=== PATIENT | male | born 1930 | race Caucasian/White ===

== ENCOUNTER 2016-09-19 11:09 | Emergency (ER) | payer OTHER ==
[~2016-09-19] VITALS: Ht 167.6 cm; Wt 99.8 kg
[~2016-09-19 11:09] MED LIST: ABSORBASE TOP; ADVAIR 250-501 EACH INH; ADVAIR DISKUS 21 DSK INH; ALBUTEROL1.25 MG/3 INH; ALLOPURINOL100 M1 PO; ALLOPURINOL100 MG PO; ANTIVERT 12.512.5 MG PO; APAP325 MG PO; ASPIR-TRIN325 MG PO; ASPIRIN325 M2 PO; ATORVASTATIN CA80 M1 PO; ATORVASTATIN CA80 MG PO; AXIRON30 MG/1.5; Apresoline PO; BLEPH-105 ML OPH; BREO ELLIPTA 11 EACH INH; COLACE100 MG PO; COREG 25 MG TAB25 MG PO; CRESTOR20 MG PO; CRESTOR40 MG PO; CYCLOBENZAPRINE5 M2 PO; DOCUSATE SODIU100 M3 PO; FLOMAX0.4 M1 PO; FLUTICASON0.05 MG/Ac NASB; FML LIQUIFILM OPH; FUROSEMIDE20 MG PO; GEMFIBROZIL600 MG PO; HUMALOG 100U100 U/ML; HUMALOG 100U100 U/ML SC; HUMALOG100 U/ML SC; HYDRALAZINE HCL25 MG PO; HYDRALAZINE HCL50 MG PO; LACTULOSE10 GM/15 M PO; LANTUS SOL100 UNIT/1 SC; LANTUS SOLOS100 U/ML SC; LANTUS100 U/ML SC; LEVEMIR100 UNIT/1 SC; LEVOCETIRIZINE D5 MG PO; LEXAPRO 20MG M20 MG PO; LISINOPRIL10 M1 PO; LISINOPRIL10 MG PO; LISINOPRIL20 MG PO; MECLIZINE HCL12.5 M1 PO; MIRALAX119 GM PO; MYRBETRIQ50 M1 PO; NASONEX17 GM NASB; NORCO 325 MG-51 TAB PO; NORVASC 5MG TAB5 MG PO; NOVOLOG100 UNIT/2 SC; OMEPRAZOLE20 M3 PO; OXYBUTYNIN CHLOR5 M2 PO; PATANASE0.6% NASB; PLAVIX 75MG TAB75 MG PO; RAPAFLO4 M1 PO; RAPAFLO8 MG PO; SENNA PLUS TAB1 EACH PO; SENOKOT S 50 MG1 TAB PO; SENOKOT-S TABL1 EACH PO; SINGULAIR10 MG PO; ULTRAM50 M1 PO; VITAMIN D250000 UNIT PO; VOLTAREN100 GM TOP; ZOFRAN ODT4 M1 SL
--- NOTE | 2016-09-19 11:16 | ED GENERAL ADULT ---
History of Present Illness General Chief Complaint: General Adult Stated Complaint: BIBA WEAKNESS,VOMITING Source: patient, EMS Exam Limitations: clinical condition, confusion Vital Signs & Intake/Output Vital Signs & Intake/Output Vital Signs Date Time Temp Pulse Resp B/P Pulse O2 O2 Flow FiO2 Ox Delivery Rate 09/19 1511 96.8 73 18 162/75 98 Room Air 09/19 1119 96.5 61 18 135/66 97 Room Air Allergies Coded Allergies: NO KNOWN ALLERGIES (05/15/16) Reconcile Medications Albuterol Sulfate (Albuterol Sulfate Nebulizer Soln) 1.25 MG/3 ML VIAL.NEB 1 PUFF INH TID PRN ASTHMA (Reported) Allopurinol 100 MG TABLET 1 TAB PO 0900 GOUT (Reported) Amlodipine Besylate 5 MG TABLET 1 TAB PO DAILY HEART (Reported) Aspirin (Aspirin*) 325 MG TABLET 1 TAB PO 1700 HEART/BLOOD (Reported) Atorvastatin Calcium 80 MG TABLET 1 TAB PO 1700 CHOLESTEROL (Reported) Azelastine/Fluticasone (Dymista Nasal Garrett) 137 MCG-50 MCG/SPRAY SPRAY.PUMP 1 SPRAY NASB BID PRN ALLERGIES (Reported) Bisacodyl (Dulcolax) 10 MG SUPP.RECT 1 SUP RC DAILY GI (Reported) Carvedilol (Coreg) 25 MG TABLET 1 TAB PO BID BLOOD PRESSURE (Reported) Cholecalciferol (Vitamin D3) (Vitamin D) 1,000 UNIT TABLET 1 TAB PO DAILY SUPPLEMENT (Reported) Clopidogrel Bisulfate (Plavix) 75 MG TABLET 75 MG PO DAILY STROKE Clotrimazole 1 % CREAM..G. 1 NAOMI TOP BID SKIN (Reported) apply to affected area(s) Cyclobenzaprine HCl 5 MG TABLET 1 TAB PO TIDPRN MUSCLE RELAXER (Reported) Ergocalciferol (Vitamin D2) (Vitamin D2) 50,000 UNIT CAPSULE 1 CAP PO QMON SUPPLEMENT (Reported) Escitalopram Oxalate (Lexapro 20MG) 20 MG TABLET 1 TAB PO DAILY DEPRESSION ( Reported) Fluticasone/Vilanterol (Breo Ellipta 100-25 Mcg INH) 100 MCG-25 MCG/DOSE BLST.W.DEV 1 PUFF INH BID COPD (Reported) Gemfibrozil 600 MG TABLET 1 TAB PO BID CHOLESTEROL/TRIGLYCERIDE (Reported) Insulin Detemir (Levemir) 100 UNIT/ML VIAL 8 UNITS SC BID dm Insulin Lispro (Humalog) (Unknown Strength) VIAL (Unknown Dose) SEE SLIDING SCALE DIABETES (Reported) Lisinopril 10 MG TABLET 2 TAB PO QAM BP (Reported) Mirabegron (Myrbetriq) 50 MG TAB.ER.24H 1 TAB PO DAILY BLADDER (Reported) Montelukast Sodium (Singulair) 10 MG TAB 1 TAB PO DAILY ALLERGIES (Reported) Omeprazole 20 MG TABLET.DR 1 TAB PO DAILY GI (Reported) Oxybutynin Chloride 5 MG TABLET 1 TAB PO 0900 BLADDER (Reported) Ranitidine HCl (Zantac) 150 MG TABLET 1 TAB PO BID GI (Reported) Tamsulosin HCl (Flomax) 0.4 MG CAP.ER.24H 1 CAP PO 1700 PROSTATE (Reported) Tramadol HCl (Ultram) 50 MG TABLET 1 TAB PO Q8H PRN PAIN (Reported) Trazodone HCl 50 MG TABLET 0.5 TAB PO DAILY PRN UNKNOWN (Reported) Triage Nurses Notes Reviewed? yes Onset: Abrupt Duration: hour(s): (1) Timing: single episode today Injury Environment: home Severity: moderate No Modifying Factors: none Associated Symptoms: weakness HPI: This is an 86-year-old male who presents by EMS from home for chief complaint of weakness and fall while attempting to go to the bathroom to have a bowel movement. Patient states that he was just not feeling good. Denies any chest pain or shortness breath. Denies any head trauma or loss of consciousness. Denies any headache or blurred vision. He appears to be somewhat weak. He states he ate breakfast this morning and then vomited twice after eating breakfast. No family members currently at bedside. He states he activated his only fine. Patient presented awake and alert but slightly confused. He was covered in stool which was brown and formed. Past History Travel History Traveled to [place] past 21 day No Medical History Any Pertinent Medical History? see below for history Neurological: CVA (CVA 2009, seen on MRI, see EMR), syncope thought d/t orthostasis 2009 (see EMR) EENT: cataracts, glaucoma, low vision Cardiovascular: aortic stenosis, CAD, hypertension, hyperlipidemia, carotid atherosclerosis, followed by Dr Cassidy since 2009 adm Respiratory: COPD, obstructive sleep apnea, pneumonia, USES CPAP Gastrointestinal: GERD Hepatic: NONE Renal: chronic kidney disease Musculoskeletal: degen joint disease, arthritis Psychiatric: depression Endocrine: diabetes, hypoglycemia Blood Disorders: anemia Cancer(s): prostate cancer BANK APPRAISER/Reproductive: NONE History of MRSA: No History of VRE: No History of CDIFF: No Tetanus Vaccine: 05/10/16 Surgical History Surgical History: BILAT KNEE REPLACEMENT CARDIAC STENT CAROTID ANGIOPLASTY carotid endarterectomy carotid endarterectomy on the right right carotid endarterectomy Psychosocial History Who do you live with Family Services at Home Home Health Aide, Nursing What is your primary language Japanese Family History Family History, If Any: MOTHER (diabetes and NE at age 65). FATHER (heart attack in 70's). SISTER, Age 60+. FH: dementia FH: Parkinson's disease FATHER Relation not specified for: FH: hypertension Hx Contributory? No Review of Systems Review of Systems Constitutional: Reports: malaise, weakness. Denies: chills, fever. EENTM: Reports: no symptoms. Respiratory: Denies: cough, short of breath. Cardiovascular: Denies: chest pain. GI: Reports: nausea, vomiting. Denies: abdominal pain. Genitourinary: Denies: discharge, dysuria. Musculoskeletal: Reports: no symptoms. Skin: Reports: no symptoms. Neurological/Psychological: Reports: no symptoms. Hematologic/Endocrine: Denies: bruising, bleeding, polyuria, polydipsia. Immunologic/Allergic: Denies: splenectomy. All Other Systems: Reviewed and Negative Physical Exam Physical Exam General Appearance: well developed/nourished, alert, awake, mild distress, obese Head: atraumatic, normal appearance Eyes: Bilateral: normal appearance, PERRL, EOMI. Ears, Nose, Throat: normal pharynx, normal ENT inspection Neck: normal inspection, supple, full range of motion Respiratory: normal breath sounds, chest non-tender, no respiratory distress Cardiovascular: regular rate/rhythm Peripheral Pulses: 2+ radial (R), 2+ radial (L) Gastrointestinal: soft, non-tender, OBESE Extremities: normal inspection, normal range of motion Neurologic/Psych: no motor/sensory deficits, awake, alert, oriented x 3 Skin: intact, normal color, pallor Core Measures ACS in differential dx? No CVA/TIA Diagnosis: No Severe Sepsis Present: No Septic Shock Present: No Progress Differential Diagnoses I considered the following diagnoses in my evaluation of the patient: [CVA, TIA, SEPSIS, PNEUMONIA, UTI, SBO, ISCHEMIC BOWEL, AMI] Plan of Care: Orders Procedure Date/time Status Consistent Carbohydrate 1 09/19 D Active LACTIC ACID 09/19 1436 Active BLOOD CULTURE 09/19 1143 Active URINALYSIS 09/19 1136 Complete TROPONIN LEVEL 09/19 1136 Complete LACTIC ACID 09/19 1136 Complete COMPREHENSIVE METABOLIC PANEL 09/19 1136 Complete CBC WITHOUT DIFFERENTIAL 09/19 1136 Complete EKG 09/19 1136 Active Laboratory Tests 09/19/16 1516: Urinalysis LIGHT H, Urine Color YEL, Urine Clarity CLEAR, Urine pH 6.0, Ur Specific [place] 1.025, Urine Protein >=300 H, Urine Ketones NEG, Urine Nitrite NEG, Urine Bilirubin NEG, Urine Urobilinogen 0.2, Ur Leukocyte Esterase NEG, Ur Microscopic SEDIMENT EXAMINED, Urine RBC 1-3, Urine WBC 5-10 H, Ur Epithelial Cells RARE, Hyaline Casts 3-5 H, Granular Casts 1-3 H, Urine Mucus FEW, Urine Hemoglobin TRACE-LYSED H, Urine Glucose NEG 09/19/16 1200: Anion Gap 12, Estimated GFR 25 L, BUN/Creatinine Ratio 18.4, Glucose 86, Lactic Acid 1.0, Calcium 8.0 L, Total Bilirubin 0.6, AST 14 L, ALT 25, Alkaline Phosphatase 151 H, Troponin I 0.01, Total Protein 6.3, Albumin 3.3 L, Globulin 3.0, Albumin/Globulin Ratio 1.1, CBC w Diff NO MAN DIFF REQ, RBC 3.62 L, MCV 84.1, MCH 29.3, RDW 14.8 H, MPV 6.5 L, Gran % 75.4 H, Lymphocytes % 11.9 L, Monocytes % 8.5, Eosinophils % 4.0, Basophils % 0.2, Absolute Granulocytes 3.7, Absolute Lymphocytes 0.6 L, Absolute Monocytes 0.4, Absolute Eosinophils 0.2, Absolute Basophils 0, PUBS MCHC 34.8 Microbiology 09/19 1200 BLOOD: Blood Culture - RECD 09/19 1200 BLOOD: Blood Culture - RECD Patient feeling much bettera after fluids andwas able to eat lunch. Back to baseline per patient and his son. He will follow up with his PCP outpatient. (GATO CERRATO,GUSTAVO) Diagnostic Imaging: Viewed by Me: Radiology Read. Discussed w/RAD: Radiology Read. CXR Impression: PATIENT: KEVIN PATEL PRESENT AGE: 86 PATIENT ACCOUNT NO: [id number] : 32 LOCATION: [facility] ORDERING PHYSICIAN: GUSTAVO HOSKINS MD SERVICE DATE: 09/19/16 EXAM TYPE: RAD - XRY -PORTABLE CHEST XRAY EXAMINATION: XR PORTABLE CHEST CLINICAL INFORMATION: Weakness and fall. Evaluate for pneumonia. COMPARISON: CXR from 09/09/2015 TECHNIQUE: Portable view of the chest was obtained. FINDINGS: The patient's known right lower lobe pulmonary nodule is not visualized on this study. The right diaphragm is chronically, mildly elevated. The cardiomediastinal silhouette has stable size and contour. There is stable prominence of the right paracardiac fat pad. The aorta has atherosclerotic calcification. There is no acute pulmonary consolidation, edema or pleural effusion. Surgical clips are present in the right lower neck. The visualized bones are unremarkable. IMPRESSION: No acute cardiopulmonary findings compared to the chest radiograph of 09/09/2015. DICTATED BY: DARYL GONSALES MD DATE/TIME DICTATED:09/19/161318 SIDE STAPLER:ROC DATE/TIME TRANSCRIBED:09/19/161318 CONFIDENTIAL, DO NOT COPY WITHOUT APPROPRIATE AUTHORIZATION. <Electronically signed in Other Vendor System> SIGNED BY: DARYL GONSALES MD 09/19/16 1327 Initial ED EKG: NSR Departure Departure Time of Disposition: 155 Disposition: HOME OR SELF CARE Condition: Stable Clinical Impression Primary Impression: Weakness Referrals: ISAAC MAYERS MD (PCP/Family) Additional Instructions: Follow up with your primary care doctor in the office. REturn as needed. Departure Forms: Customer Survey General Discharge Information Critical Care Note Critical Care Note Critical Care Time: 30-74 min
[2016-09-19 12:12] LABS: ABSOLUTE BASOPHIL COUNT 0 /CUMM (0.0-0.2); ABSOLUTE EOSINOPHIL COUNT 0.2 /CUMM (0.0-0.7); ABSOLUTE GRANULOCYTE CT 3.7 /CUMM (1.4-6.5); ABSOLUTE LYMPH COUNT 0.6 /CUMM (1.2-3.4); ABSOLUTE MONOCYTE COUNT 0.4 /CUMM (0.10-0.60); BASOPHIL % 0.2 % (0.0-2.0); GRANULOCYTE % 75.4 % (42.2-75.2); HEMATOCRIT 30.4 % (42-52); MEAN CORPUSCULAR HGB 29.3 PG (27.0-31.0); MEAN CORPUSCULAR HGB CONC 34.8 G/DL (33.0-37.0); MEAN CORPUSCULAR VOLUME 84.1 FL (80.0-94.0); MEAN PLATELET VOLUME 6.5 FL (7.4-10.4); PLATELET COUNT 212 /CUMM (130-400); RBC DISTRIBUTION WIDTH 14.8 % (11.5-14.5); RED BLOOD CELL CT 3.62 /CUMM (4.70-6.10); WHITE BLOOD CELL COUNT 4.9 /CUMM (4.8-10.8)
[2016-09-19] MEDS ORDERED: AMLODIPINE BESYL5 M1 PO (12:36)
[2016-09-19] MEDS ORDERED: DULCOLAX10 M1 RC (12:38)
[2016-09-19] MEDS ORDERED: CLOTRIMAZOLE15 GM TOP (12:38)
[2016-09-19] MEDS ORDERED: DYMISTA NASAL S23 GM NASB (12:39)
[2016-09-19] MEDS ORDERED: MYRBETRIQ50 M1 PO (12:40)
[2016-09-19] MEDS ORDERED: HUMALOG100 UNIT/2 (12:40)
[2016-09-19] MEDS ORDERED: TRAZODONE HCL50 M1 PO (12:41)
[2016-09-19] MEDS ORDERED: ZANTAC150 M1 PO (12:42)
[2016-09-19] MEDS ORDERED: VITAMIN D1000 UNIT PO (12:42)
--- NOTE | 2016-09-19 13:27 | RADIOLOGY REPORT ---
EXAMINATION: XR PORTABLE CHEST CLINICAL INFORMATION: Weakness and fall. Evaluate for pneumonia. COMPARISON: CXR from 09/09/2015 TECHNIQUE: Portable view of the chest was obtained. FINDINGS: The patient's known right lower lobe pulmonary nodule is not visualized on this study. The right diaphragm is chronically, mildly elevated. The cardiomediastinal silhouette has stable size and contour. There is stable prominence of the right paracardiac fat pad. The aorta has atherosclerotic calcification. There is no acute pulmonary consolidation, edema or pleural effusion. Surgical clips are present in the right lower neck. The visualized bones are unremarkable. IMPRESSION: No acute cardiopulmonary findings compared to the chest radiograph of 09/09/2015.
[2016-09-19 15:11] VITALS: BP 162/75
== END 2016-09-19 16:13 ==
LOC: ERH 11:09
PROVIDERS: Emergency Medicine
DX: R53.1 Weakness (principal)
CPT/HCPCS: 81001; 87040; 93005; 93010; 96360; 96361

== ENCOUNTER 2016-10-18 11:05 | Inpatient (IN) | payer OTHER ==
[~2016-10-18] VITALS: Ht 165.1 cm; Wt 100.7 kg
[~2016-10-18 11:05] MED LIST changes: +AMLODIPINE BESYL5 M1 PO; +CLOTRIMAZOLE15 GM TOP; +DULCOLAX10 M1 RC; +DYMISTA NASAL S23 GM NASB; +HUMALOG100 UNIT/2; +TRAZODONE HCL50 M1 PO; +VITAMIN D1000 UNIT PO; +ZANTAC150 M1 PO
--- NOTE | 2016-10-18 11:10 | ED DYSPNEA/ASTHMA COMPLAINT ---
History of Present Illness General Chief Complaint: Dyspnea (COPD, CHF, Other) Stated Complaint: SOB Source: patient, old records, EMS Exam Limitations: no limitations Vital Signs & Intake/Output Vital Signs & Intake/Output Vital Signs Date Time Temp Pulse Resp B/P Pulse O2 O2 Flow FiO2 Ox Delivery Rate 10/18 1744 98 Nasal 2.0L Cannula 10/18 1744 87 20 167/88 97 Nasal 2.0L Cannula 10/18 1626 94 Room Air 10/18 1626 82 24 167/72 94 Room Air 10/18 1329 97.5 73 18 156/79 97 Nasal 2.0L Cannula 10/18 1200 96 Nasal 2.0L Cannula 10/18 1117 97.2 88 24 147/67 95 Room Air Allergies Coded Allergies: NO KNOWN ALLERGIES (05/15/16) Triage Nurses Notes Reviewed? 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 There's been no fever chills nausea vomiting or diarrhea. Episodes since the patient is been poor and lethargic than normal since the cough began. No sick contacts no modifying factors. He denies worsening of his symptoms with ambulation. He denies leg swelling. There are no other associated symptoms or modifying factors otherwise. He does not smoke he is not currently on home O2 (BACILIO MARKS) Reconcile Medications Albuterol Sulfate 1.25 MG/3 ML VIAL.NEB 1 Vial INH/CHARISSA Q4-6 PRN SOB (Reported ) Allopurinol 100 MG TABLET 1 TAB PO 0900 GOUT (Reported) Amlodipine Besylate 5 MG TABLET 1 TAB PO DAILY HEART (Reported) Aspirin (Aspirin*) 325 MG TABLET 1 TAB PO 1700 HEART/BLOOD (Reported) Atorvastatin Calcium 80 MG TABLET 1 TAB PO 1700 CHOLESTEROL (Reported) Carvedilol 25 MG TABLET 1 TAB PO BID HTN (Reported) Clopidogrel Bisulfate (Plavix) 75 MG TABLET 75 MG PO DAILY STROKE Diclofenac Sodium (Voltaren) 1 % GEL..GRAM. 1 GM TOP 4 TIMES/DAY PAIN ( Reported) apply to affected area(s) Ergocalciferol (Vitamin D2) (Vitamin D2) 50,000 UNIT CAPSULE 50,000 UNITS PO WEEKLY MONDAY VITAMIN (Reported) Escitalopram Oxalate (Lexapro) 20 MG TABLET 1 TAB PO DAILY ANXIETY (Reported) Fluticasone/Vilanterol (Breo Ellipta 100-25 Mcg INH) 100 MCG-25 MCG/DOSE BLST.W.DEV 1 PUFF INH BID COPD (Reported) Gemfibrozil 600 MG TABLET 1 TAB PO BID CHOL (Reported) Insulin Detemir (Levemir) 100 UNIT/ML VIAL 8 UNITS SC BID dm Lisinopril 10 MG TABLET 2 TAB PO QAM BP (Reported) Montelukast Sodium (Singulair) 10 MG TAB 1 TAB PO DAILY ALLERGIES (Reported) Polyethylene Glycol 3350 (Miralax) 17 GRAM POWD.PACK 1 PAC PO DAILY CONSTIPATION (Reported) dissolve in water Tamsulosin HCl (Flomax) 0.4 MG CAP.ER.24H 1 CAP PO 1700 PROSTATE (Reported) (FOREIGN ROYAL DO) Past History Travel History Traveled to [place] past 21 day No Medical History Any Pertinent Medical History? see below for history Neurological: CVA (CVA 2009, seen on MRI, see EMR), syncope thought d/t orthostasis 2009 (see EMR) EENT: cataracts, glaucoma, low vision Cardiovascular: aortic stenosis, CAD, hypertension, hyperlipidemia, carotid atherosclerosis, followed by Dr Cassidy since 2009 adm Respiratory: COPD, obstructive sleep apnea, pneumonia, USES CPAP Gastrointestinal: GERD Hepatic: NONE Renal: chronic kidney disease Musculoskeletal: degen joint disease, arthritis Psychiatric: depression Endocrine: diabetes, hypoglycemia Blood Disorders: anemia Cancer(s): prostate cancer MANUSCRIPTS CURATOR/Reproductive: NONE History of MRSA: No History of VRE: No History of CDIFF: No Tetanus Vaccine: 05/10/16 Surgical History Surgical History: BILAT KNEE REPLACEMENT CARDIAC STENT CAROTID ANGIOPLASTY carotid endarterectomy carotid endarterectomy on the right right carotid endarterectomy Psychosocial History Who do you live with Family Services at Home Home Health Aide, Nursing What is your primary language Faroese Tobacco Use: Never used Family History Family History, If Any: MOTHER (diabetes and PA at age 65). FATHER (heart attack in 70's). SISTER, Age 60+. FH: dementia FH: Parkinson's disease FATHER Relation not specified for: FH: hypertension Hx Contributory? No (BACILIO MARKS) Review of Systems Review of Systems Constitutional: Reports: see HPI. All Other Systems: Reviewed and Negative Comments Review of systems: See HPI, All other systems negative. Constitutional, no chills no fever, no malaise no weight loss HEENT: No visual changes no sore throat no congestion, no ear pain Cardiovascular: chest pain , no palpitation , no orthopnea no ankle swelling Skin, no rashes, no change in skin Respiratory: No dyspnea cough no sputum no hemoptysis GI: No nausea no vomiting, no diarrhea, : No dysuria No hematuria, no frequency Muscle skeletal: No joint pain, no joint swelling, no back pain, no neck pain, Neurologic: no headache Psych: No stress Heme/endocrine: No bruising no bleeding Immunology: No lymphadenopathy, (BACILIO MARKS) Physical Exam Physical Exam General Appearance: well developed/nourished, alert, awake Respiratory: chest non-tender, no respiratory distress Comments: Well-developed well-nourished person in no acute distress HEENT: Normal EENT exam; PERRL, EOMI, HEAD is atraumatic. moist mucous membranes. Neck: Supple, normal range of motion Back: Nontender, no CVA tenderness. Full range of motion Cardiovascular: Regular rate and rhythms no murmurs rubs or gallops, normal JVP Respiratory: Chest nontender.There were no bony deformities, no asymmetry. No respiratory distress. Patient speaking in full complete sentences. Breath sounds clear to auscultation bilaterally: NO W/R/R Abdomen: Soft, nontender nondistended, no appreciable organomegaly. Normal bowel sounds. No rebound/guarding, No appreciable enlargement of the abdominal aorta, No ascites. Extremity: No edema, full range of motion of extremities, Neuro: Alert oriented x3, motor sensory normal,There were no obvious focal neurologic abnormalities. Skin: No appreciable rash on exposed skin, skin is warm and dry. Psych: Mood and affect is normal, memory and judgment is normal. Core Measures ACS in differential dx? Yes Severe Sepsis Present: No Septic Shock Present: No (BACILIO MARKS) Progress Differential Diagnosis: asthma, AMI, bronchitis, costochondritis, CHF, COPD, musculoskeletal pain, pericarditis, pulmonary embolism, pneumonia, unstable angina Plan of Care: Orders Procedure Date/time Status CBC WITHOUT DIFFERENTIAL 10/19 0600 Active BASIC ELECTROLYTES PLUS BUN&CR 10/19 0600 Active Consistent Carbohydrate 2 10/18 D Active TROPONIN LEVEL 10/18 1900 Active Vital Signs 10/18 1743 Active Teach/Educate 10/18 1743 Active Nutritional Intake, Monitor 10/18 1743 Active Isolation 10/18 1743 Active Intake & Output 10/18 1743 Active Patient Care Conference 10/18 1743 Active Activity/Ambulation 10/18 1743 Active Pathway - chart 10/18 1715 Active STREP PNEUMO URINARY ANTIGEN 10/18 1706 Active LEGIONELLA URINARY ANTIGEN 10/18 1706 Active LOWER RESPIRATORY CULTURE 10/18 1706 Active URINALYSIS 10/18 1706 Active TRC EVALUATION (GEN) 10/18 1507 Active Pathway - chart 10/18 1504 Active House Staff 10/18 1504 Active Admit to inpatient 10/18 1437 Active Vital Signs 10/18 1437 Active Code Status 10/18 1437 Complete Code Status 10/18 1437 Active Patient Data 10/18 1354 Active BLOOD CULTURE 10/18 1212 Active Telemetry/Ironworker Machine Operator 10/18 1121 Complete BLOOD CULTURE 10/18 1121 Active TROPONIN LEVEL 10/18 1119 Complete PROTHROMBIN TIME 10/18 1119 Complete COMPREHENSIVE METABOLIC PANEL 10/18 1119 Complete CBC WITHOUT DIFFERENTIAL 10/18 1119 Complete B-TYPE NATRIURETIC PEP (BNP) 10/18 1119 Complete EKG 10/18 1119 Active CONTIN. POSITIVE AIRWAY PRESS 10/18 UNK Active ARTERIAL BLOOD GAS (GEN) 10/18 UNK Active VTE Mechanical Prophylaxis 10/18 UNK Active Intake & Output 10/18 UNK Active FingerStick- Glucose 10/18 UNK Active PHYSICIAN CONSULT 10/18 UNK Active Current Medications Sig/Reyna Start time Last Medication Dose Stop Time Status Admin Ergocalciferol 50,000 IU Mo 10/24 1000 AC (Drisdol) Atorvastatin Calcium 80 MG 1700 10/19 1700 AC (Lipitor) Tamsulosin HCl 0.4 MG 1700 10/19 1700 AC (Flomax) Amlodipine Besylate 5 MG DAILY 10/19 1000 AC (Norvasc) Azithromycin 500 MG DAILY 10/19 1000 AC (Zithromax) Dextrose/Water 250 ML (D5W) Ceftriaxone Sodium 1,000 MG DAILY 10/19 1000 AC (Rocephin) Escitalopram Oxalate 20 MG DAILY 10/19 1000 AC (Lexapro) Lisinopril 20 MG QAM 10/19 1000 AC (Prinivil) Allopurinol 100 MG 0900 10/19 0900 AC (Zyloprim) Insulin Aspart 0 TIDAC 10/19 0800 AC (NovoLOG) Methylprednisolone 40 MG Q8 10/19 0600 AC (Solumedrol) Budesonide/ 2 PUF BID 10/18 2200 AC Formoterol Fumarate (SYMBICORT) Carvedilol 25 MG BID 10/18 2200 AC (Coreg) Gemfibrozil 600 MG BID 10/18 2200 AC (Lopid 600 MG Tab) Insulin Detemir 8 UNITS BID 10/18 2200 AC (Levemir) Diclofenac Sodium 1 NAOMI 4 TIMES/DAY 10/18 1800 AC (Voltaren 1% Gel) Heparin Sodium 5,000 UNIT Q8 10/18 1743 AC (Porcine) Acetaminophen 650 MG Q6P PRN 10/18 1715 AC (Tylenol) Morphine Sulfate 2 MG Q4P PRN 10/18 1715 AC (Morphine) Oxycodone/ 1 TAB Q6 PRN 10/18 1715 AC Acetaminophen (Percocet) Polyethylene Glycol 17 GM DAILY PRN 10/18 1715 AC (Miralax) Aspirin 325 MG 1700 10/18 1700 AC (Aspirin) Albuterol Sulfate 3 ML Q4P PRN 10/18 1645 AC (Proventil) Laboratory Tests 10/18/16 1235: Anion Gap 11, Estimated GFR 26 L, BUN/Creatinine Ratio 17.5, Glucose 200 H, Calcium 7.6 L, Total Bilirubin 0.5, AST 15 L, ALT 28, Alkaline Phosphatase 185 H, Troponin I 0.06, Buw-S-Vsiicotpqkh Pept 1310 H, Total Protein 5.8 L, Albumin 2.9 L, Globulin 2.9, Albumin/Globulin Ratio 1.0 L, PT 12.7 H, INR 1.21 H, CBC w Diff NO MAN DIFF REQ, RBC 3.54 L, MCV 84.3, MCH 28.5, RDW 15.9 H, MPV 6.6 L, Gran % 76.1 H, Lymphocytes % 10.7 L, Monocytes % 10.9 H, Eosinophils % 2.1, Basophils % 0.2, Absolute Granulocytes 4.8, Absolute Lymphocytes 0.7 L, Absolute Monocytes 0.7 H, Absolute Eosinophils 0.1, Absolute Basophils 0, PUBS MCHC 33.8 Microbiology 10/18 1705 URINE ROUT: Legionella Antigen - COLB 10/18 1705 URINE ROUT: Streptococcus pneumoniae Antigen (M - COLB 10/18 1705 LOWER RESP: Respiratory Culture - COLB 10/18 170 LOWER RESP: Gram Stain - COLB 10/18 1250 BLOOD: Blood Culture - RECD 10/18 1235 BLOOD: Blood Culture - RECD Labs ordered old records reviewed DuoNeb ordered On repeat evaluation patient reports improvement in his symptoms with breathing treatment discussed with him and his son his x-ray findings and need for admission which they're in agreement with. The case was discussed with Patient's creatinine is at his baseline. (BERE APPLE,BACILIO) Diagnostic Imaging: Viewed by Me: Radiology Read. Discussed w/RAD: Radiology Read. Radiology Impression: PATIENT: KEVIN PATEL PRESENT AGE: 86 PATIENT ACCOUNT NO: [id number] : 32 LOCATION: [facility] ORDERING PHYSICIAN: BACILIO APPLE SERVICE DATE: 10/18/16 EXAM TYPE: RAD - XRY-CHEST XRAY, PA AND LATERAL EXAMINATION: XR CHEST CLINICAL INFORMATION: Short of breath, evaluate for CHF or pneumonia. COMPARISON: 05/10/2016. TECHNIQUE: 2 views of the chest were obtained. FINDINGS: Heart size is upper limits normal. There is moderate atherosclerotic aortic calcification. There is new right lower lobe consolidative opacity involving the posterior and medial segments of the right lower lobe concerning for pneumonia. There may be a small amount of infiltrate in the right middle lobe as well. Follow-up to clearing is recommended. There is no evidence of pneumothorax or pulmonary edema. Included osseous structures appear largely unremarkable. IMPRESSION: Right lower lobe infiltrate suggesting pneumonia,, question right middle lobe involvement as well. Follow-up to clearing is recommended. DICTATED BY: MIKE ROUSE MD DATE/TIME DICTATED:10/18/161200 ADJUNCT PHILOSOPHY FACULTY:ROC DATE/TIME TRANSCRIBED:02/14/17 / 1201 CONFIDENTIAL, DO NOT COPY WITHOUT APPROPRIATE AUTHORIZATION. <Electronically signed in Other Vendor System> SIGNED BY: MIKE ROUSE MD 10/18/16 1207 Initial ED EKG: NORMAL SINUS AT 70, NO ACUTE st SEGMENT CHANGES NORMAL AXIS Prior EKG: unchanged (09/2016) (BACILIO MARKS) Departure Departure Time of Disposition: 1354 Disposition: STILL A PATIENT Condition: Stable Clinical Impression Primary Impression: PNA (pneumonia) Referrals: ISAAC MAYERS MD (PCP/Family) Departure Forms: Customer Survey General Discharge Information Admission Note Spoke With: MARIA G ESTES MD Documentation of Exam: Documentation of any treatments & extenuating circumstances including Concerns Regarding Discharge (functional status, medication knowledge or non-compliance, living conditions, etc.) that warrant an admission rather than observation: [ Patient will require IV antibiotics IV steroids trend labs pulmonology consult cardiology consult trend labs and troponin premature discharge would BE medically harmful (BACILIO MARKS) PA/SCHOOL BUSINESS ADMINISTRATOR Co-Sign Statement Statement: ED Attending supervision documentation- [X] I saw and evaluated the patient. I have also reviewed all the pertinent lab results and diagnostic results. I agree with the findings and the plan of care as documented in the PA's/SCHOOL BUSINESS ADMINISTRATOR's documentation. [] I have reviewed the ED Record and agree with the PA's/SCHOOL BUSINESS ADMINISTRATOR's documentation. [] Additions or exceptions (if any) to the PAs/SCHOOL BUSINESS ADMINISTRATOR's note and plan are summarized below: [] (FOREIGN ROYAL DO) Critical Care Note Critical Care Note Critical Care Time: non-applicable (BACILIO MARKS)
--- NOTE | 2016-10-18 11:16 | NUR ---
INCREASED SOB OVER LAST 2 DAYS, ALSO COUGH NONPRODUCTIVE X 2 DAYS. NO ACUTE DISTRESS.
--- NOTE | 2016-10-18 12:07 | RADIOLOGY REPORT ---
EXAMINATION: XR CHEST CLINICAL INFORMATION: Short of breath, evaluate for CHF or pneumonia. COMPARISON: 05/10/2016. TECHNIQUE: 2 views of the chest were obtained. FINDINGS: Heart size is upper limits normal. There is moderate atherosclerotic aortic calcification. There is new right lower lobe consolidative opacity involving the posterior and medial segments of the right lower lobe concerning for pneumonia. There may be a small amount of infiltrate in the right middle lobe as well. Follow-up to clearing is recommended. There is no evidence of pneumothorax or pulmonary edema. Included osseous structures appear largely unremarkable. IMPRESSION: Right lower lobe infiltrate suggesting pneumonia,, question right middle lobe involvement as well. Follow-up to clearing is recommended.
--- NOTE | 2016-10-18 12:43 | NUR ---
PT BLOOD SENT TO THE LAB S[facility],ALLEN,BLUE
[2016-10-18 12:51] LABS: ABSOLUTE BASOPHIL COUNT 0 /CUMM (0.0-0.2); ABSOLUTE EOSINOPHIL COUNT 0.1 /CUMM (0.0-0.7); ABSOLUTE GRANULOCYTE CT 4.8 /CUMM (1.4-6.5); ABSOLUTE LYMPH COUNT 0.7 /CUMM (1.2-3.4); ABSOLUTE MONOCYTE COUNT 0.7 /CUMM (0.10-0.60); BASOPHIL % 0.2 % (0.0-2.0); EOSINOPHIL % 2.1 % (0-5); GRANULOCYTE % 76.1 % (42.2-75.2); MEAN CORPUSCULAR HGB 28.5 PG (27.0-31.0); MEAN CORPUSCULAR HGB CONC 33.8 G/DL (33.0-37.0); MEAN PLATELET VOLUME 6.6 FL (7.4-10.4); PLATELET COUNT 185 /CUMM (130-400); RBC DISTRIBUTION WIDTH 15.9 % (11.5-14.5); RED BLOOD CELL CT 3.54 /CUMM (4.70-6.10); WHITE BLOOD CELL COUNT 6.3 /CUMM (4.8-10.8)
[2016-10-18 12:53] LABS: HEMATOCRIT 29.8 % (42-52); MEAN CORPUSCULAR VOLUME 84.3 FL (80.0-94.0)
[2016-10-18 12:58] LABS: PT 12.7 SEC (9.4-12.5)
--- NOTE | 2016-10-18 13:16 | NUR ---
LOOSE NON PRODUCTIVE COUGH. PT ALERT MENTATING WELL. ANTIBIOTICS HUNG..
[2016-10-18] MEDS ORDERED: CARVEDILOL25 M1 PO (13:23)
[2016-10-18] MEDS ORDERED: ALBUTEROL1.25 MG/1 INH/SOL (13:23)
[2016-10-18] MEDS ORDERED: VOLTAREN100 GM TOP (13:24)
[2016-10-18] MEDS ORDERED: VITAMIN D250000 UNIT PO (13:24)
[2016-10-18] MEDS ORDERED: LEXAPRO20 M1 PO (13:25)
[2016-10-18] MEDS ORDERED: GEMFIBROZIL600 M1 PO (13:25)
[2016-10-18] MEDS ORDERED: MIRALAX17 G1 PO (13:25)
--- NOTE | 2016-10-18 13:32 | NUR ---
TO BE ADMITTED. PT WITHOUT CP REMAINS SOB AT REST. ALTHOUGH NOT LABORED.
--- NOTE | 2016-10-18 13:44 | NUR ---
FOOD TRAY ORDERED
--- NOTE | 2016-10-18 14:56 | NUR ---
ATE DINNER AWAITS BED.
--- NOTE | 2016-10-18 14:59 | History & Physical ---
SLADE KING 10/18/16 1459: General Information and HPI MD Statement: I have seen and personally examined KEVIN PATEL and documented this H&P. The patient is a 86 year old M who presented with a patient stated chief complaint of shortness of breath. Source of Information: patient, old records Exam Limitations: no limitations History of Present Illness: Mr Patel is an 86-year-old man who was known to be in his usual state of health until 2 days ago. 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 for evaluation of CVA in 2015. He was brought to [facility] with a chief concern of shortness of breath, cough 2 days. As per the patient, he had shortness of breath 2 days, progress from shortness of breath while doing daily chores to shortness of breath at rest. Has not been mobile in the last 24 hours. Also was concerned about cough, nonproductive which worsened in the last 1 day. Reports chest discomfort, tightness in the center of the chest, mostly associated with cough, no radiation. No chest discomfort at the time of interview. Reports one episode of vomiting, on the day of admission to the hospital. No abdominal pain, change in bladder or bowel function. No loss of consciousness, lightheadedness or seizures noted. No pedal edema, palpitations, orthopnea/PND noted. Uses a walker for mobility, lives with family. Not a current smoker. Reports residual right-sided weakness. Patient sees Dr. Canada (vessel scrapper helper), Dr. Cassidy (vascular surgeon), Dr. Booth (two needle machine operator). Allergies/Medications Allergies: Coded Allergies: NO KNOWN ALLERGIES (05/15/16) Home Med list Albuterol Sulfate 1.25 MG/3 ML VIAL.NEB 1 Vial INH/CHARISSA Q4-6 PRN SOB (Reported ) Allopurinol 100 MG TABLET 1 TAB PO 0900 GOUT (Reported) Amlodipine Besylate 5 MG TABLET 1 TAB PO DAILY HEART (Reported) Aspirin (Aspirin*) 325 MG TABLET 1 TAB PO 1700 HEART/BLOOD (Reported) Atorvastatin Calcium 80 MG TABLET 1 TAB PO 1700 CHOLESTEROL (Reported) Carvedilol 25 MG TABLET 1 TAB PO BID HTN (Reported) Clopidogrel Bisulfate (Plavix) 75 MG TABLET 75 MG PO DAILY STROKE Diclofenac Sodium (Voltaren) 1 % GEL..GRAM. 1 GM TOP 4 TIMES/DAY PAIN ( Reported) apply to affected area(s) Ergocalciferol (Vitamin D2) (Vitamin D2) 50,000 UNIT CAPSULE 50,000 UNITS PO WEEKLY MONDAY VITAMIN (Reported) Escitalopram Oxalate (Lexapro) 20 MG TABLET 1 TAB PO DAILY ANXIETY (Reported) Fluticasone/Vilanterol (Breo Ellipta 100-25 Mcg INH) 100 MCG-25 MCG/DOSE BLST.W.DEV 1 PUFF INH BID COPD (Reported) Gemfibrozil 600 MG TABLET 1 TAB PO BID CHOL (Reported) Insulin Detemir (Levemir) 100 UNIT/ML VIAL 8 UNITS SC BID dm Lisinopril 10 MG TABLET 2 TAB PO QAM BP (Reported) Montelukast Sodium (Singulair) 10 MG TAB 1 TAB PO DAILY ALLERGIES (Reported) Polyethylene Glycol 3350 (Miralax) 17 GRAM POWD.PACK 1 PAC PO DAILY CONSTIPATION (Reported) dissolve in water Tamsulosin HCl (Flomax) 0.4 MG CAP.ER.24H 1 CAP PO 1700 PROSTATE (Reported) Compliance With Home Meds: GOOD Past History Travel History Traveled to [place] past 21 day No Medical History Neurological: CVA (CVA 2009, seen on MRI, see EMR), syncope thought d/t orthostasis 2009 (see EMR) EENT: cataracts, glaucoma, low vision Cardiovascular: aortic stenosis, CAD, hypertension, hyperlipidemia, carotid atherosclerosis, followed by Dr Cassidy since 2009 adm Respiratory: COPD, obstructive sleep apnea, pneumonia, USES CPAP Gastrointestinal: GERD Hepatic: NONE Renal: chronic kidney disease Musculoskeletal: degen joint disease, arthritis Psychiatric: depression Endocrine: diabetes, hypoglycemia Blood Disorders: anemia Cancer(s): prostate cancer FEED MILL LAB TECHNICIAN/Reproductive: NONE History of MRSA: No History of VRE: No History of CDIFF: No Tetanus Vaccine: 05/10/16 Surgical History Surgical History: BILAT KNEE REPLACEMENT CARDIAC STENT CAROTID ANGIOPLASTY carotid endarterectomy carotid endarterectomy on the right right carotid endarterectomy Past Family/Social History Family History Relations & Conditions if any MOTHER (diabetes and MT at age 65). FATHER (heart attack in 70's). SISTER, Age 60+. FH: dementia FH: Parkinson's disease FATHER Relation not specified for: FH: hypertension Psychosocial History Who Do You Live With? child Services at Home: Home Health Aide, Nursing Primary Language: [place] Functional Ability ADLs Needs Assist: bathing. Ambulation: cane, walker IADLs Needs Assist: shopping, housework, food prep, transportation. Review of Systems Review of Systems Constitutional: Reports: weakness. Denies: chills, fever. EENTM: Denies: visual changes. Cardiovascular: Denies: chest pain, palpitations, peripheral edema. Respiratory: Reports: cough, short of breath, wheezing. Denies: orthopnea, sputum production. GI: Denies: diarrhea, melena, bloody stool. Genitourinary: Denies: dysuria. Musculoskeletal: Reports: back pain. Skin: Denies: change in hair/nails, erythema. Neurological/Psychological: Denies: numbness, paresthesia, tingling, tremors. Hematologic/Endocrine: Denies: bruising, bleeding. Exam & Diagnostic Data Last 24 Hrs of Vital Signs/I&O Vital Signs Date Time Temp Pulse Resp B/P Pulse O2 O2 Flow FiO2 Ox Delivery Rate 10/18 2050 99.8 10/18 2006 87 167/88 10/18 1800 98.3 10/18 1800 97 Nasal 2.5L Cannula 10/18 1744 98 Nasal 2.0L Cannula 10/18 1744 87 20 167/88 97 Nasal 2.0L Cannula 10/18 1626 94 Room Air 10/18 1626 82 24 167/72 94 Room Air 10/18 1329 97.5 73 18 156/79 97 Nasal 2.0L Cannula 10/18 1200 96 Nasal 2.0L Cannula 10/18 1117 97.2 88 24 147/67 95 Room Air Intake & Output 10/18 1600 10/18 0800 10/18 0000 Intake Total 300 Output Total Balance 300 Intake, IV 300 Patient 220 lb Weight Physical Exam General Appearance Alert, Oriented X3, Cooperative Skin No Rashes, No Breakdown HEENT Atraumatic, PERRLA, EOMI, Mucous Membr. moist/pink Neck Supple, No JVD, No thryomegaly, +2 Carotid Pulse wo Bruit, No LAD Lymphatic Cervical nl Cardiovascular Regular Rate, Normal S1, Normal S2, grade 2/6 systolic murmur Lungs low entry bilaterally, bilateral rhonchi, rales Abdomen Normal Bowel Sounds, Soft, No Tenderness, No Hepatospenomegaly Neurological Normal Speech, Normal Tone, Sensation Intact, Cranial Nerves 3-12 NL, Reflexes 2+, strength 4/5 right upper and lower extremity Strength 5/5 left upper and lower extremity Extremities No Clubbing, No Cyanosis, No Edema, Normal Pulses Vascular Normal Pulses, Pulses Symmetrical Assessment/Plan Assessment: He is an older man with a past history of CVA, coronary artery disease, type 2 diabetes, stage IV CKD, is being evaluated for acute onset of shortness of breath, cough 2 days. At the time of admission, vitals-temperature 97.2, pulse rate 88, respiratory 24 , blood pressure 147/67, pulse ox 95% on room air. 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 ProBNP 1310 (slight elevation) Radiological findings indicated-chest x-ray right lobe infiltrate suggestive of pneumonia, extension into right middle lobe noted. CAT scan chest without contrast revealed consolidation or atelectasis of right lung base. Interstitial spread of right lower lobe was noted. Also was noted lymphadenopathy. Last echocardiogram-showed ejection fraction of about 60% with impaired ventricular relaxation. EKG revealed normal sinus rhythm heart rate 70, MI interval 201, QTc 453, no ST- T wave changes were found. Cardiac enzymes-troponin less than 0.01 Differential diagnosis: #1 pneumonia(obstructive) #2 community acquired pneumonia #3 aspiration pneumonia #4 COPD exacerbation Below is the problem list and plan: #1 shortness of breath, cough- radiological findings indicated consolidation around the mass that was noted previously. These findings are highly suggestive of a possible obstructive pneumonia. Examination findings were suggestive of COPD exacerbation. The patient has been started on empiric antibiotics- ceftriaxone and azithromycin. Lower restrictory cultures, urinary strep pneumo and legionella have been sent. Blood cultures. [facility] nebs. Pulmonary consult in a.m. Evaluation of malignancy as per pulmonology. Biopsy versus bronchoscopy to be established. Continue [id number]. Change to 40 mg every 8 in a.m. #2 anemia-check iron studies. Appears to be anemia of chronic disease. Guaiac stools. Assess the need for iron supplementation. #3 elevation in alkaline phosphatase-likely because of cholelithiasis. Patient does not have any symptoms at this time. Continue to monitor closely, and no workup is required at this time, unless clinically indicated. Suspicion for metastasis of prostate cancer to bone, was raised; however history of prostate cancer is not established. Review of records carefully in the a.m. #4 history of CVA, coronary artery disease, carotid stenosis-continue antihypertensives-lisinopril, amlodipine, carvedilol. Also continue high intensity statin. #5 chronic kidney disease stage IV-likely because of diabetes patient. Continue to monitor serum creatinine. Avoid nephrotoxic medications at this time. #6 type 2 [id number], Levemir 8 units twice a day. NovoLog sliding scale. Patient to be on prednisone, and might change NovoLog sliding scale to medium. #7 DVT prophylaxis-heparin. As Ranked By This Provider Problem List: 1. PNA (pneumonia) 2. Right shoulder pain 3. Vomiting Core Measures/Miscellaneous Acute Coronary Syndrome ACS Diagnosis: No Cerebrovascular Accident CVA/TIA Diagnosis: No Congestive Heart Failure CHF Diagnosis: No Venous Thromboembolism VTE Risk Factors: Acute medical illness, Age > 40 VTE Prophylaxis Ordered Inpt: Pharm- Heparin No Mech VTE prophylaxis d/t: No contraindications No VTE Pharm Prophylaxis d/t: No contraindications VTE Diagnosis: No VTE Type: NONE VTE Confirmed by (Test): NONE Severe Sepsis Severe Sepsis Present: No Septic Shock Septic Shock Present: No Miscellaneous Documentation Attending Case Discussed With: MARIA G ESTES MD Primary Care Physician: ISAAC MAYERS MD Patient sees these Specialists Dr. Canada Level of Patient Care: General Medicine SOY MILTON MD 10/18/16 9291: Resident Review Statement Resident Statement: examined this patient, discussed with bakery pastry internship, agreed with bakery pastry internship, discussed with family, reviewed EMR data (avail), discussed with nursing , discussed with case mgmt, reviewed images, amended to note Other Findings: 86 yo male with pmh of CVA (most recently : Lt. parietal) with residual Rt. sided weakness, HTN, CAD s/p stent, DM2, COPD not on home oxygen, known Rt. LL mass, PRIYANKA not compliant to CPAP, Carotid artery stenosis s/p CEA, GERD, prostate ca, CKD stage 4 came from home due to dyspnea on exertion associated with dry cough and chest pressure for 2 days. He c/o chest tightness/burning sensation on central chest without radiation, 3/10 pain. He denies fever/chills. He had 1 episode of vomiting. He was seen by Dr. Booth in for RLL 2.5 cm spiculated mass with probable underlying lymphadenopathy highly suggestive of malignancy. He did get PETCT in shwoing right lower lobe pulmonary nodule most consistent with a primary pulmonary malignancy, and mediastinal and right lower cervical lymphadenopathy strongly suspicious for metastatic disease. In ED , he was placed on 2L oxygen, lung sounds wheezing bilaterally with decreased breathing sound, CXR Right lower lobe infiltrate suggesting pneumonia,, question right middle lobe involvement as well. 1. Acute on chronic resp.failure likely secondary to pneumonia with underlying RLL mass and COPD exacerbation: Chest CT showing RLL lung mass is obscured by consolidation, continue IV solumedrol, IV cef/azithromycin, f/u blood/sputum cultures, legionella/strep pneumonia Ag, pulmonary consult: Dr. Booth, Less likely to be PE, CTA was not available due to CKD stage 4 (cr 2.4), bilateral LE dopper was negative for DVT. 2. HTN/CAD: c/w aspirin/clopidogrel, lisinopril, carvedilol, amlodipine. 3. Hx of CVA: continue aspirin/clopidogrel 4. DM: Levemir 8 units BID, Accuchecks, novolog s/s, diabetic diet 5. PRIYANKA: c/w CPAP at night DVT ppx: SC heparin, full code. MARIA G ESTES MD 10/19/16 1149: Attending MD Review Statement Attending Statement Attending MD Statement: examined this patient, discuss w/resident/PA/DECISION SUPPORT ANALYST, agreed w/resident/PA/DECISION SUPPORT ANALYST, reviewed EMR data (avail) Attending Assessment/Plan: 86M admitted wth COPD and pneumonia. History of RLLl lung mass now concerning for post-obstructive pneumonia. Will start Solumedrol for COPD, Ceftriaxone and Azithromycin, cultures, CT chest, pulmonary consult, continue home medications, DVT PPx
--- NOTE | 2016-10-18 15:40 | NUR ---
PT HAS BED ASSIGNMENT 209-2
--- NOTE | 2016-10-18 16:25 | NUR ---
REPORT GIVEN TO CARLIE BAKER
--- NOTE | 2016-10-18 16:48 | NUR ---
ULTRASOUND AT BEDSIDE FOR TRANSPORT. WILL GO FROM ULTRASOUND TO CT, THEN TRANSPORT WILL BRING PT TO
[2016-10-18 17:44] VITALS: BP 167/88
--- NOTE | 2016-10-18 17:49 | ULTRASOUND REPORT ---
EXAMINATION: US TRIPLEX LOWER EXTREMITY, BILATERAL CLINICAL INFORMATION: Shortness of breath. COMPARISON: None TECHNIQUE: Color-flow triplex imaging with spectral analysis and compression Doppler were performed on the bilateral lower extremities. FINDINGS: Respiratory variation, normal compression and augmented flow are noted throughout the bilateral lower extremities. The visualized common femoral vein, superficial femoral vein, profunda femoral vein, popliteal vein and midcalf peroneal and posterior tibial venous segments show no evidence of deep venous thrombosis. There is no Valdivia's cyst. IMPRESSION: Normal triplex scan without evidence of deep venous thrombosis involving the bilateral lower extremities.
--- NOTE | 2016-10-18 18:00 | NUR ---
ADMISSION NOTE: PT SRRIVED TO FLOOR VIA STRETCHER WITH DISTRIBUTION A/OX3, 2L NC SATTING 98, BP 162/98, PULSE 87, RESP 20, TEMP 98.3. RHONCHEROUS LUNG SOUNDS, PT ATE DINNR AND VOMMITED SHORTLY AFTER, HE REPORT S THAT THIS HAPPENS FROM TIME TO TIME. EMESIS AMOUNT 50MLS. PT REPORTED 4/10 CHEST PAIN. MD PLUNKETT INFORMED. TROPONIN LAB ORDERED. IV INTACT, ORIENTED TO ROOM, WILL CONTINUE TO MONITOR.
--- NOTE | 2016-10-18 18:25 | CT SCAN REPORT ---
EXAMINATION: CT CHEST WITHOUT CONTRAST CLINICAL INFORMATION: Right lower lobe mass. COMPARISON: CT chest 06/25/2016. PET/CT 08/09/2016. TECHNIQUE: Multidetector volumetric CT imaging of the chest was done. Axial MIP volume rendering provided. Sagittal and coronal reformatted images were obtained. DLP: 763.2 mGy-cm. FINDINGS: LUNGS: On CAT scan of 06/25/2016 and the PET/CT scan of 08/09/2016, an enlarging nodule was demonstrated at the posterior left lower lobe. This was FDG avid. On the current CAT scan, the right lung base is opacified with atelectasis and patchy airspace disease as well as a moderate to large volume right pleural effusion. Can therefore not specifically identify the right lower lobe lung mass. There is a rounded area which could be the nodule measuring 3.3 x 1.8 cm on sagittal image 114, 3.3 cm transverse on axial image 288 (4). Not entirely certain whether this represents the previously seen mass. There is also atelectasis consolidation at the right middle lobe. There is interstitial changes in the right middle lobe and right lower lobe. There is fullness in the right hilum but difficult to distinguish adenopathy or mass from the consolidation and the pulmonary vessels, no IV contrast was given. The trachea and the right and left bronchi and bronchi to the lung segments are thin and gracile. The trachea at the yaneth measures transverse 2.1 cm x 0.3 cm, tracheomalacia. MEDIASTINUM: There is mediastinal adenopathy. Enlarged lymph node in the subcarinal measures 2.7 cm AP. This previously measured 1 cm on the CAT scan of 06/25/2016. There is an enlarged lymph node in the pretracheal retrovascular space at the level of the yaneth measuring 1 cm. There is an adjacent 1 cm lymph node just cephalad. There are additional lymph nodes at the AP window. Largest measuring 1.3 cm. There is a small pericardial effusion measuring 0.9 cm at the dependent pericardium axial image 310 (4). There is vascular wall calcifications of the aorta and the coronary arteries. PLEURA: Moderate volume right pleural effusion and trace dependent left pleural effusion. AXILLA: No lymphadenopathy. UPPER ABDOMEN: Multiple small calcified gallstones layering dependently in the gallbladder. OSSEOUS STRUCTURES: Soft tissue density in the right shoulder with anterior subluxation of the glenohumeral joint. This is new since PET/CT of 08/09/2016. There is an 8 mm calcification in the soft tissue density at the posterior right shoulder, image 34 (4). IMPRESSION: 1. The previously noted FDG positive lung mass in the right lower lobe is obscured by consolidation atelectasis now at the right lung base. There is interstitial changes which could be due to the atelectasis versus interstitial spread of disease in both the right lower lobe and right middle lobe. There is associated mediastinal adenopathy and suspected right hilar adenopathy but no IV contrast given. 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 2. Small pericardial effusion. 3. Soft tissue density around the right shoulder with anterior subluxation of the right glenohumeral joint. Further imaging with ultrasound and/or MRI can be considered. 4. Cholelithiasis.
[2016-10-19 00:13] VITALS: BP 150/64
[2016-10-19 07:55] LABS: ABSOLUTE BASOPHIL COUNT 0 /CUMM (0.0-0.2); ABSOLUTE EOSINOPHIL COUNT 0 /CUMM (0.0-0.7); ABSOLUTE GRANULOCYTE CT 5.1 /CUMM (1.4-6.5); ABSOLUTE LYMPH COUNT 0.5 /CUMM (1.2-3.4); ABSOLUTE MONOCYTE COUNT 0.5 /CUMM (0.10-0.60); BASOPHIL % 0.2 % (0.0-2.0); EOSINOPHIL % 0 % (0-5); GRANULOCYTE % 83.5 % (42.2-75.2); HEMATOCRIT 28.2 % (42-52); MEAN CORPUSCULAR HGB CONC 34.7 G/DL (33.0-37.0); MEAN CORPUSCULAR VOLUME 83.7 FL (80.0-94.0); MEAN PLATELET VOLUME 6.9 FL (7.4-10.4); PLATELET COUNT 201 /CUMM (130-400); RBC DISTRIBUTION WIDTH 15.3 % (11.5-14.5); RED BLOOD CELL CT 3.37 /CUMM (4.70-6.10); WHITE BLOOD CELL COUNT 6.1 /CUMM (4.8-10.8)
--- NOTE | 2016-10-19 08:01 | PN- Housestaff ---
SLADE KING 10/19/16 0800: Subjective Follow-up For: Community-acquired pneumonia COPD exacerbation Subjective: He was more alert this morning compared to yesterday. He was comfortable. Vitals remain stable. Oxygen saturations above 92%. No chest pain, shortness of breath. No abdominal pain. Review of Systems Constitutional: Reports: see HPI. Objective Last 24 Hrs of Vital Signs/I&O Vital Signs Date Time Temp Pulse Resp B/P Pulse O2 O2 Flow FiO2 Ox Delivery Rate 10/19 0138 82 97 10/19 0013 98.1 84 19 150/64 91 Room Air 10/19 0000 95 Nasal 2.0L Cannula 10/18 2128 Nasal 3.0L Cannula 10/18 2050 99.8 10/18 2006 87 167/88 10/18 1800 98.3 10/18 1800 97 Nasal 2.5L Cannula 10/18 1744 98 Nasal 2.0L Cannula 10/18 1744 87 20 167/88 97 Nasal 2.0L Cannula 10/18 1626 94 Room Air 10/18 1626 82 24 167/72 94 Room Air 10/18 1329 97.5 73 18 156/79 97 Nasal 2.0L Cannula 10/18 1200 96 Nasal 2.0L Cannula 10/18 1117 97.2 88 24 147/67 95 Room Air Intake & Output 10/19 1600 10/19 0800 10/19 0000 Intake Total 600 700 Output Total 500 800 Balance 100 -100 Intake, Oral 600 700 Output, Urine 500 800 Patient 222 lb Weight Physical Exam General Appearance: No Acute Distress Other Physical Findings: General Exam: AAOx3, No acute distress, Skin: No rashes, no breakdown HEENT: PERRLA, EOMI Neck: Supple, No JVD No cervical lymphadenopathy CVS: Reg Rate, Normal S1,S2, No MGR Resp: Decreased air entry bilaterally, rhonchi and wheezes heard bilaterally. Abdomen: Soft, No tenderness, Normal Bowel Sounds Neuro: Normal Speech, Strength 5/5 b/l x 4 extremities, Sensation intact, CN III -XII NL, Reflexes 2+ Extremities: No cyanosis, pedal edema 1+ Current Medications: Current Medications Sig/Reyna Start time Last Medication Dose Route Stop Time Status Admin Acetaminophen 650 MG Q6P PRN 10/18 1715 AC PO Albuterol Sulfate 3 ML TID 02/14 2200 AC INH Albuterol Sulfate 3 ML Q4P PRN 10/18 1645 AC INH Albuterol Sulfate 3 ML ONCE ONE 10/18 1130 DC 10/18 INH 10/18 1131 1147 Allopurinol 100 MG 0900 10/19 0900 AC PO Amlodipine Besylate 5 MG DAILY 10/19 1000 AC PO Aspirin 325 MG 1700 10/18 1700 AC 10/18 PO 2006 Atorvastatin Calcium 80 MG 1700 10/19 1700 AC PO Azithromycin 500 MG 1300 10/19 1300 AC Dextrose/Water 250 ML IV Azithromycin 500 MG DAILY 10/19 1000 DC Dextrose/Water 250 ML IV Azithromycin 500 MG ONCE ONE 10/18 1230 DC 10/18 Dextrose/Water 250 ML IV 10/18 1329 1316 Budesonide/ 2 PUF BID 10/18 2200 AC 10/18 Formoterol Fumarate INH 2007 Carvedilol 25 MG BID 10/18 2200 AC 10/18 PO 2006 Ceftriaxone Sodium 1,000 MG 1300 10/19 1300 AC IV Ceftriaxone Sodium 1,000 MG DAILY 10/19 1000 DC IV Ceftriaxone Sodium 0 .STK-MED ONE 10/18 1300 DC .ROUTE Ceftriaxone Sodium 1,000 MG ONCE ONE 10/18 1230 DC 10/18 IV 10/18 1231 1316 Clopidogrel Bisulfate 75 MG DAILY 10/19 1000 AC PO Diclofenac Sodium 1 NAOMI 4 TIMES/DAY 10/18 1800 AC 10/18 TOP 2213 Ergocalciferol 50,000 IU Mo 10/24 1000 AC PO Escitalopram Oxalate 20 MG DAILY 10/19 1000 AC PO Gemfibrozil 600 MG BID 10/18 2200 AC 10/18 PO 2005 Heparin Sodium 5,000 UNIT Q8 10/18 1743 AC 10/19 (Porcine) SC 0613 Influenza Virus 0.5 ML ONCE ONE 10/18 1900 DC Vaccine IM 10/18 1901 Insulin Aspart 0 TIDAC 10/19 0800 AC SC Insulin Detemir 8 UNITS BID 10/18 2200 AC 10/18 SC 2209 Ipratropium [place] 2.5 ML ONCE ONE 10/18 1130 DC 10/18 INH 10/18 1131 1147 Lisinopril 20 MG QAM 10/19 1000 AC PO Methylprednisolone 40 MG Q8 10/19 0600 AC 10/19 IV 0613 Methylprednisolone 0 .STK-MED ONE 10/18 1259 DC .ROUTE Methylprednisolone 125 MG ONCE ONE 10/18 1230 DC 10/18 IV 10/18 1231 1316 Morphine Sulfate 2 MG Q4P PRN 10/18 171 AC IV Oseltamivir Phosphate 30 MG AT BEDTIME 10/18 2331 AC 10/19 PO 10/22 2201 0041 Oxycodone/ 1 TAB Q6 PRN 10/18 171 AC Acetaminophen PO Polyethylene Glycol 17 GM DAILY PRN 10/18 171 AC PO Tamsulosin HCl 0.4 MG 1700 10/19 170 AC PO Last 24 Hrs of Lab/Stephen Results Last 24 Hrs of Labs/Mics: Laboratory Tests 10/19/16 0630: Sodium Pending, Potassium Pending, Chloride Pending, Carbon Dioxide Pending, Anion Gap Pending, BUN Pending, Creatinine Pending, BUN/Creatinine Ratio Pending , CBC w Diff NO MAN DIFF REQ, RBC 3.37 L, MCV 83.7, MCH 29.0, RDW 15.3 H, MPV 6.9 L, Gran % 83.5 H, Lymphocytes % 8.6 L, Monocytes % 7.7, Eosinophils % 0, Basophils % 0.2, Absolute Granulocytes 5.1, Absolute Lymphocytes 0.5 L, Absolute Monocytes 0.5, Absolute Eosinophils 0, Absolute Basophils 0, PUBS MCHC 34.7 10/19/16 0245: Urinalysis LIGHT H, Urine Color YEL, Urine Clarity HAZY H, Urine pH 6.0, Ur Specific [place] 1.020, Urine Protein 100 H, Urine Ketones NEG, Urine Nitrite NEG, Urine Bilirubin NEG, Urine Urobilinogen 0.2, Ur Leukocyte Esterase NEG, Ur Microscopic SEDIMENT EXAMINED, Urine RBC 3-5, Urine WBC 1-3 H, Ur Epithelial Cells FEW, Granular Casts 1-3 H, Urine Mucus FEW, Urine Hemoglobin SMALL H, Urine Glucose 500 H 10/18/162037: Virus Culture Pending 10/18/162034: Troponin I 0.06 10/18/16 1235: Anion Gap 11, Estimated GFR 26 L, BUN/Creatinine Ratio 17.5, Glucose 200 H, Calcium 7.6 L, Total Bilirubin 0.5, AST 15 L, ALT 28, Alkaline Phosphatase 185 H, Troponin I 0.06, Akk-C-Dphkgomkefx Pept 1310 H, Total Protein 5.8 L, Albumin 2.9 L, Globulin 2.9, Albumin/Globulin Ratio 1.0 L, PT 12.7 H, INR 1.21 H, CBC w Diff NO MAN DIFF REQ, RBC 3.54 L, MCV 84.3, MCH 28.5, RDW 15.9 H, MPV 6.6 L, Gran % 76.1 H, Lymphocytes % 10.7 L, Monocytes % 10.9 H, Eosinophils % 2.1, Basophils % 0.2, Absolute Granulocytes 4.8, Absolute Lymphocytes 0.7 L, Absolute Monocytes 0.7 H, Absolute Eosinophils 0.1, Absolute Basophils 0, PUBS MCHC 33.8 Microbiology 10/19 244 URINE ROUT: Legionella Antigen - COMP 10/19 024 URINE ROUT: Streptococcus pneumoniae Antigen (M - COMP 10/18 1706 LOWER RESP: Respiratory Culture - COLB 10/18 1706 LOWER RESP: Gram Stain - COLB 10/18 1250 BLOOD: Blood Culture - RECD 10/18 1235 BLOOD: Blood Culture - RECD Assessment/Plan Assessment: He is an older man with a past history of CVA, coronary artery disease, type 2 diabetes, stage IV CKD, is being evaluated for acute onset of shortness of breath, cough 2 days. At the time of admission, vitals-temperature 97.2, pulse rate 88, respiratory 24 , blood pressure 147/67, pulse ox 95% on room air. 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 ProBNP 1310 (slight elevation) Radiological findings indicated-chest x-ray right lobe infiltrate suggestive of pneumonia, extension into right middle lobe noted. CAT scan chest without contrast revealed consolidation or atelectasis of right lung base. Interstitial spread of right lower lobe was noted. Also was noted lymphadenopathy. Last echocardiogram-showed ejection fraction of about 60% with impaired ventricular relaxation. EKG revealed normal sinus rhythm heart rate 70, WI interval 201, QTc 453, no ST- T wave changes were found. Cardiac enzymes-troponin less than 0.01 Differential diagnosis: #1 pneumonia(obstructive) #2 community acquired pneumonia #3 aspiration pneumonia #4 COPD exacerbation Below is the problem list and plan: #1 shortness of breath, cough- radiological findings indicated consolidation around the mass that was noted previously. These findings are highly suggestive of a possible obstructive pneumonia. Examination findings were suggestive of COPD exacerbation. The patient has been started on empiric antibiotics- ceftriaxone and azithromycin. Lower restrictory cultures-pending, urinary strep pneumo and legionella negative so far. Blood cultures-pending. TRC nebs. Continue odmvyiwjwli-Scfc-Tdqwpo. Change to 40 mg every 12. May change to by mouth in the a.m. #2 anemia-check iron studies. Appears to be anemia of chronic disease. #3 elevation in alkaline phosphatase-likely because of cholelithiasis. Patient does not have any symptoms at this time. Continue to monitor closely, and no workup is required at this time, unless clinically indicated. Suspicion for metastasis of prostate cancer to bone, was raised; however history of prostate cancer is not established. Reviewed records. #4 history of CVA, coronary artery disease, carotid stenosis-continue antihypertensives-lisinopril, amlodipine, carvedilol. Also continue high intensity statin. #5 chronic kidney disease stage IV-likely because of diabetes patient. Continue to monitor serum creatinine. Avoid nephrotoxic medications at this time. #6 type 2 yowayhyu-Xppu-Byghi, Levemir 8 units twice a day. NovoLog sliding scale. Blood sugars 254, 315. #7 DVT prophylaxis-heparin. Problem List: 1. PNA (pneumonia) Pain Ratin Pain Location: None Pain Goal: Pain 4 or less Pain Plan: Tylenol when necessary Tomorrow's Labs & Rationales: No labs necessary. Patient currently stable. ZAKIA CERRATO,FARSHAD 10/19/16 1220: Attending MD Review Statement Attending Statement Attending MD Statement: examined this patient, discuss w/resident/PA/REGISTRATION REP, agreed w/resident/PA/REGISTRATION REP, discussed with family, reviewed EMR data (avail), discussed with nursing, discussed with case mgmt, reviewed images, amended to note Attending Assessment/Plan: Patient seen and examined, hard of hearing but does complain of cough and some shortness of breath. Patient's son is sitting at the bedside. Vital Signs Date Time Temp Pulse Resp B/P Pulse O2 O2 Flow FiO2 Ox Delivery Rate 10/19 0948 95 Nasal 2.0L Cannula 10/19 0855 97.5 79 18 158/90 95 Room Air 10/19 0838 158/90 10/19 0838 158/90 10/19 0838 158/90 10/19 0800 94 Nasal 2.0L Cannula 10/19 0138 82 97 10/19 0013 98.1 84 19 150/64 91 Room Air 10/19 0000 95 Nasal 2.0L Cannula 10/18 2128 Nasal 3.0L Cannula 10/18 2050 99.8 10/18 2006 87 167/88 10/18 1800 98.3 10/18 1800 97 Nasal 2.5L Cannula 10/18 1744 98 Nasal 2.0L Cannula 10/18 1744 87 20 167/88 97 Nasal 2.0L Cannula 10/18 1626 94 Room Air 10/18 1626 82 24 167/72 94 Room Air 10/18 1329 97.5 73 18 156/79 97 Nasal 2.0L Cannula on exam; aox3, nad. cv; s1,s2, rrr resp; mild scattered wheeze. abd; soft, nt, bs+ ext; no edema. Laboratory Tests 10/19 10/19 0630 0245 Chemistry Sodium (137 - 145 mmol/L) 137 Potassium (3.5 - 5.1 mmol/L) 4.6 Chloride (98 - 107 mmol/L) 103 Carbon Dioxide (22 - 30 mmol/L) 22 Anion Gap (5 - 16) 12 BUN (9 - 20 mg/dL) 48 H Creatinine (0.7 - 1.2 mg/dL) 2.5 H Estimated GFR (>60 ml/min) 25 L BUN/Creatinine Ratio (7 - 25 %) 19.2 Hematology CBC w Diff NO MAN DIFF REQ WBC (4.8 - 10.8 /CUMM) 6.1 RBC (4.70 - 6.10 /CUMM) 3.37 L Hgb (14.0 - 18.0 G/DL) 9.8 L Hct (42 - 52 %) 28.2 L MCV (80.0 - 94.0 FL) 83.7 MCH (27.0 - 31.0 PG) 29.0 RDW (11.5 - 14.5 %) 15.3 H Plt Count (130 - 400 /CUMM) 201 MPV (7.4 - 10.4 FL) 6.9 L Gran % (42.2 - 75.2 %) 83.5 H Lymphocytes % (20.5 - 51.1 %) 8.6 L Monocytes % (1.7 - 9.3 %) 7.7 Eosinophils % (0 - 5 %) 0 Basophils % (0.0 - 2.0 %) 0.2 Absolute Granulocytes (1.4 - 6.5 /CUMM) 5.1 Absolute Lymphocytes (1.2 - 3.4 /CUMM) 0.5 L Absolute Monocytes (0.10 - 0.60 /CUMM) 0.5 Absolute Eosinophils (0.0 - 0.7 /CUMM) 0 Absolute Basophils (0.0 - 0.2 /CUMM) 0 PUBS MCHC (33.0 - 37.0 G/DL) 34.7 Urines Urinalysis LIGHT H Urine Color (YEL,AMB,STR) YEL Urine Clarity (CLEAR) HAZY H Urine pH (5.0 - 8.0) 6.0 Ur Specific [place] (1.001 - 1.035) 1.020 Urine Protein (NEG,<30 MG/DL) 100 H Urine Ketones (NEG) NEG Urine Nitrite (NEG) NEG Urine Bilirubin (NEG) NEG Urine Urobilinogen (0.1 - 1.0 EU/dl) 0.2 Ur Leukocyte Esterase (NEG) NEG Ur Microscopic SEDIMENT EXAMINED Urine RBC (0 - 5 /HPF) 3-5 Urine WBC (0 - 2 /HPF) 1-3 H Ur Epithelial Cells (NONE,FEW) FEW Granular Casts (NONE /LPF) 1-3 H Urine Mucus (FEW,NONE) FEW Urine Hemoglobin (NEG) SMALL H Urine Glucose (N MG/DL) 500 H 10/185 1235 Chemistry Sodium (137 - 145 mmol/L) 142 Potassium (3.5 - 5.1 mmol/L) 4.2 Chloride (98 - 107 mmol/L) 107 Carbon Dioxide (22 - 30 mmol/L) 24 Anion Gap (5 - 16) 11 BUN (9 - 20 mg/dL) 42 H Creatinine (0.7 - 1.2 mg/dL) 2.4 H Estimated GFR (>60 ml/min) 26 L BUN/Creatinine Ratio (7 - 25 %) 17.5 Glucose (65 - 99 mg/dL) 200 H Calcium (8.4 - 10.2 mg/dL) 7.6 L Total Bilirubin (0.2 - 1.3 mg/dL) 0.5 AST (17 - 59 U/L) 15 L ALT (21 - 72 U/L) 28 Alkaline Phosphatase (< 127 U/L) 185 H Troponin I (<0.11 ng/ml) 0.06 0.06 Jbw-R-Ieuiuwfhyhb Pept (<125 pg/mL) 1310 H Total Protein (6.3 - 8.2 g/dL) 5.8 L Albumin (3.5 - 5.0 g/dL) 2.9 L Globulin (1.9 - 4.2 gm/dL) 2.9 Albumin/Globulin Ratio (1.1 - 2.2 %) 1.0 L Coagulation PT (9.4 - 12.5 SEC) 12.7 H INR (0.90 - 1.17) 1.21 H Hematology CBC w Diff NO MAN DIFF REQ WBC (4.8 - 10.8 /CUMM) 6.3 RBC (4.70 - 6.10 /CUMM) 3.54 L Hgb (14.0 - 18.0 G/DL) 10.1 L Hct (42 - 52 %) 29.8 L MCV (80.0 - 94.0 FL) 84.3 MCH (27.0 - 31.0 PG) 28.5 RDW (11.5 - 14.5 %) 15.9 H Plt Count (130 - 400 /CUMM) 185 MPV (7.4 - 10.4 FL) 6.6 L Gran % (42.2 - 75.2 %) 76.1 H Lymphocytes % (20.5 - 51.1 %) 10.7 L Monocytes % (1.7 - 9.3 %) 10.9 H Eosinophils % (0 - 5 %) 2.1 Basophils % (0.0 - 2.0 %) 0.2 Absolute Granulocytes (1.4 - 6.5 /CUMM) 4.8 Absolute Lymphocytes (1.2 - 3.4 /CUMM) 0.7 L Absolute Monocytes (0.10 - 0.60 /CUMM) 0.7 H Absolute Eosinophils (0.0 - 0.7 /CUMM) 0.1 Absolute Basophils (0.0 - 0.2 /CUMM) 0 PUBS MCHC (33.0 - 37.0 G/DL) 33.8 Serology Virus Culture Pending A/P; 86 y/o M [facility] pmh sig for CVA ( dx'ed 2009) with residual right-sided weakness, CAD s/p drug-coated Taxus stent placement (dx'ed 2007), hypertension, right carotid endarterectom, type 2 diabetes, COPD, h/o lung mass, obstructive sleep apnea, admitted with acute CBD exacerbation, pneumonia which is committed required as well as influenza positive. Lung imaging and is consistent with a mass concern for malignancy. Explained to the patient and the son about patient's malignancy as well as consequences that could happened secondary to malignancy. Patient likely has obstructive pneumonia secondary to malignancy. I was told the patient's son that he has discussed with blindstitch hemmer Dr. Booth and there is no plan to any intervention about this. At this point we'll continue antibiotics, follow-up on cultures, continue IV steroids but will start the taper today. We'll continue Tamiflu and complete a 5 day course of Tamiflu. Patient's chronic anemia and chronic kidney disease is stable. Continue other current medications. Please encourage ambulation with assistance. Please order PT evaluation indicated. DVT px: Heparin subcutaneous
[2016-10-19 08:55] VITALS: BP 158/90
--- NOTE | 2016-10-19 13:56 | PN- Student ---
Subjective Subjective: [CC]: Shortness of breath and chest discomfort/tightness. [HPI]: Pt started to experience SOB on exertion 2 days prior to the date of admission which has progressed to SOB at rest. He also has notable nonproductive cough and is unable to expel mucous. Pt experiences chest discomfort and tightness since 2 days prior to admission that he states does not radiate, feels constant and dull aching pain which does not get better or worse with position. He also noted that he had an episode of vomiting 2 days ago. Pt has a history of COPD, but on RA at home. He also has PRIYANKA but has not been compliant w/ his CPAP usage. The pt was currently sating at 95 O2 on 3L NC. Pt was cooperative and not complaining of any other issues. He seemed unaware of a diagnosis of prostate cancer and lung mass when questioned. 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 - HTN - T2DM - COPD - h/o lung mass - prostate cancer - CKD (stage 4) - PRIYANKA (historicly pt is non compliant w/ CPAP) [PSHx]: - (R) carotid endartrectomy - bilateral knee replacements - Cardiac drug eluting stent (2007) [SHx]: Tobacco: Started smoking during his teenage years but stopped 60 years ago. EtOH: Beer occasionally Illicit Drugs: Denies use Activities of Daily Living: Uses a walker, decreased activity level in the past week. [FHx]: Mother - diabetes & CT (65 y/o) Father - HTN, heart attack (~70 y/o) Sister - age 60+; dementia; parkinsons REVIEW OF SYSTEMS: [General]: Sweating (); Fever or chills (X); Fatigue (X); Weight Loss (X) (20 lb loss in the past 3 months) [Eyes]: Visual Changes (X) (pt does not have his glasses); Pain (); Redness () [ENT]: Headaches (); hoarseness (); sore throat (); epistaxis (); sinus symptoms (); hearing loss (X); tinnitus () [CVS]: Chest Pain (X); Edema (); PND (); Orthopnea (); Palpitations (); Claudication () [Respiratory]: Cough (X); SOB (X); Wheezing (X); Hypersomnolence (X) [GI]: Abdominal Pain (); Stool changes (); Nausea/Vomiting (X); Diarrhea (); Heartburn (); Blood in Stool () []: Dysuria (); Frequency (); Hematuria (); Discharge (); [MSK]: Arthralgias (X); Arthritis (); Joint Swelling (); Myalgias (); Back Pain (X) - lower lumbar region [Heme/Lymph]: Bleeding (); Bruising (); Clotting (); Transfusions (); Lymph Node Swelling (); [Endo]: Polyuria (); Polydipsia (); Polyphagia (); Heat/Cold Intolerance (); [Derm]: Rash (); Pruritus () [Neuro]: Weakness (X); Seizures (); Paresthesias (); Tremor (); Syncope (X) ( recent fall was was 1 month ago in the doctors office as stated by the pt; also had about 3 prior syncopal episodes in the past); [Psych]: Anxiety (); Depression (); Hallucinations (); Claustrophobia () [All/Imm]: NKDA MEDICATIONS: Current Medications Sig/Reyna Start time Last Medication Dose Route Stop Time Status Admin Acetaminophen 650 MG Q6P PRN 10/18 1715 AC PO Albuterol Sulfate 3 ML TID 10/18 2200 AC 10/19 INH 0943 Albuterol Sulfate 3 ML Q4P PRN 10/18 1645 AC INH Allopurinol 100 MG 10/19 0900 AC 10/19 PO 0837 Amlodipine Besylate 5 MG DAILY 10/19 1000 AC 10/19 PO 0838 Aspirin 325 MG 17010/18 1700 AC 10/18 PO 2006 Atorvastatin Calcium 80 MG 17010/19 1700 AC PO Azithromycin 500 MG 1300 10/19 1300 AC Dextrose/Water 250 ML IV Azithromycin 500 MG DAILY 10/19 1000 DC Dextrose/Water 250 ML IV Budesonide/ 2 PUF BID 10/18 2200 AC 10/19 Formoterol Fumarate INH 0839 Carvedilol 25 MG BID 10/18 2200 AC 10/19 PO 0838 Ceftriaxone Sodium 1,000 MG 1300 10/19 1300 AC 10/19 IV 1300 Ceftriaxone Sodium 1,000 MG DAILY 10/19 1000 DC IV Clopidogrel Bisulfate 75 MG DAILY 10/19 1000 AC 10/19 PO 0838 Diclofenac Sodium 1 NAOMI 4 TIMES/DAY 10/18 1800 AC 10/19 TOP 1309 Ergocalciferol 50,000 IU Mo 10/24 1000 AC PO Escitalopram Oxalate 20 MG DAILY 10/19 1000 AC 10/19 PO 0838 Gemfibrozil 600 MG BID 10/18 2200 AC 10/19 PO 0838 Heparin Sodium 5,000 UNIT Q8 10/18 1743 AC 10/19 (Porcine) SC 1300 Influenza Virus 0.5 ML ONCE ONE 10/18 1900 DC 10/19 Vaccine IM 10/18 1901 0843 Insulin Aspart 0 TIDAC 10/19 1200 AC 10/19 SC 1300 Insulin Aspart 0 TIDAC 10/19 0800 DC 10/19 SC 0818 Insulin Detemir 8 UNITS BID 10/18 2200 AC 10/19 SC 0818 Lisinopril 20 MG QAM 10/19 1000 AC 10/19 PO 0838 Methylprednisolone 40 MG BID 10/19 2200 AC IV Methylprednisolone 40 MG Q8 10/19 0600 DC 10/19 IV 0613 Morphine Sulfate 2 MG Q4P PRN 10/18 1715 DC IV Oseltamivir Phosphate 30 MG AT BEDTIME 10/18 2331 AC 10/19 PO 10/22 2201 0041 Oxycodone/ 1 TAB Q6 PRN 10/18 1715 AC Acetaminophen PO Polyethylene Glycol 17 GM DAILY PRN 10/18 1715 AC 10/19 PO 0839 Tamsulosin HCl 0.4 MG 1700 10/19 1700 AC PO Objective Objective: VITALS: Vital Signs Date Time Temp Pulse Resp B/P Pulse O2 O2 Flow FiO2 Ox Delivery Rate 10/19 0948 95 Nasal 2.0L Cannula 10/19 0855 97.5 79 18 158/90 95 Room Air 10/19 0838 158/90 10/19 0838 158/90 10/19 0838 158/90 10/19 0800 94 Nasal 2.0L Cannula 10/19 0138 82 97 10/19 0013 98.1 84 19 150/64 91 Room Air 10/19 0000 95 Nasal 2.0L Cannula 10/18 2128 Nasal 3.0L Cannula 10/180 99.8 10/18 2006 87 167/88 10/18 1800 98.3 10/18 1800 97 Nasal 2.5L Cannula 10/18 1744 98 Nasal 2.0L Cannula 10/18 1744 87 20 167/88 97 Nasal 2.0L Cannula 10/18 1626 94 Room Air 10/18 1626 82 24 167/72 94 Room Air Intake & Output 10/19 1600 10/19 0800 10/19 0000 Intake Total 600 700 Output Total 500 800 Balance 100 -100 Intake, Oral 600 700 Output, Urine 500 800 Patient 222 lb Weight PHYSICAL EXAM: [General Appearance]: Dress: (X) nl hygiene Affect: (X) nl affect, not flat, blunted, or expansive MSE: Oriented in Time, Person, Place (X) Abnormals: Pt is lethargic. [Eyes] General: (X) nl conjunctiva & lids Pupils: (X) equal, round, and reactive Fundus: () nl discs & vessels (not performed) Vision: () acuity & gross wolf intact Abnormals: Decreased vision due to lack of pts corrective lenses. [ENT]: External: (X) no scars, lesions, masses. Otoscopic: (X) nl canals, tympanic membranes Hearing: (X) nl to finger rub Oropharynx: (X) nl teeth, tongue, palate, pharynx. Abnormals: [Neck]: External: (X) no tracheal deviation Palpation: (X) no masses or crepitus Thyroid: (X) no 'megaly or tenderness. Abnormals: [GI]: Palpation: (X) no masses or tenderness (X) no hep/splenomegaly Auscultation: (X) nl bowel sounds Percussion: () no shifting dullness (not performed) Anus/rectum : () no abnormalities or masses (not performed) () heme negative stool (not performed) Abnormals: [Respiratory]: Effort: () nl without retractions Percussion: () no dullness or hyperresonance (not performed) Palpation: () no fremitus Auscultation: () CTAP w/o W, R, or R Abnormals: Decreased RLL breath sounds. Wheezes and crackles heard on auscultation. Mildly labored breathing. [CVS]: Palpation: (X) PMI nondisplaced Auscultation: (X) no murmur, gallop, or rub JVD: () no jugular distension (not performed) Pulses: (X) 2+/= femoral & pedal pulses Edema: () no pedal edema Abnormals: +1 Pedal Edema [Neuro]: Orientation: (X) A&O to person, place, time CN: (X) CN II-XII intact. Sensory: (X) nl sensation throughout Reflexes: (X) 2++ and symmetrical throughout. Abnormals: [Skin]: (X) no rashes, lesions, ulcers (X) nl turgor Abnormals: [Chest/Breast]: (X) nl inspection & palpation [Lymph Nodes]: (X) no axillary, inguinal, cervical, or submandibular LAD. []: (not performed) () nl external genitalia [if applicable] () nl vaginal tone, mucosa [if applicable] () no cervical motion tenderness [if applicable] () nl penis & scrotal contents [if applicable] () nl prostate size & texture [if applicable] Abnormals: [Psych]: (X) nl cognition (X) nl mood and affect Abnormals: [MSK]: Inspection ROM Strength Tone (X if normal) Abnormals Upper Extremity X X +1 (R) +2(L) X Lower Extremity X X +1 (R) +2(L) X [Gait]: () nl gait and station (unable to assess) Results Results: Laboratory Tests 10/19/16 0630: Anion Gap 12, Estimated GFR 25 L, BUN/Creatinine Ratio 19.2, CBC w Diff NO MAN DIFF REQ, RBC 3.37 L, MCV 83.7, MCH 29.0, RDW 15.3 H, MPV 6.9 L, Gran % 83.5 H, Lymphocytes % 8.6 L, Monocytes % 7.7, Eosinophils % 0, Basophils % 0.2, Absolute Granulocytes 5.1, Absolute Lymphocytes 0.5 L, Absolute Monocytes 0.5, Absolute Eosinophils 0, Absolute Basophils 0, PUBS MCHC 34.7 10/19/16 0245: Urinalysis LIGHT H, Urine Color YEL, Urine Clarity HAZY H, Urine pH 6.0, Ur Specific [place] 1.020, Urine Protein 100 H, Urine Ketones NEG, Urine Nitrite NEG, Urine Bilirubin NEG, Urine Urobilinogen 0.2, Ur Leukocyte Esterase NEG, Ur Microscopic SEDIMENT EXAMINED, Urine RBC 3-5, Urine WBC 1-3 H, Ur Epithelial Cells FEW, Granular Casts 1-3 H, Urine Mucus FEW, Urine Hemoglobin SMALL H, Urine Glucose 500 H 10/18/162037: Virus Culture Pending 10/18/162034: Troponin I 0.06 10/18/16 1235: Anion Gap 11, Estimated GFR 26 L, BUN/Creatinine Ratio 17.5, Glucose 200 H, Calcium 7.6 L, Total Bilirubin 0.5, AST 15 L, ALT 28, Alkaline Phosphatase 185 H, Troponin I 0.06, [id number]-Olmjhpaxyfq Pept 1310 H, Total Protein 5.8 L, Albumin 2.9 L, Globulin 2.9, Albumin/Globulin Ratio 1.0 L, PT 12.7 H, INR 1.21 H, CBC w Diff NO MAN DIFF REQ, RBC 3.54 L, MCV 84.3, MCH 28.5, RDW 15.9 H, MPV 6.6 L, Gran % 76.1 H, Lymphocytes % 10.7 L, Monocytes % 10.9 H, Eosinophils % 2.1, Basophils % 0.2, Absolute Granulocytes 4.8, Absolute Lymphocytes 0.7 L, Absolute Monocytes 0.7 H, Absolute Eosinophils 0.1, Absolute Basophils 0, PUBS MCHC 33.8 Microbiology 10/19 024 URINE ROUT: Legionella Antigen - COMP 10/19 024 URINE ROUT: Streptococcus pneumoniae Antigen (M - COMP 10/18 1706 LOWER RESP: Respiratory Culture - COLB 10/18 1706 LOWER RESP: Gram Stain - COLB 10/18 1250 BLOOD: Blood Culture - RES 10/18 123 BLOOD: Blood Culture - RES Assessment/Plan Assessment: Mr. Bearden is an 86 y/o male w/ history of COPD and was admitted to [facility] from the ED on 10/18/16 for increasing SOB + chest tightness and discomfort. He had one episode of vomiting the day prior to admission as well. He is currently on 3L NC when he was previously not on home oxygen. Pt has multiple medical conditions (CAD, History of CVA, Carotid Stenosis, CKD, Prostate Ca, Lung Ca?, etc). Mr. Bearden likely has acute on chronic respiratory failure due to COPD exacerbation due to pnumonia associated atelectasis or malignancy associated atelectasis vs. acute coronary syndrome (r/o EKG revealed no acute findings & no elevation in serial troponin levels). Plan: Problem #1: Shortness of breath - Likely COPD exacerbation due to PNA and/or malignancy associated atelectasis. - Followup CXR after acute sx have resolved (initial CXR indicated R. LL infiltrates suggesting pneumonia w/ questionable RML involvement). - Chest CT (noted positive lung mass on RLL w/ consolidation atelectasis at RL- base; notable interstitial changes in both RLL and RML; associated mediastinal adenopathy and suspected right hilar adenopathy; tracheomalacia; ) - Venous Doppler Study (negative - 10/18/16) - Continue home meds for tx of COPD in patient. - To tx PNA - Ceftriaxone & Azythromycin - Pt was also tested positive for Influenza (10/19/16) - Start Tamiflu 30mg Problem #2: Chest pain/CVA/CAD/Carotid Stenosis - Likely related to COPD findings (acute change in disease). - Not likely ACS due to negative EKG/Troponin. - No change in level of pain due to position. - Monitor - Small pericardial effusion was evident on Chest CT (10/18/16); if pain gets worse, consider redoing chest CT to evaluate for changes in pericardial effusion. - Continue antihypertensive home meds: lisinopril, amlodipine, carvedilol. - Continue statin home med: atorvastatin. Problem #3: Moderatly elevated Alk Phosphatase - Likely due to Cholelithiasis (see Chest CT); lung mass; prostate ca. - Monitor pts Alk Phosphatase Problem #4: Anemia - Monitor iron studies - Consider iron supplementation - Guiac stools to verify no occult bleeding. Problem #5: T2DM - Insulin Dependent - Moniter glucose and continue home meds inpatient. 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 - Consult Pulmonary Problem #7: Prostate cancer - Sx relief measures are in place. - Continue Flomax .4mg
[2016-10-19 16:00] VITALS: BP 162/82
--- NOTE | 2016-10-19 18:53 | Cons- Pulmonary ---
General Information and HPI Consulting Request Date of Consult: 10/19/16 Requested By: med team History of Present Illness: Mr Bearden is an 86-year-old man who was known to be in his usual state of health until 2 days ago. He has a past medical history of CVA ( dx'ed 2009) with residual right-sided weakness, CAD s/p drug-coated Taxus stent placement (dx'ed 2007), hypertension, right carotid endarterectom, type 2 diabetes, COPD, h/o lung mass, obstructive sleep apnea, recent admission to [facility] for evaluation of CVA in 2016. He was brought to [facility] with a chief concern of shortness of breath, cough 2 days. As per the patient, he had shortness of breath 2 days, progress from shortness of breath while doing daily chores to shortness of breath at rest. Has not been mobile in the last 24 hours. Also was concerned about cough, nonproductive which worsened in the last 1 day. Reports chest discomfort, tightness in the center of the chest, mostly associated with cough, no radiation. No chest discomfort at the time of interview. Reports one episode of vomiting, on the day of admission to the hospital. No abdominal pain, change in bladder or bowel function. No loss of consciousness, lightheadedness or seizures noted. No pedal edema, palpitations, orthopnea/PND noted. Uses a walker for mobility, lives with family. Not a current smoker. Reports residual right-sided weakness. Review of Systems Constitutional: Reports: weakness. Denies: chills, fever. EENTM: Denies: visual changes. Cardiovascular: Denies: chest pain, palpitations, peripheral edema. Respiratory: Reports: cough, short of breath, wheezing. Denies: orthopnea, sputum production. GI: Denies: diarrhea, melena, bloody stool. Genitourinary: Denies: dysuria. Musculoskeletal: Reports: back pain. Skin: Denies: change in hair/nails, erythema. Neurological/Psychological: Denies: numbness, paresthesia, tingling, tremors. Hematologic/Endocrine: Denies: bruising, bleeding. Allergies/Medications Allergies: Coded Allergies: NO KNOWN ALLERGIES (05/15/16) Home Med List: Albuterol Sulfate 1.25 MG/3 ML VIAL.NEB 1 Vial INH/CHARISSA Q4-6 PRN SOB (Reported ) Allopurinol 100 MG TABLET 1 TAB PO 0900 GOUT (Reported) Amlodipine Besylate 5 MG TABLET 1 TAB PO DAILY HEART (Reported) Aspirin (Aspirin*) 325 MG TABLET 1 TAB PO 1700 HEART/BLOOD (Reported) Atorvastatin Calcium 80 MG TABLET 1 TAB PO 1700 CHOLESTEROL (Reported) Carvedilol 25 MG TABLET 1 TAB PO BID HTN (Reported) Clopidogrel Bisulfate (Plavix) 75 MG TABLET 75 MG PO DAILY STROKE Diclofenac Sodium (Voltaren) 1 % GEL..GRAM. 1 GM TOP 4 TIMES/DAY PAIN ( Reported) apply to affected area(s) Ergocalciferol (Vitamin D2) (Vitamin D2) 50,000 UNIT CAPSULE 50,000 UNITS PO WEEKLY MONDAY VITAMIN (Reported) Escitalopram Oxalate (Lexapro) 20 MG TABLET 1 TAB PO DAILY ANXIETY (Reported) Fluticasone/Vilanterol (Breo Ellipta 100-25 Mcg INH) 100 MCG-25 MCG/DOSE BLST.W.DEV 1 PUFF INH BID COPD (Reported) Gemfibrozil 600 MG TABLET 1 TAB PO BID CHOL (Reported) Insulin Detemir (Levemir) 100 UNIT/ML VIAL 8 UNITS SC BID dm Lisinopril 10 MG TABLET 2 TAB PO QAM BP (Reported) Montelukast Sodium (Singulair) 10 MG TAB 1 TAB PO DAILY ALLERGIES (Reported) Polyethylene Glycol 3350 (Miralax) 17 GRAM POWD.PACK 1 PAC PO DAILY CONSTIPATION (Reported) dissolve in water Tamsulosin HCl (Flomax) 0.4 MG CAP.ER.24H 1 CAP PO 1700 PROSTATE (Reported) Past History Travel History Traveled to [place] past 21 day No Medical History Blood Transfusion Hx: Yes Neurological: CVA (CVA 2009, seen on MRI, see EMR), syncope thought d/t orthostasis 2009 (see EMR) EENT: cataracts, glaucoma, low vision Cardiovascular: aortic stenosis, CAD, hypertension, hyperlipidemia, carotid atherosclerosis, followed by Dr Cassidy since 2009 adm Respiratory: COPD, obstructive sleep apnea, pneumonia, USES CPAP Gastrointestinal: GERD Hepatic: NONE Renal: chronic kidney disease Musculoskeletal: degen joint disease, arthritis Psychiatric: depression Endocrine: diabetes, hypoglycemia Blood Disorders: anemia Cancer(s): prostate cancer 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 FATHER (heart attack in 70's). SISTER, Age 60+. FH: dementia FH: Parkinson's disease FATHER Relation not specified for: FH: hypertension Psychosocial History Who Do You Live With? child Services at Home: Home Health Aide, Nursing Primary Language: Uzbek Smoking Status: Former Smoker Functional Ability ADLs Needs Assist: bathing. Ambulation: cane, walker IADLs Needs Assist: shopping, housework, food prep, transportation. Exam & Diagnostic Data Last 24 Hrs of Vital Signs/I&O Vital Signs Date Time Temp Pulse Resp B/P Pulse O2 O2 Flow FiO2 Ox Delivery Rate 10/19 1629 72 140/80 10/19 1600 97 Nasal 2.0L Cannula 10/19 1600 98.1 70 20 162/82 97 Nasal 2.0L Cannula 10/19 0948 95 Nasal 2.0L Cannula 10/19 0855 97.5 79 18 158/90 95 Room Air 10/19 0838 158/90 10/19 0838 158/90 10/19 0838 158/90 10/19 0800 94 Nasal 2.0L Cannula 10/19 0138 82 97 10/19 0013 98.1 84 19 150/64 91 Room Air 10/19 0000 95 Nasal 2.0L Cannula 10/18 2128 Nasal 3.0L Cannula 10/180 99.8 10/18 2006 87 167/88 Intake & Output 10/19 1600 10/19 0800 10/19 0000 Intake Total 1050 600 700 Output Total 650 500 800 Balance 400 100 -100 Intake, IV 250 Intake, Oral 800 600 700 Number 1 Bowel Movements Output, Urine 650 500 800 Patient 222 lb Weight Last 48 Hrs of Labs/Stephen: Laboratory Tests 10/19/16 0630: Anion Gap 12, Estimated GFR 25 L, BUN/Creatinine Ratio 19.2, CBC w Diff NO MAN DIFF REQ, RBC 3.37 L, MCV 83.7, MCH 29.0, RDW 15.3 H, MPV 6.9 L, Gran % 83.5 H, Lymphocytes % 8.6 L, Monocytes % 7.7, Eosinophils % 0, Basophils % 0.2, Absolute Granulocytes 5.1, Absolute Lymphocytes 0.5 L, Absolute Monocytes 0.5, Absolute Eosinophils 0, Absolute Basophils 0, PUBS MCHC 34.7 10/19/16244: Urinalysis LIGHT H, Urine Color YEL, Urine Clarity HAZY H, Urine pH 6.0, Ur Specific [place] 1.020, Urine Protein 100 H, Urine Ketones NEG, Urine Nitrite NEG, Urine Bilirubin NEG, Urine Urobilinogen 0.2, Ur Leukocyte Esterase NEG, Ur Microscopic SEDIMENT EXAMINED, Urine RBC 3-5, Urine WBC 1-3 H, Ur Epithelial Cells FEW, Granular Casts 1-3 H, Urine Mucus FEW, Urine Hemoglobin SMALL H, Urine Glucose 500 H 10/18/162037: Virus Culture Pending 10/18/162034: Troponin I 0.06 10/18/16 1235: Anion Gap 11, Estimated GFR 26 L, BUN/Creatinine Ratio 17.5, Glucose 200 H, Calcium 7.6 L, Total Bilirubin 0.5, AST 15 L, ALT 28, Alkaline Phosphatase 185 H, Troponin I 0.06, [id number]-Lbipnxeexae Pept 1310 H, Total Protein 5.8 L, Albumin 2.9 L, Globulin 2.9, Albumin/Globulin Ratio 1.0 L, PT 12.7 H, INR 1.21 H, CBC w Diff NO MAN DIFF REQ, RBC 3.54 L, MCV 84.3, MCH 28.5, RDW 15.9 H, MPV 6.6 L, Gran % 76.1 H, Lymphocytes % 10.7 L, Monocytes % 10.9 H, Eosinophils % 2.1, Basophils % 0.2, Absolute Granulocytes 4.8, Absolute Lymphocytes 0.7 L, Absolute Monocytes 0.7 H, Absolute Eosinophils 0.1, Absolute Basophils 0, PUBS MCHC 33.8 Microbiology 10/19 244 URINE ROUT: Legionella Antigen - COMP 10/19 244 URINE ROUT: Streptococcus pneumoniae Antigen (M - COMP Assessment/Plan Impression/Plan: Physical Exam General Appearance Alert, Oriented X3, Cooperative Skin No Rashes, No Breakdown HEENT Atraumatic, PERRLA, EOMI, Mucous Membr. moist/pink Neck Supple, No JVD, No thryomegaly, +2 Carotid Pulse wo Bruit, No LAD Lymphatic Cervical nl Cardiovascular Regular Rate, Normal S1, Normal S2, grade 2/6 systolic murmur Lungs low entry bilaterally, bilateral rhonchi, rales Abdomen Normal Bowel Sounds, Soft, No Tenderness, No Hepatospenomegaly Neurological Normal Speech, Normal Tone, Sensation Intact, Cranial Nerves 3-12 NL, Reflexes 2+, strength 4/5 right upper and lower extremity Strength 5/5 left upper and lower extremity Extremities No Clubbing, No Cyanosis, No Edema, Normal Pulses Vascular Normal Pulses, Pulses Symmetrical IMPRESSION This is an elderly gentleman with history 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, mild dementia, worsening performance status in the recent past, recently diagnosed lung mass which was positive with PET scan - patient and family had declined any further therapy or intervention for this, carotid stenosis, diabetes, moderate COPD, morbid obesity with obesity hypoventilation syndrome, autonomic dysfunction related diabetes, significant urinary retention and constipation history, ischemic heart disease with previous drug-eluting stent, now comes in with * Influenza with cough wheezing and shortness of breath * Increasing lung mass now moderate pleural effusion with mediastinal and hilar lymphadenopathy with clinical evidence suggestive of lymphangitic spread in the right side with a small pericardial effusion. This is highly suggestive and consistent with advancing lung cancer. Patient had actively declined any intervention and patient's son who is his power of baker biscuit wants him to only have symptomatic therapy if he has lung cancer. Unfortunately patient doesn't seem to be a great candidate for invasive workup and therapy aswell * Dementia with previous stroke * Tracheomalacia * Ischemic heart disease with previous stent, hypertension, diabetes * Chronic obesity hypoventilation syndrome with obstructive and central sleep apnea. Patient is not compliant with CPAP at bedtime. 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 I did discuss with the son over the phone and he wishes symptomatic therapy only and does not wish to have any intervention or active treatment for malignancy * Keep the head of bed elevated * Have advised the family to come for a meeting tomorrow we'll discuss it again but overall patient's malignancy seems to be advancing and he had absolutely wishes no intervention when he was lucid and these are the wishes of the son as well Consult Acknowledgment - Thank you for your consult request.
--- NOTE | 2016-10-19 23:02 | NUR ---
PATIENT A AND O X 3. FORGETFUL AT TIMES. VITAL SIGNS STABLE. 2L VIA NC. CPAP WORN AT NIGHT. ASSIST OF 1 W/ RW. STEADY GAIT. + PULSES. DENIES CHEST PAIN. NO DISCOMFORT NOTED. PATIENT RESTING AT THIS TIME. WILL CONTINUE TO MONITOR
[2016-10-19 23:50] VITALS: BP 129/88
--- NOTE | 2016-10-20 05:52 | PN- Housestaff ---
SLADE KING 10/20/16 0552: Subjective Follow-up For: - COPD exacerbation - Pneumonia Subjective: Feels improved. Shortness of breath is improved. Vitals remain stable overnight. Currently on 2 L oxygen-oxygen saturation in the range of 93-95%. As per the discussion between Dr. Booth and the patient's family, it was ascertained that the patient's Code status be changed to DNR/DNI at this time. Review of Systems Constitutional: Reports: see HPI. Objective Last 24 Hrs of Vital Signs/I&O Vital Signs Date Time Temp Pulse Resp B/P Pulse O2 O2 Flow FiO2 Ox Delivery Rate 10/20 0127 83 96 10/20 0000 Nasal 2.0L Cannula 10/19 2350 98.2 69 18 129/88 93 Room Air 10/19 2231 78 97 10/19 2127 72 158/78 10/19 1855 96 Nasal 2.0L Cannula 10/19 1629 72 140/80 10/19 1600 97 Nasal 2.0L Cannula 10/19 1600 98.1 70 20 162/82 97 Nasal 2.0L Cannula 10/19 0948 95 Nasal 2.0L Cannula 10/19 0855 97.5 79 18 158/90 95 Room Air 10/19 0838 158/90 10/19 0838 158/90 10/19 0838 158/90 10/19 0800 94 Nasal 2.0L Cannula Intake & Output 10/20 0800 10/20 0000 10/19 1600 Intake Total 100 1050 Output Total 550 650 Balance -450 400 Intake, IV 250 Intake, Oral 100 800 Number 1 1 Bowel Movements Output, Urine 550 650 Physical Exam General Appearance: No Acute Distress Other Physical Findings: General Exam: AAOx3, No acute distress, Skin: No rashes, no breakdown HEENT: PERRLA, EOMI Neck: Supple, No JVD No cervical lymphadenopathy CVS: Reg Rate, Normal S1,S2, No MGR Resp: Decreased air entry, rhonchi/rales bilaterally. Improved compared to yesterday. Abdomen: Soft, No tenderness, Normal Bowel Sounds Neuro: Normal Speech, Strength 5/5 b/l x 4 extremities, Sensation intact, CN III -XII NL, Reflexes 2+ Extremities: No cyanosis, pedal edema Current Medications: Current Medications Sig/Reyna Start time Last Medication Dose Route Stop Time Status Admin Acetaminophen 650 MG Q6P PRN 10/18 1715 AC PO Albuterol Sulfate 3 ML TID 10/18 2200 AC 10/19 INH 1855 Albuterol Sulfate 3 ML Q4P PRN 10/18 1645 AC INH Allopurinol 100 MG 0900 10/19 0900 AC 10/19 PO 0837 Amlodipine Besylate 5 MG DAILY 10/19 1000 AC 10/19 PO 0838 Aspirin 325 MG 1700 10/18 1700 AC 10/19 PO 1628 Atorvastatin Calcium 80 MG 1700 10/19 1700 AC 10/19 PO 1628 Azithromycin 500 MG 1300 10/19 1300 DC 10/19 Dextrose/Water 250 ML IV 1400 Azithromycin 500 MG DAILY 10/19 1000 DC Dextrose/Water 250 ML IV Budesonide/ 2 PUF BID 10/18 2200 AC 10/19 Formoterol Fumarate INH 2127 Carvedilol 25 MG BID 10/18 2200 AC 10/19 PO 2127 Ceftriaxone Sodium 1,000 MG 1300 10/19 1300 DC 10/19 IV 1300 Ceftriaxone Sodium 1,000 MG DAILY 10/19 1000 DC IV Clopidogrel Bisulfate 75 MG DAILY 10/19 1000 AC 10/19 PO 0838 Diclofenac Sodium 1 NAOMI 4 TIMES/DAY 10/18 1800 AC 10/19 TOP 2127 Ergocalciferol 50,000 IU Mo 10/24 1000 AC PO Escitalopram Oxalate 20 MG DAILY 10/19 1000 AC 10/19 PO 0838 Gemfibrozil 600 MG BID 10/18 2200 AC 10/19 PO 2127 Heparin Sodium 5,000 UNIT Q8 10/18 1743 AC 10/19 (Porcine) SC 2128 Insulin Aspart 0 TIDAC 10/19 1200 AC 10/19 SC 1722 Insulin Aspart 0 TIDAC 10/19 0800 DC 10/19 SC 0818 Insulin Detemir 8 UNITS BID 10/18 2200 AC 10/19 SC 2127 Lisinopril 20 MG QAM 10/19 1000 AC 10/19 PO 0838 Methylprednisolone 40 MG BID 10/19 2200 CAN IV Methylprednisolone 40 MG Q8 10/19 0600 DC 10/19 IV 0613 Morphine Sulfate 2 MG Q4P PRN 10/18 1715 DC IV Oseltamivir Phosphate 30 MG AT BEDTIME 10/18 2331 AC 10/19 PO 10/22 2201 2127 Oxycodone/ 1 TAB Q6 PRN 10/18 1715 AC Acetaminophen PO Patient Medication 1 ED .STK-MED ONE 10/19 1403 PR Teaching ED 10/19 1404 Polyethylene Glycol 17 GM DAILY PRN 10/18 1715 AC 10/19 PO 0839 Prednisone 5 MG ONCE ONE 10/22 1000 AC PO 10/22 1001 Prednisone 10 MG ONCE ONE 10/21 1000 AC PO 10/21 1001 Prednisone 20 MG ONCE ONE 10/20 1000 AC PO 10/20 1001 Tamsulosin HCl 0.4 MG 1700 10/19 1700 AC 10/19 PO 1629 Last 24 Hrs of Lab/Stephen Results Last 24 Hrs of Labs/Mics: Laboratory Tests 10/19/16 0630: Anion Gap 12, Estimated GFR 25 L, BUN/Creatinine Ratio 19.2, CBC w Diff NO MAN DIFF REQ, RBC 3.37 L, MCV 83.7, MCH 29.0, RDW 15.3 H, MPV 6.9 L, Gran % 83.5 H, Lymphocytes % 8.6 L, Monocytes % 7.7, Eosinophils % 0, Basophils % 0.2, Absolute Granulocytes 5.1, Absolute Lymphocytes 0.5 L, Absolute Monocytes 0.5, Absolute Eosinophils 0, Absolute Basophils 0, PUBS MCHC 34.7 Assessment/Plan Assessment: He is an older man with a past history of CVA, coronary artery disease, type 2 diabetes, stage IV CKD, is being evaluated for acute onset of shortness of breath, cough 2 days. Differential diagnosis: #1 pneumonia(obstructive) #2 community acquired pneumonia #3 aspiration pneumonia #4 COPD exacerbation Below is the problem list and plan: #1 shortness of breath, cough- radiological findings indicated consolidation around the mass that was noted previously. As per the mechanical project engineer, it appeared more like worsening malignancy as opposed to pneumonia. Continue to treat the patient for COPD exacerbation. Antibiotics have been discontinued as per the mechanical project engineer's recommendation. Blood cultures and lower respiratory cultures have been negative so far. Solu-Medrol IV has been changed to by mouth prednisone. #2 anemia-Appears to be anemia of chronic disease. #3 elevation in alkaline phosphatase-likely because of cholelithiasis. Patient does not have any symptoms at this time. Continue to monitor closely, and no workup is required at this time, unless clinically indicated. #4 history of CVA, coronary artery disease, carotid stenosis-continue antihypertensives-lisinopril, amlodipine, carvedilol. Also continue high intensity statin. #5 chronic kidney disease stage IV-likely because of diabetes patient. Continue to monitor serum creatinine. Avoid nephrotoxic medications at this time. #6 type 2 mkgywatc-Plkc-Gmjdl, Levemir 8 units twice a day. NovoLog sliding scale. Blood sugars 195, 261. #7 DVT prophylaxis-heparin. Problem List: 1. Lung malignancy Pain Ratin Pain Location: None Pain Goal: Pain 4 or less Pain Plan: Tylenol when necessary Tomorrow's Labs & Rationales: CBC-low H&H. Basic electrolyte panel-has not been checked in the last 24 hours. Patient has chronic kidney disease. ZAKIA CERRATO,FARSHAD 10/20/16 1155: Attending MD Review Statement Attending Statement Attending MD Statement: examined this patient, discuss w/resident/PA/TRACK MAN, agreed w/resident/PA/TRACK MAN, discussed with family, reviewed EMR data (avail), discussed with nursing, discussed with case mgmt, reviewed images, amended to note Attending Assessment/Plan: Patient seen and examined, more awake today. Denies any shortness of breath or coughing this morning. Overall feeling better. Vlad Booth MD is recommending to stop the antibiotics as likely her symptoms are secondary to the worsening of the lung mass and not pneumonia. Son is sitting at bedside. Vital Signs Date Time Temp Pulse Resp B/P Pulse O2 O2 Flow FiO2 Ox Delivery Rate 10/20 0859 62 118/62 10/20 0858 62 118/62 10/20 0857 62 118/62 10/20 0835 97.9 62 18 118/62 91 Nasal 1.5L Cannula 10/20 0814 95 Nasal 2.0L Cannula 10/20 0800 94 Nasal 2.0L Cannula 10/20 0127 83 96 10/20 0000 Nasal 2.0L Cannula 10/19 2350 98.2 69 18 129/88 93 Room Air 10/19 2231 78 97 10/19 2127 72 158/78 10/19 1855 96 Nasal 2.0L Cannula 10/19 1629 72 140/80 10/19 1600 97 Nasal 2.0L Cannula 10/19 1600 98.1 70 20 162/82 97 Nasal 2.0L Cannula on exam; awake, hard of hearing, NAD cv; s1,s2, rrr. resp; clear abd; soft, nt, bs+ ext: no edema Laboratory Tests 10/20 0625 Hematology CBC w Diff NO MAN DIFF REQ WBC (4.8 - 10.8 /CUMM) 5.7 RBC (4.70 - 6.10 /CUMM) 3.23 L Hgb (14.0 - 18.0 G/DL) 9.2 L Hct (42 - 52 %) 27.3 L MCV (80.0 - 94.0 FL) 84.7 MCH (27.0 - 31.0 PG) 28.5 RDW (11.5 - 14.5 %) 15.1 H Plt Count (130 - 400 /CUMM) 179 MPV (7.4 - 10.4 FL) 7.0 L Gran % (42.2 - 75.2 %) 73.9 Lymphocytes % (20.5 - 51.1 %) 15.8 L Monocytes % (1.7 - 9.3 %) 9.8 H Eosinophils % (0 - 5 %) 0.3 Basophils % (0.0 - 2.0 %) 0.2 Absolute Granulocytes (1.4 - 6.5 /CUMM) 4.2 Absolute Lymphocytes (1.2 - 3.4 /CUMM) 0.9 L Absolute Monocytes (0.10 - 0.60 /CUMM) 0.6 Absolute Eosinophils (0.0 - 0.7 /CUMM) 0 Absolute Basophils (0.0 - 0.2 /CUMM) 0 PUBS MCHC (33.0 - 37.0 G/DL) 33.7 A/P; 86 y/o M [facility] sig for CVA ( dx'ed 2009) with residual right-sided weakness, CAD s/p drug-coated Taxus stent placement (dx'ed 2007), hypertension, right carotid endarterectom, type 2 diabetes, COPD, h/o lung mass, obstructive sleep apnea, admitted with acute COPD exacerbation, as well as influenza positive. Lung imaging and is consistent with a mass concern for malignancy. As per Dr. Booth, antibiotics have been discontinued. Patient has been kept on steroids. Vlad Booth MD to discuss with patient and his son about the goals of care for this worsening lung mass. Continue Tamiflu to complete a total of 5 day course. Continue TRC nebs, inhalers as well as other medications. DVT prophylaxis: Heparin subcutaneous. PT recommends that he had but patient's son does not want him to go to rehabilitation and he wants to go home with home services and physical therapy. Possible discharge tomorrow.
[2016-10-20 08:18] LABS: ABSOLUTE BASOPHIL COUNT 0 /CUMM (0.0-0.2); ABSOLUTE EOSINOPHIL COUNT 0 /CUMM (0.0-0.7); ABSOLUTE GRANULOCYTE CT 4.2 /CUMM (1.4-6.5); ABSOLUTE LYMPH COUNT 0.9 /CUMM (1.2-3.4); ABSOLUTE MONOCYTE COUNT 0.6 /CUMM (0.10-0.60); BASOPHIL % 0.2 % (0.0-2.0); EOSINOPHIL % 0.3 % (0-5); GRANULOCYTE % 73.9 % (42.2-75.2); HEMATOCRIT 27.3 % (42-52); MEAN CORPUSCULAR HGB 28.5 PG (27.0-31.0); MEAN CORPUSCULAR HGB CONC 33.7 G/DL (33.0-37.0); MEAN CORPUSCULAR VOLUME 84.7 FL (80.0-94.0); PLATELET COUNT 179 /CUMM (130-400); RBC DISTRIBUTION WIDTH 15.1 % (11.5-14.5); RED BLOOD CELL CT 3.23 /CUMM (4.70-6.10); WHITE BLOOD CELL COUNT 5.7 /CUMM (4.8-10.8)
--- NOTE | 2016-10-20 08:29 | Patient Discharge Instructions ---
Discharge Instructions General Discharge Information You were seen/treated for: - Special Instructions: 1 please follow up with her primary care provider within 1-2 weeks of discharge. #2 please follow-up with your gta within 1-2 weeks of discharge. Acute Coronary Syndrome Inclusion Criteria At DC or during hospital stay patient has or had the following: ACS DIAGNOSIS No Discharge Core Measures Meds if any: Prescribed or Continued at Discharge Meds if any: NOT Prescribed or Continued at Discharge Congestive Heart Failure Inclusion Criteria At DC or during hospital stay patient has or had the following: CHF DIAGNOSIS No Discharge Core Measures Meds if any: Prescribed or Continued at Discharge Meds if any: NOT Prescribed or Continued at Discharge Cerebrovascular accident Inclusion Criteria At DC or during hospital stay patient has or had the following: CVA/TIA Diagnosis No Discharge Core Measures Meds if any: Prescribed or Continued at Discharge Meds if any: NOT Prescribed or Continued at Discharge Venous thromboembolism Inclusion Criteria VTE Diagnosis No VTE Type NONE VTE Confirmed by (Test) NONE Discharge Core Measures - Per Current guidelines, there needs to be overlap - treatment for the first 5 days of Warfarin therapy. - If discharged on Warfarin prior to 5 days of - overlap therapy, the patient will need to be - assessed for post discharge needs including - *Post discharge parental anticoagulation - *Warfarin and/or parental anticoagulation education - *Follow up date to check INR post discharge At least 5 days overlap therapy as Inpatient No Meds if any: Prescribed or Continued at Discharge Note: Overlap Therapy is Warfarin and Anticoagulant Meds if any: NOT Prescribed or Continued at Discharge
[2016-10-20 08:35] VITALS: BP 118/62
--- NOTE | 2016-10-20 13:18 | PN- Pulmonary ---
Subjective HPI/Critical Care Issues: Seen and examined today Patient is relatively stable Afebrile Mild shortness of breath persist Discussed with son extensively See noted below Objective Current Medications: Current Medications Sig/Reyna Start time Last Medication Dose Route Stop Time Status Admin Acetaminophen 650 MG Q6P PRN 10/18 1715 AC PO Albuterol Sulfate 3 ML TID 10/18 2200 AC 10/20 INH 0811 Albuterol Sulfate 3 ML Q4P PRN 10/18 1645 AC INH Allopurinol 100 MG 0900 10/19 0900 AC 10/20 PO 0857 Amlodipine Besylate 5 MG DAILY 10/19 1000 AC 10/20 PO 0857 Aspirin 325 MG 1700 10/18 1700 AC 10/19 PO 1628 Atorvastatin Calcium 80 MG 1700 10/19 1700 AC 10/19 PO 1628 Azithromycin 500 MG 1300 10/19 1300 DC 10/19 Dextrose/Water 250 ML IV 1400 Budesonide/ 2 PUF BID 10/18 2200 AC 10/20 Formoterol Fumarate INH 0900 Carvedilol 25 MG BID 10/18 2200 AC 10/20 PO 0859 Ceftriaxone Sodium 1,000 MG 1300 10/19 1300 DC 10/19 IV 1300 Clopidogrel Bisulfate 75 MG DAILY 10/19 1000 AC 10/20 PO 0857 Diclofenac Sodium 1 NAOMI 4 TIMES/DAY 10/18 1800 AC 10/20 TOP 1304 Ergocalciferol 50,000 IU Mo 10/24 1000 AC PO Escitalopram Oxalate 20 MG DAILY 10/19 1000 AC 10/20 PO 0858 Gemfibrozil 600 MG BID 10/18 2200 AC 10/20 PO 0857 Heparin Sodium 5,000 UNIT Q8 10/18 1743 AC 10/20 (Porcine) SC 1305 Insulin Aspart 0 TIDAC 10/19 1200 AC 10/20 SC 1305 Insulin Detemir 8 UNITS BID 10/18 2200 AC 10/20 SC 0859 Lisinopril 20 MG QAM 10/19 1000 AC 10/20 PO 0858 Methylprednisolone 40 MG BID 10/19 2200 CAN IV Oseltamivir Phosphate 30 MG AT BEDTIME 10/18 2331 AC 10/19 PO 10/22 2201 2127 Oxycodone/ 1 TAB Q6 PRN 10/18 1715 AC Acetaminophen PO Patient Medication 1 ED .STK-MED ONE 10/19 1403 DC Teaching ED 10/19 1404 Polyethylene Glycol 17 GM DAILY PRN 10/18 1715 AC 10/19 PO 0839 Prednisone 5 MG ONCE ONE 10/22 1000 AC PO 10/22 1001 Prednisone 10 MG ONCE ONE 10/21 1000 AC PO 10/21 1001 Prednisone 20 MG ONCE ONE 10/20 1000 DC 10/20 PO 10/20 1001 0900 Tamsulosin HCl 0.4 MG 1700 10/19 1700 AC 10/19 PO 1629 Vital Signs & I&O Last 24 Hrs of Vitals and I&O: Vital Signs Date Time Temp Pulse Resp B/P Pulse O2 O2 Flow FiO2 Ox Delivery Rate 10/20 0859 62 118/62 10/20 0858 62 118/62 10/20 0857 62 118/62 10/20 0835 97.9 62 18 118/62 91 Nasal 1.5L Cannula 10/20 0814 95 Nasal 2.0L Cannula 10/20 0800 94 Nasal 2.0L Cannula 10/20 0127 83 96 10/20 0000 Nasal 2.0L Cannula 10/19 2350 98.2 69 18 129/88 93 Room Air 10/19 2231 78 97 10/19 2127 72 158/78 10/19 1855 96 Nasal 2.0L Cannula 10/19 1629 72 140/80 10/19 1600 97 Nasal 2.0L Cannula 10/19 1600 98.1 70 20 162/82 97 Nasal 2.0L Cannula Intake & Output 10/20 1600 10/20 0800 10/20 0000 Intake Total 120 100 Output Total 100 600 550 Balance -100 -480 -450 Intake, Oral 120 100 Number 1 Bowel Movements Output, Urine 100 600 550 Impression/Plan Impression/Plan Impression/Plan: Physical Exam General Appearance Alert, Oriented X3, Cooperative Skin No Rashes, No Breakdown HEENT Atraumatic, PERRLA, EOMI, Mucous Membr. moist/pink Neck Supple, No JVD, No thryomegaly, +2 Carotid Pulse wo Bruit, No LAD Lymphatic Cervical nl Cardiovascular Regular Rate, Normal S1, Normal S2, grade 2/6 systolic murmur Lungs low entry bilaterally, bilateral rhonchi, rales Abdomen Normal Bowel Sounds, Soft, No Tenderness, No Hepatospenomegaly Neurological Normal Speech, Normal Tone, Sensation Intact, Cranial Nerves 3-12 NL, Reflexes 2+, strength 4/5 right upper and lower extremity Strength 5/5 left upper and lower extremity Extremities No Clubbing, No Cyanosis, No Edema, Normal Pulses Vascular Normal Pulses, Pulses Symmetrical IMPRESSION This is an elderly gentleman with history 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, mild dementia, worsening performance status in the recent past, recently diagnosed lung mass which was positive with PET scan - patient and family had declined any further therapy or intervention for this, carotid stenosis, diabetes, moderate COPD, morbid obesity with obesity hypoventilation syndrome, autonomic dysfunction related diabetes, significant urinary retention and constipation history, ischemic heart disease with previous drug-eluting stent, now comes in with * Influenza with cough wheezing and shortness of breath * Increasing lung mass now moderate pleural effusion with mediastinal and hilar lymphadenopathy with clinical evidence suggestive of lymphangitic spread in the right side with a small pericardial effusion. This is highly suggestive and consistent with advancing lung cancer. Patient had actively declined any intervention and patient's son who is his power of criminal defense attorney wants him to only have symptomatic therapy if he has lung cancer. Unfortunately patient doesn't seem to be a great candidate for invasive workup and therapy aswell * Dementia with previous stroke * Tracheomalacia * Ischemic heart disease with previous stent, hypertension, diabetes * Chronic obesity hypoventilation syndrome with obstructive and central sleep apnea. Patient is not compliant with CPAP at bedtime. 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 As per my previous discussions in my office, patient's previous discussions were to continue conservative therapy only. When I did discuss with the patient in my office he was quite lucid and was aware of all the implications of his diagnosis. Any remission no invasive workup or any ongoing chemoradiation therapy and he wanted to be treated with symptomatic therapy only and he wanted to be made DNR/DNI. This morning's discussion with the son yielded similar decision the son per previous wishes of the father wishes him to be made comfort if he gets worse in the future. Once she is better he can be discharged home and he will follow-up with me and then we will institute home hospice. I did encouraged the son to discuss with his other siblings as well. Per his son other siblings are in agreement * Keep the head of bed elevated * Patient is DNR/DNI when stable can be discharged home. In the future, if he gets worse the son will bring him to my office and then we will institute home hospice therapy.
--- NOTE | 2016-10-20 15:16 | PN- Student ---
Subjective Subjective: Followup Note (10/21/2016 - 08:00) Mr. Bearden is an 86 y/o male who arrived to the ED 2 days ago for SOB due to COPD exacerbation likely due to worsening malignancy & flu positive. This is my 3rd encounter w/ the patient and I followed up with him this morning at 08:00. Subjectvely, the patient stated that he was breathing the same as the previous day. He stated he had a BM last night as of 08:00. Overall he has limited resposes, limiting his answers primarily to one - three word sentences (this is not a new finding). His son has reported dementia. The patient's cough has substantially improved in contrast to the previous day. He was alert to person and place. Post pulmonary consult, the patient was made DNR/DNI due to age and diagnosis of lung mass/cancer, worsening clinical symptoms and signs. Objective Objective: Vital Signs Date Time Temp Pulse Resp B/P Pulse O2 O2 Flow FiO2 Ox Delivery Rate 10/20 0859 62 118/62 10/20 0858 62 118/62 10/20 0857 62 118/62 10/20 0835 97.9 62 18 118/62 91 Nasal 1.5L Cannula 10/20 0814 95 Nasal 2.0L Cannula 10/20 0800 94 Nasal 2.0L Cannula 10/20 0127 83 96 10/20 0000 Nasal 2.0L Cannula 10/19 2350 98.2 69 18 129/88 93 Room Air 10/19 2231 78 97 10/19 2127 72 158/78 10/19 1855 96 Nasal 2.0L Cannula 10/19 1629 72 140/80 10/19 1600 97 Nasal 2.0L Cannula 10/19 1600 98.1 70 20 162/82 97 Nasal 2.0L Cannula Intake & Output 10/20 1600 10/20 0800 10/20 0000 Intake Total 800 120 100 Output Total 700 600 550 Balance 100 -480 -450 Intake, Oral 800 120 100 Number 1 Bowel Movements Output, Urine 700 600 550 Physical Exam: General: Patient was resting in bed (supine) watching TV prior to exam. He was in mild distress (unchanged from previous day- however, patient was not complaining). CV: Normal S1/S2, no gallops, murmurs or rubs. +1 mild pedal edema. Moderate interference from breath sounds (wheezes/crackles) during auscultation. Lungs: Right Lower Lung Base is more audible on auscultation in contrast to the previous day's exam. Diffuse wheezing and crackles are heard bilaterally. GI: Normal bowel sounds, not hyperactive or decreased. Current Medications Sig/Reyna Start time Last Medication Dose Route Stop Time Status Admin Acetaminophen 650 MG Q6P PRN 10/18 1715 AC PO Albuterol Sulfate 3 ML TID 10/18 2200 AC 10/20 INH 1315 Albuterol Sulfate 3 ML Q4P PRN 10/18 1645 AC INH Allopurinol 100 MG 0900 10/19 0900 AC 10/20 PO 0857 Amlodipine Besylate 5 MG DAILY 10/19 1000 AC 10/20 PO 0857 Aspirin 325 MG 17010/18 1700 AC 10/19 PO 1628 Atorvastatin Calcium 80 MG 1700 10/19 1700 AC 10/19 PO 1628 Azithromycin 500 MG 1300 10/19 1300 DC 10/19 Dextrose/Water 250 ML IV 1400 Budesonide/ 2 PUF BID 10/18 2200 AC 10/20 Formoterol Fumarate INH 0900 Carvedilol 25 MG BID 10/18 2200 AC 10/20 PO 0859 Ceftriaxone Sodium 1,000 MG 1300 10/19 1300 DC 10/19 IV 1300 Clopidogrel Bisulfate 75 MG DAILY 10/19 1000 AC 10/20 PO 0857 Diclofenac Sodium 1 NAOMI 4 TIMES/DAY 10/18 1800 AC 10/20 TOP 1304 Ergocalciferol 50,000 IU Mo 10/24 1000 AC PO Escitalopram Oxalate 20 MG DAILY 10/19 1000 AC 10/20 PO 0858 Gemfibrozil 600 MG BID 10/18 2200 AC 10/20 PO 0857 Heparin Sodium 5,000 UNIT Q8 10/18 1743 AC 10/20 (Porcine) SC 1305 Insulin Aspart 0 TIDAC 10/19 1200 AC 10/20 SC 1305 Insulin Detemir 8 UNITS BID 10/18 2200 AC 10/20 SC 0859 Lisinopril 20 MG QAM 10/19 1000 AC 10/20 PO 0858 Methylprednisolone 40 MG BID 10/19 2200 CAN IV Oseltamivir Phosphate 30 MG AT BEDTIME 10/18 2331 AC 10/19 PO 10/22 2201 2127 Oxycodone/ 1 TAB Q6 PRN 10/18 1715 AC Acetaminophen PO Polyethylene Glycol 17 GM DAILY PRN 10/18 1715 AC 10/19 PO 0839 Prednisone 5 MG ONCE ONE 10/22 1000 AC PO 10/22 1001 Prednisone 10 MG ONCE ONE 10/21 1000 AC PO 10/21 1001 Prednisone 20 MG ONCE ONE 10/20 1000 DC 10/20 PO 10/20 1001 0900 Tamsulosin HCl 0.4 MG 1700 10/19 1700 AC 10/19 PO 1629 Results Results: Laboratory Tests 10/20/16 0625: CBC w Diff NO MAN DIFF REQ, RBC 3.23 L, MCV 84.7, MCH 28.5, RDW 15.1 H, MPV 7.0 L, Gran % 73.9, Lymphocytes % 15.8 L, Monocytes % 9.8 H, Eosinophils % 0.3, Basophils % 0.2, Absolute Granulocytes 4.2, Absolute Lymphocytes 0.9 L, Absolute Monocytes 0.6, Absolute Eosinophils 0, Absolute Basophils 0, PUBS MCHC 33.7 10/19/16 0630: Anion Gap 12, Estimated GFR 25 L, BUN/Creatinine Ratio 19.2, CBC w Diff NO MAN DIFF REQ, RBC 3.37 L, MCV 83.7, MCH 29.0, RDW 15.3 H, MPV 6.9 L, Gran % 83.5 H, Lymphocytes % 8.6 L, Monocytes % 7.7, Eosinophils % 0, Basophils % 0.2, Absolute Granulocytes 5.1, Absolute Lymphocytes 0.5 L, Absolute Monocytes 0.5, Absolute Eosinophils 0, Absolute Basophils 0, PUBS MCHC 34.7 10/19/16 0245: Urinalysis LIGHT H, Urine Color YEL, Urine Clarity HAZY H, Urine pH 6.0, Ur Specific Seco 1.020, Urine Protein 100 H, Urine Ketones NEG, Urine Nitrite NEG, Urine Bilirubin NEG, Urine Urobilinogen 0.2, Ur Leukocyte Esterase NEG, Ur Microscopic SEDIMENT EXAMINED, Urine RBC 3-5, Urine WBC 1-3 H, Ur Epithelial Cells FEW, Granular Casts 1-3 H, Urine Mucus FEW, Urine Hemoglobin SMALL H, Urine Glucose 500 H 10/18/162037: Virus Culture Pending 10/18/162034: Troponin I 0.06 10/18/16 1235: Anion Gap 11, Estimated GFR 26 L, BUN/Creatinine Ratio 17.5, Glucose 200 H, Calcium 7.6 L, Total Bilirubin 0.5, AST 15 L, ALT 28, Alkaline Phosphatase 185 H, Troponin I 0.06, Vqb-H-Eaeyflpvzct Pept 1310 H, Total Protein 5.8 L, Albumin 2.9 L, Globulin 2.9, Albumin/Globulin Ratio 1.0 L, PT 12.7 H, INR 1.21 H, CBC w Diff NO MAN DIFF REQ, RBC 3.54 L, MCV 84.3, MCH 28.5, RDW 15.9 H, MPV 6.6 L, Gran % 76.1 H, Lymphocytes % 10.7 L, Monocytes % 10.9 H, Eosinophils % 2.1, Basophils % 0.2, Absolute Granulocytes 4.8, Absolute Lymphocytes 0.7 L, Absolute Monocytes 0.7 H, Absolute Eosinophils 0.1, Absolute Basophils 0, PUBS MCHC 33.8 Microbiology 10/19 024 URINE ROUT: Legionella Antigen - COMP 10/19 024 URINE ROUT: Streptococcus pneumoniae Antigen (M - COMP 10/18 1706 LOWER RESP: Respiratory Culture - CAN Cancelled: SPECIMEN NOT RECEIVED IN LABORATORY 10/18 1706 LOWER RESP: Gram Stain - CAN Cancelled: SPECIMEN NOT RECEIVED IN LABORATORY 10/18 1250 BLOOD: Blood Culture - RES 10/18 1235 BLOOD: Blood Culture - RES Assessment/Plan Assessment: Mr. Bearden is an 86 y/o male w/ history of COPD and was admitted to [facility] from the ED on 10/18/16 for increasing SOB + chest tightness and discomfort. He had one episode of vomiting the day prior to admission as well. He is currently on 1.5L NC (sating at 91%). Pt has multiple medical conditions (CAD, History of CVA , Carotid Stenosis, CKD, Prostate Ca, Lung Ca). Mr. Bearden likely has acute on chronic respiratory failure due to COPD exacerbation due to malignancy associated atelectasis but currently w/ improving respiratry function. Plan: Problem #1: Shortness of breath - Likely COPD exacerbation due to malignancy associated atelectasis. - Followup CXR after acute sx have resolved (initial CXR indicated R. LL infiltrates suggesting pneumonia w/ questionable RML involvement). - Chest CT (noted positive lung mass on RLL w/ consolidation atelectasis at RL- base; notable interstitial changes in both RLL and RML; associated mediastinal adenopathy and suspected right hilar adenopathy; tracheomalacia; ) - Venous Doppler Study (negative - 10/18/16) - Continue home meds for tx of COPD in patient. - D/C: Ceftriaxone & Azythromycin and Observe Patient. - Prednisone taper from 20mg -> 10mg -> 5mg. - Pt was also tested positive for Influenza (10/19/16) - Continue Tamiflu 30mg - Psych Sales Specialist patient on importance of CPAP compliance. - Improving breath sounds on ausculation. - When stable, D/C patient. Problem #2: Chest pain/CVA/CAD/Carotid Stenosis - Likely related to COPD findings (acute change in disease). - Not likely ACS due to negative EKG/Troponin. - No change in level of pain due to position. - Monitor - Small pericardial effusion was evident on Chest CT (10/18/16); if pain gets worse, consider redoing chest CT to evaluate for changes in pericardial effusion. - Continue antihypertensive home meds: lisinopril, amlodipine, carvedilol. - Continue statin home med: atorvastatin. Problem #3: Moderatly elevated Alk Phosphatase - Likely due to Cholelithiasis (see Chest CT); lung mass; prostate ca. - Monitor pts Alk Phosphatase Problem #4: Anemia - Monitor iron studies - Consider iron supplementation - Guiac stools to verify no occult bleeding. Problem #5: T2DM - Insulin Dependent - Moniter glucose and continue home meds inpatient. Problem #6: Lung malignancy - Pt's son stated that they will not pursue treatment considering age. - Consult Pulmonary (followed - 10/20/16). - Pt is made DNR/DNI. - Psych Sales Specialist patient and son on complications associated w/ diagnosis. Problem #7: Prostate cancer - Sx relief measures are in place. - Continue Flomax .4mg
[2016-10-20 15:49] VITALS: BP 134/62
--- NOTE | 2016-10-20 18:55 | Discharge Summary ---
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 At the time of admission, vitals-temperature 97.2, pulse rate 88, respiratory 24 , blood pressure 147/67, pulse ox 95% on room air. 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 ProBNP 1310 (slight elevation) Radiological findings indicated-chest x-ray right lobe infiltrate suggestive of pneumonia, extension into right middle lobe noted. CAT scan chest without contrast revealed consolidation or atelectasis of right lung base. Interstitial spread of right lower lobe was noted. Also was noted lymphadenopathy. Last echocardiogram-showed ejection fraction of about 60% with impaired ventricular relaxation. EKG revealed normal sinus rhythm heart rate 70, KY interval 201, QTc 453, no ST- T wave changes were found. Cardiac enzymes-troponin less than 0.01 Differential diagnosis: #1 pneumonia(obstructive) #2 Worsening lung mass Below is the problem list and plan: #1 shortness of breath, cough- radiological findings indicated consolidation around the mass that was noted previously, likely from pneumonia-but the pt did not have any fever or leucocytosis. Other consideration was COPD exacerbation secondary to flu like illness. He was treated w/ iv antiobiotics, and a short course of steroids. Respiratory function improved slightly during the stay in the hospital. As per the oncersation w/ the pts son with Dr. Booth, there was no plan to pursue the treatment of the worsening lung mass. Pt was lucid and was clear about the diagnosis, and made a choice. #2 anemia-check iron studies. Appears to be anemia of chronic disease. No further work up was done. #3 elevation in alkaline phosphatase-likely because of cholelithiasis. Patient did not have any symptoms at this time. No workup was required at this time, unless clinically indicated. #4 history of CVA, coronary artery disease, carotid stenosis-continued on antihypertensives-lisinopril, amlodipine, carvedilol. Also continued on high intensity statin. #5 chronic kidney disease stage IV, and Diabetes-likely because of diabetes. #6 Goals of care- As per Dr Camara discussion w/ the family, no invasive work up was to be pursued and no chemoradiation. Pt was discharged home w/ a recommendation to see Dr. Booth, and would initiate if home hospice was needed in the future. #7 DVT prophylaxis-heparin. Allergies: Coded Allergies: NO KNOWN ALLERGIES (05/15/16) Pertinent Lab Results: CAT - CT CHEST WO IV CONTRAST 10/18/16 1. The previously noted FDG positive lung mass in the right lower lobe is obscured by consolidation atelectasis now at the right lung base. There is interstitial changes which could be due to the atelectasis versus interstitial spread of disease in both the right lower lobe and right middle lobe. There is associated mediastinal adenopathy and suspected right hilar adenopathy but no IV contrast given. 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 2. Small pericardial effusion. 3. Soft tissue density around the right shoulder with anterior subluxation of the right glenohumeral joint. Further imaging with ultrasound and/or MRI can be considered. 4. Cholelithiasis. US - US-EXT BILAT VENOUS DOPPLER Normal triplex scan without evidence of deep venous thrombosis involving the bilateral lower extremities. -- RAD - XRY-CHEST XRAY, PA AND LATERAL Right lower lobe infiltrate suggesting pneumonia,, question right middle lobe involvement as well. Follow-up to clearing is recommended. Disposition Summary Disposition Principal Diagnosis: LUng mass Additional Diagnosis: AECOPD Discharge Disposition: home or self care Discharge Instructions General Discharge Information Code Status: Do Not Resucitate/Intubat Patient's Diet: regular diet Patient's Activity: as tolerated. Follow-Up Instructions/Appts: 1 please follow up with her primary care provider within 1-2 weeks of discharge. #2 please follow-up with your hollow tile partition erector within 1-2 weeks of discharge. Medications at Discharge Discharge Medications: Continue taking these medications: Lisinopril (Lisinopril) 10 MG TABLET 2 Tablet ORAL Every Morning Days = 30 Comments: Last Taken: 10/21/16 Time: 9:00 AM Atorvastatin Calcium (Atorvastatin Calcium) 80 MG TABLET 1 Tablet ORAL 5 PM Comments: Last Taken: 10/20/16 Time: 5:00 PM Fluticasone/Vilanterol (Breo Ellipta 100-25 Mcg INH) 100 MCG-25 MCG/DOSE BLST.W.DEV 1 PUFF Inhale through mouth TWICE DAILY Comments: NOT GIVEN IN HOSPITAL Tamsulosin HCl (Flomax) 0.4 MG CAP.ER.24H 1 Capsule ORAL 5 PM Comments: Last Taken: 10/20/16 Time: 5:00 PM Allopurinol (Allopurinol) 100 MG TABLET 1 Tablet ORAL 0900 Comments: Last Taken: 10/21/16 Time: 9:00 AM Aspirin (Aspirin*) 325 MG TABLET 1 Tablet ORAL 5 PM Comments: Last Taken: 10/20/16 Time: 5:00 PM Insulin Detemir (Levemir) 100 UNIT/ML VIAL 8 Units Inject into fatty tissue TWICE DAILY Qty = 30 Comments: Last Taken: 10/21/16 Time: 9:00 AM Amlodipine Besylate (Amlodipine Besylate) 5 MG TABLET 1 Tablet ORAL DAILY Qty = 90 Comments: Last Taken: 10/21/16 Time: 9:00 AM Albuterol Sulfate (Albuterol Sulfate) 1.25 MG/3 ML VIAL.NEB 1 Vial Inhale Solution EVERY 4-6 HOURS as needed for SOB Comments: Last Taken: 10/21/16 Time: 8:00 AM Carvedilol (Carvedilol) 25 MG TABLET 1 Tablet ORAL TWICE DAILY Comments: Last Taken: 10/21/16 Time: 9:00 AM Diclofenac Sodium (Voltaren) 1 % GEL..GRAM. 1 Gram On the skin 4 TIMES A DAY Instructions: apply to affected area(s) Comments: Last Taken: 10/21/16 Time: 9:00 AM Ergocalciferol (Vitamin D2) (Vitamin D2) 50,000 UNIT CAPSULE 50,000 Units ORAL WEEKLY MONDAY Comments: NOT GIVEN IN HOSPITAL Escitalopram Oxalate (Lexapro) 20 MG TABLET 1 Tablet ORAL DAILY Comments: Last Taken: 10/21/16 Time: 9:00 AM Gemfibrozil (Gemfibrozil) 600 MG TABLET 1 Tablet ORAL TWICE DAILY Comments: Last Taken: 10/21/16 Time: 9:00 AM Polyethylene Glycol 3350 (Miralax) 17 GRAM POWD.PACK 1 Packet ORAL DAILY Instructions: dissolve in water Comments: Last Taken: 10/19/16 Time: 9:00 AM Clopidogrel Bisulfate (Clopidogrel) 75 MG TABLET 1 Tablet ORAL DAILY Days = 30 Comments: Last Taken: 10/21/16 Time: 9:00 AM Montelukast Sodium (Singulair) 10 MG TABLET 1 Tablet ORAL DAILY Days = 30 Comments: NOT GIVEN IN HOSPITAL Copies To: ISAAC MAYERS MD Attending MD Review Statement Documenting Attending: FARSHAD KOEHLER MD
[2016-10-20 23:56] VITALS: BP 168/70
[2016-10-21 01:10] VITALS: BP 158/68
--- NOTE | 2016-10-21 07:20 | PN- Housestaff ---
Subjective Follow-up For: - Lung mass Subjective: He was comfortable this am. Vitals were stable this a.m. No complaints. Discussed the plans with the family. Review of Systems Constitutional: Reports: see HPI. Objective Last 24 Hrs of Vital Signs/I&O Vital Signs Date Time Temp Pulse Resp B/P Pulse O2 O2 Flow FiO2 Ox Delivery Rate 10/21 0111 68 91 10/21 0110 158/68 10/21 0000 Room Air 10/20 2356 98.1 70 20 168/70 94 Nasal 2.0L Cannula 10/20 2243 76 95 10/20 2046 168/60 10/20 1840 94 Room Air 10/20 1701 138/60 10/20 1600 93 Room Air 10/20 1549 97.5 72 21 134/62 95 Nasal 2.0L Cannula 10/20 0859 62 118/62 10/20 0858 62 118/62 10/20 0857 62 118/62 10/20 0835 97.9 62 18 118/62 91 Nasal 1.5L Cannula 10/20 0814 95 Nasal 2.0L Cannula 10/20 0800 94 Nasal 2.0L Cannula Intake & Output 10/21 0800 10/21 0000 10/20 1600 Intake Total 300 650 800 Output Total 600 730 700 Balance -300 -80 100 Intake, Oral 300 650 800 Number 1 Bowel Movements Output, Urine 600 730 700 Physical Exam General Appearance: No Acute Distress Skin: No Breakdown HEENT: PERRLA, EOMI Neck: Supple, No JVD, No thryomegaly Lymphatic: Cervical nl Cardiovascular: Regular Rate, Normal S1, Normal S2 Lungs: Normal Air Movement Abdomen: Soft, No Tenderness, No Hepatospenomegaly Neurological: Normal Speech, Strength at 5/5 X4 Ext, Normal Tone, Sensation Intact, Cranial Nerves 3-12 NL Extremities: No Clubbing, No Cyanosis, No Edema, Normal Pulses Vascular: Pulses Symmetrical Current Medications: Current Medications Sig/Reyna Start time Last Medication Dose Route Stop Time Status Admin Acetaminophen 650 MG Q6P PRN 10/18 1715 AC PO Albuterol Sulfate 3 ML TID 10/18 2200 AC 10/20 INH 1840 Albuterol Sulfate 3 ML Q4P PRN 10/18 1645 AC INH Allopurinol 100 MG 0900 10/19 0900 AC 10/20 PO 0857 Amlodipine Besylate 5 MG DAILY 10/19 1000 AC 10/20 PO 0857 Aspirin 325 MG 1700 10/18 1700 AC 10/20 PO 1700 Atorvastatin Calcium 80 MG 1700 10/19 1700 AC 10/20 PO 1701 Budesonide/ 2 PUF BID 10/18 2200 AC 10/20 Formoterol Fumarate INH 2047 Carvedilol 25 MG BID 10/18 2200 AC 10/20 PO 2046 Clopidogrel Bisulfate 75 MG DAILY 10/19 1000 AC 10/20 PO 0857 Diclofenac Sodium 1 NAOMI 4 TIMES/DAY 10/18 1800 AC 10/20 TOP 1304 Ergocalciferol 50,000 IU Mo 10/24 1000 AC PO Escitalopram Oxalate 20 MG DAILY 10/19 1000 AC 10/20 PO 0858 Gemfibrozil 600 MG BID 10/18 2200 AC 10/20 PO 2047 Heparin Sodium 5,000 UNIT Q8 10/18 1743 AC 10/21 (Porcine) SC 0549 Insulin Aspart 0 TIDAC 10/19 1200 AC 10/20 SC 1700 Insulin Detemir 8 UNITS BID 10/18 2200 AC 10/20 SC 2047 Lisinopril 20 MG QAM 10/19 1000 AC 10/20 PO 0858 Oseltamivir Phosphate 30 MG AT BEDTIME 10/18 2331 AC 10/20 PO 10/22 2201 2048 Oxycodone/ 1 TAB Q6 PRN 10/18 1715 AC Acetaminophen PO Polyethylene Glycol 17 GM DAILY PRN 10/18 1715 AC 10/19 PO 0839 Prednisone 5 MG ONCE ONE 10/22 1000 AC PO 10/22 1001 Prednisone 10 MG ONCE ONE 10/21 1000 AC PO 10/21 1001 Prednisone 20 MG ONCE ONE 10/20 1000 DC 10/20 PO 10/20 1001 0900 Tamsulosin HCl 0.4 MG 1700 10/19 1700 AC 10/20 PO 1701 Last 24 Hrs of Lab/Stephen Results Last 24 Hrs of Labs/Mics: Laboratory Tests 10/21/16 0610: Sodium Pending, Potassium Pending, Chloride Pending, Carbon Dioxide Pending, Anion Gap Pending, BUN Pending, Creatinine Pending, BUN/Creatinine Ratio Pending , CBC w Diff Pending, WBC Pending, RBC Pending, Hgb Pending, Hct Pending, MCV Pending, MCH Pending, RDW Pending, Plt Count Pending, MPV Pending, PUBS MCHC Pending Assessment/Plan Assessment: He is an older man with a past history of CVA, coronary artery disease, type 2 diabetes, stage IV CKD, is being evaluated for acute onset of shortness of breath, cough 2 days. Differential diagnosis: #1 pneumonia(obstructive) #2 community acquired pneumonia #3 aspiration pneumonia #4 COPD exacerbation Below is the problem list and plan: #1 shortness of breath, cough- radiological findings indicated consolidation around the mass that was noted previously. As per the middleware architect, it appeared more like worsening malignancy as opposed to pneumonia. Continue to treat the patient for COPD exacerbation. Antibiotics have been discontinued as per the middleware architect's recommendation. Blood cultures and lower respiratory cultures have been negative so far. Solu-Medrol IV has been changed to by mouth prednisone. Flu positive. On Tamiflu. #2 anemia-Appears to be anemia of chronic disease. #3 elevation in alkaline phosphatase-likely because of cholelithiasis. Patient does not have any symptoms at this time. Continue to monitor closely, and no workup is required at this time, unless clinically indicated. #4 history of CVA, coronary artery disease, carotid stenosis-continue antihypertensives-lisinopril, amlodipine, carvedilol. Also continue high intensity statin. #5 chronic kidney disease stage IV-likely because of diabetes patient. Continue to monitor serum creatinine. Avoid nephrotoxic medications at this time. #6 type 2 pvbgaqii-Miah-Gdfml, Levemir 8 units twice a day. NovoLog sliding scale. Blood sugars adequately controlled. #7 DVT prophylaxis-heparin. Problem List: 1. Lung malignancy 2. PNA (pneumonia) Pain Ratin Pain Location: none Pain Goal: Pain 4 or less Pain Plan: tylenol prn Tomorrow's Labs & Rationales: no labs necessary, pt to be discharged.
[2016-10-21 07:48] LABS: ABSOLUTE BASOPHIL COUNT 0 /CUMM (0.0-0.2); ABSOLUTE EOSINOPHIL COUNT 0 /CUMM (0.0-0.7); ABSOLUTE GRANULOCYTE CT 4.7 /CUMM (1.4-6.5); ABSOLUTE LYMPH COUNT 0.9 /CUMM (1.2-3.4); ABSOLUTE MONOCYTE COUNT 0.6 /CUMM (0.10-0.60); BASOPHIL % 0.2 % (0.0-2.0); EOSINOPHIL % 0.4 % (0-5); GRANULOCYTE % 75.4 % (42.2-75.2); HEMATOCRIT 29.1 % (42-52); MEAN CORPUSCULAR HGB CONC 33.9 G/DL (33.0-37.0); MEAN CORPUSCULAR VOLUME 85.4 FL (80.0-94.0); MEAN PLATELET VOLUME 6.9 FL (7.4-10.4); PLATELET COUNT 192 /CUMM (130-400); RBC DISTRIBUTION WIDTH 15.1 % (11.5-14.5); RED BLOOD CELL CT 3.41 /CUMM (4.70-6.10); WHITE BLOOD CELL COUNT 6.2 /CUMM (4.8-10.8)
--- NOTE | 2016-10-21 08:00 | NUR ---
NURSING NOTE: PT AMBULATED TO BR ON RA. O2 SAT REMAINED AT 92%
[2016-10-21 08:34] VITALS: BP 148/64
[2016-10-21] MEDS ORDERED: PREDNISONE5 M1 PO ×2 (08:41→10:33)
[2016-10-21] MEDS ORDERED: TAMIFLU30 M1 PO ×2 (08:46→10:33)
[2016-10-21 08:47] VITALS: BP 148/64
--- NOTE | 2016-10-21 09:54 | PN- Pulmonary ---
Subjective HPI/Critical Care Issues: Relatively stable No sig issues afebrile Objective Current Medications: Current Medications Sig/Reyna Start time Last Medication Dose Route Stop Time Status Admin Acetaminophen 650 MG Q6P PRN 10/18 1715 AC PO Albuterol Sulfate 3 ML TID 10/18 2200 AC 10/21 INH 0749 Albuterol Sulfate 3 ML Q4P PRN 10/18 1645 AC INH Allopurinol 100 MG 0900 10/19 0900 AC 10/21 PO 0846 Amlodipine Besylate 5 MG DAILY 10/19 1000 AC 10/21 PO 0846 Aspirin 325 MG 1700 10/18 1700 AC 10/20 PO 1700 Atorvastatin Calcium 80 MG 1700 10/19 1700 AC 10/20 PO 1701 Budesonide/ 2 PUF BID 10/18 2200 AC 10/21 Formoterol Fumarate INH 0845 Carvedilol 25 MG BID 10/18 2200 AC 10/21 PO 0846 Clopidogrel Bisulfate 75 MG DAILY 10/19 1000 AC 10/21 PO 0846 Diclofenac Sodium 1 NAOMI 4 TIMES/DAY 10/18 1800 AC 10/21 TOP 0848 Ergocalciferol 50,000 IU Mo 10/24 1000 AC PO Escitalopram Oxalate 20 MG DAILY 10/19 1000 AC 10/21 PO 0846 Gemfibrozil 600 MG BID 10/18 2200 AC 10/21 PO 0846 Heparin Sodium 5,000 UNIT Q8 10/18 1743 AC 10/21 (Porcine) SC 0549 Insulin Aspart 0 TIDAC 10/19 1200 AC 10/20 SC 1700 Insulin Detemir 8 UNITS BID 10/18 2200 AC 10/21 SC 0846 Lisinopril 20 MG QAM 10/19 1000 AC 10/21 PO 0847 Oseltamivir Phosphate 30 MG AT BEDTIME 10/18 2331 AC 10/20 PO 10/22 2201 2048 Oxycodone/ 1 TAB Q6 PRN 10/18 1715 AC Acetaminophen PO Polyethylene Glycol 17 GM DAILY PRN 10/18 1715 AC 10/19 PO 0839 Prednisone 5 MG ONCE ONE 10/22 1000 AC PO 10/22 1001 Prednisone 10 MG ONCE ONE 10/21 1000 AC 10/21 PO 10/21 1001 0847 Prednisone 20 MG ONCE ONE 10/20 1000 DC 10/20 PO 10/20 1001 0900 Tamsulosin HCl 0.4 MG 1700 10/19 1700 AC 10/20 PO 1701 Vital Signs & I&O Last 24 Hrs of Vitals and I&O: Vital Signs Date Time Temp Pulse Resp B/P Pulse O2 O2 Flow FiO2 Ox Delivery Rate 10/21 0847 68 148/64 10/21 0846 68 148/64 10/21 0846 68 148/64 10/21 0834 97.7 68 20 148/64 91 Room Air 10/21 0800 95 Room Air Room Air 10/21 0752 92 Room Air Room Air 10/21 0111 68 91 10/21 0110 158/68 10/21 0000 Room Air 10/20 2356 98.1 70 20 168/70 94 Nasal 2.0L Cannula 10/20 2243 76 95 10/20 2046 168/60 10/20 1840 94 Room Air 10/20 1701 138/60 10/20 1600 93 Room Air 10/20 1549 97.5 72 21 134/62 95 Nasal 2.0L Cannula Intake & Output 10/21 1600 10/21 0800 10/21 0000 Intake Total 300 650 Output Total 600 730 Balance -300 -80 Intake, Oral 300 650 Number 1 Bowel Movements Output, Urine 600 730 Impression/Plan Impression/Plan Impression/Plan: Physical Exam General Appearance Alert, Oriented X3, Cooperative Skin No Rashes, No Breakdown HEENT Atraumatic, PERRLA, EOMI, Mucous Membr. moist/pink Neck Supple, No JVD, No thryomegaly, +2 Carotid Pulse wo Bruit, No LAD Lymphatic Cervical nl Cardiovascular Regular Rate, Normal S1, Normal S2, grade 2/6 systolic murmur Lungs low entry bilaterally, bilateral rhonchi, rales Abdomen Normal Bowel Sounds, Soft, No Tenderness, No Hepatospenomegaly Neurological Normal Speech, Normal Tone, Sensation Intact, Cranial Nerves 3-12 NL, Reflexes 2+, strength 4/5 right upper and lower extremity Strength 5/5 left upper and lower extremity Extremities No Clubbing, No Cyanosis, No Edema, Normal Pulses Vascular Normal Pulses, Pulses Symmetrical IMPRESSION This is an elderly gentleman with history 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, mild dementia, worsening performance status in the recent past, recently diagnosed lung mass which was positive with PET scan - patient and family had declined any further therapy or intervention for this, carotid stenosis, diabetes, moderate COPD, morbid obesity with obesity hypoventilation syndrome, autonomic dysfunction related diabetes, significant urinary retention and constipation history, ischemic heart disease with previous drug-eluting stent, now comes in with * Influenza with cough wheezing and shortness of breath improved * Increasing lung mass now moderate pleural effusion with mediastinal and hilar lymphadenopathy with clinical evidence suggestive of lymphangitic spread in the right side with a small pericardial effusion. This is highly suggestive and consistent with advancing lung cancer. Patient had actively declined any intervention and patient's son who is his power of trial attorney wants him to only have symptomatic therapy if he has lung cancer. Unfortunately patient doesn't seem to be a great candidate for invasive workup and therapy aswell * Dementia with previous stroke * Tracheomalacia * Ischemic heart disease with previous stent, hypertension, diabetes * Chronic obesity hypoventilation syndrome with obstructive and central sleep apnea. Patient is not compliant with CPAP at bedtime. * Autonomic dysfunction from diabetes * History of Constipation and previous urinary retention RECOMMENDATION * Continue current therapy * Prednisone taper * Discussed with his son yesterday who lives with the patient extensively. As per my previous discussions in my office, patient's and familys wishes were to continue conservative therapy only. When I did discuss with the patient in my office he was quite lucid and was aware of all the implications of his diagnosis. Pt and family wished no invasive workup or any ongoing chemoradiation therapy and he wanted to be treated with symptomatic therapy only and he wanted to be made DNR/DNI. Discussion with the son yielded similar decision the son per previous wishes of the father wishes him to be made comfort if he gets worse in the future. Once she is better he can be discharged home and he will follow-up with me and then we will institute home hospice. I did encouraged the son to discuss with his other siblings as well. Per his son other siblings are in agreement * Can be dcd will follow as out pt and make an appt at our office if needed
[2016-10-21] MEDS ORDERED: CLOPIDOGREL75 M1 PO (10:29)
[2016-10-21] MEDS ORDERED: SINGULAIR10 M1 PO (10:31)
--- NOTE | 2016-10-21 14:21 | PN- Att Addend ---
Attending Addendum Attending Brief Note Patient seen and examined, feels okay. Still has a cough. Denies any shortness of breath. Patient has this lung mass which has increased in size. Her shortness of breath was likely secondary to the increase in the size of the lung mass. As noted in Dr. Booth's note, he had discussed with patient and family and they have decided not to pursue this further. His antibiotics were discontinued and he has been watched off of antibiotics. He remained afebrile with white count normal. Patient is on prednisone taper. He is otherwise doing much better and medically stable for discharge home today. He will be discharged home with home services.
== END 2016-10-21 14:05 | disposition home health service (06) | DRG 180 ==
LOC: ENRESERVTM → ENRESERVDT → ERH 11:05 → ENPENDDIS 14:37 → ERHI 14:37 → 2NB 14:37
PROVIDERS: Internal Medicine; Internal Medicine Endocrinology, Diabetes & Metabolism; Physician Assistant Medical; ADMIT Internal Medicine
PROC: 5A09357 Assistance with Respiratory Ventilation, Less than 24 Consecutive Hours, Continuous Positive Airway Pressure (ICD-10-PCS; principal; 2016-10-18)
DX: C34.31 Malignant neoplasm of lower lobe, right bronchus or lung (principal); J96.20 Acute and chronic respiratory failure, unspecified whether with hypoxia or hypercapnia; F03.90 Unspecified dementia, unspecified severity, without behavioral disturbance, psychotic disturbance, mood disturbance, and anxiety; N18.4 Chronic kidney disease, stage 4 (severe); I69.351 Hemiplegia and hemiparesis following cerebral infarction affecting right dominant side; J44.1 Chronic obstructive pulmonary disease with (acute) exacerbation; E66.2 Morbid (severe) obesity with alveolar hypoventilation; E11.22 Type 2 diabetes mellitus with diabetic chronic kidney disease; Z68.36 Body mass index [BMI] 36.0-36.9, adult; I25.10 Atherosclerotic heart disease of native coronary artery without angina pectoris; E78.5 Hyperlipidemia, unspecified; K21.9 Gastro-esophageal reflux disease without esophagitis; I12.9 Hypertensive chronic kidney disease with stage 1 through stage 4 chronic kidney disease, or unspecified chronic kidney disease; R59.1 Generalized enlarged lymph nodes
CPT/HCPCS: 2NBP; 2NBSP; 36415; 81001; 82436; 87040; 87070; 87449; 87450; 87804; 87804-59; 90662; 93005; 93010; 93970; 96374; 96375; 97110-GO; 97116-GO; 97161-GP; 97530-GO; J0456; J0696; J1644; J2920; J2930; J3490; J7060; J7512

== ENCOUNTER 2016-10-25 11:57 | Inpatient (IN) | payer OTHER ==
[~2016-10-25] VITALS: Ht 170.2 cm; Wt 99.8 kg
[~2016-10-25 11:57] MED LIST changes: +ALBUTEROL1.25 MG/1 INH/SOL; +CARVEDILOL25 M1 PO; +CLOPIDOGREL75 M1 PO; +GEMFIBROZIL600 M1 PO; +LEXAPRO20 M1 PO; +MIRALAX17 G1 PO; +PREDNISONE5 M1 PO; +SINGULAIR10 M1 PO; +TAMIFLU30 M1 PO
--- NOTE | 2016-10-25 12:07 | NUR ---
86 YO MALE BIBA FROM HOME. PER EMS PT FELL AROUND 5AM. NOTD WITH BRUISE TO R LOWER SIDE OF ABD AND R EYE, PT DENIES PAIN, PT STATES HE DOES NOT REMMBER FALLING OR WHY HE IS HERE. PT ALERT. ORIENTED X3. PT CURRENTLY TAKING PLAVIX. PT HX OF DIABTES, PER EMS FAMILY STATES PTS SUGAR WAS LOW THIS AM BUT THEY "FIXED IT" PRIOR TO EMS ARRIAL. BS 134 FOR EMS. BS 154 AT THIS TIME. EKG IN PROGRESS.
--- NOTE | 2016-10-25 12:30 | NUR ---
PER TAL CERRATO TO ORDER BLOOD WORK
[2016-10-25 12:33] LABS: ABSOLUTE BASOPHIL COUNT 0 /CUMM (0.0-0.2); ABSOLUTE EOSINOPHIL COUNT 0.1 /CUMM (0.0-0.7); ABSOLUTE GRANULOCYTE CT 5.5 /CUMM (1.4-6.5); ABSOLUTE LYMPH COUNT 0.7 /CUMM (1.2-3.4); ABSOLUTE MONOCYTE COUNT 0.6 /CUMM (0.10-0.60); BASOPHIL % 0.5 % (0.0-2.0); EOSINOPHIL % 1.9 % (0-5); GRANULOCYTE % 78.6 % (42.2-75.2); HEMATOCRIT 28.6 % (42-52); MEAN CORPUSCULAR HGB 28.6 PG (27.0-31.0); MEAN CORPUSCULAR HGB CONC 33.8 G/DL (33.0-37.0); MEAN CORPUSCULAR VOLUME 84.7 FL (80.0-94.0); MEAN PLATELET VOLUME 7.1 FL (7.4-10.4); PLATELET COUNT 163 /CUMM (130-400); RBC DISTRIBUTION WIDTH 15.5 % (11.5-14.5); RED BLOOD CELL CT 3.38 /CUMM (4.70-6.10)
[2016-10-25] MEDS ORDERED: MYRBETRIQ50 M1 PO (12:35)
[2016-10-25] MEDS ORDERED: OXYBUTYNIN CHLOR5 M2 PO (12:35)
[2016-10-25] MEDS ORDERED: FML5 ML OPH (12:36)
[2016-10-25] MEDS ORDERED: PROAIR HFA8.5 GM INH (12:37)
[2016-10-25] MEDS ORDERED: NIZORAL120 ML TOP (12:37)
--- NOTE | 2016-10-25 13:27 | ED MVC/FALL/TRAUMA COMPLAINT ---
History of Present Illness General Chief Complaint: Fall Stated Complaint: FALL LAST PM, WEAKNES Source: patient, family, old records Exam Limitations: confusion Vital Signs & Intake/Output Vital Signs & Intake/Output Vital Signs Date Time Temp Pulse Resp B/P Pulse O2 O2 Flow FiO2 Ox Delivery Rate 10/26 0919 95 Nasal 1.0L Cannula 10/26 0813 97.7 63 18 122/62 95 Nasal 2.0L Cannula 10/26 0033 97.9 68 18 132/60 96 Nasal Cannula 10/26 0000 Nasal 1.0L Cannula 10/25 2200 77 158/62 10/25 2122 Nasal 1.0L Cannula 10/25 2121 96 Nasal 0.5L Cannula 10/25 1726 96.7 66 17 134/55 94 Nasal 1.0L Cannula 10/25 1719 94 Nasal 1.0L Cannula 10/25 1625 98.6 76 18 126/84 98 Room Air 10/25 1624 96 Room Air 10/25 1417 97.2 62 22 119/59 93 Room Air 10/25 1236 98.0 65 20 126/61 100 Room Air 10/25 1207 96 Room Air 10/25 1204 97.4 61 18 122/72 95 Room Air ED Intake and Output 10/26 0000 10/25 1200 Intake Total 590 Output Total 50 Balance 540 Intake, IV 110 Intake, Oral 480 Output, Urine 50 Patient 220 lb Weight Allergies Coded Allergies: NO KNOWN ALLERGIES (05/15/16) Reconcile Medications Albuterol Sulfate 1.25 MG/3 ML VIAL.NEB 1 Vial INH/CHARISSA Q4-6 PRN SOB (Reported ) Albuterol Sulfate (Proair Hfa) 90 MCG HFA.AER.AD 2 PUF INH Q4-6 PRN PRN RESPIRATORY (Reported) Allopurinol 100 MG TABLET 1 TAB PO 0900 GOUT (Reported) Amlodipine Besylate 5 MG TABLET 1 TAB PO DAILY HEART (Reported) Aspirin (Aspirin*) 325 MG TABLET 1 TAB PO 1700 HEART/BLOOD (Reported) Atorvastatin Calcium 80 MG TABLET 1 TAB PO 1700 CHOLESTEROL (Reported) Carvedilol 25 MG TABLET 1 TAB PO BID HTN (Reported) Clopidogrel Bisulfate (Clopidogrel) 75 MG TABLET 1 TAB PO DAILY stroke ( Reported) Diclofenac Sodium (Voltaren) 1 % GEL..GRAM. 1 GM TOP 4 TIMES/DAY PAIN ( Reported) apply to affected area(s) Ergocalciferol (Vitamin D2) (Vitamin D2) 50,000 UNIT CAPSULE 50,000 UNITS PO WEEKLY MONDAY VITAMIN (Reported) Escitalopram Oxalate (Lexapro) 20 MG TABLET 1 TAB PO DAILY ANXIETY (Reported) Fluorometholone (FML) 0.1 % DROPS.SUSP 1 GTT OPH TID BOTH EYES (Reported) Fluticasone/Vilanterol (Breo Ellipta 100-25 Mcg INH) 100 MCG-25 MCG/DOSE BLST.W.DEV 1 PUFF INH BID COPD (Reported) Gemfibrozil 600 MG TABLET 1 TAB PO BID CHOL (Reported) Insulin Detemir (Levemir) 100 UNIT/ML VIAL 8 UNITS SC BID dm Ketoconazole (Nizoral) 2 % SHAMPOO 1 NAOMI TOP DAILY SCALP (Reported) Lisinopril 10 MG TABLET 2 TAB PO QAM BP (Reported) Mirabegron (Myrbetriq) 50 MG TAB.ER.24H 1 TAB PO DAILY (Reported) Montelukast Sodium (Singulair) 10 MG TABLET 1 TAB PO DAILY allergies ( Reported) Oxybutynin Chloride 5 MG TABLET 1 TAB PO DAILY (Reported) Polyethylene Glycol 3350 (Miralax) 17 GRAM POWD.PACK 1 PAC PO DAILY CONSTIPATION (Reported) dissolve in water Tamsulosin HCl (Flomax) 0.4 MG CAP.ER.24H 1 CAP PO 1700 PROSTATE (Reported) Triage Note: 86 YO MALE BIBA FROM HOME. PER EMS PT FELL AROUND 5AM. NOTD WITH BRUISE TO R LOWER SIDE OF ABD AND R EYE, PT DENIES PAIN, PT STATES HE DOES NOT REMMBER FALLING OR WHY HE IS HERE. PT ALERT. ORIENTED X3. PT CURRENTLY TAKING PLAVIX. PT HX OF DIABTES, PER EMS FAMILY STATES PTS SUGAR WAS LOW THIS AM BUT THEY "FIXED IT" PRIOR TO EMS ARRIAL. BS 134 FOR EMS. BS 154 AT THIS TIME. EKG IN PROGRESS. Triage Nurses Notes Reviewed? yes HPI: 86-year-old male here with his son after fall at around 2 AM this morning. Son heard the fall and patient yelling, was able to lift them back into his bed, noted this morning that he had a bruise over his right eye. The patient was recently admitted here one week ago for pneumonia, he is on antibiotics, was discharged a few days ago, they have visiting nurse coming to the house 3 times per week. He has been having continued coughing and decreased activity level since he has returned home. He has mild continued confusion. , He has a history of CVA, COPD, pneumonia, lung mass. He has no fever or flulike illness, no chest pain. Patient was trying to get to the bathroom when he fell. He denies any headaches or worsening confusion at this time. No neck pain. (MAXIMO WITT) Past History Travel History Traveled to [place] past 21 day No Medical History Any Pertinent Medical History? see below for history Neurological: CVA (CVA 2009, seen on MRI, see EMR), syncope thought d/t orthostasis 2009 (see EMR) EENT: cataracts, glaucoma, low vision Cardiovascular: aortic stenosis, CAD, hypertension, hyperlipidemia, carotid atherosclerosis, followed by Dr Cassidy since 2009 adm Respiratory: COPD, obstructive sleep apnea, pneumonia, USES CPAP Gastrointestinal: GERD Hepatic: NONE Renal: chronic kidney disease Musculoskeletal: degen joint disease, arthritis Psychiatric: depression Endocrine: diabetes, hypoglycemia Blood Disorders: anemia Cancer(s): prostate cancer BRIDGE CLUB MANAGER/Reproductive: NONE History of MRSA: No History of VRE: No History of CDIFF: No Tetanus Vaccine: 05/10/16 Surgical History Surgical History: BILAT KNEE REPLACEMENT CARDIAC STENT CAROTID ANGIOPLASTY carotid endarterectomy carotid endarterectomy on the right right carotid endarterectomy Psychosocial History Who do you live with Family Services at Home Home Health Aide, Nursing What is your primary language Danish Tobacco Use: Quit >30 days ago Family History Family History, If Any: MOTHER (diabetes and OH at age 65). FATHER (heart attack in 70's). SISTER, Age 60+. FH: dementia FH: Parkinson's disease FATHER Relation not specified for: FH: hypertension Hx Contributory? No (MAXIMO WITT) Review of Systems Review of Systems Constitutional: Reports: malaise. Eyes: Denies: no symptoms. Ears, Nose, Throat, Mouth: Denies: no symptoms. Respiratory: Reports: cough. Cardiovascular: Reports: no symptoms. Gastrointestinal/Abdominal: Reports: no symptoms. Genitourinary: Reports: no symptoms. Musculoskeletal: Reports: no symptoms. Skin: Reports: no symptoms. Neurological/Psychological: Reports: see HPI. (MAXIMO WITT) Physical Exam Physical Exam General Appearance: well developed/nourished Comments: Well-developed well-nourished person in no acute distress, elderly male, looks stated age HEENT: Ecchymosis noted to the right superior lateral orbital region, minimal tenderness. No crepitus. Cranial nerves II through XII grossly intact, extraocular motion intact, no nystagmus. Pupils equally round and reactive to light. Nose is atraumatic. Pharynx normal. No swelling or edema. Neck: Supple, no lymphadenopathy, normal range of motion without pain or tenderness Back: Nontender, no CVA tenderness. Full range of motion Cardiovascular: Regular rate and rhythms no murmurs, normal JVP Respiratory: Chest nontender. No respiratory distress. Breath sounds clear to auscultation bilaterally Abdomen: Small areas of ecchymosis noted in the periumbilical region secondary to injection sites. SOft, nontender nondistended, no appreciable organomegaly. Normal bowel sounds. No ascites Extremity: No edema, no calf tenderness to palpation, normal and equal pulses. Right shoulder range of motion is severely limited due to chronic injury Neuro: Alert oriented x3, motor sensory normal, cranial nerves II through XII grossly intact. Skin: No appreciable rash on exposed skin, skin is warm and dry. Psych: Mood and affect is normal, memory and judgment is normal. Tam Coma Score [place] Coma Score Response Value Best Eye Response (Tam): open spontaneously 4 Best Verbal Response: oriented 5 Best Motor Response: obeys commands 6 Total 15 Core Measures ACS in differential dx? Yes CVA/TIA Diagnosis: Yes NIH Stroke Scale: Total 0 Dt/Tm Last Known Well: Yes (10PM) Date Last Known Well: 10/24/16 Time Last Known Well: 2200 Neurological S/S of CVA: Doesn't Walk Reason tPA not ordered Medical Contraindication Comment: Unknown onset of symptoms, last seen well last evening, fell out of bed around 2 AM, out of tPA window, discussed with Dr. DELUNA, not a candidate for TPA Severe Sepsis Present: No Septic Shock Present: No (ENRIQUE APPLE,MAXIMO) Progress Differential Diagnosis: aoritic dissection, abd injury, C/T/L spine injury, ext injury, ICH, pelvis injury, pnemothorax, spinal cord injury Plan of Care: Orders Procedure Date/time Status Consistent Carbohydrate 3 10/26 B Active SWALLOW EVALUATION 10/26 0800 Active Occupational Tx Eval & Treat 10/26 0800 Active GLUCOSE 10/26 0610 Complete CBC WITHOUT DIFFERENTIAL 10/26 0600 Complete BASIC ELECTROLYTES PLUS BUN&CR 10/26 0600 Complete Lab Add-on Test 10/26 UNK Active ECHOCARDIOGRAM 10/26 UNK Active Pathway - chart 10/25 2119 Active RT: Evaluation 10/25 2117 Active Pathway - chart 10/25 1804 Active FingerStick- Glucose 10/25 1740 Active Vital Signs 10/25 1656 Active Teach/Educate 10/25 1656 Active Nutritional Intake, Monitor 10/25 1656 Active Isolation 10/25 1656 Active Intake & Output 10/25 1656 Active Patient Care Conference 10/25 1656 Active Activity/Ambulation 10/25 1656 Active Patient Data 10/25 1540 Active BLOOD CULTURE 10/25 1520 Active Intake & Output 10/25 1516 Active OXYGEN SETUP (GEN) 10/25 1448 Active Saline Lock 10/25 1448 Active Admit to inpatient 10/25 1448 Active Vital Signs 10/25 1448 Active Activity/Ambulation 10/25 1448 Active Code Status 10/25 1448 Active NIH Stroke Scale 10/25 1230 Active COMPREHENSIVE METABOLIC PANEL 10/25 1224 Complete CBC WITHOUT DIFFERENTIAL 10/25 1224 Complete EKG 10/25 1203 Active TRC EVALUATION (GEN) 10/25 UNK Complete THERAPIST ORDERS 10/25 UNK Complete PT Evaluate & Treat 10/25 UNK Active House Staff 10/25 UNK Active VTE Mechanical Prophylaxis 10/25 UNK Active PHYSICIAN CONSULT 10/25 UNK Active Current Medications Sig/Reyna Start time Last Medication Dose Stop Time Status Admin Montelukast Sodium 10 MG AT BEDTIME 10/26 2200 AC (Singulair) Aspirin 325 MG 0 10/26 1700 AC (Aspirin) Atorvastatin Calcium 80 MG 1700 10/26 1700 AC (Lipitor) Tamsulosin HCl 0.4 MG 1700 10/26 1700 AC (Flomax) Amlodipine Besylate 5 MG DAILY 10/26 1000 AC (Norvasc) Clopidogrel Bisulfate 75 MG DAILY 10/26 1000 AC (Plavix) Escitalopram Oxalate 20 MG DAILY 10/26 1000 AC (Lexapro) Insulin Detemir 8 UNITS BID 10/26 1000 AC (Levemir) Lisinopril 20 MG QAM 10/26 1000 AC (Prinivil) Oxybutynin Chloride 5 MG DAILY 10/26 1000 AC (Ditropan) Polyethylene Glycol 17 GM DAILY 10/26 1000 AC (Miralax) Allopurinol 100 MG 0900 10/26 0900 AC (Zyloprim) Insulin Aspart 0 TIDAC/HS 10/26 0800 AC (NovoLOG) Prednisolone 1 GTT TID 10/25 2199 CAN (Pred Forte) Acetaminophen 650 MG Q6P PRN 10/25 2129 AC (Tylenol) Acetaminophen 1,000 MG Q6P PRN 10/25 2129 AC (Ofirmev) Morphine Sulfate 2 MG Q6-PRN PRN 10/25 2129 AC (Morphine) Albuterol Sulfate 3 ML Q4 PRN 10/25 2114 AC (Proventil) Ipratropium [place] 2.5 ML Q4 PRN 10/25 2114 AC (Atrovent) Albuterol Sulfate 2 PUF Q4-6 PRN PRN 10/25 1814 AC (Ventolin) Albuterol Sulfate 3 ML Q4H PRN 10/25 1814 AC (Proventil) Non-Formulary 0 SEE ADMIN CRITERIA 10/25 1814 CAN Medication (NON FORMULARY) Non-Formulary 0 SEE ADMIN CRITERIA 10/25 1814 CAN Medication (NON FORMULARY) Laboratory Tests 10/26/16 0610: Anion Gap 11, Estimated GFR 24 L, BUN/Creatinine Ratio 19.2, Glucose 33 *L, CBC w Diff NO MAN DIFF REQ, RBC 3.43 L, MCV 84.5, MCH 28.9, RDW 15.9 H, MPV 7.2 L , Gran % 81.9 H, Lymphocytes % 9.0 L, Monocytes % 8.1, Eosinophils % 0.8, Basophils % 0.2, Absolute Granulocytes 7.3 H, Absolute Lymphocytes 0.8 L, Absolute Monocytes 0.7 H, Absolute Eosinophils 0.1, Absolute Basophils 0, PUBS MCHC 34.2 10/25/16 1820: Lactic Acid Cancelled 10/25/16 1520: Lactic Acid Cancelled 10/25/16 1226: Anion Gap 12, Estimated GFR 24 L, BUN/Creatinine Ratio 19.2, Glucose 111 H, Calcium 6.8 L, Total Bilirubin 0.6, AST 20, ALT 26, Alkaline Phosphatase 158 H , Total Protein 5.4 L, Albumin 2.7 L, Globulin 2.7, Albumin/Globulin Ratio 1.0 L, CBC w Diff NO MAN DIFF REQ, RBC 3.38 L, MCV 84.7, MCH 28.6, RDW 15.5 H, MPV 7.1 L, Gran % 78.6 H, Lymphocytes % 10.2 L, Monocytes % 8.8, Eosinophils % 1.9, Basophils % 0.5, Absolute Granulocytes 5.5, Absolute Lymphocytes 0.7 L, Absolute Monocytes 0.6, Absolute Eosinophils 0.1, Absolute Basophils 0, PUBS MCHC 33.8 Microbiology 10/25 1535 BLOOD: Blood Culture - RECD 10/25 1530 BLOOD: Blood Culture - RECD Diagnostic Imaging: Viewed by Me: Radiology Read, CT Scan. Discussed w/RAD: Radiology Read, CT Scan. Radiology Impression: PATIENT: KEVIN PATEL PRESENT AGE: 86 PATIENT ACCOUNT NO: [id number] : 32 LOCATION: [facility] ORDERING PHYSICIAN: MAXIMO APPLE SERVICE DATE: 10/25/16 EXAM TYPE : CAT - CT HEAD WO IV CONTRAST EXAMINATION: CT HEAD WITHOUT CONTRAST CLINICAL INFORMATION: History of fall. On Plavix. COMPARISON: CT head 07/02/2016. TECHNIQUE: Contiguous axial imaging was performed from the skull base to vertex without intravenous administration of contrast. DLP: 600 mGy-cm FINDINGS: There is new hypodense area in the left parietal cortex with loss of cortical sulci consistent with acute infarct. There is no corresponding bleed. There is no extra-axial or intra-axial bleed. No new areas of infarct. There is extensive T2 -weighted hypodensity in periventricular white matter of both cerebral hemispheres suggestive of chronic small vessel ischemic changes without mass effect. The lateral ventricles are enlarged and so are the cortical sulci suggestive of age-related cerebral atrophy. Bone windows reveal no calvarial abnormality. Bilateral paranasal sinuses and mastoid air cells are well aerated. The scalp soft tissue appears unremarkable. There is a large midline extra occipital horn visualized. It is stable to several previous CT exams. IMPRESSION : New acute infarct left parietal lobe without underlying bleed. Chronic small vessel ischemic changes in both cerebral hemispheres with mild cerebral atrophy. Results were called to Dr. Maximo Scott at 2:05 PM. DICTATED BY: CATY CERRATO, PEDRITO DATE/TIME DICTATED:02/21/17 / 1401 TRANSCRIPTIO CXR Impression: PATIENT: KEVIN PATEL PRESENT AGE: 86 PATIENT ACCOUNT NO: [id number] : 32 LOCATION: [facility] ORDERING PHYSICIAN: MAXIMO APPLE SERVICE DATE: 10/25/16 EXAM TYPE: RAD - XRY-CHEST XRAY, PA AND LATERAL EXAMINATION: XR CHEST CLINICAL INFORMATION: Evaluate for pneumonia. Cough. COMPARISON: CT chest 10/18/2016, chest radiograph 10/18/2016 TECHNIQUE: 2 views of the chest were obtained. FINDINGS: Stable mild cardiomegaly. Atherosclerotic aortic arch. There is central pulmonary vessel prominence without overt edema. Interval increase in right lower lobe airspace disease. There is a small right pleural effusion. The left lung is grossly clear. No pneumothorax. Osseous structures appear intact. IMPRESSION: Interval increase in right lower lobe airspace disease suspicious for pneumonia. Follow- up is recommended to document resolution. Small right pleural effusion. DICTATED BY: ANN MARIE ANGELA DO DATE/TIME DICTATED:10/25/161409 DEBRIDGING MACHINE OPERATOR: ROC DATE/TIME TRANSCRIBED: Initial ED EKG: NSR, rate (65), no ST T wave changes Prior EKG: unchanged Rhythm Strip: normal sinus rhythm Comments: Discussed results of x-ray and CT with patient and son, he was reevaluated, no focal neurologic deficits. We'll treat him with antibiotics for pneumonia, discussed with Dr. Deluna from neurology, he does not feel as though patient requires any further treatment for his CVA as he is on dual platelet therapy already. We will admit to the hospitalist staff, discussed with Dr. Sorto who discussed with Dr. ESTES Bedside swallow eval performed by myself, patient passed with sips and then a half a cup of water pass without difficulty. (ENRIQUE APPLE,MAXIMO) Departure Departure Disposition: STILL A PATIENT Condition: Stable Clinical Impression Primary Impression: CVA (cerebral vascular accident) Qualifiers: CVA mechanism: unspecified Qualified Code: I63.9 - Cerebral infarction, unspecified Secondary Impressions: Contusion of face Qualifiers: Encounter type: initial encounter Qualified Code: S00.83XA - Contusion of other part of head, initial encounter PNA (pneumonia) Qualifiers: Pneumonia type: due to unspecified organism Laterality: right Lung location: lower lobe of lung Qualified Code: J18.1 - Lobar pneumonia, unspecified organism Referrals: ISAAC MAYERS MD (PCP/Family) Departure Forms: Customer Survey General Discharge Information Admission Note Spoke With: MARIA G ESTES MD Documentation of Exam: Documentation of any treatments & extenuating circumstances including Concerns Regarding Discharge (functional status, medication knowledge or non-compliance, living conditions, etc.) that warrant an admission rather than observation: Acute CVA with worsening pneumonia with failed outpatient treatment for pneumonia. Requires admission IV antibiotics and eval by neurology, possible MRI of the brain. He had a fall and is a poor candidate for discharge home (ENRIQUE APPLE,MAXIMO) PA/AGILE DEVELOPER Co-Sign Statement Statement: ED Attending supervision documentation- x I saw and evaluated the patient. I have also reviewed all the pertinent lab results and diagnostic results. I agree with the findings and the plan of care as documented in the PA's/AGILE DEVELOPER's documentation. [] I have reviewed the ED Record and agree with the PA's/AGILE DEVELOPER's documentation. [] Additions or exceptions (if any) to the PAs/AGILE DEVELOPER's note and plan are summarized below: [] (NESTOR SORTO MD)
--- NOTE | 2016-10-25 13:32 | NUR ---
PT TO RADIOLOGY VIA STRETCHER.
--- NOTE | 2016-10-25 13:56 | NUR ---
PA AT BEDSIDE.
--- NOTE | 2016-10-25 14:16 | CT SCAN REPORT ---
EXAMINATION: CT HEAD WITHOUT CONTRAST CLINICAL INFORMATION: History of fall. On Plavix. COMPARISON: CT head 07/02/2016. TECHNIQUE: Contiguous axial imaging was performed from the skull base to vertex without intravenous administration of contrast. DLP: 600 mGy-cm FINDINGS: There is new hypodense area in the left parietal cortex with loss of cortical sulci consistent with acute infarct. There is no corresponding bleed. There is no extra-axial or intra-axial bleed. No new areas of infarct. There is extensive T2-weighted hypodensity in periventricular white matter of both cerebral hemispheres suggestive of chronic small vessel ischemic changes without mass effect. The lateral ventricles are enlarged and so are the cortical sulci suggestive of age-related cerebral atrophy. Bone windows reveal no calvarial abnormality. Bilateral paranasal sinuses and mastoid air cells are well aerated. The scalp soft tissue appears unremarkable. There is a large midline extra occipital horn visualized. It is stable to several previous CT exams. IMPRESSION: New acute infarct left parietal lobe without underlying bleed. Chronic small vessel ischemic changes in both cerebral hemispheres with mild cerebral atrophy. Results were called to Dr. Maximo Scott at 2:05 PM.
--- NOTE | 2016-10-25 14:19 | RADIOLOGY REPORT ---
EXAMINATION: XR CHEST CLINICAL INFORMATION: Evaluate for pneumonia. Cough. COMPARISON: CT chest 10/18/2016, chest radiograph 10/18/2016 TECHNIQUE: 2 views of the chest were obtained. FINDINGS: Stable mild cardiomegaly. Atherosclerotic aortic arch. There is central pulmonary vessel prominence without overt edema. Interval increase in right lower lobe airspace disease. There is a small right pleural effusion. The left lung is grossly clear. No pneumothorax. Osseous structures appear intact. IMPRESSION: Interval increase in right lower lobe airspace disease suspicious for pneumonia. Follow-up is recommended to document resolution. Small right pleural effusion.
--- NOTE | 2016-10-25 15:00 | NUR ---
PT PASSED SWALLOW EVAL PER ZECHARIAH MCMAHON
--- NOTE | 2016-10-25 15:04 | NUR ---
HEART HEALTHY TRAY ORDERED.
--- NOTE | 2016-10-25 15:16 | NUR ---
PT AWOKEN AT THIS TIME. PT DENIES PAIN. REMAINS ALERT AND ORIETED X3. PT ASKING FOR FOOD, AWARE FOOD WAS ORDERED FOR PT.
--- NOTE | 2016-10-25 15:23 | History & Physical ---
BRIE CAAL MD 10/25/16 1523: General Information and HPI MD Statement: I have seen and personally examined KEVIN BEARDEN and documented this H&P. The patient is a 86 year old M who presented with a patient stated chief complaint of [fall and weakness]. Source of Information: patient, family, old records Exam Limitations: poor historian History of Present Illness: Mr. Bearden is an 86 year old gentleman with PMH significant for CVA x 2, CAD s/p stenting, aortic stenosis, HTN, CKD stage 4, T2DM, COPD, PRIYANKA on CPAP, GERD, prostate cancer, right carotid stenosis s/p carotid endarterectomy, cataracts, anemia and lung cancer who presented to the [place] ED on 10/25/16 after experiencing a fall at home early this morning. Most of the history is obtained from patient's son who was present at time of fall. Around 2 AM, patient was walking to the bathroom when he "fell"; this was unwitnessed but resulted in a head strike to the right eye and a strike to the right side of the abdomen. Patient denies any preceding dizziness, but is unable to provide details of events leading up to and after fall. The son was able to help his father up from the floor at which time he was brought to the bathroom to change his underwear secondary to urinary incontinence. He was then brought to bed and had no further overnight events. This morning, the son was going to take his father to his primary care physician, but due to severe impairment in his gait, the son brought him to the ED. Review of systems as time of presentation was positive for chronic cough with mild production of yellow sputum, questionable recent weight loss of a few pounds and difficulty ambulating. Patient denied fever, chills, chest pain, palpitations, wheezing, abdominal pain, nausea, weakness. Social history is negative for current tobacco or alcohol use. Patient sees Dr. Booth as his geriatrician, Dr. Canada as his yarn sizer and Dr. Cassidy for his vascular issues. Patient does not perform all of his ADLs but is able to occasionally dress and clean himself. He has a visiting nurse 3 times a week ( Monday, Monday, Monday). Allergies/Medications Allergies: Coded Allergies: NO KNOWN ALLERGIES (05/15/16) Home Med list Albuterol Sulfate 1.25 MG/3 ML VIAL.NEB 1 Vial INH/CHARISSA Q4-6 PRN SOB (Reported ) Albuterol Sulfate (Proair Hfa) 90 MCG HFA.AER.AD 2 PUF INH Q4-6 PRN PRN RESPIRATORY (Reported) Allopurinol 100 MG TABLET 1 TAB PO 0900 GOUT (Reported) Amlodipine Besylate 5 MG TABLET 1 TAB PO DAILY HEART (Reported) Aspirin (Aspirin*) 325 MG TABLET 1 TAB PO 1700 HEART/BLOOD (Reported) Atorvastatin Calcium 80 MG TABLET 1 TAB PO 1700 CHOLESTEROL (Reported) Carvedilol 25 MG TABLET 1 TAB PO BID HTN (Reported) Clopidogrel Bisulfate (Clopidogrel) 75 MG TABLET 1 TAB PO DAILY stroke ( Reported) Diclofenac Sodium (Voltaren) 1 % GEL..GRAM. 1 GM TOP 4 TIMES/DAY PAIN ( Reported) apply to affected area(s) Ergocalciferol (Vitamin D2) (Vitamin D2) 50,000 UNIT CAPSULE 50,000 UNITS PO WEEKLY MONDAY VITAMIN (Reported) Escitalopram Oxalate (Lexapro) 20 MG TABLET 1 TAB PO DAILY ANXIETY (Reported) Fluorometholone (FML) 0.1 % DROPS.SUSP 1 GTT OPH TID BOTH EYES (Reported) Fluticasone/Vilanterol (Breo Ellipta 100-25 Mcg INH) 100 MCG-25 MCG/DOSE BLST.W.DEV 1 PUFF INH BID COPD (Reported) Gemfibrozil 600 MG TABLET 1 TAB PO BID CHOL (Reported) Insulin Detemir (Levemir) 100 UNIT/ML VIAL 8 UNITS SC BID dm Ketoconazole (Nizoral) 2 % SHAMPOO 1 NAOMI TOP DAILY SCALP (Reported) Lisinopril 10 MG TABLET 2 TAB PO QAM BP (Reported) Mirabegron (Myrbetriq) 50 MG TAB.ER.24H 1 TAB PO DAILY (Reported) Montelukast Sodium (Singulair) 10 MG TABLET 1 TAB PO DAILY allergies ( Reported) Oxybutynin Chloride 5 MG TABLET 1 TAB PO DAILY (Reported) Polyethylene Glycol 3350 (Miralax) 17 GRAM POWD.PACK 1 PAC PO DAILY CONSTIPATION (Reported) dissolve in water Tamsulosin HCl (Flomax) 0.4 MG CAP.ER.24H 1 CAP PO 1700 PROSTATE (Reported) Past History Travel History Traveled to [place] past 21 day No Medical History Neurological: CVA (CVA 2009, seen on MRI, see EMR), syncope thought d/t orthostasis 2009 (see EMR) EENT: cataracts, glaucoma, low vision Cardiovascular: aortic stenosis, CAD, hypertension, hyperlipidemia, carotid atherosclerosis, followed by Dr Cassidy since 2009 adm Respiratory: COPD, obstructive sleep apnea, pneumonia, USES CPAP Gastrointestinal: GERD Hepatic: NONE Renal: chronic kidney disease Musculoskeletal: degen joint disease, arthritis Psychiatric: depression Endocrine: diabetes, hypoglycemia Blood Disorders: anemia Cancer(s): prostate cancer PRACTICE COORDINATOR/Reproductive: NONE History of MRSA: No History of VRE: No History of CDIFF: No Tetanus Vaccine: 05/10/16 Surgical History Surgical History: BILAT KNEE REPLACEMENT CARDIAC STENT CAROTID ANGIOPLASTY carotid endarterectomy carotid endarterectomy on the right right carotid endarterectomy Past Family/Social History Family History Relations & Conditions if any MOTHER (diabetes and NV at age 65). FATHER (heart attack in 70's). SISTER, Age 60+. FH: dementia FH: Parkinson's disease FATHER Relation not specified for: FH: hypertension Psychosocial History Where do you live? Home Who Do You Live With? child Services at Home: Home Health Aide, Nursing Primary Language: Trinidadian ETOH Use: denies use Illicit Drug Use: denies illicit drug use Functional Ability ADLs Needs Assist: bathing. Ambulation: cane, walker IADLs Needs Assist: shopping, housework, food prep, transportation. Sexual History Sexually Active No Employment History Employment Retired Review of Systems Review of Systems Constitutional: Reports: weakness. Denies: chills, fever. EENTM: Reports: blurred vision (At baseline, no change). Denies: visual changes, hearing changes, nasal congestion, throat pain. Cardiovascular: Reports: syncope. Denies: chest pain, edema, orthopena, palpitations, peripheral edema. Respiratory: Reports: cough, short of breath, sputum production. GI: Reports: vomiting (Patient denies, son reports x1). Denies: abdominal pain, bloating, constipation, diarrhea, nausea. Genitourinary: Denies: dysuria. Musculoskeletal: Denies: back pain, neck pain. Skin: Reports: lesions (Right eye ecchymosis). Neurological/Psychological: Denies: anxiety, confusion, headache, tingling. Hematologic/Endocrine: Reports: bruising. Denies: polyuria, polydipsia. Immunologic/Allergic: Denies: splenectomy. Exam & Diagnostic Data Last 24 Hrs of Vital Signs/I&O Vital Signs Date Time Temp Pulse Resp B/P Pulse O2 O2 Flow FiO2 Ox Delivery Rate 10/25 1417 97.2 62 22 119/59 93 Room Air 10/25 1236 98.0 65 20 126/61 100 Room Air 10/25 1207 96 Room Air 10/25 1204 97.4 61 18 122/72 95 Room Air Intake & Output 10/25 1600 10/25 0800 10/25 0000 Intake Total Output Total Balance Patient 220 lb Weight Physical Exam General Appearance Alert, Oriented X3, Cooperative, No Acute Distress Skin Right periorbital ecchymosis without active bleeding. HEENT PERRLA, EOMI, Dry mucous membranes Neck Supple, No JVD, No thryomegaly Lymphatic Cervical nl Cardiovascular Regular Rate, Normal S1, Normal S2, Grade 2/6 systoluc murmur Lungs Decreased air entry bilaterally, left>right basal rhonchi Abdomen Normal Bowel Sounds, Soft Neurological Normal Speech, Normal Tone, Cranial Nerves 3-12 NL, 4/5 strength RLE, all others 5/5 Extremities No Clubbing, No Cyanosis, No Tenderness/Swelling Vascular Pulses Symmetrical Last 24 Hrs of Labs/Stephen: Laboratory Tests 10/25/16 1520: Lactic Acid Cancelled 10/25/16 1226: Anion Gap 12, Estimated GFR 24 L, BUN/Creatinine Ratio 19.2, Glucose 111 H, Calcium 6.8 L, Total Bilirubin 0.6, AST 20, ALT 26, Alkaline Phosphatase 158 H , Total Protein 5.4 L, Albumin 2.7 L, Globulin 2.7, Albumin/Globulin Ratio 1.0 L, CBC w Diff NO MAN DIFF REQ, RBC 3.38 L, MCV 84.7, MCH 28.6, RDW 15.5 H, MPV 7.1 L, Gran % 78.6 H, Lymphocytes % 10.2 L, Monocytes % 8.8, Eosinophils % 1.9, Basophils % 0.5, Absolute Granulocytes 5.5, Absolute Lymphocytes 0.7 L, Absolute Monocytes 0.6, Absolute Eosinophils 0.1, Absolute Basophils 0, PUBS MCHC 33.8 Microbiology 10/25 1535 BLOOD: Blood Culture - RECD 10/25 1530 BLOOD: Blood Culture - RECD Diagnostic Data EKG Results NSR HR 63 bpm, QTC 459, IL 188, no cahnge from previous. CXR Results EXAMINATION: XR CHEST CLINICAL INFORMATION: Evaluate for pneumonia. Cough. COMPARISON: CT chest 10/18/2016, chest radiograph 10/18/2016 TECHNIQUE: 2 views of the chest were obtained. FINDINGS: Stable mild cardiomegaly. Atherosclerotic aortic arch. There is central pulmonary vessel prominence without overt edema. Interval increase in right lower lobe airspace disease. There is a small right pleural effusion. The left lung is grossly clear. No pneumothorax. Osseous structures appear intact. IMPRESSION: Interval increase in right lower lobe airspace disease suspicious for pneumonia. Follow-up is recommended to document resolution. Small right pleural effusion. Other Results EXAMINATION: CT HEAD WITHOUT CONTRAST CLINICAL INFORMATION: History of fall. On Plavix. COMPARISON: CT head 07/02/2016. TECHNIQUE: Contiguous axial imaging was performed from the skull base to vertex without intravenous administration of contrast. DLP: 600 mGy-cm FINDINGS: There is new hypodense area in the left parietal cortex with loss of cortical sulci consistent with acute infarct. There is no corresponding bleed. There is no extra-axial or intra-axial bleed. No new areas of infarct. There is extensive T2-weighted hypodensity in periventricular white matter of both cerebral hemispheres suggestive of chronic small vessel ischemic changes without mass effect. The lateral ventricles are enlarged and so are the cortical sulci suggestive of age-related cerebral atrophy. Bone windows reveal no calvarial abnormality. Bilateral paranasal sinuses and mastoid air cells are well aerated. The scalp soft tissue appears unremarkable. There is a large midline extra occipital horn visualized. It is stable to several previous CT exams. IMPRESSION: New acute infarct left parietal lobe without underlying bleed. Chronic small vessel ischemic changes in both cerebral hemispheres with mild cerebral atrophy. Results were called to Dr. Maximo Scott at 2:05 PM. Assessment/Plan Assessment: Mr. Bearden is an 86 year old gentleman with PMH significant for CVA x 2, CAD s/p stenting, aortic stenosis, HTN, CKD stage 4, T2DM, COPD, PRIYANKA on CPAP, GERD, prostate cancer, right carotid stenosis s/p carotid endarterectomy, cataract, normocytic anemia and lung cancer who presented s/p fall this morning at 2 AM. This was an unwitnessed fall resulting in head and right abdomen strike. Patient denied any preceding pre-syncopal type symptoms, though he is unsure of the events that led up to the fall. In the ED: Vital signs showed T 97.4, HR 61, RR 18, BP 122/72 and O2 saturation of 95% on RA. Labs showed normal WBC to 7, normocytic anemia to 9.7/28.6, plt 163, and normal BEP except for BUN/cre 50/2.6 (baseline). Corrected Ca was 8.6 with low albumin to 2.7. Alk phos 158. CXR was done and showed increase in right lower lobe airpsace disease suspicious for pneumonia. Small right pleural effusion. Head CT was done adn showed new, acute infarct in left parietal lobe without underlying bleed. It also showed chronic small vessel ischemic changes in both cerebral hemispheres with mild cerebral atrophy. Last echocardiogram done was in May of 2016 and showed EF 60% with impaired LV relaxation. EEG in 2016 showed abnormal generalized slowing of background rhythm. Patient is admitted to the telemetry floor and the following is the currentl management: 1. Acute CVA, left parietal lobe * Admit to the telemetry floor for continuous telemetry monitoring * Patient well out of TPA window * Mild weakness of RLE, no other focal deficits * Neurochecks Q 4 hours * Neuro consult to be placed for the AM, follow up recommendations * Optimize BP and DM control with home antihypertensive and antidiabetic regimen * Echo ordered, f/u results * Patient recently had carotid doppler, no need for repeat doppler at this time * Continue ASA 325 mg PO daily, plavix 65 mg PO daily, statin 80 mg PO daily 2. 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 Booth to be consulted in the AM, f/u rec's 3. CKD stage 4 * Monitor BEP daily * No acute on chronic CKD noted at this time 4. Normocytic anemia * No active bleeding at this time, noted to be chronic for patient * Monitor with CBC for now 5. HTN, HLD * Continue coreg 25 mg PO BID * Gemfibrozil 600 mg PO BID * Norvasc 5 mg PO daily * Lisinopril 20 mg PO QAM 6. Prostate cancer * Flomax and ditropan to continue daily 7. Type 2 DM * NSS * Accuchecks TIDAC/HS FULL CODE DVTP: Heparin SC Consistent Carb 3 Mild pain pathway As Ranked By This Provider Problem List: 1. CVA (cerebral vascular accident) Qualifiers CVA mechanism: unspecified Qualified Code: I63.9 - Cerebral infarction, unspecified 2. Lung malignancy 3. PNA (pneumonia) Qualifiers Pneumonia type: due to unspecified organism Laterality: right Lung location: lower lobe of lung Qualified Code: J18.1 - Lobar pneumonia, unspecified organism 4. Fall 5. HTN (hypertension) 6. HLD (hyperlipidemia) 7. Weakness 8. DVT prophylaxis 9. Full code status 10. Carotid endarterectomy 11. Benign hypertension Core Measures/Miscellaneous Acute Coronary Syndrome ACS Diagnosis: No Cerebrovascular Accident CVA/TIA Diagnosis: Yes Congestive Heart Failure CHF Diagnosis: No Venous Thromboembolism VTE Risk Factors: Acute medical illness, Age > 40, Cancer/chemo/oth therapy, Obesity VTE Prophylaxis Ordered Inpt: Mech & Pharm No Mech VTE prophylaxis d/t: No contraindications No VTE Pharm Prophylaxis d/t: No contraindications VTE Diagnosis: No VTE Type: NONE VTE Confirmed by (Test): NONE Severe Sepsis Severe Sepsis Present: No Septic Shock Septic Shock Present: No Miscellaneous Documentation Attending Case Discussed With: Dr. Michael Primary Care Physician: RIANA CERRATO,ISAAC Patient sees these Specialists Cardiology- Dr. Canada, Dr. Booth- pulmonology Level of Patient Care: Telemetry BACILIO MANN 10/25/16 2105: Resident Review Statement Resident Statement: examined this patient, agreed with international bank manager, discussed with family, reviewed EMR data (avail), reviewed images Other Findings: This is an 86 years old gentleman with extensive PMH as outlined above by Dr. Caal who presented to us after an unwitnessed fall at home around 2AM. Patient fell from a recliner and hit his head on the chair sustaining a cut wound on the upper part of the right eye orbit. There is no history of jerking movement observed, no aura prior to the fall and denies any dizzines or light headedness. Patient was wet post fall. The son madyson him in because he could not walk and was wobbly. On presentation the patient had stable vitals Physical examination: Oriented to place and person but not time. HEENT: Has a supra orbital contusion from hitting his head Neck: Supple no JVD Neuro: Cranial 2-12 intact, 4/5 weakness on Rt LL no lateralizing signs Abdomen: Obese, soft, non tender no palpable mass Extremities: No edema Labs: Anemia H&H 9.7/28.6, bun 50/Creatinine 2.6 GFR 24 (SIMILAR to baseline) CT Head: New acute infarct left pariental lobe CXR: RLL air space disease Asssessment and plan 86 years old extensive cardiac hx s/p drug eluting stent 2007 on aspril and plavix presenting with a fall and CT suggestive of CVA. He has a lung mass which has not been biopsed and imaging evidence of pneumonia without consitutional symtoms or WBC increase. Problem list CVA Lung consolidation CKD stage 4 Lung mass Admit the patient to telemetry, vitals every shift, neuro checks Q4, Passed bedside swallow, start oral feeds and formal swallow evaluation AM. Patient had carotid doppler 07/01/2016 we will not repeat, check echocardiogram, continue asprin, plavix and atovastatin Continue home BP meds Amlodipine and carvedilol Diabetic diet, low dose sliding scale and accu checks TRC Eevaluation and nebulization Patient is currently Full code/ code review AM after family discussion. Pain pathway JAC CERRATO,DAVIEFracisco 10/25/16 2218: Attending MD Review Statement Attending Statement Attending MD Statement: examined this patient, discuss w/resident/PA/LOGISTICS ANALYTICS MANAGER, agreed w/resident/PA/LOGISTICS ANALYTICS MANAGER, discussed with family, reviewed EMR data (avail), discussed with nursing, amended to note Attending Assessment/Plan: 86-year-old male with history of coronary artery disease, stroke was recently diagnosed with a lung mass that is most likely malignant. Family has opted for conservative management. He was brought in for evaluation today due to inability to ambulate. Earlier on he has sustained an unwitnessed fall. Imaging in the emergency room reveals continue left-sided infarct. On examination patient alert and oriented 3, he does not have a facial droop, speech is slightly slurred and he has right lower extremity weakness. Family reports that baseline deficit from his previous stroke was mildly slurred speech. Family reports that since his discharge patient has had a productive cough. He denies any fever or chills. In the emergency room he is afebrile and hemodynamically stable. He has no leukocytosis on his labs. Chest x-ray suggestive a right-sided consolidation and he was started empirically on antibiotics in the ER. However chest x-ray findings are likely secondary to his known mass. Shows no clinical evidence of infection at present. Recommendations: -Admit to the inpatient medical service. -Maintain fall precautions. Physical therapy evaluation. -Continue dual antibiotic therapy with aspirin and Plavix. Continue statin therapy. -His respiratory symptoms are likely secondary to his underlying mass. Symptoms are only likely to worsen particularly without any intervention for malignancy. I did have a goals of care discussed with patient's son. He will discuss further with her sister regarding changing patient's CODE STATUS to DO NOT RESUSCITATE/DO NOT INTUBATE. Recommend palliative care consultation in the morning.
--- NOTE | 2016-10-25 15:50 | NUR ---
PT SITTING UP EATING HEART HEALTHY TRAY AT THIS TIME. PTS SON AT BEDSIDE.
--- NOTE | 2016-10-25 16:00 | NUR ---
HOUSE STAFF AT BEDSIDE FOR EVAL
--- NOTE | 2016-10-25 16:03 | NUR ---
PT GOING TO ROOM 189-1.
--- NOTE | 2016-10-25 16:21 | NUR ---
PT STOOD ON SIDE OF BED WITH ASSISTANCE X2 TO URINATE IN URINAL. OUTPUT 300CC CLEAR URINE. PT BACK IN BED. REMAINS NSR ON MONITOR. OFFERS NO COMPLAINTS AT THIST SUSU.
--- NOTE | 2016-10-25 16:31 | NUR ---
REPORT GIVEN TO FLOOR. DISTRIBUTION CALLED FOR TRANPORT.
--- NOTE | 2016-10-25 16:43 | NUR ---
DR NATHAN AT BEDSIDE FOR EVAL
[2016-10-25 17:26] VITALS: BP 134/55
[2016-10-26 00:33] VITALS: BP 132/60
--- NOTE | 2016-10-26 06:43 | NUR ---
UPON ASSESSMENT THIS AM PT PRESENTED MORE DROWSY BUT AROUSABLE. HAND GRASPS EQUAL, NO DRIFT IN BLE, RIGHT ARM UNABLE TO RESIST GRAVITY AND SPEECH SLIGHTLY GRABLED. PT IS ANSWERING QUESTIONS APPROPRIATELY AND ORIENTED x2, UNAWARE OF TIME. LAXMI CONCEPCION MD AWARE. WILL CONTINUE TO MONITOR PT
--- NOTE | 2016-10-26 07:03 | PN- Housestaff ---
Subjective Follow-up For: Left parietal CVA Tele-Events Since Last Visit: HR 50s-70s, NSR but episodes of possible Mobitz 2. PACs and PVCs noted. Subjective: Patient seen and examined at bedside this AM. He reports he feels slow and lethargic, not at baseline. He has already worked with occupational therapy, physical therapy and speech therapy at time of interview this AM. PT suggested STR. Review of Systems Constitutional: Reports: malaise, weakness. Denies: chills, fever. EENTM: Reports: blurred vision (Baseline). Denies: visual changes, hearing changes, nasal congestion. Cardiovascular: Denies: chest pain, palpitations. Respiratory: Reports: cough, short of breath, sputum production. Gastrointestinal: Denies: abdominal pain, nausea, vomiting. Genitourinary: Denies: dysuria. Musculoskeletal: Denies: neck pain. Skin: Reports: lesions (Right eye ecchymosis). Neurological/Psychological: Reports: confusion, headache. Denies: tingling, tremors. Hematologic/Endocrine: Reports: bruising. Denies: bleeding. Objective Last 24 Hrs of Vital Signs/I&O Vital Signs Date Time Temp Pulse Resp B/P Pulse O2 O2 Flow FiO2 Ox Delivery Rate 10/26 0919 95 Nasal 1.0L Cannula 10/26 0813 97.7 63 18 122/62 95 Nasal 2.0L Cannula 10/26 0033 97.9 68 18 132/60 96 Nasal Cannula 10/26 0000 Nasal 1.0L Cannula 10/25 2200 77 158/62 10/25 2122 Nasal 1.0L Cannula 10/25 2121 96 Nasal 0.5L Cannula 10/25 1726 96.7 66 17 134/55 94 Nasal 1.0L Cannula 10/25 1719 94 Nasal 1.0L Cannula 10/25 1625 98.6 76 18 126/84 98 Room Air 10/25 1624 96 Room Air 10/25 1417 97.2 62 22 119/59 93 Room Air 10/25 1236 98.0 65 20 126/61 100 Room Air 10/25 1207 96 Room Air 10/25 1204 97.4 61 18 122/72 95 Room Air Intake & Output 10/26 1600 10/26 0800 10/26 0000 Intake Total 60 590 Output Total 50 Balance 60 540 Intake, IV 110 Intake, Oral 60 480 Output, Urine 50 Patient 220 lb Weight Physical Exam General Appearance: Alert, Oriented X3, Cooperative, No Acute Distress Other Physical Findings: Skin Right periorbital ecchymosis without active bleeding. HEENT PERRLA, EOMI, Dry mucous membranes Neck Supple, No JVD, No thryomegaly Lymphatic Cervical nl Cardiovascular Regular Rate, Normal S1, Normal S2, Grade 2/6 systolic murmur Lungs Decreased air entry bilaterally, left>right basal rhonchi Abdomen Normal Bowel Sounds, Soft Neurological Normal Speech, Normal Tone, Cranial Nerves 3-12 NL, 4/5 strength RLE, RUE traffic attendant strength normal but testing limited 2/2 rotator cuff pathology Extremities No Clubbing, No Cyanosis, No Tenderness/Swelling Vascular Pulses Symmetrical Current Medications: Current Medications Sig/Reyna Start time Last Medication Dose Route Stop Time Status Admin Acetaminophen 650 MG Q6P PRN 10/25 2129 AC PO Acetaminophen 1,000 MG Q6P PRN 10/25 213 AC IV Albuterol Sulfate 3 ML Q4 10/250 AC 10/26 INH 0836 Albuterol Sulfate 3 ML Q4 PRN 10/25 211 AC INH Albuterol Sulfate 2 PUF Q4-6 PRN PRN 10/25 1815 AC INH Albuterol Sulfate 3 ML Q4H PRN 10/25 181 AC INH Allopurinol 100 MG 0900 10/26 0900 AC PO Amlodipine Besylate 5 MG DAILY 10/26 1000 AC PO Aspirin 325 MG 1700 10/26 1700 AC PO Atorvastatin Calcium 80 MG 1700 10/26 1700 AC PO Azithromycin 500 MG ONCE ONE 10/25 1530 [place] 10/25 Dextrose/Water 250 ML IV 10/25 1629 1603 Budesonide/ 2 PUF BID 10/25 2200 AC 10/25 Formoterol Fumarate INH 2202 Carvedilol 25 MG BID 10/25 2200 AC 10/25 PO 2200 Ceftriaxone Sodium 0 .STK-MED ONE 10/25 1539 DC .ROUTE Ceftriaxone Sodium 1,000 MG ONCE ONE 10/25 1530 DC 10/25 IV 10/25 1531 1549 Clopidogrel Bisulfate 75 MG DAILY 10/26 1000 AC PO Escitalopram Oxalate 20 MG DAILY 10/26 1000 AC PO Fluorometholone 1 GTT TID 10/25 2199 AC 10/25 OPH 2200 Gemfibrozil 600 MG BID 10/25 2199 AC 10/25 PO 2201 Heparin Sodium 5,000 UNIT Q8 10/25 2200 AC 10/26 (Porcine) SC 0615 Insulin Aspart 0 TIDAC/HS 10/26 0800 AC SC Insulin Detemir 8 UNITS BID 10/26 1000 AC SC Ipratropium [place] 2.5 ML Q4 10/25 220 AC 10/26 INH 0837 Ipratropium [place] 2.5 ML Q4 PRN 10/25 2114 AC INH Lisinopril 20 MG QAM 10/26 1000 AC PO Montelukast Sodium 10 MG AT BEDTIME 10/26 2199 AC PO Morphine Sulfate 2 MG Q6-PRN PRN 10/25 2129 AC IV Non-Formulary 0 SEE ADMIN CRITERIA 10/25 1814 CAN Medication ANY Non-Formulary 0 SEE ADMIN CRITERIA 10/25 1814 CAN Medication ANY Oxybutynin Chloride 5 MG DAILY 10/26 1000 AC PO Polyethylene Glycol 17 GM DAILY 10/26 1000 AC PO Prednisolone 1 GTT TID 10/25 2199 CAN OPH Tamsulosin HCl 0.4 MG 1700 10/26 1700 AC PO Last 24 Hrs of Lab/Stephen Results Last 24 Hrs of Labs/Mics: Laboratory Tests 10/26/16 0610: Anion Gap 11, Estimated GFR 24 L, BUN/Creatinine Ratio 19.2, Glucose 33 *L, CBC w Diff NO MAN DIFF REQ, RBC 3.43 L, MCV 84.5, MCH 28.9, RDW 15.9 H, MPV 7.2 L , Gran % 81.9 H, Lymphocytes % 9.0 L, Monocytes % 8.1, Eosinophils % 0.8, Basophils % 0.2, Absolute Granulocytes 7.3 H, Absolute Lymphocytes 0.8 L, Absolute Monocytes 0.7 H, Absolute Eosinophils 0.1, Absolute Basophils 0, PUBS MCHC 34.2 10/25/16 1820: Lactic Acid Cancelled 10/25/16 1520: Lactic Acid Cancelled 10/25/16 1226: Anion Gap 12, Estimated GFR 24 L, BUN/Creatinine Ratio 19.2, Glucose 111 H, Calcium 6.8 L, Total Bilirubin 0.6, AST 20, ALT 26, Alkaline Phosphatase 158 H , Total Protein 5.4 L, Albumin 2.7 L, Globulin 2.7, Albumin/Globulin Ratio 1.0 L, CBC w Diff NO MAN DIFF REQ, RBC 3.38 L, MCV 84.7, MCH 28.6, RDW 15.5 H, MPV 7.1 L, Gran % 78.6 H, Lymphocytes % 10.2 L, Monocytes % 8.8, Eosinophils % 1.9, Basophils % 0.5, Absolute Granulocytes 5.5, Absolute Lymphocytes 0.7 L, Absolute Monocytes 0.6, Absolute Eosinophils 0.1, Absolute Basophils 0, PUBS MCHC 33.8 Microbiology 10/25 1535 BLOOD: Blood Culture - RECD 10/25 1530 BLOOD: Blood Culture - RECD Orders Radiology Findings: CXR: IMPRESSION: Interval increase in right lower lobe airspace disease suspicious for pneumonia. Follow-up is recommended to document resolution. Small right pleural effusion. Miscellaneous Findings: Head CT: IMPRESSION: New acute infarct left parietal lobe without underlying bleed. Chronic small vessel ischemic changes in both cerebral hemispheres with mild cerebral atrophy. Results were called to Dr. Maximo Scott at 2:05 PM. Assessment/Plan Assessment: Mr. Bearden is an 86 year old gentleman with PMH significant for CVA x 2, CAD s/p stenting, aortic stenosis, HTN, CKD stage 4, T2DM, COPD, PRIYANKA on CPAP, GERD, prostate cancer, right carotid stenosis s/p carotid endarterectomy, cataract, normocytic anemia and lung mass/cancer who presented s/p fall this morning at 2 AM. This was an unwitnessed fall resulting in head and right abdomen strike. Patient denied any preceding pre-syncopal type symptoms, though he is unsure of the events that led up to the fall. In the ED: Vital signs showed T 97.4, HR 61, RR 18, BP 122/72 and O2 saturation of 95% on RA. Labs showed normal WBC to 7, normocytic anemia to 9.7/28.6, plt 163, and normal BEP except for BUN/cre 50/2.6 (baseline). Corrected Ca was 8.6 with low albumin to 2.7. Alk phos 158. CXR was done and showed increase in right lower lobe airpsace disease suspicious for pneumonia. Small right pleural effusion. Head CT was done adn showed new, acute infarct in left parietal lobe without underlying bleed. It also showed chronic small vessel ischemic changes in both cerebral hemispheres with mild cerebral atrophy. Last echocardiogram done was in May of 2016 and showed EF 60% with impaired LV relaxation. EEG in 2016 showed abnormal generalized slowing of background rhythm. Patient is admitted to the telemetry floor and the following is the currentl management: 1. Acute CVA, left parietal lobe * Admit to the telemetry floor for continuous telemetry monitoring * Patient was well out of TPA window * Mild weakness of RLE, no other focal deficits (RUE difficult to assess 2/2 rotator cuff injury) * Neurochecks Q 2 hours * Neuro consult pending for this AM, follow up recommendations * Optimize BP and DM control with home antihypertensive and antidiabetic regimen * Echo ordered, f/u results * Patient recently had carotid doppler, no need for repeat doppler at this time * Continue ASA 325 mg PO daily, plavix 65 mg PO daily, statin 80 mg PO daily * PT, OT and speech therapy consulted and will continue to work with patient to improve functionality * Patient will likely require STR as recommended by PT, will discuss with case management 2. 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 Booth (patient's lead military analyst) made aware of admission * Consideration for palliative care 3. CKD stage 4 * Monitor BEP daily * No acute on chronic CKD noted at this time 4. Normocytic anemia * No active bleeding at this time, noted to be chronic for patient * Monitor with CBC for now 5. HTN, HLD * Continue coreg 25 mg PO BID * Gemfibrozil 600 mg PO BID * Norvasc 5 mg PO daily * Lisinopril 20 mg PO QAM 6. Prostate cancer * Flomax and ditropan to continue daily 7. Type 2 DM * Patient had an episode of hypoglycemia this AM to 33, no insulin given last night or this morning that would promt hypoglycemia * Consideration for retention of insulin in setting of slowly declining CKD stage 4 along with poor PO intake recently (as reported by son) * NSS (low dose) to continue * Accuchecks TIDAC/HS and will recheck glucose level on AM labs in the AM * Will hold 8 U SC levemir this AM but continue it tonight FULL CODE DVTP: Heparin SC Consistent Carb 3 Mild pain pathway Problem List: 1. Contusion of face 2. CVA (cerebral vascular accident) 3. Lung malignancy 4. Right shoulder pain 5. BPH (benign prostatic hyperplasia) 6. Gout 7. HLD (hyperlipidemia) 8. HTN (hypertension) 9. Full code status 10. DVT prophylaxis 11. Dyslipidemia 12. GERD 13. Diabetes mellitus 14. Carcinoma of prostate Pain Ratin Pain Location: n/a Pain Goal: Remain pain free Pain Plan: Mild to severe pain pathway. Tomorrow's Labs & Rationales: BEP with AM glucose to monitor renal function in setting of poor PO intake and hypoglycemia.
[2016-10-26 08:13] VITALS: BP 122/62
[2016-10-26 08:16] LABS: ABSOLUTE BASOPHIL COUNT 0 /CUMM (0.0-0.2); ABSOLUTE EOSINOPHIL COUNT 0.1 /CUMM (0.0-0.7); ABSOLUTE GRANULOCYTE CT 7.3 /CUMM (1.4-6.5); ABSOLUTE LYMPH COUNT 0.8 /CUMM (1.2-3.4); ABSOLUTE MONOCYTE COUNT 0.7 /CUMM (0.10-0.60); BASOPHIL % 0.2 % (0.0-2.0); EOSINOPHIL % 0.8 % (0-5); GRANULOCYTE % 81.9 % (42.2-75.2); MEAN CORPUSCULAR HGB 28.9 PG (27.0-31.0); MEAN CORPUSCULAR HGB CONC 34.2 G/DL (33.0-37.0); MEAN CORPUSCULAR VOLUME 84.5 FL (80.0-94.0); MEAN PLATELET VOLUME 7.2 FL (7.4-10.4); PLATELET COUNT 191 /CUMM (130-400); RBC DISTRIBUTION WIDTH 15.9 % (11.5-14.5); RED BLOOD CELL CT 3.43 /CUMM (4.70-6.10); WHITE BLOOD CELL COUNT 8.9 /CUMM (4.8-10.8)
--- NOTE | 2016-10-26 10:00 | NUR ---
0830: Patient drowsy but arousable. Oriented to place and person. Reoriented to time. Blood glucose fingerstick = 56. Breakfast assisted by MST. Patient tolerated all of breakfast. Notified technical support intern Dr Caal #[id number]. Nib Assembler to add blood glucosed to morning lab work. 0930: Repeat blood glucose fingerstick = 115. 1000: Notified by lab of blood glucose from this morning lab work = 33. Notified technical support intern Dr Caal. Per technical support intern hold this am Waldo and technical support intern will adjust Novolog sliding scale TIDACHS.
--- NOTE | 2016-10-26 11:45 | NUR ---
Patient reporting chest pain 5/10, feeling someone beating his chest. Notified diversity intern Dr. Caal #[id number]. Per diversity intern ordered Troponin and EKG. Tylenol 650 mg PO given. Vitals: BP 110/50, P 72, Pulse ox on 1L NC = 95%. Patient sitting in recliner, chair pad alarm on. Call doty in reach. Will continue to monitor.
--- NOTE | 2016-10-26 13:50 | Cons- Neurology ---
General Information and HPI Consulting Request Date of Consult: 10/26/16 Requested By: MARIA G ESTES MD History of Present Illness: 86-year-old male with multiple medical problems including hypertension, diabetes , chronic kidney disease, coronary artery disease and "prior CVAs",however, per the patient, these CVAs have not left him with any residual or lateralizing deficits. He was admitted following a fall associated with closed head trauma. He was subsequent found to have right-sided weakness after which he was admitted for further evaluation and treatment. CAT scan of the brain on admission revealed the presence of an acute left parietal, ischemic infarct. Allergies/Medications Allergies: Coded Allergies: NO KNOWN ALLERGIES (05/15/16) Home Med List: Albuterol Sulfate 1.25 MG/3 ML VIAL.NEB 1 Vial INH/CHARISSA Q4-6 PRN SOB (Reported ) Albuterol Sulfate (Proair Hfa) 90 MCG HFA.AER.AD 2 PUF INH Q4-6 PRN PRN RESPIRATORY (Reported) Allopurinol 100 MG TABLET 1 TAB PO 0900 GOUT (Reported) Amlodipine Besylate 5 MG TABLET 1 TAB PO DAILY HEART (Reported) Aspirin (Aspirin*) 325 MG TABLET 1 TAB PO 1700 HEART/BLOOD (Reported) Atorvastatin Calcium 80 MG TABLET 1 TAB PO 1700 CHOLESTEROL (Reported) Carvedilol 25 MG TABLET 1 TAB PO BID HTN (Reported) Clopidogrel Bisulfate (Clopidogrel) 75 MG TABLET 1 TAB PO DAILY stroke ( Reported) Diclofenac Sodium (Voltaren) 1 % GEL..GRAM. 1 GM TOP 4 TIMES/DAY PAIN ( Reported) apply to affected area(s) Ergocalciferol (Vitamin D2) (Vitamin D2) 50,000 UNIT CAPSULE 50,000 UNITS PO WEEKLY MONDAY VITAMIN (Reported) Escitalopram Oxalate (Lexapro) 20 MG TABLET 1 TAB PO DAILY ANXIETY (Reported) Fluorometholone (FML) 0.1 % DROPS.SUSP 1 GTT OPH TID BOTH EYES (Reported) Fluticasone/Vilanterol (Breo Ellipta 100-25 Mcg INH) 100 MCG-25 MCG/DOSE BLST.W.DEV 1 PUFF INH BID COPD (Reported) Gemfibrozil 600 MG TABLET 1 TAB PO BID CHOL (Reported) Insulin Detemir (Levemir) 100 UNIT/ML VIAL 8 UNITS SC BID dm Ketoconazole (Nizoral) 2 % SHAMPOO 1 NAOMI TOP DAILY SCALP (Reported) Lisinopril 10 MG TABLET 2 TAB PO QAM BP (Reported) Mirabegron (Myrbetriq) 50 MG TAB.ER.24H 1 TAB PO DAILY (Reported) Montelukast Sodium (Singulair) 10 MG TABLET 1 TAB PO DAILY allergies ( Reported) Oxybutynin Chloride 5 MG TABLET 1 TAB PO DAILY (Reported) Polyethylene Glycol 3350 (Miralax) 17 GRAM POWD.PACK 1 PAC PO DAILY CONSTIPATION (Reported) dissolve in water Tamsulosin HCl (Flomax) 0.4 MG CAP.ER.24H 1 CAP PO 1700 PROSTATE (Reported) Review of Systems Review of Systems: Notable for dyspnea upon exertion obesity, imbalance and a recent fall. There is been no fever, chills, weight loss, hemoptysis, vomiting, vertigo, acute joint inflammation or bleeding disturbance Past History Travel History Traveled to [place] past 21 day No Medical History Blood Transfusion Hx: No Neurological: CVA (CVA 2009, seen on MRI, see EMR), syncope thought d/t orthostasis 2009 (see EMR) EENT: cataracts, glaucoma, low vision Cardiovascular: aortic stenosis, CAD, hypertension, hyperlipidemia, carotid atherosclerosis, followed by Dr Cassidy since 2009 adm Respiratory: COPD, obstructive sleep apnea, pneumonia, USES CPAP Gastrointestinal: GERD Hepatic: NONE Renal: chronic kidney disease Musculoskeletal: degen joint disease, arthritis Psychiatric: depression Endocrine: diabetes, hypoglycemia Blood Disorders: anemia Cancer(s): prostate cancer PARTS CHASER/Reproductive: NONE Surgical History Surgical History: BILAT KNEE REPLACEMENT CARDIAC STENT CAROTID ANGIOPLASTY carotid endarterectomy carotid endarterectomy on the right right carotid endarterectomy Family History Relations & Conditions If Any: MOTHER (diabetes and ID at age 65). FATHER (heart attack in 70's). SISTER, Age 60+. FH: dementia FH: Parkinson's disease FATHER Relation not specified for: FH: hypertension Psychosocial History Where Do You Live? Home Who Do You Live With? child Services at Home: Home Health Aide, Nursing Primary Language: Macedonian Smoking Status: Former Smoker ETOH Use: denies use Illicit Drug Use: denies illicit drug use Functional Ability ADLs Needs Assist: bathing. Ambulation: cane, walker IADLs Needs Assist: shopping, housework, food prep, transportation. Employment History Employment: Retired Exam & Diagnostic Data Vital Signs and I&O Vital Signs Date Time Temp Pulse Resp B/P Pulse O2 O2 Flow FiO2 Ox Delivery Rate 10/26 1115 70 110/50 10/26 1115 70 110/50 10/26 0919 95 Nasal 1.0L Cannula 10/26 0813 97.7 63 18 122/62 95 Nasal 2.0L Cannula 10/26 0800 Nasal 1.0L Cannula 10/26 0033 97.9 68 18 132/60 96 Nasal Cannula 10/26 0000 Nasal 1.0L Cannula 10/25 2200 77 158/62 10/25 2122 Nasal 1.0L Cannula 10/25 2121 96 Nasal 0.5L Cannula 10/25 1726 96.7 66 17 134/55 94 Nasal 1.0L Cannula 10/25 1719 94 Nasal 1.0L Cannula 10/25 1625 98.6 76 18 126/84 98 Room Air 10/25 1624 96 Room Air 10/25 1417 97.2 62 22 119/59 93 Room Air Intake & Output 10/26 1600 10/26 0800 10/26 0000 Intake Total 60 590 Output Total 50 Balance 60 540 Intake, IV 110 Intake, Oral 60 480 Output, Urine 50 Patient 220 lb Weight Elderly, obese white male who was awake, alert and cooperative. Speech was fluent. The head was normocephalic. There was a right periorbital ecchymosis. Rubin's sign was absent. Pupils were equal and reactive. Extraocular movements were full. There was no gross field cut. Face was symmetric. Tongue was midline. Motor examination revealed a drift of the right upper extremity. Lower extremity weakness. Deep tendon reflexes were diffusely hypoactive. Plantar responses were flexor. Fine finger movements and rapid alternating movements were minimally impaired in the right hand. Sensory examination was normal to light touch with double simultaneous stimulation. Gait was untested. Assessment/Plan Assessment: #1 acute left hemispheric, ischemic infarct resulting in a mild right hemiparesis #2 closed head trauma Recommendations: As the patient had been maintained on Plavix, we had suggested that he also be given aspirin. The dual antiplatelet therapy should be continued for 1 month after which we would reassess in the outpatient setting. The patient will need physical therapy, occupational therapy and brief speech assessment. DVT precautions should be in place. A carotid ultrasound should be arranged if not done in the recent past. He may need short-term rehabilitation Please feel free to call with any questions. Consult Acknowledgment - Thank you for your consult request.
--- NOTE | 2016-10-26 13:52 | Event Note ---
Event Note Event Note: On examination this morning, patient denied chest pain on questioning. However, later in the AM patient endorsed chest pain to both physical therapy and the nurse. Troponins/EKG done at that time and returned + to 0.71. Patient currently hemodynamically stable and we will continue to trend EKG/troponing. Cardiology consult will be placed and we will follow up cardiac recommendations at that time.
--- NOTE | 2016-10-26 15:12 | NUR ---
Patient coughing, then began vomitting. Patient reports no nausea. Vomitted moderate amount onto bed. HOB up. Collected in emesis basis with assistance watery undigested food 600 ml. Assisted with clean up and new hospital gown. Notified internal combustion engine inspector Dr Caal #[id number]. Call doty in reach. Bed alarm on. Will continue to monitor.
--- NOTE | 2016-10-26 15:22 | Admission Core Measures ---
Acute Coronary Syndrome Inclusion Criteria ACS Diagnosis No Inpatient Core Measures LDL Reminder: If No, please order W/I first 24hr of stay Congestive Heart Failure Inclusion Criteria CHF Diagnosis No Cerebrovascular accident Inclusion Criteria CVA/TIA Diagnosis Yes Inpatient Core Measures NIH Stroke Scale NIH Stroke Scale Response Value Level of Consciousness alert 0 LOC Questions answers both correctly 0 LOC Commands obeys both correctly 0 Best Gaze normal 0 Visual Drake no visual loss 0 Facial Paresis normal 0 Motor Arm - Left no drift 0 Motor Arm - Right no drift 0 Motor Leg - Left no drift 0 Motor Leg - Right no drift 0 Limb Ataxia no ataxia 0 Sensory normal 0 Best Language no aphasia 0 Dysarthria mild/mod slurring words 1 Extinction and Inattention no neglect 0 Total 1 Date Last Known Well 10/24/16 Time Last Known Well 2199 Neurological S/S of CVA Doesn't Walk Symptom start date 10/25/16 Symptom start time 0200 Reason tPA not ordered: Medical Contraindication Bedside Swallow Eval Done Yes Result of evaluation Pass Bedside Swallow Eval Reminder: If BSE failed, place ST order Antithrombotic Reminder: Order Antithrombotic Medication by end of day 2 Days in Hospital KEVIN PATEL has been admitted for 1 days. Antithrombotic: No Antithrombotic Reminder: Document Reason Antithrombotic Not ordered by end of day 2 No Antithrombotic d/t Medical Contraindication (Out of TPA window) AFIB No Aflutter No AFIB/Flutter Reminder: If Present, add to problem list AFIB/Flutter Reminder: Order Anticoag Medication for pts with AFIB/Flutter Atherosclerosis Reminder: If Present, add to problem list LDL done W/I 24 hrs of admit Yes LDL Reminder: If No, please order W/I first 24hr of stay Currently on Statin: Yes Rehab Needs Assessed: Medical Eval for Rehab PT Consult Ordered: Yes PT Order Reminder: If No, please order Venous thromboembolism Inpatient Core Measures VTE Risk Factors: Acute medical illness, Age > 40, Cancer/chemo/oth therapy, Obesity VTE Prophylaxis Ordered Inpt Mech & Pharm No Mech VTE prophylaxis d/t No contraindications No VTE Pharm Prophylaxis d/t No contraindications Inclusion Criteria - Per Current guidelines, there needs to be overlap - treatment for the first 5 days of Warfarin therapy. - Parenteral Anticoagulation (IV or SC) needs to be - given along with Warfarin therapy. VTE Diagnosis No VTE Type NONE VTE Confirmed by (Test) NONE Problem List As ranked by this Provider includes Assessment & Plan 1. CVA (cerebral vascular accident) HOME MEDS Home Med List Albuterol Sulfate 1.25 MG/3 ML VIAL.NEB 1 Vial INH/CHARISSA Q4-6 PRN SOB (Reported ) Albuterol Sulfate (Proair Hfa) 90 MCG HFA.AER.AD 2 PUF INH Q4-6 PRN PRN RESPIRATORY (Reported) Allopurinol 100 MG TABLET 1 TAB PO 0900 GOUT (Reported) Amlodipine Besylate 5 MG TABLET 1 TAB PO DAILY HEART (Reported) Aspirin (Aspirin*) 325 MG TABLET 1 TAB PO 1700 HEART/BLOOD (Reported) Atorvastatin Calcium 80 MG TABLET 1 TAB PO 1700 CHOLESTEROL (Reported) Carvedilol 25 MG TABLET 1 TAB PO BID HTN (Reported) Clopidogrel Bisulfate (Clopidogrel) 75 MG TABLET 1 TAB PO DAILY stroke ( Reported) Diclofenac Sodium (Voltaren) 1 % GEL..GRAM. 1 GM TOP 4 TIMES/DAY PAIN ( Reported) Ergocalciferol (Vitamin D2) (Vitamin D2) 50,000 UNIT CAPSULE 50,000 UNITS PO WEEKLY MONDAY VITAMIN (Reported) Escitalopram Oxalate (Lexapro) 20 MG TABLET 1 TAB PO DAILY ANXIETY (Reported) Fluorometholone (FML) 0.1 % DROPS.SUSP 1 GTT OPH TID BOTH EYES (Reported) Fluticasone/Vilanterol (Breo Ellipta 100-25 Mcg INH) 100 MCG-25 MCG/DOSE BLST.W.DEV 1 PUFF INH BID COPD (Reported) Gemfibrozil 600 MG TABLET 1 TAB PO BID CHOL (Reported) Insulin Detemir (Levemir) 100 UNIT/ML VIAL 8 UNITS SC BID dm Ketoconazole (Nizoral) 2 % SHAMPOO 1 NAOMI TOP DAILY SCALP (Reported) Lisinopril 10 MG TABLET 2 TAB PO QAM BP (Reported) Mirabegron (Myrbetriq) 50 MG TAB.ER.24H 1 TAB PO DAILY (Reported) Montelukast Sodium (Singulair) 10 MG TABLET 1 TAB PO DAILY allergies ( Reported) Oxybutynin Chloride 5 MG TABLET 1 TAB PO DAILY (Reported) Polyethylene Glycol 3350 (Miralax) 17 GRAM POWD.PACK 1 PAC PO DAILY CONSTIPATION (Reported) Tamsulosin HCl (Flomax) 0.4 MG CAP.ER.24H 1 CAP PO 1700 PROSTATE (Reported) Discontinued Medications Oseltamivir Phosphate (Tamiflu) 30 MG CAPSULE 1 CAP PO DAILY flu Prednisone 5 MG TABLET 1 TAB PO DAILY Daily
[2016-10-26 15:49] VITALS: BP 136/76
--- NOTE | 2016-10-26 16:41 | PN- Att Addend ---
Attending Addendum Attending Brief Note Patient seen and examined earlier on this morning. Denies chest pain. Deny palpitations. He did complain of continued shortness of breath. He reports nonproductive cough. Overnight on telemetry he had several episodes of ventricular ectopy. He has been hemodynamically stable. He has been maintaining saturation on baseline 2 L of oxygen. This afternoon patient developed retrosternal pain which he described as 9/10 in intensity. Denies any radiation. Pain or cord at rest. EKG was done and shows no ischemic changes. Troponin however was elevated at 0.71. Though he does have chronic kidney disease his troponin levels were within normal limits. Previous admissions. Patient was noted to be hypoglycemic this morning. Interestingly he did not receive his long-acting insulin last night. Late last year patient was on a total of 64 units of insulin daily. Due to episodes of hypoglycemia that time insulin was reduced total of 60 units daily. He is again becoming hypoglycemic. Vital Signs Date Time Temp Pulse Resp B/P Pulse O2 O2 Flow FiO2 Ox Delivery Rate 10/26 1549 98.0 73 18 136/76 94 Nasal 2.0L Cannula 10/26 1349 72 172/80 10/26 1115 70 110/50 10/26 1115 70 110/50 10/26 0919 95 Nasal 1.0L Cannula 10/26 0813 97.7 63 18 122/62 95 Nasal 2.0L Cannula 10/26 0800 Nasal 1.0L Cannula 10/26 0033 97.9 68 18 132/60 96 Nasal Cannula 10/26 0000 Nasal 1.0L Cannula 10/25 2200 77 158/62 10/25 2123 Nasal 1.0L Cannula 10/25 2122 96 Nasal 0.5L Cannula 10/25 1726 96.7 66 17 134/55 94 Nasal 1.0L Cannula 10/25 1719 94 Nasal 1.0L Cannula Gen. appearance: Obese, soft nontender respiratory distress. HEENT: Right periorbital ecchymosis. Pupils equal and reactive. Heart: S1-S2 regular Lungs: Diminished entry bilaterally, clear to auscultation. Abdomen: Soft, nontender with normal bowel sounds Extremities: no pedal edema. Neurologic: Slight's slurred speech. Slight right facial droop. Laboratory Tests 10/26/16 1155: Troponin I 0.71 *H, Triglycerides 170 H, Cholesterol 184, LDL Cholesterol, Calc 115, HDL Cholesterol 35 L, Cholesterol/HDL Ratio 5 H 10/26/16 0610: Anion Gap 11, Estimated GFR 24 L, BUN/Creatinine Ratio 19.2, Glucose 33 *L, CBC w Diff NO MAN DIFF REQ, RBC 3.43 L, MCV 84.5, MCH 28.9, RDW 15.9 H, MPV 7.2 L , Gran % 81.9 H, Lymphocytes % 9.0 L, Monocytes % 8.1, Eosinophils % 0.8, Basophils % 0.2, Absolute Granulocytes 7.3 H, Absolute Lymphocytes 0.8 L, Absolute Monocytes 0.7 H, Absolute Eosinophils 0.1, Absolute Basophils 0, PUBS MCHC 34.2 10/25/16 1820: Lactic Acid Cancelled Plan: 1. Chest pain; likely secondary to non-ST elevation AL. 2. Recurrent stroke; likely secondary to atherosclerotic disease 3. Lung mass; likely malignancy. Symptomatic. 4. Insulin-dependent diabetes mellitus with recurrent episodes of hypoglycemia 5. Chronic kidney disease stage IV. 6. Oxygen dependent COPD/obstructive sleep apnea Plan: -Continue dual antiplatelet therapy with aspirin and Plavix. -Continue beta kori therapy with Coreg. Continue lipid-lowering therapy with gemfibrozil and atorvastatin. -Add Nitropaste 1 inch to chest wall. -Trend troponin level. Obtain echocardiogram. Cardiology consultation. -Neurology consultation appreciated. Please note that patient is already on antibiotic therapy for his cardiac condition. Obtain carotid ultrasound. -Bronchodilator therapy, oxygen supplementation and cough suppressant therapy. -Pulmonary symptoms only likely to worsen. Family is aware of this. -Please follow-up with family regarding changing CODE STATUS to DNR/DNI. -Would recommend palliative/hospice follow-up as an outpatient. -Poor overall prognosis.
--- NOTE | 2016-10-26 19:57 | Cons- Cardiology ---
General Information and HPI Consulting Request Date of Consult: 10/26/16 Requested By: MARIA G ESTES MD History of Present Illness: Dwayne is an 86 year old male with history of hypertension, dyslipidemia, diabetes mellitus, and renal insufficiency who I regularly see in the office. He also has history of CVA and right carotid endarterectomy. It should be noted that this patient has had multiple episodes of syncope. This patient was brought to the hospital following a fall with trauma to his right orbit and abdomen. He has no recollection of falling suggestive of loss of consciousness. He denies any premonitory symptoms of lightheadedness or palpitations. He does complain of chest discomfort at the present time and has a positive troponin. He also reports shortness of breath. NSVT is noted on telemetry. This patient had a similar event last year and an MRI showed findings consistent with an acute left parietal CVA. Seizure activity was noted at that time. At baseline this patient walks very little and attributes this to being unsteady. This patient had recent CT scan that disclosed a 2.5cm spiculated lesion in the right posterior lung suspicious for cancer. It should be noted however that this patient has had longstanding hypertension that is difficult to control since he also has issues with syncope. He has undergone a thorough workup for hypertension. He has been noted in the past to have some NSVT. He has also had some evidence of autonomic insufficiency with a drop in blood pressure upon arising without a corresponding increase in heart rate. It should be recalled that Dwayne was initially seen in May 2008 for an elevated blood sugar, as well as severe hypertension with blood pressures of 210/93. The above was associated with electrocardiographic changes and T-wave inversions in the lateral leads consistent with myocardial ischemia. He also complained of headache at that time. In consideration of the above, the patient had a stress test, which showed inferior wall ischemia. A cardiac catheterization was performed, with placement of 3.0 x 20 mm drug-coated Taxus stent to the LAD. It was dilated up to 3.5 mm. The left main was normal. There was an 80% mid concentric lesion of the LAD, followed by luminal irregularities, which was dilated as described above. The left circumflex had luminal irregularities, and the right coronary artery was the dominant vessel, which was 100% occluded. I felt that this was a chronic occlusion and not amenable to revascularization. It did receive left to right collaterals extending from the distal portion of the LAD. As such, the LAD perfuses both the anterior and inferior hayden of the left ventricle. It was this LAD lesion which was revascularized. In anticipation of his carotid endarterectomy, this patient had a repeat stress test, which I pursued due to the fact that he complained of chest discomfort. This study showed minimal inferior wall ischemia, which I attributed to the occluded right coronary artery. With regard to his hypertension, I felt that it was prudent for him to be ruled out for renal artery stenosis. He refused an MRA; however, we proceeded with renal angiography, which apparently showed no evidence of renal artery stenosis. This patient has been seen by Dr. Diallo who felt that the patient had stage 3 chronic kidney disease due to his diabetes mellitus. His most recent ultrasound of the carotids showed a 70% right internal carotid stenosis, and a prior MRI showed microvascular disease with evidence of an old lacunar right-sided basal ganglia infarct and a left lacunar infarct. It was for this reason that a carotid endarterectomy was pursued. He also has a left carotid stenosis by ultrasound. It should be noted that Dwayne underwent an adenosine stress test just prior to the carotid endarterectomy. As mentioned above, the study showed a 3-second pause and multiple episodes of type 1 second-degree AV block and nothing conveys that this was the cause of the patient's prior syncopal episodes since this is a common finding during adenosine administration. Allergies/Medications Allergies: Coded Allergies: NO KNOWN ALLERGIES (05/15/16) Home Med List: Albuterol Sulfate 1.25 MG/3 ML VIAL.NEB 1 Vial INH/CHARISSA Q4-6 PRN SOB (Reported ) Albuterol Sulfate (Proair Hfa) 90 MCG HFA.AER.AD 2 PUF INH Q4-6 PRN PRN RESPIRATORY (Reported) Allopurinol 100 MG TABLET 1 TAB PO 0900 GOUT (Reported) Amlodipine Besylate 5 MG TABLET 1 TAB PO DAILY HEART (Reported) Aspirin (Aspirin*) 325 MG TABLET 1 TAB PO 1700 HEART/BLOOD (Reported) Atorvastatin Calcium 80 MG TABLET 1 TAB PO 1700 CHOLESTEROL (Reported) Carvedilol 25 MG TABLET 1 TAB PO BID HTN (Reported) Clopidogrel Bisulfate (Clopidogrel) 75 MG TABLET 1 TAB PO DAILY stroke ( Reported) Diclofenac Sodium (Voltaren) 1 % GEL..GRAM. 1 GM TOP 4 TIMES/DAY PAIN ( Reported) apply to affected area(s) Ergocalciferol (Vitamin D2) (Vitamin D2) 50,000 UNIT CAPSULE 50,000 UNITS PO WEEKLY MONDAY VITAMIN (Reported) Escitalopram Oxalate (Lexapro) 20 MG TABLET 1 TAB PO DAILY ANXIETY (Reported) Fluorometholone (FML) 0.1 % DROPS.SUSP 1 GTT OPH TID BOTH EYES (Reported) Fluticasone/Vilanterol (Breo Ellipta 100-25 Mcg INH) 100 MCG-25 MCG/DOSE BLST.W.DEV 1 PUFF INH BID COPD (Reported) Gemfibrozil 600 MG TABLET 1 TAB PO BID CHOL (Reported) Insulin Detemir (Levemir) 100 UNIT/ML VIAL 8 UNITS SC BID dm Ketoconazole (Nizoral) 2 % SHAMPOO 1 NAOMI TOP DAILY SCALP (Reported) Lisinopril 10 MG TABLET 2 TAB PO QAM BP (Reported) Mirabegron (Myrbetriq) 50 MG TAB.ER.24H 1 TAB PO DAILY (Reported) Montelukast Sodium (Singulair) 10 MG TABLET 1 TAB PO DAILY allergies ( Reported) Oxybutynin Chloride 5 MG TABLET 1 TAB PO DAILY (Reported) Polyethylene Glycol 3350 (Miralax) 17 GRAM POWD.PACK 1 PAC PO DAILY CONSTIPATION (Reported) dissolve in water Tamsulosin HCl (Flomax) 0.4 MG CAP.ER.24H 1 CAP PO 1700 PROSTATE (Reported) Review of Systems Review of Systems: A twelve point review of systems is unremarkable. Past History Travel History Traveled to [place] past 21 day No Medical History Blood Transfusion Hx: No Neurological: CVA (CVA 2009, seen on MRI, see EMR), syncope thought d/t orthostasis 2009 (see EMR) EENT: cataracts, glaucoma, low vision Cardiovascular: aortic stenosis, CAD, hypertension, hyperlipidemia, carotid atherosclerosis, followed by Dr Cassidy since 2009 adm Respiratory: COPD, obstructive sleep apnea, pneumonia, USES CPAP Gastrointestinal: GERD Hepatic: NONE Renal: chronic kidney disease Musculoskeletal: degen joint disease, arthritis Psychiatric: depression Endocrine: diabetes, hypoglycemia Blood Disorders: anemia Cancer(s): prostate cancer 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 FATHER (heart attack in 70's). SISTER, Age 60+. FH: dementia FH: Parkinson's disease FATHER Relation not specified for: FH: hypertension Psychosocial History Where Do You Live? Home Who Do You Live With? child Services at Home: Home Health Aide, Nursing Primary Language: [place] Smoking Status: Former Smoker ETOH Use: denies use Illicit Drug Use: denies illicit drug use Functional Ability ADLs Needs Assist: bathing. Ambulation: cane, walker IADLs Needs Assist: shopping, housework, food prep, transportation. Employment History Employment: Retired ECHO Results (as available) Report: CONCLUSIONS Left ventricle not well visualized, grossly normal size. Moderate concentric left ventricular hypertrophy. No obvious regional wall motion abnormalities. Normal left ventricular ejection fraction visually estimated at 55%. Abnormal relaxation filling pattern of the left ventricle for age (stage 1 diastolic dysfunction). Normal right ventricular size and function. Normal atrial size. No mitral regurgitation. No aortic valve stenosis or regurgitation. No tricuspid regurgitation. Unable to estimate the right ventricular systolic pressure. Trace pulmonic regurgitation Exam & Diagnostic Data Vital Signs and I&O Vital Signs Date Time Temp Pulse Resp B/P Pulse O2 O2 Flow FiO2 Ox Delivery Rate 10/26 1807 95 Nasal 2.5L Cannula 10/26 1549 98.0 73 18 136/76 94 Nasal 2.0L Cannula 10/26 1349 72 172/80 10/26 1115 70 110/50 10/26 1115 70 110/50 10/26 0919 95 Nasal 1.0L Cannula 10/26 0813 97.7 63 18 122/62 95 Nasal 2.0L Cannula 10/26 0800 Nasal 1.0L Cannula 10/26 0033 97.9 68 18 132/60 96 Nasal Cannula 10/26 0000 Nasal 1.0L Cannula 10/250 77 158/62 10/25 2122 Nasal 1.0L Cannula 10/25 2121 96 Nasal 0.5L Cannula Intake & Output 10/26 1600 10/26 0800 10/26 0000 10/25 1600 10/25 0800 10/25 0000 Intake Total 480 60 590 Output Total 200 50 Balance 280 60 540 Intake, IV 110 Intake, Oral 480 60 480 Number 1 Bowel Movements Output, Urine 200 50 Patient 220 lb 220 lb Weight Physical Exam: General: WD/WN male in NAD: alert and oriented x 3 HEENT: Normocephalic with right orbit ecchymosis, PERRL, EOMI Neck: no JVD, no carotid bruit with right CEA scar Heart: RRR with 2/6 systolic murmur Lungs: clear bilaterally Abdomen: soft, obese, NT, +ve bowel sounds Extremities: no edema Assessment/Plan Assessment/Plan * This patient has chest discomfort with positive cardiac enzymes consistent with a NSTEMI. In this setting he has experienced syncope which is likely related to a ventricular dysrhythmia especially considering his clearly demonstrated NSVT. This patient should be started on Amiodarone 400mg PO BID. We will reassess his need for Coreg. Begin NTG 1/2 inch Q 6 hours. * Obtain and echocardiogram. Consult Acknowledgment - Thank you for your consult request.
--- NOTE | 2016-10-26 20:25 | NUR ---
1630- PT C/O CHEST PAIN 05/14. BP 162/60. APPLIED NITROPASTE TO RCW ORDERED. GIVEN 2 MG IV MORPHINE ORDERED. DR JAC LORA. PTS PRIMARY RN FELICIA LORA.
[2016-10-26 23:32] VITALS: BP 118/60
--- NOTE | 2016-10-27 06:41 | PN- Housestaff ---
See Addendum Subjective Follow-up For: Chest pain CVA Lung mass CKD stage 4 Diabetes mellitus Tele-Events Since Last Visit: NSR HR 66-69, 2:1 heart block vs. non-conducting PAC early this morning. Subjective: Patient seen and examined at bedside this AM. He continues to endorse substernal chest pain that does not radiate, is constant and not associated with diaphoresis. He also continues to endorse shortness of breath with sputum production, not improved with mucinex. Review of Systems Constitutional: Reports: malaise. Denies: chills, fever. EENTM: Denies: blurred vision, visual changes, hearing changes, nasal congestion. Cardiovascular: Reports: chest pain. Denies: orthopena, palpitations. Respiratory: Reports: cough, short of breath, sputum production, wheezing. Denies: orthopnea. Gastrointestinal: Reports: vomiting (1 episode yesterday). Denies: abdominal pain, nausea. Genitourinary: Denies: dysuria. Musculoskeletal: Reports: muscle pain (Anterior chest pain). Denies: back pain. Skin: Reports: lesions (Right eye ecchymosis). Denies: rash. Neurological/Psychological: Denies: confusion, headache. Hematologic/Endocrine: Reports: bruising. Objective Last 24 Hrs of Vital Signs/I&O Vital Signs Date Time Temp Pulse Resp B/P Pulse O2 O2 Flow FiO2 Ox Delivery Rate 10/27 0000 Nasal 2.5L Cannula 10/26 2332 97.8 78 18 118/60 94 Nasal Cannula 10/26 2152 75 134/62 10/26 2152 75 134/62 10/26 1807 95 Nasal 2.5L Cannula 10/26 1600 Nasal 1.0L Cannula 10/26 1549 98.0 73 18 136/76 94 Nasal 2.0L Cannula 10/26 1349 72 172/80 10/26 1115 70 110/50 10/26 1115 70 110/50 10/26 0919 95 Nasal 1.0L Cannula 10/26 0813 97.7 63 18 122/62 95 Nasal 2.0L Cannula 10/26 0800 Nasal 1.0L Cannula Intake & Output 10/27 0800 10/27 0000 10/26 1600 Intake Total 350 600 480 Output Total 200 Balance 350 600 280 Intake, Oral 350 600 480 Number 1 Bowel Movements Output, Urine 200 Physical Exam General Appearance: Alert, Oriented X3, Cooperative, No Acute Distress Skin: Right periorbital ecchymosis HEENT: PERRLA, Mucous Membr. moist/pink Neck: Supple, No LAD Lymphatic: Cervical nl Cardiovascular: Regular Rate, Normal S1, Normal S2 Lungs: Normal Air Movement, Crackle at left lung base with mild expiratory wheeze Abdomen: Normal Bowel Sounds, Soft Neurological: Normal Speech, Normal Tone Extremities: No Clubbing, No Cyanosis Vascular: Pulses Symmetrical Current Medications: Current Medications Sig/Reyna Start time Last Medication Dose Route Stop Time Status Admin Acetaminophen 650 MG .STK-MED ONE 10/26 1145 DC PO 10/26 1146 Acetaminophen 650 MG Q6P PRN 10/250 AC 10/26 PO 1148 Acetaminophen 1,000 MG Q6P PRN 10/25 2129 AC IV Albuterol Sulfate 3 ML EVERY 4 HRS/AWAKE 10/26 1200 AC 10/26 INH 1805 Albuterol Sulfate 3 ML Q4 10/25 2200 DC 10/26 INH 0836 Albuterol Sulfate 3 ML Q4 PRN 10/25 2115 DC INH Albuterol Sulfate 2 PUF Q4-6 PRN PRN 10/25 1815 AC INH Albuterol Sulfate 3 ML Q4H PRN 10/25 1815 DC INH Allopurinol 100 MG 0900 10/26 0900 AC 10/26 PO 1114 Amiodarone HCl 400 MG BID 10/26 2200 AC 10/26 PO 2152 Amlodipine Besylate 5 MG DAILY 10/26 1000 AC 10/26 PO 1115 Aspirin 325 MG 1700 10/26 1700 AC 10/26 PO 1839 Atorvastatin Calcium 80 MG 1700 10/26 1700 AC 10/26 PO 1839 Budesonide/ 2 PUF BID 10/25 2200 AC 10/26 Formoterol Fumarate INH 2151 Carvedilol 25 MG BID 10/25 2200 AC 10/26 PO 2152 Clopidogrel Bisulfate 75 MG DAILY 10/26 1000 AC 10/26 PO 1115 Escitalopram Oxalate 20 MG DAILY 10/26 1000 AC 10/26 PO 1115 Fluorometholone 1 GTT TID 10/25 2200 AC 10/26 OPH 2151 Gemfibrozil 600 MG BID 10/25 2200 AC 10/26 PO 2152 Guaifenesin 600 MG Q12 10/26 1119 AC 10/26 PO 2152 Heparin Sodium 5,000 UNIT Q8 10/25 2200 AC 10/27 (Porcine) SC 0515 Insulin Aspart 0 TIDAC/HS 10/26 0800 AC SC Insulin Detemir 8 UNITS BID 10/26 1000 AC SC Ipratropium [place] 2.5 ML EVERY 4 HRS/AWAKE 10/26 1200 AC 10/26 INH 1805 Ipratropium [place] 2.5 ML Q4 10/25 2200 DC 10/26 INH 0837 Ipratropium [place] 2.5 ML Q4 PRN 10/25 2115 DC INH Lisinopril 20 MG QAM 10/26 1000 AC 10/26 PO 1349 Montelukast Sodium 10 MG AT BEDTIME 10/26 2200 AC 10/26 PO 2152 Morphine Sulfate 2 MG Q6-PRN PRN 10/25 2130 AC 10/26 IV 1634 Nitroglycerin 0.5 GM Q6 10/26 2359 AC 10/27 TOP 0515 Nitroglycerin 0.5 GM Q24 10/26 1628 DC 10/26 TOP 10/26 2355 1634 Ondansetron HCl 4 MG Q12P PRN 10/26 1515 AC IV Oxybutynin Chloride 5 MG DAILY 10/26 1000 AC 10/26 PO 1114 Polyethylene Glycol 17 GM DAILY 10/26 1000 AC 10/26 PO 1122 Tamsulosin HCl 0.4 MG 1700 10/26 1700 AC 10/26 PO 1839 Last 24 Hrs of Lab/Stephen Results Last 24 Hrs of Labs/Mics: Laboratory Tests 10/27/16 0644: Anion Gap 10, Estimated GFR 22 L, BUN/Creatinine Ratio 19.3, Glucose 102 H 10/26/16 1810: Troponin I 0.67 *H 10/26/16 1155: Troponin I 0.71 *H, Triglycerides 170 H, Cholesterol 184, LDL Cholesterol, Calc 115, HDL Cholesterol 35 L, Cholesterol/HDL Ratio 5 H Assessment/Plan Assessment: Mr. Bearden is an 86 year old gentleman with PMH significant for CVA x 2, CAD s/p stenting, aortic stenosis, HTN, CKD stage 4, T2DM, COPD, PRIYANKA on CPAP, GERD, prostate cancer, right carotid stenosis s/p carotid endarterectomy, cataract, normocytic anemia and lung mass/cancer who presented s/p fall this morning at 2 AM. This was an unwitnessed fall resulting in head and right abdomen strike. Patient denied any preceding pre-syncopal type symptoms, though he is unsure of the events that led up to the fall. In the ED: Vital signs showed T 97.4, HR 61, RR 18, BP 122/72 and O2 saturation of 95% on RA. Labs showed normal WBC to 7, normocytic anemia to 9.7/28.6, plt 163, and normal BEP except for BUN/cre 50/2.6 (baseline). Corrected Ca was 8.6 with low albumin to 2.7. Alk phos 158. CXR was done and showed increase in right lower lobe airpsace disease suspicious for pneumonia. Small right pleural effusion. Head CT was done adn showed new, acute infarct in left parietal lobe without underlying bleed. It also showed chronic small vessel ischemic changes in both cerebral hemispheres with mild cerebral atrophy. Last echocardiogram done was in May of 2016 and showed EF 60% with impaired LV relaxation. EEG in 2016 showed abnormal generalized slowing of background rhythm. Patient is admitted to the telemetry floor and the following is the currentl management: 1. Acute CVA, left parietal lobe * Continue continuous telemetry monitoring * Mild weakness of RLE, no other focal deficits (RUE difficult to assess 2/2 rotator cuff injury) * Neurochecks Q 2 hours to continue * Neuro consult suggested continuing dual anti-platelet therapy * Optimize BP and DM control with home antihypertensive and antidiabetic regimen * Echo ordered, showed hyperdynamic EF to 80% with impaired LV relaxation, mild LVH, mild RV enlargement, small pericardial effusion without tamponade * Carotid US showed 0-49% stenosis of right carotid, hemodynamically significant 50-79% stenosis of left carotid WITHOUT significant change form 07/01/17 * Continue ASA 325 mg PO daily, plavix 65 mg PO daily, statin 80 mg PO daily * PT, OT and speech therapy consulted and will continue to work with patient to improve functionality * Patient will require STR as per PT recommendations 2. 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 Booth (patient's new vehicle sales consultant) made aware of admission * Consideration for palliative care after discharge * CODE STATUS discussed with family today, report they will meet with father and discuss switching to DNR/DNI and then we will discuss again with patient regarding aggressive vs comfortable measures. At this point, patient will remain FC. 3. Elevated troponins * Troponins peaked at 0.71 and have trended down since * Nitrobid and morphine for symptomatic management of pain * Likely demand, however PE will be considered * Wells score of 4, if D-Dimer elevated will likely pursue V/Q scan 4. CKD stage 4 * Monitor BEP daily * Slight worsening of his cre to 2.8 today in combination with poor PO intakke and 1 episode of vomiting * We will give 1 bag D51/2NS at 50 cc/h x 1 bag 5. Normocytic anemia * No active bleeding at this time, noted to be chronic for patient * Monitor with CBC for now 6. HTN, HLD * Continue coreg 25 mg PO BID * Gemfibrozil 600 mg PO BID * Norvasc 5 mg PO daily * Lisinopril 20 mg PO QAM * AMIODARONE 400 mg PO BID added for episode of NSVT, patient tolerating well- baseline TFTs checked today 7. Prostate cancer * Flomax and ditropan to continue daily 8. Type 2 DM * Patient had an episode of hypoglycemia on 10/26/16 to * Consideration for retention of insulin in setting of slowly declining CKD stage 4 along with poor PO intake recently (as reported by son) * NSS (low dose) to continue, we have discontinued levemir * Accuchecks TIDAC/HS and will recheck glucose level on AM labs in the AM FULL CODE DVTP: Heparin SC Consistent Carb 3 Mild pain pathway Problem List: 1. CVA (cerebral vascular accident) 2. Contusion of face 3. Lung malignancy 4. Vomiting 5. Right shoulder pain 6. Head injury Pain Ratin Pain Location: Anterior chest pain/epigastric pain without radiation. Pain Goal: Pain 4 or less Pain Plan: 1x dose 0.5 IV morphine for chest pain, 2 mg IV morphine Q6P for severe pain, IV tylenol for moderate pain, PO tylenol for mild pain. Tomorrow's Labs & Rationales: BEP (monitor worsening renal function), AM glucose (hypoglycemia)
--- NOTE | 2016-10-27 07:07 | ULTRASOUND REPORT ---
EXAMINATION: DUPLEX BILATERAL CAROTID ULTRASOUND CLINICAL INFORMATION: Carotid stenosis. COMPARISON: 07/01/2016 TECHNIQUE: \H\B\N\ilateral carotid US was performed using real-time ultrasound and Doppler techniques (integrating B-mode 2D vascular images, Doppler spectral analysis and color flow Doppler imaging). These techniques were utilized to interrogate the extracranial carotid and vertebral arteries bilaterally. The degree of stenosis is based off criteria similar to NASCET. FINDINGS: Right side: 1. Small amount of hyperechoic plaque is seen in the ECA/ICA region. 2. The common carotid artery velocity is 127 cm/s. 3. The internal carotid artery velocities are 88 cm/s systolic and 19 cm/s diastolic. 4. The external carotid artery velocity is 219 cm/s. Left side: 1. Moderate amount of hyperechoic plaque is seen in the ECA/ICA region. 2. The common carotid artery velocity is 145 cm/s. 3. The internal carotid artery velocities are 165 cm/s systolic and 32 cm/s diastolic. 4. The external carotid artery velocity is 261 cm/s. ADDITIONAL FINDINGS: 1. The vertebral arteries show antegrade flow. IMPRESSION: 1. RIGHT: Minimal, nonhemodynamically significant stenosis of the proximal right internal carotid artery corresponding to a 0-49% stenosis by velocity criteria. 2. LEFT: Moderate, hemodynamically significant stenosis of the proximal left internal carotid artery corresponding to a 50-79% stenosis by velocity criteria. 3. No significant change from 07/01/2016.
--- NOTE | 2016-10-27 07:50 | ECHOCARDIOGRAM REPORT ---
KEVIN PATEL Age: 86 : 1930 Gender: M Exam Date: 10/26/2016 16:36 Exam Location: [facility] Ht (in): 67 Wt (lb): 219 BSA: 2.20 BP: 132 / 60 Ordering Physician: BACILIO MANN MD Referring Physician: Steve Canada MD, PhD Technologist: Shavonne Gaxiola [facility] Room Number: 189-01 Indications: STROKE Rhythm: Sinus Technical Quality: technically limited FINDINGS Left Ventricle Normal left ventricular size with mild left ventricular hypertrophy. Normal systolic function with no obvious regional wall motion abnormalities. Diastolic filling pattern is consistent with impaired LV relaxation. The ejection fraction is visually estimated at 80%. Right Ventricle The right ventricle is mildly enlarged with normal function. Right Atrium The right atrium is normal in size. Left Atrium The left atrium is normal in size. The interatrial septum is intact. Mitral Valve The mitral valve demonstrates mild annular calcification with normal function. There is no mitral regurgitation. Aortic Valve Structurally normal aortic valve without significant sclerosis or stenosis. There is no aortic regurgitation. Tricuspid Valve The tricuspid valve is normal in structure and function. There is trace tricuspid regurgitation. Pulmonic Valve Structurally normal pulmonic valve. There is no pulmonic regurgitation. Pericardium Normal pericardium with small effusion. No pleural effusion. Great Vessels Normal aortic root dimension. The aortic arch and great vessels are well seen and are normal. CONCLUSIONS 1. Hyperdynamic EF of 80% with impaired LV relaxation. 2. Mild left ventricular hypertrophy. 3. Mild right ventricular enlargement. 4. Trace tricuspid regurgitation. 5. Small pericardial effusion without tamponade physiology. Steve Canada M.D. (Electronically Signed) Final Date: 27 October 2016 07:49 MEASUREMENTS (Male / Female) Normal Values 2D ECHO LV Diastolic Diameter PLAX 4.8 cm 4.2 - 5.9 / 3.9 - 5.3 cm LV Systolic Diameter PLAX 2.5 cm 2.1 - 4.0 cm LV Fractional Shortening PLAX 47.9 % 25 - 46 % LV Ejection Fraction 2D Teich 79.2 % IVS Diastolic Thickness 1.4 cm LVPW Diastolic Thickness 1.4 cm LV Relative Wall Thickness 0.6 RV Internal Dim ED PLAX 3.4 cm 1.9 - 3.8 cm LVOT Diameter 2.0 cm Aortic Root Diameter 2.7 cm LA Systolic Diameter LX 3.7 cm 3.0 - 4.0 / 2.7 - 3.8 cm LA Volume 38.0 cm 18 - 58 / 22 - 52 cm Ascending Aorta Diameter 3.2 cm DOPPLER AV Peak Velocity 184.0 cm/s AV Peak Gradient 13.5 mmHg AV Mean Velocity 129.0 cm/s AV Mean Gradient 8.0 mmHg AV Velocity Time Integral 36.6 cm LVOT Peak Velocity 113.0 cm/s LVOT Peak Gradient 5.1 mmHg LVOT Mean Velocity 71.8 cm/s LVOT Mean Gradient 2.0 mmHg LVOT Velocity Time Integral 24.3 cm LVOT Stroke Volume 76.3 cm AV Area Cont Eq vti 2.1 cm AV Area Cont Eq pk 1.9 cm MV Peak Velocity 138.0 cm/s MV Peak Gradient 7.6 mmHg MV Mean Velocity 75.8 cm/s MV Mean Gradient 3.0 mmHg Mitral E Point Velocity 86.4 cm/s Mitral A Point Velocity 125.0 cm/s Mitral E to A Ratio 0.7 MV PHT Velocity 89.2 cm/s MV Deceleration [place] 180.0 cm/s MV Pressure Half Time 148.7 ms MV Area PHT 1.5 cm MV Deceleration Time 272.0 ms PV Peak Velocity 128.0 cm/s PV Peak Gradient 6.6 mmHg PV Mean Velocity 80.9 cm/s PV Mean Gradient 3.0 mmHg PV Velocity Time Integral 31.6 cm LV E' Lateral Velocity 6.5 cm/s Mitral E to LV E' Lateral Ratio 13.2 LV E' Septal Velocity 7.4 cm/s Mitral E to LV E' Septal Ratio 11.7
[2016-10-27 08:33] VITALS: BP 120/60
--- NOTE | 2016-10-27 11:29 | Cons- Pulmonary ---
General Information and HPI Consulting Request Date of Consult: 10/27/16 Requested By: med team History of Present Illness: 86-year-old male with multiple medical problems including hypertension, diabetes , chronic kidney disease, coronary artery disease and "prior CVAs",however, per the patient, these CVAs have not left him with any residual or lateralizing deficits. He was admitted following a fall associated with closed head trauma. He was subsequent found to have right-sided weakness after which he was admitted for further evaluation and treatment. CAT scan of the brain on admission revealed the presence of an acute left parietal, ischemic infarct. Patient denied fever, chills, chest pain, palpitations, wheezing, abdominal pain, nausea, weakness. Social history is negative for current tobacco or alcohol use. Patient does not perform all of his ADLs but is able to occasionally dress and clean himself. He has a visiting nurse 3 times a week (Monday, Monday, Monday). Review of Systems Constitutional: Reports: weakness. Denies: chills, fever. EENTM: Reports: blurred vision (At baseline, no change). Denies: visual changes, hearing changes, nasal congestion, throat pain. Cardiovascular: Reports: syncope. Denies: chest pain, edema, orthopena, palpitations, peripheral edema. Respiratory: Reports: cough, short of breath, sputum production. GI: Reports: vomiting (Patient denies, son reports x1). Denies: abdominal pain, bloating, constipation, diarrhea, nausea. Genitourinary: Denies: dysuria. Musculoskeletal: Denies: back pain, neck pain. Skin: Reports: lesions (Right eye ecchymosis). Neurological/Psychological: Denies: anxiety, confusion, headache, tingling. Hematologic/Endocrine: Reports: bruising. Denies: polyuria, polydipsia. Immunologic/Allergic: Denies: splenectomy. Allergies/Medications Allergies: Coded Allergies: NO KNOWN ALLERGIES (05/15/16) Home Med List: Albuterol Sulfate 1.25 MG/3 ML VIAL.NEB 1 Vial INH/CHARISSA Q4-6 PRN SOB (Reported ) Albuterol Sulfate (Proair Hfa) 90 MCG HFA.AER.AD 2 PUF INH Q4-6 PRN PRN RESPIRATORY (Reported) Allopurinol 100 MG TABLET 1 TAB PO 0900 GOUT (Reported) Amlodipine Besylate 5 MG TABLET 1 TAB PO DAILY HEART (Reported) Aspirin (Aspirin*) 325 MG TABLET 1 TAB PO 1700 HEART/BLOOD (Reported) Atorvastatin Calcium 80 MG TABLET 1 TAB PO 1700 CHOLESTEROL (Reported) Carvedilol 25 MG TABLET 1 TAB PO BID HTN (Reported) Clopidogrel Bisulfate (Clopidogrel) 75 MG TABLET 1 TAB PO DAILY stroke ( Reported) Diclofenac Sodium (Voltaren) 1 % GEL..GRAM. 1 GM TOP 4 TIMES/DAY PAIN ( Reported) apply to affected area(s) Ergocalciferol (Vitamin D2) (Vitamin D2) 50,000 UNIT CAPSULE 50,000 UNITS PO WEEKLY MONDAY VITAMIN (Reported) Escitalopram Oxalate (Lexapro) 20 MG TABLET 1 TAB PO DAILY ANXIETY (Reported) Fluorometholone (FML) 0.1 % DROPS.SUSP 1 GTT OPH TID BOTH EYES (Reported) Fluticasone/Vilanterol (Breo Ellipta 100-25 Mcg INH) 100 MCG-25 MCG/DOSE BLST.W.DEV 1 PUFF INH BID COPD (Reported) Gemfibrozil 600 MG TABLET 1 TAB PO BID CHOL (Reported) Insulin Detemir (Levemir) 100 UNIT/ML VIAL 8 UNITS SC BID dm Ketoconazole (Nizoral) 2 % SHAMPOO 1 NAOMI TOP DAILY SCALP (Reported) Lisinopril 10 MG TABLET 2 TAB PO QAM BP (Reported) Mirabegron (Myrbetriq) 50 MG TAB.ER.24H 1 TAB PO DAILY (Reported) Montelukast Sodium (Singulair) 10 MG TABLET 1 TAB PO DAILY allergies ( Reported) Oxybutynin Chloride 5 MG TABLET 1 TAB PO DAILY (Reported) Polyethylene Glycol 3350 (Miralax) 17 GRAM POWD.PACK 1 PAC PO DAILY CONSTIPATION (Reported) dissolve in water Tamsulosin HCl (Flomax) 0.4 MG CAP.ER.24H 1 CAP PO 1700 PROSTATE (Reported) Review of Systems Review of Systems Constitutional: Reports: see HPI. Past History Travel History Traveled to [place] past 21 day No Medical History Blood Transfusion Hx: No Neurological: CVA (CVA 2009, seen on MRI, see EMR), syncope thought d/t orthostasis 2009 (see EMR) EENT: cataracts, glaucoma, low vision Cardiovascular: aortic stenosis, CAD, hypertension, hyperlipidemia, carotid atherosclerosis, followed by Dr Cassidy since 2010 adm Respiratory: COPD, obstructive sleep apnea, pneumonia, USES CPAP Gastrointestinal: GERD Hepatic: NONE Renal: chronic kidney disease Musculoskeletal: degen joint disease, arthritis Psychiatric: depression Endocrine: diabetes, hypoglycemia Blood Disorders: anemia Cancer(s): prostate cancer METAL TESTER/Reproductive: NONE Surgical History Surgical History: BILAT KNEE REPLACEMENT CARDIAC STENT CAROTID ANGIOPLASTY carotid endarterectomy carotid endarterectomy on the right right carotid endarterectomy Family History Relations & Conditions If Any: MOTHER (diabetes and [place] at age 65). FATHER (heart attack in 70's). SISTER, Age 60+. FH: dementia FH: Parkinson's disease FATHER Relation not specified for: FH: hypertension Psychosocial History Where Do You Live? Home Who Do You Live With? child Services at Home: Home Health Aide, Nursing Primary Language: Yi Smoking Status: Former Smoker ETOH Use: denies use Illicit Drug Use: denies illicit drug use Functional Ability ADLs Needs Assist: bathing. Ambulation: cane, walker IADLs Needs Assist: shopping, housework, food prep, transportation. Employment History Employment: Retired Exam & Diagnostic Data Last 24 Hrs of Vital Signs/I&O Vital Signs Date Time Temp Pulse Resp B/P Pulse O2 O2 Flow FiO2 Ox Delivery Rate 10/27 0909 67 120/60 10/27 0909 67 120/60 10/27 0909 67 120/60 10/27 0909 67 120/60 10/27 0833 98.1 67 20 120/60 94 Nasal 2.0L Cannula 10/27 0800 Nasal 2.5L Cannula 10/27 0742 95 Nasal 2.5L Cannula 10/27 0000 Nasal 2.5L Cannula 10/26 2332 97.8 78 18 118/60 94 Nasal Cannula 10/26 2152 75 134/62 10/26 2152 75 134/62 10/26 1807 95 Nasal 2.5L Cannula 10/26 1600 Nasal 1.0L Cannula 10/26 1549 98.0 73 18 136/76 94 Nasal 2.0L Cannula 10/26 1349 72 172/80 Intake & Output 10/27 1600 10/27 0800 10/27 0000 Intake Total 350 600 Output Total Balance 350 600 Intake, Oral 350 600 Patient 220 lb Weight Last 48 Hrs of Labs/Stephen: Laboratory Tests 10/27/16 0644: Anion Gap 10, Estimated GFR 22 L, BUN/Creatinine Ratio 19.3, Glucose 102 H, Troponin I 0.59 *H, TSH Pending, Free T4 Pending, Total T3 Pending 10/26/16 1810: Troponin I 0.67 *H 10/26/16 1155: Troponin I 0.71 *H, Triglycerides 170 H, Cholesterol 184, LDL Cholesterol, Calc 115, HDL Cholesterol 35 L, Cholesterol/HDL Ratio 5 H 10/26/16 0610: Anion Gap 11, Estimated GFR 24 L, BUN/Creatinine Ratio 19.2, Glucose 33 *L, CBC w Diff NO MAN DIFF REQ, RBC 3.43 L, MCV 84.5, MCH 28.9, RDW 15.9 H, MPV 7.2 L , Gran % 81.9 H, Lymphocytes % 9.0 L, Monocytes % 8.1, Eosinophils % 0.8, Basophils % 0.2, Absolute Granulocytes 7.3 H, Absolute Lymphocytes 0.8 L, Absolute Monocytes 0.7 H, Absolute Eosinophils 0.1, Absolute Basophils 0, PUBS MCHC 34.2 10/25/16 1820: Lactic Acid Cancelled 10/25/16 1520: Lactic Acid Cancelled 10/25/16 1226: Anion Gap 12, Estimated GFR 24 L, BUN/Creatinine Ratio 19.2, Glucose 111 H, Calcium 6.8 L, Total Bilirubin 0.6, AST 20, ALT 26, Alkaline Phosphatase 158 H , Total Protein 5.4 L, Albumin 2.7 L, Globulin 2.7, Albumin/Globulin Ratio 1.0 L, CBC w Diff NO MAN DIFF REQ, RBC 3.38 L, MCV 84.7, MCH 28.6, RDW 15.5 H, MPV 7.1 L, Gran % 78.6 H, Lymphocytes % 10.2 L, Monocytes % 8.8, Eosinophils % 1.9, Basophils % 0.5, Absolute Granulocytes 5.5, Absolute Lymphocytes 0.7 L, Absolute Monocytes 0.6, Absolute Eosinophils 0.1, Absolute Basophils 0, PUBS MCHC 33.8 Assessment/Plan Impression/Plan: Physical Exam General Appearance Alert, Oriented X3, Cooperative, No Acute Distress Skin Right periorbital ecchymosis without active bleeding. HEENT PERRLA, EOMI, Dry mucous membranes Neck Supple, No JVD, No thryomegaly Lymphatic Cervical nl Cardiovascular Regular Rate, Normal S1, Normal S2, Grade 2/6 systoluc murmur Lungs Decreased air entry bilaterally, left>right basal rhonchi Abdomen Normal Bowel Sounds, Soft Neurological Normal Speech, Normal Tone, Cranial Nerves 3-12 NL, 4/5 strength RLE, all others 5/5 Extremities No Clubbing, No Cyanosis, No Tenderness/Swelling Vascular Pulses Symmetrical CT head IMPRESSION: New acute infarct left parietal lobe without underlying bleed. Chronic small vessel ischemic changes in both cerebral hemispheres with mild cerebral atrophy. IMPRESSION This is an elderly gentleman with history 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, mild dementia, worsening performance status in the recent past, recently diagnosed lung mass which was positive with PET scan - patient and family had declined any further therapy or intervention for this, carotid stenosis, diabetes, moderate COPD, morbid obesity with obesity hypoventilation syndrome, autonomic dysfunction related diabetes, significant urinary retention and constipation history, ischemic heart disease with previous drug-eluting stent, now comes in with a new onset stroke with ongoing myocardial ischemia * NEw stroke with active myocardial ischemia * REcent influenza * Increasing lung mass now moderate pleural effusion with mediastinal and hilar lymphadenopathy with clinical evidence suggestive of lymphangitic spread in the right side with a small pericardial effusion. This is highly suggestive and consistent with advancing lung cancer. Patient had actively declined any intervention and patient's son who is his power of erisa attorney wants him to only have symptomatic therapy if he has lung cancer. Unfortunately patient doesn't seem to be a great candidate for invasive workup and therapy aswell * Dementia with previous stroke, now with recurrent stroke * Tracheomalacia * Ischemic heart disease with previous stent, hypertension, diabetes * Chronic obesity hypoventilation syndrome with obstructive and central sleep apnea. Patient is not compliant with CPAP at bedtime. * Autonomic dysfunction from diabetes * History of Constipation and previous urinary retention RECOMMENDATION * Continue current therapy * prn nebs * Discussed with his son yesterday who lives with the patient extensively. As per my previous discussions in my office, patient's and familys wishes were to continue conservative therapy only. When I did discuss with the patient in my office he was quite lucid and was aware of all the implications of his diagnosis. Pt and family wished no invasive workup or any ongoing chemoradiation therapy and he wanted to be treated with symptomatic therapy only. * Will follow along and family to decide further action regarding future admissions and resucitation etc Consult Acknowledgment - Thank you for your consult request.
--- NOTE | 2016-10-27 11:32 | PN- Cardiology ---
Subjective Subjective: * Patient continues to report chest discomfort and shortness of breath. * sinus rhythm * Normal EF on echo with no regional wall motion abnormalities Objective Vital Signs and I&Os Vital Signs Date Time Temp Pulse Resp B/P Pulse O2 O2 Flow FiO2 Ox Delivery Rate 10/27 0909 67 120/60 10/27 0909 67 120/60 10/27 0909 67 120/60 10/27 0909 67 120/60 10/27 0833 98.1 67 20 120/60 94 Nasal 2.0L Cannula 10/27 0800 Nasal 2.5L Cannula 10/27 0742 95 Nasal 2.5L Cannula 10/27 0000 Nasal 2.5L Cannula 10/26 2332 97.8 78 18 118/60 94 Nasal Cannula 10/26 2152 75 134/62 10/26 215 75 134/62 10/26 1807 95 Nasal 2.5L Cannula 10/26 1600 Nasal 1.0L Cannula 10/26 1549 98.0 73 18 136/76 94 Nasal 2.0L Cannula 10/26 1349 72 172/80 Intake & Output 10/27 1600 10/27 0800 10/27 0000 10/26 1600 10/26 0800 10/26 0000 Intake Total 350 600 480 60 590 Output Total 200 50 Balance 350 600 280 60 540 Intake, IV 110 Intake, Oral 350 600 480 60 480 Number 1 Bowel Movements Output, Urine 200 50 Patient 220 lb 220 lb Weight Physical Exam: General: WD/WN male in NAD: alert and oriented x 3 HEENT: Normocephalic with right orbit ecchymosis, PERRL, EOMI Neck: no JVD, no carotid bruit with right CEA scar Heart: RRR with 2/6 systolic murmur Lungs: clear bilaterally Extremities: no edema Assessment/Plan Assessment/Plan * This patient continues to complain of chest discomfort and shortness of breath. There are no regional wall motion abnormalities on his echocardiogram and cardiac enzymes are coming down. I would continue his current drug therapy. * Consideration can be given to performing a V/Q scan if the patient has an elevated D-dimer or demonstrates a respiratory alkylosis with low pO2 on his ABG since a PE can cause a mild rise in cardiac enzymes and shortness of breath. Continue telemetry? Yes
[2016-10-27 12:20] VITALS: BP 98/60
--- NOTE | 2016-10-27 14:10 | NUR ---
SPEECH THERAPY: ST ATTEMPTED TO SEE PT FOR FULL SPEECH AND LANGUAGE EVALUATION. PER RN, PT HAS BEEN VOMITTING. EVALUATION DEFERRED UNTIL PT STATUS IMPROVES. D/W RN.
[2016-10-27 16:04] VITALS: BP 129/60
--- NOTE | 2016-10-27 18:29 | RADIOLOGY REPORT ---
EXAMINATION: XR CHEST CLINICAL INFORMATION: Concern for pulmonary embolism. COMPARISON: Chest x-ray 10/25/2016. TECHNIQUE: AP and lateral views of the chest were obtained. FINDINGS: Limited exam secondary to patient body habitus and pulmonary hypoinflation. There is asymmetric hypoinflation of the right lung relative to the left lung. Hazy airspace opacities within the right lung base are nonspecific and could reflect atelectasis although superimposed infection cannot be excluded in the appropriate clinical setting. Hazy opacification of the right lung base is nonspecific but could reflect a layering small right-sided pleural effusion. Cardiomediastinal contours are stable. No overt pulmonary edema is identified. Soft tissues appear unremarkable. No acute osseous abnormality is identified. IMPRESSION: Significantly limited exam secondary to patient body habitus and pulmonary hypoinflation. Hazy airspace opacities within the right lung base are nonspecific and could reflect atelectasis although developing infection cannot be excluded in the appropriate clinical setting. Blunting of the right costophrenic angle could reflect a layering right-sided pleural effusion.
[2016-10-27 18:36] VITALS: BP 98/60
--- NOTE | 2016-10-27 18:57 | NUCLEAR MEDICINE REPORT ---
EXAMINATION: NM LUNG SCAN V/Q CLINICAL INFORMATION: Shortness of breath and mild increased troponin level. Possible pulmonary embolism. COMPARISON: Chest CT, 10/18/2016. Chest radiograph from 10/27/2016. TECHNIQUE: Ventilation scintigraphy was performed with inhalation of 6.6 mCi of Xe-133 gas. Perfusion scintigraphy was performed with intravenous administration of 3.2 mCi of Tc-99m-MAA. The ventilation and perfusion images were acquired in multiple standard projections. FINDINGS: On ventilation imaging, decreased radiotracer uptake is observed within the right lung compared to the left lung, particularly within the right lower lobe. This corresponds to the region of chest radiographic abnormality. There is no abnormal retention of radiotracer on the washout images. On perfusion imaging, there is a moderate-sized perfusion defect within the right lower lobe that matches the chest radiographic and ventilatory imaging abnormalities. Small perfusion defect is present within the left lower lobe without corresponding chest radiographic or ventilatory image abnormality. IMPRESSION: Ventilation-perfusion scintigraphy findings indicate intermediate likelihood (25-30% likelihood) of pulmonary embolism.
--- NOTE | 2016-10-27 21:29 | ULTRASOUND REPORT ---
EXAMINATION: US TRIPLEX LOWER EXTREMITY, BILATERAL CLINICAL INFORMATION: Intermediate chance of pulmonary embolism on VQ scan. COMPARISON: None TECHNIQUE: Color-flow triplex imaging with spectral analysis and compression Doppler were performed on the bilateral lower extremities. FINDINGS: Respiratory variation, normal compression and augmented flow are noted throughout the bilateral lower extremities. The visualized common femoral vein, superficial femoral vein, profunda femoral vein, popliteal vein and midcalf peroneal and posterior tibial venous segments show no evidence of deep venous thrombosis. No left-sided Valdivia's cyst. There is a 1.7 x 0.5 x 1.3 cm right Valdivia's cyst. IMPRESSION: Normal triplex scan without evidence of deep venous thrombosis involving the bilateral lower extremities. Small right Valdivia's cyst.
[2016-10-27 23:35] VITALS: BP 118/60
--- NOTE | 2016-10-28 06:48 | PN- Housestaff ---
See Addendum Subjective Follow-up For: CVA Progressive lung malignancy Right pleural effusion Hypercoaguability CKD stage 4 Tele-Events Since Last Visit: NSR HR 66-70s, no overnight events. Subjective: Patient seen and examined at bedside this AM. He reports he feels worse than yesterday and his functional status is continuing to decline. He continues to endorse chest pain in the substernal/epigastric region that does not radiate. His shortness of breath is persisting and he reports it may be worsening. Review of Systems Constitutional: Reports: malaise. Denies: fever. EENTM: Reports: nasal congestion. Denies: visual changes, hearing changes. Cardiovascular: Reports: chest pain. Denies: palpitations. Respiratory: Reports: cough, short of breath, sputum production. Gastrointestinal: Reports: nausea, vomiting (1 episode yesterday). Denies: abdominal pain, constipation, diarrhea. Genitourinary: Denies: pain. Musculoskeletal: Denies: back pain, neck pain. Skin: Reports: lesions (Right eye ecchymosis s/p fall). Neurological/Psychological: Denies: headache. Hematologic/Endocrine: Reports: bruising. Objective Last 24 Hrs of Vital Signs/I&O Vital Signs Date Time Temp Pulse Resp B/P Pulse O2 O2 Flow FiO2 Ox Delivery Rate 10/28 0734 96 Nasal 2.5L Cannula 10/28 0000 95 Nasal 2.5L Cannula 10/27 2335 98.0 68 20 118/60 94 Nasal Cannula 10/27 2200 63 98/60 10/27 2159 63 98/60 10/27 2030 95 Nasal 2.0L Cannula 10/27 1836 63 98/60 10/27 1615 70 129/60 10/27 1604 98.3 70 20 129/60 95 10/27 1220 18 98/60 10/27 1147 Nasal 2.0L Cannula 10/27 0909 67 120/60 10/27 0909 67 120/60 10/27 0909 67 120/60 10/27 0909 67 120/60 Intake & Output 10/28 1600 10/28 0800 10/28 0000 Intake Total 1020 660 Output Total 350 Balance 670 660 Intake, IV 540 180 Intake, Oral 480 480 Output, Urine 350 Physical Exam General Appearance: Alert, Cooperative, Moderate Distress Skin: Right periorbital ecchymosis without active bleeding HEENT: EOMI, Dry mucous membranes Neck: Supple Lymphatic: Cervical nl Cardiovascular: Normal S1, Normal S2, 2/6 systolic murmur appreciated Lungs: Increased work of breathing/belly breathing with reduced lung sounds right base. Decreased air entry bilaterally. Abdomen: Normal Bowel Sounds, Soft Neurological: Normal Tone Extremities: No Clubbing, No Cyanosis, No Tenderness/Swelling Vascular: Pulses Symmetrical Current Medications: Current Medications Sig/Reyna Start time Last Medication Dose Route Stop Time Status Admin Acetaminophen 650 MG Q6P PRN 10/250 AC 10/26 PO 1148 Acetaminophen 1,000 MG Q6P PRN 10/25 213 AC IV Albuterol Sulfate 3 ML Q4-PRN PRN 10/27 2045 AC 10/28 INH 0733 Albuterol Sulfate 3 ML EVERY 4 HRS/AWAKE 10/26 1200 DC 10/27 INH 1345 Albuterol Sulfate 2 PUF Q4-6 PRN PRN 10/25 181 AC INH Allopurinol 100 MG 0900 10/26 0900 AC 10/27 PO 0909 Amiodarone HCl 400 MG BID 10/26 2200 AC 10/27 PO 0909 Amlodipine Besylate 5 MG DAILY 10/26 1000 AC 10/27 PO 0909 Aspirin 325 MG 1700 10/26 1700 AC 10/27 PO 1614 Atorvastatin Calcium 80 MG 17010/26 1700 AC 10/27 PO 1615 Budesonide/ 2 PUF BID 10/25 2200 AC 10/27 Formoterol Fumarate INH 2200 Carvedilol 25 MG BID 10/25 2200 AC 10/27 PO 0909 Clopidogrel Bisulfate 75 MG DAILY 10/26 1000 AC 10/27 PO 0909 Dextrose/Sodium 1,000 ML Q16H 10/27 1445 AC Chloride IV Dextrose/Sodium 1,000 ML Q20H 10/27 1315 DC 10/27 Chloride IV 1421 Escitalopram Oxalate 20 MG DAILY 10/26 1000 AC 10/27 PO 0909 Fluorometholone 1 GTT TID 10/25 2200 AC 10/27 OPH 2159 Gemfibrozil 600 MG BID 10/25 2200 AC 10/27 PO 2200 Guaifenesin 600 MG Q12 10/26 1119 AC 10/27 PO 2200 Heparin Sodium 5,000 UNIT Q8 10/25 220 AC 10/28 (Porcine) SC 0543 Insulin Aspart 0 TIDAC/HS 10/26 0800 AC 10/27 SC 2158 Insulin Detemir 8 UNITS BID 10/26 1000 DC SC Ipratropium [place] 2.5 ML EVERY 4 HRS/AWAKE 10/26 1200 DC 10/27 INH 1345 Lisinopril 20 MG QAM 10/26 1000 AC 10/27 PO 0909 Montelukast Sodium 10 MG AT BEDTIME 10/26 2200 AC 10/27 PO 2200 Morphine Sulfate 0.5 MG ONCE ONE 10/27 0900 DC 10/27 IV 10/27 0901 0908 Morphine Sulfate 2 MG Q6-PRN PRN 10/25 2130 AC 10/26 IV 1634 Nitroglycerin 0.5 GM Q6 10/26 2359 AC 10/28 TOP 0021 Ondansetron HCl 4 MG Q12P PRN 10/26 1515 AC 10/27 IV 1228 Oxybutynin Chloride 5 MG DAILY 10/26 1000 AC 10/27 PO 0915 Patient Medication 1 ED .STK-MED ONE 10/27 1134 SD Teaching ED 10/27 1135 Polyethylene Glycol 17 GM DAILY 10/26 1000 AC 10/27 PO 0908 Tamsulosin HCl 0.4 MG 1700 10/26 1700 AC 10/27 PO 1615 Last 24 Hrs of Lab/Stephen Results Last 24 Hrs of Labs/Mics: Laboratory Tests 10/28/16 0635: Anion Gap 12, Estimated GFR 19 L, BUN/Creatinine Ratio 18.4, Glucose 199 H 10/27/16 1420: D-Dimer > 5250 H Orders ECHO Findings: CONCLUSIONS 1. Hyperdynamic EF of 80% with impaired LV relaxation. 2. Mild left ventricular hypertrophy. 3. Mild right ventricular enlargement. 4. Trace tricuspid regurgitation. 5. Small pericardial effusion without tamponade physiology. Radiology Findings: CXR: IMPRESSION: Significantly limited exam secondary to patient body habitus and pulmonary hypoinflation. Hazy airspace opacities within the right lung base are nonspecific and could reflect atelectasis although developing infection cannot be excluded in the appropriate clinical setting. Blunting of the right costophrenic angle could reflect a layering right-sided pleural effusion. Miscellaneous Findings: Venous doppler: IMPRESSION: Normal triplex scan without evidence of deep venous thrombosis involving the bilateral lower extremities. Small right Valdivia's cyst. Lung V/Q: Assessment/Plan Assessment: Mr. Bearden is an 86 year old gentleman with PMH significant for CVA x 2, CAD s/p stenting, aortic stenosis, HTN, CKD stage 4, T2DM, COPD, PRIYANKA on CPAP, GERD, prostate cancer, right carotid stenosis s/p carotid endarterectomy, cataract, normocytic anemia and lung mass/cancer who presented s/p fall this morning at 2 AM. This was an unwitnessed fall resulting in head and right abdomen strike. Patient denied any preceding pre-syncopal type symptoms, though he is unsure of the events that led up to the fall. In the ED: Vital signs showed T 97.4, HR 61, RR 18, BP 122/72 and O2 saturation of 95% on RA. Labs showed normal WBC to 7, normocytic anemia to 9.7/28.6, plt 163, and normal BEP except for BUN/cre 50/2.6 (baseline). Corrected Ca was 8.6 with low albumin to 2.7. Alk phos 158. CXR was done and showed increase in right lower lobe airpsace disease suspicious for pneumonia. Small right pleural effusion. Head CT was done adn showed new, acute infarct in left parietal lobe without underlying bleed. It also showed chronic small vessel ischemic changes in both cerebral hemispheres with mild cerebral atrophy. Last echocardiogram done was in May of 2016 and showed EF 60% with impaired LV relaxation. EEG in 2016 showed abnormal generalized slowing of background rhythm. Patient is admitted to the telemetry floor and the following is the currentl management: 1. Acute CVA, left parietal lobe * Continue continuous telemetry monitoring * Mild weakness of RLE, no other focal deficits (RUE difficult to assess 2/2 rotator cuff injury) * Neurochecks Q 2 hours to continue * Neuro consult suggested continuing dual anti-platelet therapy * Echo ordered, showed hyperdynamic EF to 80% with impaired LV relaxation, mild LVH, mild RV enlargement, small pericardial effusion without tamponade * Carotid US showed 0-49% stenosis of right carotid, hemodynamically significant 50-79% stenosis of left carotid WITHOUT significant change form 07/01/17 * Continue ASA 325 mg PO daily, plavix 65 mg PO daily, statin 80 mg PO daily * PT, OT and speech therapy consulted and will continue to work with patient to improve functionality * Patient will require STR as per PT recommendations 2. 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 Booth (patient's animal feeder) made aware of admission, suggests advancement of lung malignancy with right-sided lymphangitic spread/+PET * Due to progressive clinical decline and advancement of lung malignancy, we will call family in again today for another family meeting to discuss guarded prognosis and consideration for change in code status/palliative care * ABG ordered for this AM due to worsening respiratory status, f/u results ( consideration for BiPAP therapy) 3. Elevated troponins * Troponins peaked at 0.71 and have trended down since * Nitrobid and morphine for symptomatic management of pain * Likely demand, however PE considered * Wells score of 4, if D-Dimer elevated to >5250, V/Q scan shows moderate probability of PE (25-30%) * LE doppler negative for DVT * Will not proceed with heparin/warfarin therapy at this time as we do not want to convert ischemic to hemorrhagix stroke 4. CKD stage 4 * Monitor BEP daily * Continued worsening of his cre to 3.2 today in combination with poor PO intake * We will continue IV fluids for now 5. Normocytic anemia * No active bleeding at this time, noted to be chronic for patient * Monitor CBC intermittently 6. HTN, HLD * Continue coreg 25 mg PO BID * Gemfibrozil 600 mg PO BID * Norvasc 5 mg PO daily * Lisinopril 20 mg PO QAM * AMIODARONE 400 mg PO BID added for episode of NSVT, patient tolerating well- baseline TFTs checked 7. Prostate cancer * Flomax and ditropan to continue daily 8. Type 2 DM * Patient had an episode of hypoglycemia on 10/26/16 to * Consideration for retention of insulin in setting of slowly declining CKD stage 4 along with poor PO intake recently (as reported by son) * NSS (low dose) to continue, we have discontinued levemir * Accuchecks TIDAC/HS FULL CODE DVTP: Heparin SC Consistent Carb 3 Mild pain pathway Problem List: 1. Contusion of face 2. CVA (cerebral vascular accident) 3. Lung malignancy 4. Vomiting 5. Right shoulder pain 6. Fall 7. CVA (cerebral infarction) 8. COPD (chronic obstructive pulmonary disease) 9. HTN (hypertension) 10. HLD (hyperlipidemia) 11. Diabetes mellitus 12. Coronary arteriosclerosis 13. Carotid endarterectomy 14. Carotid artery stenosis 15. Carcinoma of prostate Pain Ratin Pain Location: Substernal chest pain Pain Goal: Pain 4 or less Pain Plan: 2 mg IV morphine PRN for severe pain, IV tylenol moderate pain, PO tylenol mild pain. Tomorrow's Labs & Rationales: BEP (worsening renal function)
[2016-10-28 08:42] VITALS: BP 156/70
--- NOTE | 2016-10-28 10:09 | PN- Pulmonary ---
Subjective HPI/Critical Care Issues: Doing poorly Still has sig tachypnea Complaints of being in pain. Knee is hurting. No nausea vomiting. Lower extremity Doppler showed no DVT chest x-ray showed worsening hazy opacity in VQ scan showed intermediate likelihood for PE but patient has a grossly abnormal chest x-ray Objective Current Medications: Current Medications Sig/Reyna Start time Last Medication Dose Route Stop Time Status Admin Acetaminophen 650 MG Q6P PRN 10/25 2130 AC 10/26 PO 1148 Acetaminophen 1,000 MG Q6P PRN 10/25 2130 AC IV Albuterol Sulfate 3 ML Q4-PRN PRN 10/27 2045 AC 10/28 INH 0733 Albuterol Sulfate 3 ML EVERY 4 HRS/AWAKE 10/26 1200 DC 10/27 INH 1345 Albuterol Sulfate 2 PUF Q4-6 PRN PRN 10/25 1815 AC INH Allopurinol 100 MG 0900 10/26 0900 AC 10/27 PO 0909 Amiodarone HCl 400 MG BID 10/26 2200 AC 10/27 PO 0909 Amlodipine Besylate 5 MG DAILY 10/26 1000 AC 10/27 PO 0909 Aspirin 325 MG 1700 10/26 1700 AC 10/27 PO 1614 Atorvastatin Calcium 80 MG 1700 10/26 1700 AC 10/27 PO 1615 Budesonide/ 2 PUF BID 10/25 2200 AC 10/27 Formoterol Fumarate INH 2200 Carvedilol 25 MG BID 10/25 2200 AC 10/27 PO 0909 Clopidogrel Bisulfate 75 MG DAILY 10/26 1000 AC 10/27 PO 0909 Dextrose/Sodium 1,000 ML Q16H 10/27 1445 AC Chloride IV Dextrose/Sodium 1,000 ML Q20H 10/27 1315 DC 10/27 Chloride IV 1421 Escitalopram Oxalate 20 MG DAILY 10/26 1000 AC 10/27 PO 0909 Fluorometholone 1 GTT TID 10/25 2200 AC 10/27 OPH 2159 Gemfibrozil 600 MG BID 10/25 2200 AC 10/27 PO 2200 Guaifenesin 600 MG Q12 10/26 1119 AC 10/27 PO 2200 Heparin Sodium 5,000 UNIT Q8 10/25 2200 AC 10/28 (Porcine) SC 0543 Insulin Aspart 0 TIDAC/HS 10/26 0800 AC 10/28 SC 0931 Ipratropium [place] 2.5 ML EVERY 4 HRS/AWAKE 10/26 1200 DC 10/27 INH 1345 Lisinopril 20 MG QAM 10/26 1000 10/27 PO 0909 Montelukast Sodium 10 MG AT BEDTIME 10/26 2200 AC 10/27 PO 2200 Morphine Sulfate 2 MG Q6-PRN PRN 10/25 2130 AC 10/26 IV 1634 Nitroglycerin 0.5 GM Q6 10/26 2359 10/28 TOP 0021 Ondansetron HCl 4 MG Q12P PRN 10/26 1515 AC 10/27 IV 1228 Oxybutynin Chloride 5 MG DAILY 10/26 1000 10/27 PO 0915 Patient Medication 1 ED .STK-MED ONE 10/27 1134 HI Teaching ED 10/27 1135 Polyethylene Glycol 17 GM DAILY 10/26 1000 10/27 PO 0908 Tamsulosin HCl 0.4 MG 1700 10/26 1700 AC 10/27 PO 1615 Vital Signs & I&O Last 24 Hrs of Vitals and I&O: Vital Signs Date Time Temp Pulse Resp B/P Pulse O2 O2 Flow FiO2 Ox Delivery Rate 10/28 0842 98.2 71 18 156/70 94 Nasal 2.5L Cannula 10/28 0800 94 Nasal 2.5L Cannula 10/28 0734 96 Nasal 2.5L Cannula 10/28 0000 95 Nasal 2.5L Cannula 10/27 2335 98.0 68 20 118/60 94 Nasal Cannula 10/27 2200 63 98/60 10/27 2159 63 98/60 10/27 2030 95 Nasal 2.0L Cannula 10/27 1836 63 98/60 10/27 1615 70 129/60 10/27 1604 98.3 70 20 129/60 95 10/27 1220 18 98/60 10/27 1147 Nasal 2.0L Cannula Intake & Output 10/28 1600 10/28 0800 10/28 0000 Intake Total 1020 660 Output Total 350 Balance 670 660 Intake, IV 540 180 Intake, Oral 480 480 Output, Urine 350 Impression/Plan Impression/Plan Impression/Plan: Physical Exam General Appearance Alert, Oriented X3, Cooperative, No Acute Distress Skin Right periorbital ecchymosis without active bleeding. HEENT PERRLA, EOMI, Dry mucous membranes Neck Supple, No JVD, No thryomegaly Lymphatic Cervical nl Cardiovascular Regular Rate, Normal S1, Normal S2, Grade 2/6 systoluc murmur Lungs Decreased air entry bilaterally, left>right basal rhonchi Abdomen Normal Bowel Sounds, Soft Neurological Normal Speech, Normal Tone, Cranial Nerves 3-12 NL, 4/5 strength RLE, all others 5/5 Extremities No Clubbing, No Cyanosis, No Tenderness/Swelling Vascular Pulses Symmetrical CT head IMPRESSION: New acute infarct left parietal lobe without underlying bleed. Chronic small vessel ischemic changes in both cerebral hemispheres with mild cerebral atrophy. VQ scan intermediate probability Lower extremity unremarkable for DVT by Doppler IMPRESSION This is an elderly gentleman with history 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, mild dementia, worsening performance status in the recent past, recently diagnosed lung mass which was positive with PET scan - patient and family had declined any further therapy or intervention for this, carotid stenosis, diabetes, moderate COPD, morbid obesity with obesity hypoventilation syndrome, autonomic dysfunction related diabetes, significant urinary retention and constipation history, ischemic heart disease with previous drug-eluting stent, now comes in with a new onset stroke with ongoing myocardial ischemia * NEw stroke with active myocardial ischemia * REcent influenza * Increasing lung mass now moderate pleural effusion with mediastinal and hilar lymphadenopathy with clinical evidence suggestive of lymphangitic spread in the right side with a small pericardial effusion. This is highly suggestive and consistent with advancing lung cancer. Patient had actively declined any intervention and patient's son who is his power of employment law attorney wants him to only have symptomatic therapy if he has lung cancer. Unfortunately patient doesn't seem to be a great candidate for invasive workup and therapy aswell * No clinical evidence suggestive of significant pulmonary embolism or lower extremity DVT. VQ scan is indeterminate due to significantly abnormal x-ray * Dementia with previous stroke, now with recurrent stroke * Tracheomalacia * Ischemic heart disease with previous stent, hypertension, diabetes * Chronic obesity hypoventilation syndrome with obstructive and central sleep apnea. Patient is not compliant with CPAP at bedtime. * Autonomic dysfunction from diabetes * History of Constipation and previous urinary retention RECOMMENDATION * Continue current therapy * prn nebs * Discussed with his son today. Obviously patient is deteriorating with worsening mental status and worsening respiratory function. Son now wishes to change him to DNR/DNI. If he gets worse consideration for comfort comfort care will be given. * DVT prophylaxis * Antiplatelet therapy We will follow
--- NOTE | 2016-10-28 15:39 | ULTRASOUND REPORT ---
EXAMINATION: RIGHT UPPER EXTREMITY VENOUS ULTRASOUND CLINICAL INFORMATION: Right arm pain and swelling COMPARISON: None. TECHNIQUE: Doppler spectral analysis and color flow Doppler imaging was performed of the right upper extremity. Compression and augmentation maneuvers were performed. FINDINGS: The right internal jugular vein, subclavian vein, axillary vein, brachial vein, basilic vein, and visualized forearm veins were well-identified and normal. They demonstrate normal compressibility and color fill-in. The cephalic vein was not visualized. IMPRESSION: No evidence for right upper extremity deep vein thrombosis.
--- NOTE | 2016-10-28 15:54 | NUR ---
SPEECH THERAPY: ST ATTEMPTED TO SEE PT FOR FULL SPEECH AND LANGUAGE EVALUATION. PER RN, PT CURRENTLY PARTICIPATING IN ULTRASOUND; UNABLE TO BE SEEN. PER REPORT, IF PT CONTINUES TO DECINE ? OF CODE STATUS CHANGE TO COMFORT. ST CONTINUE TO FOLLOW CLINICALLY INDICATED. D/W RN.
--- NOTE | 2016-10-28 16:25 | Patient Discharge Instructions ---
Discharge Instructions General Discharge Information You were seen/treated for: Ischemic stroke Chest pain with type 2 myocardial infarction Shortness of breath with underlying lung cancer Special Instructions: Please follow up with your PCP within 1 week of discharge. Please follow up with your tradeshow worker Dr. [place] within 1 week of discharge. Please follow up with your smoked meat preparer Dr. Booth within 1 week of discharge. Please take all medications as directed. Please follow up with Dr. Ackerman, neurology, as needed. Diet Recommended Diet: Heart Healthy Activity Activity Self Limited: Yes Acute Coronary Syndrome Inclusion Criteria At DC or during hospital stay patient has or had the following: ACS DIAGNOSIS Yes Discharge Core Measures Meds if any: Prescribed or Continued at Discharge Aspirin Yes Beta-Fish Yes Statin Yes Meds if any: NOT Prescribed or Continued at Discharge No JEAN CARLOS/ARB d/t Renal Failure/Azotemia Congestive Heart Failure Inclusion Criteria At DC or during hospital stay patient has or had the following: CHF DIAGNOSIS No Discharge Core Measures Meds if any: Prescribed or Continued at Discharge Meds if any: NOT Prescribed or Continued at Discharge Cerebrovascular accident Inclusion Criteria At DC or during hospital stay patient has or had the following: CVA/TIA Diagnosis Yes Discharge Core Measures Meds if any: Prescribed or Continued at Discharge Antithrombotic Yes Statin (required if LDL =>70) Yes Anticoagulant Yes Meds if any: NOT Prescribed or Continued at Discharge Venous thromboembolism Inclusion Criteria VTE Diagnosis No VTE Type NONE VTE Confirmed by (Test) NONE Discharge Core Measures - Per Current guidelines, there needs to be overlap - treatment for the first 5 days of Warfarin therapy. - If discharged on Warfarin prior to 5 days of - overlap therapy, the patient will need to be - assessed for post discharge needs including - *Post discharge parental anticoagulation - *Warfarin and/or parental anticoagulation education - *Follow up date to check INR post discharge At least 5 days overlap therapy as Inpatient No Meds if any: Prescribed or Continued at Discharge Note: Overlap Therapy is Warfarin and Anticoagulant Meds if any: NOT Prescribed or Continued at Discharge
[2016-10-28 16:30] VITALS: BP 133/54
--- NOTE | 2016-10-28 17:14 | Discharge Summary ---
Visit Information Visit Dates Admission Date: 10/25/16 Hospital Course Course Attending Physician: Dr. Michael Primary Care Physician: ISAAC MAYERS MD Consulting Request: 1 Consulting Specialty: Cardiology Consulting Request: 2 Consulting Specialty: Neurology Consulting Request: 3 Consulting Specialty: Pulmonary Disease Hospital Course: This is an 86 year old gentleman with PMH significant for CVA x 2, CAD s/p stenting, aortic stenosis, HTN, CKD stage 4, T2DM, COPD, PRIYANKA on CPAP, GERD, prostate cancer, right carotid stenosis s/p carotid endarterectomy, cataract, normocytic anemia and lung mass/cancer who presented s/p fall. This was an unwitnessed fall resulting in head and right abdomen strike. Patient denied any preceding pre-syncopal type symptoms, though he is unsure of the events that led up to the fall. Vital signs on admission: T 97.4, HR 61, RR 18, BP 122/72 and O2 saturation of 95% on RA. Pertinent physical exam at the time of admission: General Appearance Alert, Oriented X3, Cooperative, No Acute Distress Skin Right periorbital ecchymosis without active bleeding. HEENT PERRLA, EOMI, Dry mucous membranes Neck Supple, No JVD, No thryomegaly Lymphatic Cervical nl Cardiovascular Regular Rate, Normal S1, Normal S2, Grade 2 /6 systoluc murmur Lungs Decreased air entry bilaterally, left>right basal rhonchi Abdomen Normal Bowel Sounds, Soft Neurological Normal Speech, Normal Tone, Cranial Nerves 3-12 NL, 4/5 strength RLE, all others 5/5 Extremities No Clubbing, No Cyanosis, No Tenderness/Swelling Vascular Pulses Symmetrical Labs showed WBC of 7, normocytic anemia to 9.7/28.6, plt 163, and normal BEP except for BUN/cre 50/2.6 (baseline). Corrected Ca was 8.6 with low albumin to 2.7. Alk phos 158. CXR was done and showed increase in right lower lobe airpsace disease suspicious for pneumonia. Small right pleural effusion. Head CT was done adn showed new, acute infarct in left parietal lobe without underlying bleed. It also showed chronic small vessel ischemic changes in both cerebral hemispheres with mild cerebral atrophy. Last echocardiogram done was in May of 2016 and showed EF 60% with impaired LV relaxation. EEG in 2016 showed abnormal generalized slowing of background rhythm. The patient was admitted to the telemetry floor. The following problems were addressed during the course of his hospital stay: 1. Acute CVA, left parietal lobe Continuous telemetry monitoring was done. * Mild weakness of RLE, no other focal deficits (RUE difficult to assess 2/2 rotator cuff injury) * Neurochecks Q 2 hours to continue * Neuro consult suggested continuing dual anti-platelet therapy * Echo ordered, showed hyperdynamic EF to 80% with impaired LV relaxation, mild LVH, mild RV enlargement, small pericardial effusion without tamponade * Carotid US showed 0-49% stenosis of right carotid, hemodynamically significant 50-79% stenosis of left carotid WITHOUT significant change form 07/01/17 * Continue ASA 325 mg PO daily, plavix 65 mg PO daily, statin 80 mg PO daily * PT, OT and speech therapy consulted and will continue to work with patient to improve functionality * Patient will require STR as per PT recommendations 2. 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 Booth (patient's machine setup operator) made aware of admission, suggests advancement of lung malignancy with right-sided lymphangitic spread/+PET * Due to progressive clinical decline and advancement of lung malignancy, we will call family in again today for another family meeting to discuss guarded prognosis and consideration for change in code status/palliative care * ABG ordered for this AM due to worsening respiratory status, f/u results ( consideration for BiPAP therapy) 3. Elevated troponins * Troponins peaked at 0.71 and have trended down since * Nitrobid and morphine for symptomatic management of pain * Likely demand, however PE considered * Wells score of 4, if D-Dimer elevated to >5250, V/Q scan shows moderate probability of PE (25-30%) * LE doppler negative for DVT * Will not proceed with heparin/warfarin therapy at this time as we do not want to convert ischemic to hemorrhagix stroke 4. CKD stage 4 * Monitor BEP daily * Continued worsening of his cre to 3.2 today in combination with poor PO intake * We will continue IV fluids for now 5. Normocytic anemia * No active bleeding at this time, noted to be chronic for patient * Monitor CBC intermittently 6. HTN, HLD * Continue coreg 25 mg PO BID * Gemfibrozil 600 mg PO BID * Norvasc 5 mg PO daily * Lisinopril 20 mg PO QAM * AMIODARONE 400 mg PO BID added for episode of NSVT, patient tolerating well- baseline TFTs checked 7. Prostate cancer * Flomax and ditropan to continue daily 8. Type 2 DM * Patient had an episode of hypoglycemia on 10/26/16 to 33 * Consideration for retention of insulin in setting of slowly declining CKD stage 4 along with poor PO intake recently (as reported by son) * NSS (low dose) to continue, we have discontinued levemir * Accuchecks TIDAC/HS FULL CODE DVTP: Heparin SC Consistent Carb 3 Mild pain pathway Allergies: Coded Allergies: NO KNOWN ALLERGIES (05/15/16) Discharge Instructions Medications at Discharge Discharge Medications: Stop taking the following medications: Insulin Detemir (Levemir) 100 UNIT/ML VIAL Inject into fatty tissue TWICE DAILY Qty = 30 Continue taking these medications: Lisinopril (Lisinopril) 10 MG TABLET 2 Tablet ORAL Every Morning Days = 30 Comments: Last Taken: 10/21/16 Time: 9:00 AM Atorvastatin Calcium (Atorvastatin Calcium) 80 MG TABLET 1 Tablet ORAL 5 PM Comments: Last Taken: 10/20/16 Time: 5:00 PM Fluticasone/Vilanterol (Breo Ellipta 100-25 Mcg INH) 100 MCG-25 MCG/DOSE BLST.W.DEV 1 PUFF Inhale through mouth TWICE DAILY Comments: NOT GIVEN IN HOSPITAL Tamsulosin HCl (Flomax) 0.4 MG CAP.ER.24H 1 Capsule ORAL 5 PM Comments: Last Taken: 10/20/16 Time: 5:00 PM Allopurinol (Allopurinol) 100 MG TABLET 1 Tablet ORAL 0900 Comments: Last Taken: 10/21/16 Time: 9:00 AM Aspirin (Aspirin*) 325 MG TABLET 1 Tablet ORAL 5 PM Comments: Last Taken: 10/20/16 Time: 5:00 PM Amlodipine Besylate (Amlodipine Besylate) 5 MG TABLET 1 Tablet ORAL DAILY Qty = 90 Comments: Last Taken: 10/21/16 Time: 9:00 AM Albuterol Sulfate (Albuterol Sulfate) 1.25 MG/3 ML VIAL.NEB 1 Vial Inhale Solution EVERY 4-6 HOURS as needed for SOB Comments: Last Taken: 10/21/16 Time: 8:00 AM Carvedilol (Carvedilol) 25 MG TABLET 1 Tablet ORAL TWICE DAILY Comments: Last Taken: 10/21/16 Time: 9:00 AM Diclofenac Sodium (Voltaren) 1 % GEL..GRAM. 1 Gram On the skin 4 TIMES A DAY Instructions: apply to affected area(s) Comments: Last Taken: 10/21/16 Time: 9:00 AM Ergocalciferol (Vitamin D2) (Vitamin D2) 50,000 UNIT CAPSULE 50,000 Units ORAL WEEKLY MONDAY Comments: NOT GIVEN IN HOSPITAL Escitalopram Oxalate (Lexapro) 20 MG TABLET 1 Tablet ORAL DAILY Comments: Last Taken: 10/21/16 Time: 9:00 AM Gemfibrozil (Gemfibrozil) 600 MG TABLET 1 Tablet ORAL TWICE DAILY Comments: Last Taken: 10/21/16 Time: 9:00 AM Polyethylene Glycol 3350 (Miralax) 17 GRAM POWD.PACK 1 Packet ORAL DAILY Instructions: dissolve in water Comments: Last Taken: 10/19/16 Time: 9:00 AM Clopidogrel Bisulfate (Clopidogrel) 75 MG TABLET 1 Tablet ORAL DAILY Days = 30 Comments: Last Taken: 10/21/16 Time: 9:00 AM Montelukast Sodium (Singulair) 10 MG TABLET 1 Tablet ORAL DAILY Days = 30 Comments: NOT GIVEN IN HOSPITAL Mirabegron (Myrbetriq) 50 MG TAB.ER.24H 1 Tablet ORAL DAILY Qty = 30 Comments: PER PT Oxybutynin Chloride (Oxybutynin Chloride) 5 MG TABLET 1 Tablet ORAL DAILY Qty = 30 Comments: PER PT Fluorometholone (FML) 0.1 % DROPS.SUSP 1 Drop In the eye THREE TIMES DAILY Qty = 15 Comments: PER PT Ketoconazole (Nizoral) 2 % SHAMPOO 1 Application On the skin DAILY Qty = 120 Comments: PER PT SON Albuterol Sulfate (Proair Hfa) 90 MCG HFA.AER.AD 2 Puff Inhale through mouth EVERY 4-6 HOURS NEEDED as needed for RESPIRATORY Qty = 9 Comments: PER PT SON Start taking the following new medications: Amiodarone HCl (Amiodarone HCl) 200 MG TABLET 400 Milligram ORAL TWICE DAILY Qty = 60 No Refills Nitroglycerin (Nitro-Bid) 2 % OINT...G. 0.5 Gram On the skin EVERY SIX HOURS as needed for Chest pain Qty = 1 No Refills Guaifenesin (Mucinex) 600 MG TAB.ER.12H 1 Tablet ORAL TWICE DAILY Qty = 20 No Refills
--- NOTE | 2016-10-28 22:20 | PN- Cardiology ---
Subjective Subjective: * Patient is lethargic without complaints. * right arm is very swollen * increased D-dimer Objective Vital Signs and I&Os Vital Signs Date Time Temp Pulse Resp B/P Pulse O2 O2 Flow FiO2 Ox Delivery Rate 10/28 2112 63 124/50 10/28 2112 63 124/50 10/28 1757 53 133/54 10/28 1630 99.1 53 20 133/54 96 Nasal 3.0L Cannula 10/28 1600 94 Nasal 2.5L Cannula 10/28 1044 Nasal 2.0L Cannula 10/28 1041 71 156/70 10/28 1041 71 156/70 10/28 1040 71 156/70 10/28 1040 71 156/70 10/28 0842 98.2 71 18 156/70 94 Nasal 2.5L Cannula 10/28 0800 94 Nasal 2.5L Cannula 10/28 0734 96 Nasal 2.5L Cannula 10/28 0000 95 Nasal 2.5L Cannula 10/27 2335 98.0 68 20 118/60 94 Nasal Cannula Intake & Output 10/28 1600 10/28 0800 10/28 0000 10/27 1600 10/27 0800 10/27 0000 Intake Total 680 1020 660 430.05 350 600 Output Total 150 350 50 Balance 530 670 660 380.05 350 600 Intake, IV 380 540 180 70.05 Intake, Oral 300 480 480 360 350 600 Number 0 Bowel Movements Output, 50 Emesis Output, Urine 150 350 Patient 220 lb Weight Physical Exam: General: WD/WN male in NAD: alert and oriented x 3 HEENT: Normocephalic with right orbit ecchymosis, PERRL, EOMI Neck: no JVD, no carotid bruit with right CEA scar Heart: RRR with 2/6 systolic murmur Lungs: clear bilaterally Extremities: right arm swollen Assessment/Plan Assessment/Plan * Patient is lethargic on morphine for chest discomfort. Patient has no complaints at present but appears over sedated with possible decrease in respiratory drive. Minimized morphine and use NTG for ischemic chest pain. * Patient has an elevated D-dimer and V/Q that is not low probability for PE. In consideration of his hypercoagulable state and right arm swelling I would consider a DVT of the right arm. Obtain an ultrasound of the RUE and if thrombus is noted begin IV heparin. Continue telemetry? Yes
[2016-10-28 22:53] VITALS: BP 125/50
[2016-10-29 07:51] VITALS: BP 130/58
--- NOTE | 2016-10-29 09:29 | PN- Housestaff ---
CECIL DELUNA 10/29/16 0929: Subjective Follow-up For: -Left parietal lobe CVA -Lung Ca with right sided pleural effusion -CKD IV Subjective: Mr. Bearden was seen an examined abdomen side. He does complain of some diplopia however he states that this is unchanged several days. He denies any chest pain , but does complain some fatigue and mild dyspnea. Review of Systems Constitutional: Reports: see HPI. Objective Last 24 Hrs of Vital Signs/I&O Vital Signs Date Time Temp Pulse Resp B/P Pulse O2 O2 Flow FiO2 Ox Delivery Rate 10/29 1748 65 142/62 10/29 1600 97 Nasal 3.0L Cannula 10/29 1543 97.3 65 18 142/62 97 Nasal 3.0L Cannula 10/29 1018 61 130/58 10/29 1018 61 130/58 10/29 1018 61 130/58 10/29 1017 61 130/58 10/29 0944 94 Nasal 3.0L Cannula 10/29 0800 94 Nasal 2.5L Cannula 10/29 0751 99.4 61 18 130/58 92 Nasal 2.5L Cannula 10/29 0205 95 Nasal 2.5L Cannula 10/29 0000 94 Nasal 2.5L Cannula 10/28 2253 98.3 64 26 125/50 94 Nasal 2.5L Cannula Intake & Output 10/29 1600 10/29 0800 10/29 0000 Intake Total 600 480 530 Output Total 200 Balance 400 480 530 Intake, IV 420 480 480 Intake, Oral 180 0 50 Number 0 Bowel Movements Output, Urine 200 Physical Exam General Appearance: Alert, Oriented X3, Cooperative, No Acute Distress Skin: No Significant Lesion HEENT: Atraumatic, PERRLA, EOMI, He is unable to identify the correct value of fingers im holding up when asked, complains of diplopia Cardiovascular: Regular Rate, Normal S1, Normal S2, 2/6 systolic murmur Lungs: Clear to Auscultation Abdomen: Normal Bowel Sounds, Soft, No Tenderness Extremities: persistent RUE edema, non-pitting No LE edema BL Current Medications: Current Medications Sig/Reyna Start time Last Medication Dose Route Stop Time Status Admin Acetaminophen 650 MG Q6P PRN 10/25 2129 AC 10/26 PO 1148 Acetaminophen 1,000 MG Q6P PRN 10/25 2129 AC IV Albuterol Sulfate 3 ML Q4-PRN PRN 10/27 2045 AC 10/29 INH 2052 Albuterol Sulfate 2 PUF Q4-6 PRN PRN 10/25 1815 AC INH Allopurinol 100 MG 0900 10/26 0900 AC 10/29 PO 1017 Amiodarone HCl 400 MG BID 10/26 220 AC 10/29 PO 1018 Amlodipine Besylate 5 MG DAILY 10/26 1000 AC 10/29 PO 1017 Aspirin 325 MG 1700 10/26 1700 AC 10/29 PO 1748 Atorvastatin Calcium 80 MG 1700 10/26 1700 AC 10/29 PO 1748 Budesonide/ 2 PUF BID 10/25 2200 AC 10/29 Formoterol Fumarate INH 1016 Carvedilol 25 MG BID 10/25 220 AC 10/29 PO 1018 Clopidogrel Bisulfate 75 MG DAILY 10/26 1000 AC 10/29 PO 1017 Dextrose/Sodium 1,000 ML Q16H 10/27 1445 AC 10/29 Chloride IV 0912 Escitalopram Oxalate 20 MG DAILY 10/26 1000 AC 10/29 PO 1017 Fluorometholone 1 GTT TID 10/25 220 AC 10/29 OPH 1748 Gemfibrozil 600 MG BID 10/25 2200 AC 10/29 PO 1017 Guaifenesin 600 MG Q12 10/26 1119 AC 10/29 PO 1017 Heparin Sodium 5,000 UNIT Q8 10/25 2199 AC 10/29 (Porcine) SC 1526 Insulin Aspart 0 TIDAC/HS 10/26 0800 AC 10/29 SC 1747 Lisinopril 20 MG QAM 10/26 1000 AC 10/29 PO 1018 Montelukast Sodium 10 MG AT BEDTIME 10/26 2199 AC 10/28 PO 2113 Nitroglycerin 0.5 GM Q6 PRN 10/28 1800 AC TOP Ondansetron HCl 4 MG Q12P PRN 10/26 1515 AC 10/27 IV 1228 Oxybutynin Chloride 5 MG DAILY 10/26 1000 AC 10/29 PO 1017 Polyethylene Glycol 17 GM DAILY 10/26 1000 AC 10/28 PO 1223 Senna 187 MG AT BEDTIME PRN 10/29 2015 AC PO Tamsulosin HCl 0.4 MG 1700 10/26 1700 AC 10/29 PO 1748 Tramadol HCl 50 MG Q12 10/28 2200 AC 10/28 PO 211 Last 24 Hrs of Lab/Stephen Results Last 24 Hrs of Labs/Mics: Laboratory Tests 10/29/16 0730: Anion Gap 10, Estimated GFR 15 L, BUN/Creatinine Ratio 15.4 Assessment/Plan Assessment: Mr. Bearden is an 86 year old gentleman with PMH significant for CVA x 2, CAD s/p stenting, aortic stenosis, HTN, CKD stage 4, T2DM, COPD, PRIYANKA on CPAP, GERD, prostate cancer, right carotid stenosis s/p carotid endarterectomy, cataract, normocytic anemia and lung mass/cancer who presented s/p fall this morning at 2 AM. This was an unwitnessed fall resulting in head and right abdomen strike. Patient denied any preceding pre-syncopal type symptoms, though he is unsure of the events that led up to the fall. Head CT was done adn showed new, acute infarct in left parietal lobe without underlying bleed. It also showed chronic small vessel ischemic changes in both cerebral hemispheres with mild cerebral atrophy. Problem List/Assessment and plan 1. Acute CVA, left parietal lobe * Continue continuous telemetry monitoring * No new neuro findings * No anticoagulation therapy in dear of hemorrhagic conversion - per neuro we will continue dual anti-platelet therapy - Continue ASA 325 mg PO daily, plavix 65 mg PO daily, statin 80 mg PO daily * Echo ordered, showed hyperdynamic EF to 80% with impaired LV relaxation, mild LVH, mild RV enlargement, small pericardial effusion without tamponade. Carotid U/S showed no acute changes from previous investigations. 2. 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 we will consider repeating one in the am * Will not proceed with antibiotic therapy at this time - sx management with mucinex, TRC nebs * He is saturating well on 2-3L O2 via NC * VQ scan to evaluate for PE given his elevated d-dimer showed intermediate 25- 30% likelihood of PE, but we will not anticoagulate as indicated above. D-dimer elevation most likely 2/2 malignancy 3. Elevated troponins * Resolved. * Nitrobid and morphine for symptomatic management of pain * VQ results discussed above and LE doppler negative for DVT 4. CKD stage 4 * Renal function worse today * BUN/Cr 60/3.9, up from 59/3.2. Monitor BEP daily * He passed a bedside swallow eval, we will continue fluids and thickened liquids. 5. Normocytic anemia * No active bleeding at this time, noted to be chronic for patient * Monitor CBC intermittently 6. HTN, HLD * Continue coreg 25 mg PO BID * Gemfibrozil 600 mg PO BID * Norvasc 5 mg PO daily * Lisinopril 20 mg PO QAM * AMIODARONE 400 mg PO BID added for episode of NSVT, patient tolerating well- baseline TFTs checked 7. Prostate cancer * Flomax and ditropan to continue daily 8. Type 2 DM * Patient had an episode of hypoglycemia on 10/26/16 to * Consideration for retention of insulin in setting of slowly declining CKD stage 4 along with poor PO intake recently (as reported by son) * NSS (low dose) to continue, we have discontinued levemir * Accuchecks TIDAC/HS FULL CODE DVTP: Heparin SC Consistent Carb 3 Mild pain pathway Problem List: 1. CHRONIC KIDNEY DISEASE STAGE 3 2. ANNA (acute kidney injury) 3. HTN (hypertension) 4. HLD (hyperlipidemia) 5. CVA (cerebral vascular accident) 6. Lung malignancy Pain Ratin Pain Location: na Pain Goal: Remain pain free Pain Plan: continue Tomorrow's Labs & Rationales: BEP for ANNA Consulting Request: Consulting Specialty: Pulmonary Disease
--- NOTE | 2016-10-29 12:00 | PN- Att Addend ---
Attending Addendum Attending Brief Note Patient seen and examined. No events on telemetry overnight other than sinus bradycardia in 50s. He denies any chest pain today. He however continues complain of shortness of breath. He is very lethargic. Nursing staff reports that he required Kamini lift yesterday. He did not eat any significant meals yesterday was also noted to be coughing with thin liquids yesterday. He remains oriented 3. Vital Signs Date Time Temp Pulse Resp B/P Pulse O2 O2 Flow FiO2 Ox Delivery Rate 10/29 1018 61 130/58 10/29 1018 61 130/58 10/29 1018 61 130/58 10/29 1017 61 130/58 10/29 0944 94 Nasal 3.0L Cannula 10/29 0751 99.4 61 18 130/58 92 Nasal 2.5L Cannula 10/29 0205 95 Nasal 2.5L Cannula 10/29 0000 94 Nasal 2.5L Cannula 10/28 2253 98.3 64 26 125/50 94 Nasal 2.5L Cannula 10/28 2113 63 124/50 10/28 2113 63 124/50 10/28 1757 53 133/54 10/28 1630 99.1 53 20 133/54 96 Nasal 3.0L Cannula 10/28 1600 94 Nasal 2.5L Cannula Gen. appearance: Not in acute respiratory distress Heart: S1-S2 regular Lungs: Diminished breath sounds bilaterally Abdomen: Soft, nontender with normal bowel sounds Extremities: Trace lower extremity pedal edema. Right upper extremity edema Neurologic: Power is 4 over 5 in all extremities mild right facial droop. No evidence of DVT on lower and upper extremity Dopplers. Laboratory Tests 10/29/16 0730: Anion Gap 10, Estimated GFR 15 L, BUN/Creatinine Ratio 15.4 Problems: 1. Acute stroke 2. Non-ST elevation ID 3. Acute on Chronic kidney disease stage IV 4. Lung mass; likely malignant obstructive in nature. 5. Chronic anemia 6. Sci-waezxsz-jzjiedvow diabetes mellitus with episode of hypoglycemia during this admission. Plan: -His lethargy is likely secondary to his underlying medical conditions. Certainly and the morphine he was receiving for his constant chest pain may be contributing as well. This has been discontinued yesterday. -Patient has an elevated d-dimer which is most likely secondary to his malignancy. His VQ scan is indeterminate. In the absence of any findings of developing thrombosis would not be prudent to begin the patient on anticoagulation therapy in the setting of an acute ischemic stroke due to concern for hemorrhagic conversion. -Continue dual antiplatelet therapy with aspirin and Plavix. -Renal function continues to worsen despite IV hydration. Continue fluids until oral intake is optimized -Nociceptive reports that patient did well with his screening bedside swelling. We'll assess his nutritional intake over the weekend. -Poor overall prognosis.
--- NOTE | 2016-10-29 12:11 | PN- Pulmonary ---
Subjective HPI/Critical Care Issues: pt seen and examined lethargic minimal ROS obtained no obvious dyspnea or pain Objective Current Medications: Current Medications Sig/Reyna Start time Last Medication Dose Route Stop Time Status Admin Acetaminophen 650 MG Q6P PRN 10/25 2129 AC 10/26 PO 1148 Acetaminophen 1,000 MG Q6P PRN 10/25 213 AC IV Albuterol Sulfate 3 ML Q4-PRN PRN 10/27 2045 AC 10/29 INH 0941 Albuterol Sulfate 2 PUF Q4-6 PRN PRN 10/25 181 AC INH Allopurinol 100 MG 0910/26 09 AC 10/29 PO 1017 Amiodarone HCl 400 MG BID 10/26 220 AC 10/29 PO 1018 Amlodipine Besylate 5 MG DAILY 10/26 1000 AC 10/29 PO 1017 Aspirin 325 MG 10/26 170 AC 10/28 PO 1757 Atorvastatin Calcium 80 MG 10/26 170 AC 10/28 PO 1756 Budesonide/ 2 PUF BID 10/25 2199 AC 10/29 Formoterol Fumarate INH 1016 Carvedilol 25 MG BID 10/25 220 AC 10/29 PO 1018 Clopidogrel Bisulfate 75 MG DAILY 10/26 1000 AC 10/29 PO 1017 Dextrose/Sodium 1,000 ML Q16H 10/27 1445 AC 10/29 Chloride IV 0912 Escitalopram Oxalate 20 MG DAILY 10/26 1000 AC 10/29 PO 1017 Fluorometholone 1 GTT TID 10/25 2199 AC 10/29 OPH 1016 Gemfibrozil 600 MG BID 10/25 220 AC 10/29 PO 1017 Guaifenesin 600 MG Q12 10/26 1119 AC 10/29 PO 1017 Heparin Sodium 5,000 UNIT Q8 10/25 2199 AC 10/29 (Porcine) SC 0539 Insulin Aspart 0 TIDAC/HS 10/26 0800 AC 10/29 SC 0920 Lisinopril 20 MG QAM 10/26 1000 AC 10/29 PO 1018 Montelukast Sodium 10 MG AT BEDTIME 10/26 220 AC 10/28 PO 2113 Morphine Sulfate 2 MG Q6-PRN PRN 10/25 2130 DC 10/28 IV 1039 Nitroglycerin 0.5 GM Q6 PRN 10/28 1800 AC TOP Nitroglycerin 0.5 GM Q6 PRN 10/28 1629 DC TOP Nitroglycerin 0.5 GM Q6 10/26 2359 DC 10/28 TOP 0021 Ondansetron HCl 4 MG Q12P PRN 10/26 1515 AC 10/27 IV 1228 Oxybutynin Chloride 5 MG DAILY 10/26 1000 AC 10/29 PO 1017 Polyethylene Glycol 17 GM DAILY 10/26 1000 AC 10/28 PO 1223 Tamsulosin HCl 0.4 MG 1700 10/26 1700 AC 10/28 PO 1757 Tramadol HCl 50 MG Q12 10/28 2200 AC 10/28 PO 211 Vital Signs & I&O Last 24 Hrs of Vitals and I&O: Vital Signs Date Time Temp Pulse Resp B/P Pulse O2 O2 Flow FiO2 Ox Delivery Rate 10/29 1018 61 130/58 10/29 1018 61 130/58 10/29 1018 61 130/58 10/29 1017 61 130/58 10/29 0944 94 Nasal 3.0L Cannula 10/29 0751 99.4 61 18 130/58 92 Nasal 2.5L Cannula 10/29 0205 95 Nasal 2.5L Cannula 10/29 0000 94 Nasal 2.5L Cannula 10/28 2253 98.3 64 26 125/50 94 Nasal 2.5L Cannula 10/28 2113 63 124/50 10/28 2113 63 124/50 10/28 1757 53 133/54 10/28 1630 99.1 53 20 133/54 96 Nasal 3.0L Cannula 10/28 1600 94 Nasal 2.5L Cannula Intake & Output 10/29 1600 10/29 0800 10/29 0000 Intake Total 480 530 Output Total Balance 480 530 Intake, IV 480 480 Intake, Oral 0 50 Exam Other Physical Findings: gen lethargic, arousable cvs s1, s2 lungs rare rhonchi abd soft bs+ ext trace edema Results Last 24 Hrs of Lab Results: Laboratory Tests 10/29/16 0730: Anion Gap 10, Estimated GFR 15 L, BUN/Creatinine Ratio 15.4 Impression/Plan Impression/Plan Impression/Plan: Impression 86 year old man recent flu lung mass CVA NSTEMI CKD anemia Plan -dnr/dni, no aggressive measures -trc/nebs -cont tele monitoring -aspiration precautions DVT prophylaxis at all times
--- NOTE | 2016-10-29 13:37 | NUR ---
Physical therapy: Patient approached for participation with PT this AM. Patient lethargic, only opening eyes for a second before closing them again. Unable to maintain arousal for PT today. Will continue to follow up with pt as appropriate. Thank you.
[2016-10-29 15:43] VITALS: BP 142/62
--- NOTE | 2016-10-29 19:15 | PN- Cardiology ---
Subjective Subjective: Lethargic, but without specific complaints. Sinus rhythm with first-degree AV block on monitoring with heart rates in the 60 -70 bpm range. Objective Vital Signs and I&Os Vital Signs Date Time Temp Pulse Resp B/P Pulse O2 O2 Flow FiO2 Ox Delivery Rate 10/29 1748 65 142/62 10/29 1600 97 Nasal 3.0L Cannula 10/29 1543 97.3 65 18 142/62 97 Nasal 3.0L Cannula 10/29 1018 61 130/58 10/29 1018 61 130/58 10/29 1018 61 130/58 10/29 1017 61 130/58 10/29 0944 94 Nasal 3.0L Cannula 10/29 0800 94 Nasal 2.5L Cannula 10/29 0751 99.4 61 18 130/58 92 Nasal 2.5L Cannula 10/29 0205 95 Nasal 2.5L Cannula 10/29 0000 94 Nasal 2.5L Cannula 10/28 2253 98.3 64 26 125/50 94 Nasal 2.5L Cannula 10/28 2112 63 124/50 10/28 2112 63 124/50 Intake & Output 10/29 1600 10/29 0800 10/29 0000 10/28 1600 10/28 0800 10/28 0000 Intake Total 600 480 230 489 6969 660 Output Total 200 150 350 Balance 400 480 530 530 670 660 Intake, IV 420 480 480 380 540 180 Intake, Oral 180 0 50 300 480 480 Number 0 0 Bowel Movements Output, Urine 200 150 350 Physical Exam: Well-developed, overweight elderly male in no acute distress who is lethargic. Vital signs: See above. HEENT: Normocephalic with right into a lesser degree periorbital ecchymosis. Neck: No JVD, well-healed right CEA scar. Lungs: Clear to auscultation bilaterally. Heart: S1, S2 with grade 2/6 systolic murmur. PMI not well felt. Extremities: No pedal edema. Right arm edema. Current Medications: Current Medications Sig/Reyna Start time Last Medication Dose Route Stop Time Status Admin Acetaminophen 650 MG Q6P PRN 10/25 2129 AC 10/26 PO 1148 Acetaminophen 1,000 MG Q6P PRN 10/25 2129 AC IV Albuterol Sulfate 3 ML Q4-PRN PRN 10/27 2044 AC 10/29 INH 0941 Albuterol Sulfate 2 PUF Q4-6 PRN PRN 10/25 1815 AC INH Allopurinol 100 MG 0900 10/26 0900 AC 10/29 PO 1017 Amiodarone HCl 400 MG BID 10/26 220 AC 10/29 PO 1018 Amlodipine Besylate 5 MG DAILY 10/26 1000 AC 10/29 PO 1017 Aspirin 325 MG 1700 10/26 1700 AC 10/29 PO 1748 Atorvastatin Calcium 80 MG 17010/26 1700 AC 10/29 PO 1748 Budesonide/ 2 PUF BID 10/25 2200 AC 10/29 Formoterol Fumarate INH 1016 Carvedilol 25 MG BID 10/25 2200 AC 10/29 PO 1018 Clopidogrel Bisulfate 75 MG DAILY 10/26 1000 AC 10/29 PO 1017 Dextrose/Sodium 1,000 ML Q16H 10/27 1445 AC 10/29 Chloride IV 0912 Escitalopram Oxalate 20 MG DAILY 10/26 1000 AC 10/29 PO 1017 Fluorometholone 1 GTT TID 10/25 220 AC 10/29 OPH 1748 Gemfibrozil 600 MG BID 10/25 2200 AC 10/29 PO 1017 Guaifenesin 600 MG Q12 10/26 1119 AC 10/29 PO 1017 Heparin Sodium 5,000 UNIT Q8 10/25 2199 AC 10/29 (Porcine) SC 1526 Insulin Aspart 0 TIDAC/HS 10/26 0800 AC 10/29 SC 1747 Lisinopril 20 MG QAM 10/26 1000 AC 10/29 PO 1018 Montelukast Sodium 10 MG AT BEDTIME 10/26 2199 AC 10/28 PO 2113 Nitroglycerin 0.5 GM Q6 PRN 10/28 1800 AC TOP Ondansetron HCl 4 MG Q12P PRN 10/26 1515 AC 10/27 IV 1228 Oxybutynin Chloride 5 MG DAILY 10/26 1000 AC 10/29 PO 1017 Polyethylene Glycol 17 GM DAILY 10/26 1000 AC 10/28 PO 1223 Tamsulosin HCl 0.4 MG 0 10/26 1700 AC 10/29 PO 1748 Tramadol HCl 50 MG Q12 10/28 2200 AC 10/28 PO 2112 Results Last 48 Hrs of Labs/Mics: Laboratory Tests 10/29/16 0730: Anion Gap 10, Estimated GFR 15 L, BUN/Creatinine Ratio 15.4 10/28/16 0910: pH 7.33 L, pCO2 39, pO2 71 L, HCO3 20 L, ABG O2 Sat (Measured) 93.0 L, Carboxyhemoglobin 0.8 L, O2 Concentration % 3L, O2 Delivery Method N/C, Phlebotomy Draw Site LEFT RADIAL 10/28/16 0635: Anion Gap 12, Estimated GFR 19 L, BUN/Creatinine Ratio 18.4, Glucose 199 H Recent Imaging Studies: Right upper extremity venous ultrasound (10/28/2016): No evidence for right upper extremity deep vein thrombosis. Assessment/Plan Assessment/Plan Mr. Bearden is an elderly male with a history of obesity, hypertension, dyslipidemia, diabetes mellitus, CKD, anemia, previous stroke s/p right CEA, coronary artery disease, and recurrent syncope who presented to the ED following a fall with trauma to his right periorbital region and abdomen. He had no recollection of falling or any premonitory symptoms of lightheadedness, dizziness, palpitations etc. and a CT scan of his head performed on 10/25/2016 revealed evidence of a new acute infarct to the left parietal lobe without underlying bleed. He did initially also complained of some chest discomfort and shortness of breath and had a positive troponin I. Mr. Bearden also had an adenosine stress test to help clear him for his carotid endarterectomy that was noteworthy for a 3-second pause and multiple episodes of second-degree heart block, Mobitz type I without any episodes of arrhythmia/ heart block that were significant enough to implicate as the etiology for his previous episodes of syncope. Patient also had an adenosine stress test to help clear him for his carotid endarterectomy that was noteworthy for a 3-second pause and multiple episodes of second-degree heart block, Mobitz type I without any episodes of arrhythmia/ heart block that were significant enough to implicate as the etiology for his previous episodes of syncope. It is felt that his chronic lethargy is secondary to his underlying medical conditions and was exacerbated by the morphine he had been receiving earlier. He has not been receiving anticoagulation as a result of his recent stroke and the concern of hemorrhagic conversion. Plan is to continue with dual antiplatelet therapy. Unfortunately, his BUN/creatinine continue to elevate despite IV hydration and a significantly positive fluid balance. Would follow up with a CXR in the a.m. Continue telemetry? Not applicable
[2016-10-29 21:28] VITALS: BP 142/60
[2016-10-29 22:30] VITALS: BP 142/60
--- NOTE | 2016-10-29 22:51 | RADIOLOGY REPORT ---
EXAMINATION: XR CHEST PORTABLE CLINICAL INFORMATION: Shortness of breath. Concern for aspiration. COMPARISON: Chest done on 10/27/2016. TECHNIQUE: Portable AP view of the chest was obtained. FINDINGS: Persistent stable small right-sided pleural effusion and nonspecific right lower lobar airspace disease is noted. Airspace disease at right perihilar region appear new since prior study. The left lung field appear clear. The cardiomediastinal silhouette is moderately enlarged. IMPRESSION: 1. Interval progression of nonspecific airspace opacity is noted at right perihilar region since the prior study dated 10/27/2016. 2. Nonspecific right lung base airspace disease and small right pleural effusion appear unchanged since 10/27/2016.
[2016-10-30 07:41] VITALS: BP 130/60
--- NOTE | 2016-10-30 08:16 | PN- Housestaff ---
MARTHA CERRATO,PATIENCE 10/30/16 0816: Subjective Follow-up For: CVA lung cancer Tele-Events Since Last Visit: NSR 60-64. first degree heart block. Subjective: Pt was seen this morning, very lethargic, but arousable. he has been increasingly lethargic since admission. He denies shortness of breath. In light of the increasing cr, we discontinued the lisinopril and ordered ua, fena, and renal ultrasound. Pt has been refusing all his meds today. He has had poor po intake, and urine sample would likely be difficult to obtain today. CXR today shows likely slight interim progression of the right mid and lower lung opacities, suspicious for a moderate size right-sided pleural effusion and associated right mid and lower lobe pneumonia. Interval development of mild central vascular congestion. No overt pulmonary edema. Review of Systems Constitutional: Reports: see HPI. Objective Last 24 Hrs of Vital Signs/I&O Vital Signs Date Time Temp Pulse Resp B/P Pulse O2 O2 Flow FiO2 Ox Delivery Rate 10/30 1144 67 120/46 10/30 0741 97.3 66 18 130/60 93 Nasal 3.0L Cannula 10/30 0000 Nasal 3.0L Cannula 10/29 2230 99.0 80 20 142/60 93 Nasal 3.0L Cannula 10/29 2145 67 142/60 10/29 2145 67 142/60 10/29 2128 67 142/60 93 Nasal 3.0L Cannula 10/29 2050 96 Nasal 3.0L Cannula 10/29 1748 65 142/62 10/29 1600 97 Nasal 3.0L Cannula 10/29 1543 97.3 65 18 142/62 97 Nasal 3.0L Cannula Intake & Output 10/30 1600 10/30 0800 10/30 0000 Intake Total 600 720 Output Total Balance 600 720 Intake, IV 480 480 Intake, Oral 120 240 Number 0 Bowel Movements Physical Exam General Appearance: lethargic but arousable HEENT: Atraumatic Cardiovascular: Normal S1, Normal S2 Lungs: insp and exp wheezing Extremities: right arm edema Current Medications: Current Medications Sig/Reyna Start time Last Medication Dose Route Stop Time Status Admin Acetaminophen 650 MG Q6P PRN 10/25 2129 AC 10/26 PO 1148 Acetaminophen 1,000 MG Q6P PRN 10/25 2129 AC IV Albuterol Sulfate 3 ML Q4-PRN PRN 10/27 2045 AC 10/29 INH 2052 Albuterol Sulfate 2 PUF Q4-6 PRN PRN 10/25 1815 AC INH Allopurinol 100 MG 0900 10/26 0900 AC 10/29 PO 1017 Amiodarone HCl 400 MG BID 10/26 2200 AC 10/30 PO 1144 Amlodipine Besylate 5 MG DAILY 10/26 1000 AC 10/29 PO 1017 Aspirin 325 MG 1700 10/26 1700 AC 10/29 PO 1748 Atorvastatin Calcium 80 MG 1700 10/26 1700 AC 10/29 PO 1748 Budesonide/ 2 PUF BID 10/25 220 AC 10/29 Formoterol Fumarate INH 2146 Carvedilol 25 MG BID 10/25 2199 AC 10/29 PO 2145 Clopidogrel Bisulfate 75 MG DAILY 10/26 1000 AC 10/29 PO 1017 Dextrose/Sodium 1,000 ML Q16H 10/27 1445 AC 10/30 Chloride IV 0230 Escitalopram Oxalate 20 MG DAILY 10/26 1000 AC 10/29 PO 1017 Fluorometholone 1 GTT TID 10/25 2199 AC 10/30 OPH 1131 Gemfibrozil 600 MG BID 10/25 220 AC 10/29 PO 2146 Guaifenesin 600 MG Q12 10/26 1119 AC 10/29 PO 2146 Heparin Sodium 5,000 UNIT Q8 10/25 2199 AC 10/30 (Porcine) SC 0539 Insulin Aspart 0 TIDAC/HS 10/26 0800 AC 10/29 SC 1747 Lisinopril 20 MG QAM 10/26 1000 DC 10/29 PO 1018 Montelukast Sodium 10 MG AT BEDTIME 10/26 2199 AC 10/29 PO 2146 Nitroglycerin 0.5 GM Q6 PRN 10/28 1800 AC TOP Ondansetron HCl 4 MG Q12P PRN 10/26 1515 AC 10/27 IV 1228 Oxybutynin Chloride 5 MG DAILY 10/26 1000 AC 10/29 PO 1017 Polyethylene Glycol 17 GM DAILY 10/26 1000 AC 10/30 PO 1132 Senna 187 MG AT BEDTIME PRN 10/29 2015 AC 10/29 PO 2146 Tamsulosin HCl 0.4 MG 1700 10/26 1700 AC 10/29 PO 1748 Tramadol HCl 50 MG Q12 10/28 2199 AC 10/28 PO 2111 Last 24 Hrs of Lab/Stephen Results Last 24 Hrs of Labs/Mics: Laboratory Tests 10/30/16 0617: Anion Gap 9, Estimated GFR 13 L, BUN/Creatinine Ratio 14.0 Microbiology 10/30 0001 NASOPHARYN: Influenza Virus A & B Rapid Smear - COMP Assessment/Plan Assessment: Mr. Bearden is an 86 year old gentleman with PMH significant for CVA x 2, CAD s/p stenting, aortic stenosis, HTN, CKD stage 4, T2DM, COPD, PRIYANKA on CPAP, GERD, prostate cancer, right carotid stenosis s/p carotid endarterectomy, cataract, normocytic anemia and lung mass/cancer who presented s/p fall this morning at 2 AM. This was an unwitnessed fall resulting in head and right abdomen strike. Patient denied any preceding pre-syncopal type symptoms, though he is unsure of the events that led up to the fall. Head CT was done adn showed new, acute infarct in left parietal lobe without underlying bleed. It also showed chronic small vessel ischemic changes in both cerebral hemispheres with mild cerebral atrophy. Problem List/Assessment and plan 1. Acute CVA, left parietal lobe * Continue continuous telemetry monitoring * No new neuro findings * No anticoagulation therapy in dear of hemorrhagic conversion - per neuro we will continue dual anti-platelet therapy - Continue ASA 325 mg PO daily, plavix 65 mg PO daily, statin 80 mg PO daily * Echo ordered, showed hyperdynamic EF to 80% with impaired LV relaxation, mild LVH, mild RV enlargement, small pericardial effusion without tamponade. Carotid U/S showed no acute changes from previous investigations. 2. 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 D-dimer elevation most likely 2/2 malignancy 3. Elevated troponins * Resolved. * Nitrobid and morphine for symptomatic management of pain * VQ results discussed above and LE doppler negative for DVT 4. CKD stage 4 * Renal function worse today * 59/3.2 --> 60/4.3 Monitor BEP daily * He passed a bedside swallow eval, we will continue fluids and thickened liquids. 5. Normocytic anemia * No active bleeding at this time, noted to be chronic for patient * Monitor CBC intermittently 6. HTN, HLD * Continue coreg 25 mg PO BID * Gemfibrozil 600 mg PO BID * Norvasc 5 mg PO daily * Lisinopril 20 mg PO QAM * AMIODARONE 400 mg PO BID added for episode of NSVT, patient tolerating well- baseline TFTs checked 7. Prostate cancer * Flomax and ditropan to continue daily 8. Type 2 DM * Patient had an episode of hypoglycemia on 10/26/16 to * Consideration for retention of insulin in setting of slowly declining CKD stage 4 along with poor PO intake recently (as reported by son) * NSS (low dose) to continue, we have discontinued levemir * Accuchecks TIDAC/HS FULL CODE DVTP: Heparin SC Consistent Carb 3 Mild pain pathway Problem List: 1. Lung malignancy 2. CVA (cerebral vascular accident) Pain Ratin Pain Location: none Pain Goal: Remain pain free Pain Plan: morphine Tomorrow's Labs & Rationales: bep for worsening kidney function DVT/Prophylaxis: mechanical, pharmacological Consulting Request: Consulting Specialty: Pulmonary Disease CHEYANNE NATHAN MD 10/30/16 1058: Attending MD Review Statement Attending Statement Attending MD Statement: examined this patient, discuss w/resident/PA/[employer], agreed w/resident/PA/[employer], reviewed EMR data (avail), discussed with nursing, amended to note Attending Assessment/Plan: Patient seen and examined. Lethargic this morning. Nursing staff reports very poor oral intake. He however denies any chest pain or shortness of breath this morning. Overnight telemetry shows no degree AV block and some PVCs. He remains afebrile and hemodynamically stable. He is maintaining saturation on 3 L of oxygen. Chest x-ray done yesterday shows nterval progression of nonspecific airspace opacity is noted at right perihilar region since the prior study dated 10/27/2016 and nonspecific right lung base airspace disease and small right pleural effusion appear unchanged since 10/27/2016. On examination he has mild expiratory wheeze bilaterally. He has persistent right upper extremity swelling. He is very lethargic. Despite IV hydration on positive fluid balance renal function continues to worsen with creatinine of 4.3 this morning. Recommendations: -Patient's clinical condition continues to decline. Prognosis remains poor in light of his comorbidities and advanced age. -Obtain a renal sonogram to rule out reversible process such as obstructive uropathy. -Continue current cardiac regimen. -Discontinue JEAN CARLOS inhibitor. -Continue conservative management. We'll follow-up with family regarding goals of care.
--- NOTE | 2016-10-30 12:13 | PN- Pulmonary ---
Subjective HPI/Critical Care Issues: pt seen and examined lethargic dnr/dni no obvious distress or discomfort afebrile 93% on 3LNC Objective Current Medications: Current Medications Sig/Reyna Start time Last Medication Dose Route Stop Time Status Admin Acetaminophen 650 MG Q6P PRN 10/25 2130 AC 10/26 PO 1148 Acetaminophen 1,000 MG Q6P PRN 10/25 213 AC IV Albuterol Sulfate 3 ML Q4-PRN PRN 10/27 2045 AC 10/29 INH 2052 Albuterol Sulfate 2 PUF Q4-6 PRN PRN 10/25 181 AC INH Allopurinol 100 MG 0900 10/26 0900 AC 10/29 PO 1017 Amiodarone HCl 400 MG BID 10/26 220 AC 10/30 PO 1144 Amlodipine Besylate 5 MG DAILY 10/26 1000 AC 10/29 PO 1017 Aspirin 325 MG 1700 10/26 1700 AC 10/29 PO 1748 Atorvastatin Calcium 80 MG 1700 10/26 1700 AC 10/29 PO 1748 Budesonide/ 2 PUF BID 10/25 220 AC 10/29 Formoterol Fumarate INH 2146 Carvedilol 25 MG BID 10/25 220 AC 10/29 PO 2145 Clopidogrel Bisulfate 75 MG DAILY 10/26 1000 AC 10/29 PO 1017 Dextrose/Sodium 1,000 ML Q16H 10/27 1445 AC 10/30 Chloride IV 0230 Escitalopram Oxalate 20 MG DAILY 10/26 1000 AC 10/29 PO 1017 Fluorometholone 1 GTT TID 10/25 220 AC 10/30 OPH 1131 Gemfibrozil 600 MG BID 10/25 2200 AC 10/29 PO 2146 Guaifenesin 600 MG Q12 10/26 1119 AC 10/29 PO 2146 Heparin Sodium 5,000 UNIT Q8 10/25 2199 AC 10/30 (Porcine) SC 0539 Insulin Aspart 0 TIDAC/HS 10/26 0800 AC 10/29 SC 1747 Lisinopril 20 MG QAM 10/26 1000 DC 10/29 PO 1018 Montelukast Sodium 10 MG AT BEDTIME 10/26 220 AC 10/29 PO 2146 Nitroglycerin 0.5 GM Q6 PRN 10/28 1800 AC TOP Ondansetron HCl 4 MG Q12P PRN 10/26 1515 AC 10/27 IV 1228 Oxybutynin Chloride 5 MG DAILY 10/26 1000 AC 10/29 PO 1017 Polyethylene Glycol 17 GM DAILY 10/26 1000 AC 10/30 PO 1132 Senna 187 MG AT BEDTIME PRN 10/29 2014 AC 10/29 PO 2146 Tamsulosin HCl 0.4 MG 1700 10/26 1700 AC 10/29 PO 1748 Tramadol HCl 50 MG Q12 10/28 2199 AC 10/28 PO 2112 Vital Signs & I&O Last 24 Hrs of Vitals and I&O: Vital Signs Date Time Temp Pulse Resp B/P Pulse O2 O2 Flow FiO2 Ox Delivery Rate 10/30 1144 67 120/46 10/30 0741 97.3 66 18 130/60 93 Nasal 3.0L Cannula 10/30 0000 Nasal 3.0L Cannula 10/29 2230 99.0 80 20 142/60 93 Nasal 3.0L Cannula 10/29 2145 67 142/60 10/29 2145 67 142/60 10/29 2128 67 142/60 93 Nasal 3.0L Cannula 10/29 2050 96 Nasal 3.0L Cannula 10/29 1748 65 142/62 10/29 1600 97 Nasal 3.0L Cannula 10/29 1543 97.3 65 18 142/62 97 Nasal 3.0L Cannula Intake & Output 10/30 1600 10/30 0800 10/30 0000 Intake Total 600 720 Output Total Balance 600 720 Intake, IV 480 480 Intake, Oral 120 240 Number 0 Bowel Movements Exam Other Physical Findings: gen lethargic cvs s1, s2 lungs rare rhonchi abd soft bs+ ext trace edema Results Last 24 Hrs of Lab Results: Laboratory Tests 10/30/16 0617: Anion Gap 9, Estimated GFR 13 L, BUN/Creatinine Ratio 14.0 Impression/Plan Impression/Plan Impression/Plan: Impression 86 year old man recent flu lung mass CVA NSTEMI CKD anemia Plan -dnr/dni, no aggressive measures -trc/nebs -cont tele monitoring -aspiration precautions -pursue addressing goals of care with family DVT prophylaxis at all times
--- NOTE | 2016-10-30 13:21 | RADIOLOGY REPORT ---
EXAMINATION: XR PORTABLE CHEST CLINICAL INFORMATION: Shortness of breath. CVA. Evaluate for CHF versus pneumonia. COMPARISON: Several prior chest x-rays, most recent of which is dated 10/29/2016. CT scan of the chest dated 10/18/2016. TECHNIQUE: Portable AP semierect view of the chest was obtained. FINDINGS: The cardiomediastinal silhouette is enlarged and partially obscured by dense opacity in the right mid and lower lung. Central vascular congestion is seen without overt pulmonary edema. No pneumothorax is present. Multilevel degenerative spurring in the thoracic spine is seen. IMPRESSION: 1. There is likely slight interim progression of the right mid and lower lung opacities, suspicious for a moderate size right-sided pleural effusion and associated right mid and lower lobe pneumonia. 2. Interval development of mild central vascular congestion. No overt pulmonary edema.
--- NOTE | 2016-10-30 15:49 | ULTRASOUND REPORT ---
EXAMINATION: US RETROPERITONEAL COMPLETE (RENAL) CLINICAL INFORMATION: Increased serum creatinine level; question obstruction. COMPARISON: None TECHNIQUE: Real-time imaging of the kidneys and bladder. FINDINGS: RIGHT KIDNEY: 11.7 x 6.7 x 5.1 cm (SAG x AP x TRV). The kidney is normal in size, contour, and echogenicity. Renal cortical thickness is diminished. At the interpolar aspect, a 1.0 cm maximal diameter simple cyst is seen. No calculi or focal solid parenchymal lesions. No hydronephrosis. LEFT KIDNEY: 11.3 x 5.8 x 6.1 cm (SAG x AP x TRV). The kidney is normal in size, contour, and echogenicity. Renal cortical thickness is diminished. No focal parenchymal lesions. At the lower pole, a 4 mm nonobstructing calculus is seen. No hydronephrosis. BLADDER: Well-distended and normal. Bilateral ureteral jets are not demonstrated. Pre-void bladder volume is 117 mL. IMPRESSION: 1. There is a 4 mm nonobstructing left renal calculus. No right renal calculus is seen. There is no hydronephrosis bilaterally. 2. A small right renal simple cyst is incidentally noted. 3. There is bilateral renal cortical thinning.
[2016-10-30 15:56] VITALS: BP 150/66
[2016-10-31 00:46] VITALS: BP 124/84
--- NOTE | 2016-10-31 06:54 | PN- Housestaff ---
See Addendum Subjective Follow-up For: CVA Lung cancer Acute on chronic renal dysfunction Tele-Events Since Last Visit: SB-NSR, HR 58-63 bpm, first degree heart block, PVCs. Subjective: Patient seen and examined at bedside this AM. He continues to endorse respiratory decline and lethargy. Patient appears more dyspneic and distressed daily, with decline obviously noted. Patient is extremely tired and not very active in responsing to ROS questioning. Review of Systems Constitutional: Reports: see HPI. Objective Last 24 Hrs of Vital Signs/I&O Vital Signs Date Time Temp Pulse Resp B/P Pulse O2 O2 Flow FiO2 Ox Delivery Rate 10/31 1044 140/50 10/31 0948 90 170/70 10/31 0948 90 170/70 10/31 0948 90 170/70 10/31 0827 94 Nasal 6.0L Cannula 10/31 0800 Nasal 3.0L Cannula 10/31 0800 98.6 90 24 170/70 92 Nasal 6.0L Cannula 10/31 0046 100.9 99 18 124/84 91 Nasal Cannula 10/31 0000 94 Nasal 3.0L Cannula 10/30 2234 60 130/62 10/30 2233 60 130/62 10/30 1920 92 Nasal 3.0L Cannula 10/30 1808 79 150/66 10/30 1600 95 Nasal 3.0L Cannula 10/30 1556 97.2 67 18 150/66 94 Nasal 3.0L Cannula Intake & Output 10/31 1600 10/31 0800 10/31 0000 Intake Total 700 780 Output Total Balance 700 780 Intake, IV 600 620 Intake, Oral 100 160 Number 1 Bowel Movements Physical Exam General Appearance: Moderate Distress Skin: No Significant Lesion, Right eye ecchymosis, improving HEENT: PERRLA, Mucous Membr. moist/pink Neck: Supple, +2 Carotid Pulse wo Bruit Lymphatic: Cervical nl Cardiovascular: Regular Rate, Normal S1, Normal S2, +NACHO Lungs: Decreased air entry bilaterally, appreciable rhonchi most prominent at right lung base, tachypnea. Abdomen: Normal Bowel Sounds, Soft Neurological: Normal Tone Extremities: No Clubbing, No Cyanosis Vascular: Pulses Symmetrical Current Medications: Current Medications Sig/Reyna Start time Last Medication Dose Route Stop Time Status Admin Acetaminophen 650 MG Q6P PRN 10/25 2130 AC 10/26 PO 1148 Acetaminophen 1,000 MG Q6P PRN 10/25 2130 AC IV Albuterol Sulfate 3 ML Q4-PRN PRN 10/27 2045 AC 10/31 INH 0813 Albuterol Sulfate 2 PUF Q4-6 PRN PRN 10/25 1815 AC INH Allopurinol 100 MG 0900 10/26 0900 AC 10/31 PO 0947 Amiodarone HCl 400 MG BID 10/26 2200 AC 10/31 PO 0948 Amlodipine Besylate 5 MG DAILY 10/26 1000 AC 10/31 PO 0948 Aspirin 325 MG 1700 10/26 1700 AC 10/30 PO 1808 Atorvastatin Calcium 80 MG 1700 10/26 1700 AC 10/30 PO 1808 Bisacodyl 10 MG ONCE ONE 10/30 2030 DC OH 10/30 2031 Budesonide/ 2 PUF BID 10/25 220 AC 10/31 Formoterol Fumarate INH 0947 Carvedilol 25 MG BID 10/25 220 AC 10/31 PO 0948 Clopidogrel Bisulfate 75 MG DAILY 10/26 1000 AC 10/31 PO 0948 Dextrose/Sodium 1,000 ML Q13H 10/30 1730 DC 10/31 Chloride IV 0730 Dextrose/Sodium 1,000 ML Q16H 10/27 1445 DC 10/30 Chloride IV 0230 Escitalopram Oxalate 20 MG DAILY 10/26 1000 AC 10/31 PO 0948 Fluorometholone 1 GTT TID 10/25 2199 AC 10/31 OPH 0947 Furosemide 20 MG ONCE ONE 10/31 0900 DC 10/31 IV 10/31 0901 0949 Gemfibrozil 600 MG BID 10/25 2200 AC 10/31 PO 0948 Guaifenesin 600 MG Q12 10/26 1119 AC 10/31 PO 0948 Heparin Sodium 5,000 UNIT Q8 10/25 2199 AC 10/31 (Porcine) SC 0609 Insulin Aspart 0 TIDAC/HS 10/26 0800 AC 10/30 SC 2232 Lisinopril 20 MG QAM 10/26 1000 DC 10/29 PO 1018 Montelukast Sodium 10 MG AT BEDTIME 10/26 2200 AC 10/30 PO 2234 Nitroglycerin 0.5 GM Q6 PRN 10/28 1800 AC TOP Ondansetron HCl 4 MG Q12P PRN 10/26 1515 AC 10/27 IV 1228 Oxybutynin Chloride 5 MG DAILY 10/26 1000 AC 10/31 PO 0947 Polyethylene Glycol 17 GM DAILY 10/26 1000 AC 10/28 PO 1223 Senna 187 MG AT BEDTIME PRN 10/29 2014 10/29 PO 2146 Tamsulosin HCl 0.4 MG 1700 10/26 1700 AC 10/30 PO 1808 Tramadol HCl 50 MG Q12 10/280 AC 10/28 PO 211 Last 24 Hrs of Lab/Stephen Results Last 24 Hrs of Labs/Mics: Laboratory Tests 10/31/16 0905: CBC w Diff NO MAN DIFF REQ, RBC 3.06 L, MCV 84.7, MCH 28.4, RDW 15.9 H, MPV 7.3 L, Gran % 88.2 H, Lymphocytes % 6.3 L, Monocytes % 5.0, Eosinophils % 0.5 , Basophils % 0 L, Absolute Granulocytes 6.8 H, Absolute Lymphocytes 0.5 L, Absolute Monocytes 0.4, Absolute Eosinophils 0, Absolute Basophils 0, PUBS MCHC 33.6 10/31/16 0810: pH 7.27 *L, pCO2 41, pO2 82, HCO3 18 L, ABG O2 Sat (Measured) 93.0 L, P-50 ( Temp Corrected) Y, Carboxyhemoglobin 0.2 L, O2 Concentration % 6L, Temperature 100.9 H, O2 Delivery Method N/C, Phlebotomy Draw Site LEFT RADIAL 10/31/16 0630: Anion Gap 9, Estimated GFR 13 L, BUN/Creatinine Ratio 13.9 10/30/16 1145: Ur Random Creatinine 117.2, U Random Total Protein 141.4 H, Protein/Creatinin Ratio 1.20 H 10/30/16 1145: Urinalysis HEAVY H, Urine Color YEL, Urine Clarity HAZY H, Urine pH 6.0, Ur Specific [place] 1.025, Urine Protein 100 H, Urine Ketones NEG, Urine Nitrite NEG, Urine Bilirubin NEG, Urine Urobilinogen 0.2, Ur Leukocyte Esterase NEG, Ur Microscopic SEDIMENT EXAMINED, Urine RBC 1-3, Urine WBC 1-3 H, Ur Epithelial Cells FEW, Granular Casts RARE H, Urine Hemoglobin TRACE-INTACT H, Urine Glucose NEG 10/30/16 1145: Ur Random Creatinine 116.4, Ur Random Sodium 13 L, Ur Random Potassium 36.1, Fraction Sodium Excret 0.4 Assessment/Plan Assessment: Mr. Bearden is an 86 year old gentleman with PMH significant for CVA x 2, CAD s/p stenting, aortic stenosis, HTN, CKD stage 4, T2DM, COPD, PRIYANKA on CPAP, GERD, prostate cancer, right carotid stenosis s/p carotid endarterectomy, cataract, normocytic anemia and lung mass/cancer who presented s/p fall this morning at 2 AM. This was an unwitnessed fall resulting in head and right abdomen strike. Patient denied any preceding pre-syncopal type symptoms, though he is unsure of the events that led up to the fall. In the ED: Vital signs showed T 97.4, HR 61, RR 18, BP 122/72 and O2 saturation of 95% on RA. Labs showed normal WBC to 7, normocytic anemia to 9.7/28.6, plt 163, and normal BEP except for BUN/cre 50/2.6 (baseline). Corrected Ca was 8.6 with low albumin to 2.7. Alk phos 158. CXR was done and showed increase in right lower lobe airpsace disease suspicious for pneumonia. Small right pleural effusion. Head CT was done adn showed new, acute infarct in left parietal lobe without underlying bleed. It also showed chronic small vessel ischemic changes in both cerebral hemispheres with mild cerebral atrophy. Last echocardiogram done was in May of 2016 and showed EF 60% with impaired LV relaxation. EEG in 2016 showed abnormal generalized slowing of background rhythm. Patient is admitted to the telemetry floor and the following is the currentl management: 1. Acute CVA, left parietal lobe * Continue continuous telemetry monitoring * Mild weakness of RLE, no other focal deficits (RUE difficult to assess 2/2 rotator cuff injury) * Echo showed hyperdynamic EF to 80% with impaired LV relaxation, mild LVH, mild RV enlargement, small pericardial effusion without tamponade * Carotid US showed 0-49% stenosis of right carotid, hemodynamically significant 50-79% stenosis of left carotid WITHOUT significant change form 07/01/17 * Continue ASA 325 mg PO daily, plavix 65 mg PO daily, statin 80 mg PO daily * Treatment with PT, OT and speech therapy to continue; patient will need STR 2. 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 Booth again discussed prognosis with patient's son who desires no further escalation of respiratory care, including no BiPAP; if patient's status worsens, we will make son aware who will likely consider comfort/ inpatient hospice. * ABG ordered for this AM due to worsening respiratory status, shows metabolic acidosis likely 2/2 renal dysfunction without respiratory changes 3. Elevated troponins * Troponins peaked at 0.71 and have trended down since * Likely demand ischemia, however PE considered * Wells score of 4, D-Dimer elevated to >5250, V/Q scan showed moderate probability of PE (25-30%); LE doppler negative for DVT * Will not proceed with heparin/warfarin therapy at this time as we do not want to convert ischemic to hemorrhagic stroke 4. Acute on chronic CKD stage 4 * Monitor BEP daily * Continued worsening of his cre to 4.4 today in combination with poor PO intake * Consider cardiorenal syndrome * IV fluids held as of now due to worsening respiratory status 5. Normocytic anemia * No active bleeding at this time, noted to be chronic for patient * Monitor CBC intermittently 6. HTN, HLD * Continue coreg 25 mg PO BID, gemfibrozil 600 mg PO BID, norvasc 5 mg PO daily, lisinopril 20 mg PO QAM * Amiodarone decreased to 200 mg PO daily (needed for NSVT) 7. Prostate cancer * Flomax and ditropan to continue daily 8. Type 2 DM * Patient had an episode of hypoglycemia on 10/26/16 to 33 * Consideration for retention of insulin in setting of slowly declining CKD stage 4 along with poor PO intake * NSS (low dose) to continue, we have discontinued levemir * Accuchecks TIDAC/HS FULL CODE DVTP: Heparin SC Consistent Carb 3 Mild pain pathway Problem List: 1. Contusion of face 2. CVA (cerebral vascular accident) 3. Lung malignancy 4. PNA (pneumonia) 5. COPD (chronic obstructive pulmonary disease) 6. HTN (hypertension) 7. HLD (hyperlipidemia) Pain Ratin Pain Location: n/a Pain Goal: Remain pain free Pain Plan: Mild pain pathway. Tomorrow's Labs & Rationales: BEP (worsening renal function) Consulting Request: Consulting Specialty: Pulmonary Disease Mild pain pathway. Tomorrow's Labs & Rationales: BEP (worsening renal function) Consulting Request: Consulting Specialty: Pulmonary Disease
[2016-10-31 08:00] VITALS: BP 170/70
--- NOTE | 2016-10-31 08:18 | NUR ---
AT 0800, PT CALLED OUT FOR HELP. ON ASSESSMENT PT STRUGGLING WITH BREATHING. REPOSITIONED PT AND AT THIS TIME PT O2 83% ON 3L NC. INCREASED O2 TO 6L NC. CALLED RT AND NOTIFIED DR. LORENZ. DOCTOR IN TO SEE PT AND ABG'S ORDERED. O2 92-93% ON 6L NC. RT GIVING NEB TX AND ATTEMPTING TO SUCTION PT. WILL CONTINUE TO MONITOR.
--- NOTE | 2016-10-31 09:32 | PN- Cardiology ---
Subjective Subjective: * Patient is lethargic but answers "yes" or "no" questions. No complaints. * sinus rhythm * calcium is 6.8 * metabolic acidosis with renal insufficiency * a soft tissue density was noted around the right glenohumeral joint Objective Vital Signs and I&Os Vital Signs Date Time Temp Pulse Resp B/P Pulse O2 O2 Flow FiO2 Ox Delivery Rate 10/31 826 94 Nasal 6.0L Cannula 10/31 0800 Nasal 3.0L Cannula 10/31 08 98.6 90 24 170/70 92 Nasal 6.0L Cannula 10/31 0046 100.9 99 18 124/84 91 Nasal Cannula 10/31 0000 94 Nasal 3.0L Cannula 10/30 2234 60 130/62 10/30 2233 60 130/62 10/30 1920 92 Nasal 3.0L Cannula 10/30 1808 79 150/66 10/30 1600 95 Nasal 3.0L Cannula 10/30 1556 97.2 67 18 150/66 94 Nasal 3.0L Cannula Intake & Output 10/31 1600 10/31 0800 10/31 0000 10/30 1600 10/30 0800 10/30 0000 Intake Total 700 780 640 600 720 Output Total 250 Balance 700 780 390 600 720 Intake, IV 600 620 400 480 480 Intake, Oral 100 160 240 120 240 Number 1 0 0 Bowel Movements Output, Urine 250 Physical Exam: General: WD/WN male in NAD: lethargic HEENT: Normocephalic with right orbit ecchymosis, PERRL, EOMI Neck: no JVD, no carotid bruit with right CEA scar Heart: RRR with 2/6 systolic murmur Lungs: clear bilaterally Extremities: right arm swollen Assessment/Plan Assessment/Plan * Patient is lethargic with renal failure. Minimize sedation to avoid suppressing his respiratory drive. * Patient has a swollen right upper extremity with his CT scan showing a density around the right glenohumeral joint that may be the cause of this finding. No definite evidence of a PE although he has a V/Q that is not read as low probability and an elevated D-dimer. In consideration of his propensity for intracerebral bleed post CVA it is reasonable to watch this expectantly and not proceed with full anticoagulation. Note the V/Q shows a defect on the left that would not correspond to the right sided lung mass. * Decrease Amiodarone to 200mg daily. Continue telemetry? Yes
--- NOTE | 2016-10-31 09:51 | NUR ---
OCCUPATIONAL THERAPY NOTE: PER CONVERSATION WITH RN, PT WITH RESPITORY DISTRESS IS CURRENTLY ON 6L OF O2. PT NOT MEDICALLY APPROPRIATE FOR OT TODAY. PT'S FAMILY WILL MEET WITH TEAM TO FURTHER DISCUSS POC. OT CX TODAY.
[2016-10-31 09:52] LABS: ABSOLUTE BASOPHIL COUNT 0 /CUMM (0.0-0.2); ABSOLUTE EOSINOPHIL COUNT 0 /CUMM (0.0-0.7); ABSOLUTE GRANULOCYTE CT 6.8 /CUMM (1.4-6.5); ABSOLUTE LYMPH COUNT 0.5 /CUMM (1.2-3.4); ABSOLUTE MONOCYTE COUNT 0.4 /CUMM (0.10-0.60); BASOPHIL % 0 % (0.0-2.0); EOSINOPHIL % 0.5 % (0-5); HEMATOCRIT 25.9 % (42-52); MEAN CORPUSCULAR HGB 28.4 PG (27.0-31.0); MEAN CORPUSCULAR HGB CONC 33.6 G/DL (33.0-37.0); MEAN CORPUSCULAR VOLUME 84.7 FL (80.0-94.0); MEAN PLATELET VOLUME 7.3 FL (7.4-10.4); PLATELET COUNT 182 /CUMM (130-400); RBC DISTRIBUTION WIDTH 15.9 % (11.5-14.5); RED BLOOD CELL CT 3.06 /CUMM (4.70-6.10); WHITE BLOOD CELL COUNT 7.7 /CUMM (4.8-10.8)
[2016-10-31 10:32] LABS: GRANULOCYTE % 88.2 % (42.2-75.2)
[2016-10-31 10:44] VITALS: BP 140/50
--- NOTE | 2016-10-31 13:46 | PN- Pulmonary ---
Subjective HPI/Critical Care Issues: Subjective: Patient seen and examined at bedside this AM. He continues to endorse respiratory decline and lethargy. Patient appears more dyspneic and distressed daily, with decline obviously noted. Patient is extremely tired and not very active in responsing to ROS questioning. SOn at the bedside Review of Systems Constitutional: Reports: see HPI. Objective Current Medications: Current Medications Sig/Reyna Start time Last Medication Dose Route Stop Time Status Admin Acetaminophen 650 MG Q6P PRN 10/25 2130 AC 10/26 PO 1148 Acetaminophen 1,000 MG Q6P PRN 10/25 213 AC IV Albuterol Sulfate 3 ML Q4-PRN PRN 10/27 2045 AC 10/31 INH 0813 Albuterol Sulfate 2 PUF Q4-6 PRN PRN 10/25 181 AC INH Allopurinol 100 MG 10/26 0900 AC 10/31 PO 0947 Amiodarone HCl 200 MG DAILY 11/01 1000 AC PO Amiodarone HCl 400 MG BID 10/26 2200 DC 10/31 PO 0948 Amlodipine Besylate 5 MG DAILY 10/26 1000 AC 10/31 PO 0948 Aspirin 325 MG 1700 10/26 1700 AC 10/30 PO 1808 Atorvastatin Calcium 80 MG 1700 10/26 1700 AC 10/30 PO 1808 Bisacodyl 10 MG ONCE ONE 10/30 2030 DC ME 10/30 2031 Budesonide/ 2 PUF BID 10/25 2200 AC 10/31 Formoterol Fumarate INH 0947 Carvedilol 25 MG BID 10/25 2200 AC 10/31 PO 0948 Clopidogrel Bisulfate 75 MG DAILY 10/26 1000 AC 10/31 PO 0948 Dextrose/Sodium 1,000 ML Q13H 10/30 1730 DC 10/31 Chloride IV 0730 Dextrose/Sodium 1,000 ML Q16H 10/27 1445 DC 10/30 Chloride IV 0230 Escitalopram Oxalate 20 MG DAILY 10/26 1000 AC 10/31 PO 0948 Fluorometholone 1 GTT TID 10/25 2200 AC 10/31 OPH 0947 Furosemide 20 MG ONCE ONE 10/31 0900 DC 10/31 IV 10/31 0901 0949 Gemfibrozil 600 MG BID 10/25 2200 AC 10/31 PO 0948 Guaifenesin 600 MG Q12 10/26 1119 AC 10/31 PO 0948 Heparin Sodium 5,000 UNIT Q8 10/25 2200 AC 10/31 (Porcine) SC 0609 Insulin Aspart 0 TIDAC/HS 10/26 0800 AC 10/30 SC 2232 Montelukast Sodium 10 MG AT BEDTIME 10/26 2200 AC 10/30 PO 2234 Nitroglycerin 0.5 GM Q6 PRN 10/28 1800 AC TOP Ondansetron HCl 4 MG Q12P PRN 10/26 1515 AC 10/27 IV 1228 Oxybutynin Chloride 5 MG DAILY 10/26 1000 AC 10/31 PO 0947 Polyethylene Glycol 17 GM DAILY 10/26 1000 AC 10/28 PO 1223 Senna 187 MG AT BEDTIME PRN 10/29 2015 AC 10/29 PO 2146 Tamsulosin HCl 0.4 MG 1700 10/26 1700 AC 10/30 PO 1808 Tramadol HCl 50 MG Q12 10/28 2199 AC 10/28 PO 2112 Vital Signs & I&O Last 24 Hrs of Vitals and I&O: Vital Signs Date Time Temp Pulse Resp B/P Pulse O2 O2 Flow FiO2 Ox Delivery Rate 10/31 1044 140/50 10/31 0948 90 170/70 10/31 0948 90 170/70 10/31 0948 90 170/70 10/31 0827 94 Nasal 6.0L Cannula 10/31 0800 Nasal 3.0L Cannula 10/31 0800 98.6 90 24 170/70 92 Nasal 6.0L Cannula 10/31 0046 100.9 99 18 124/84 91 Nasal Cannula 10/31 0000 94 Nasal 3.0L Cannula 10/30 2234 60 130/62 10/30 2233 60 130/62 10/30 1920 92 Nasal 3.0L Cannula 10/30 1808 79 150/66 10/30 1600 95 Nasal 3.0L Cannula 10/30 1556 97.2 67 18 150/66 94 Nasal 3.0L Cannula Intake & Output 10/31 1600 10/31 0800 10/31 0000 Intake Total 700 780 Output Total Balance 700 780 Intake, IV 600 620 Intake, Oral 100 160 Number 1 Bowel Movements Impression/Plan Impression/Plan Impression/Plan: Physical Exam General Appearance Alert, Oriented X3, Cooperative, No Acute Distress Skin Right periorbital ecchymosis without active bleeding. HEENT PERRLA, EOMI, Dry mucous membranes Neck Supple, No JVD, No thryomegaly Lymphatic Cervical nl Cardiovascular Regular Rate, Normal S1, Normal S2, Grade 2/6 systoluc murmur Lungs Decreased air entry bilaterally, left>right basal rhonchi Abdomen Normal Bowel Sounds, Soft Neurological Normal Speech, Normal Tone, Cranial Nerves 3-12 NL, 4/5 strength RLE, all others 5/5 Extremities No Clubbing, No Cyanosis, No Tenderness/Swelling Vascular Pulses Symmetrical CT head IMPRESSION: New acute infarct left parietal lobe without underlying bleed. Chronic small vessel ischemic changes in both cerebral hemispheres with mild cerebral atrophy. VQ scan intermediate probability Lower extremity unremarkable for DVT by Doppler IMPRESSION This is an elderly gentleman with history 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, mild dementia, worsening performance status in the recent past, recently diagnosed lung mass which was positive with PET scan - patient and family had declined any further therapy or intervention for this, carotid stenosis, diabetes, moderate COPD, morbid obesity with obesity hypoventilation syndrome, autonomic dysfunction related diabetes, significant urinary retention and constipation history, ischemic heart disease with previous drug-eluting stent, now comes in with a new onset stroke with ongoing myocardial ischemia * Worsening hypoxemic and hypercarbic respiratory failure due to multiple problems as noted above and below * NEw stroke with active myocardial ischemia * CKD with worsening renal failure with anemia etc * REcent influenza * Increasing lung mass now moderate pleural effusion with mediastinal and hilar lymphadenopathy with clinical evidence suggestive of lymphangitic spread in the right side with a small pericardial effusion. This is highly suggestive and consistent with advancing lung cancer. Patient had actively declined any intervention and patient's son who is his power of body team member wants him to only have symptomatic therapy if he has lung cancer. Unfortunately patient doesn't seem to be a great candidate for invasive workup and therapy aswell * No clinical evidence suggestive of significant pulmonary embolism or lower extremity DVT. VQ scan is indeterminate due to significantly abnormal x-ray * Dementia with previous stroke, now with recurrent stroke with worsening mental status * Tracheomalacia * Ischemic heart disease with previous stent, hypertension, diabetes with ongoing ischemia * Chronic obesity hypoventilation syndrome with obstructive and central sleep apnea. Patient is not compliant with CPAP at bedtime. * Autonomic dysfunction from diabetes * History of Constipation and previous urinary retention RECOMMENDATION * Patient is showing obvious deterioration with high risk for aspiration and he has been on very high amount of oxygen. I did discuss overall goals of care with his son. Son does not wish further aggressive therapy. Patient is not a candidate for BiPAP. We will continue nasal cannula at the current oxygen level. We will not institute any full facemask or Ventimask etc. and patient is not a candidate for BiPAP. If he gets worse than he should be made Comfort Care. These wishes to the sun. If the patient were to deteriorate further then we need to consider inpatient hospice * Continue current therapy, no ICU transfer * prn nebs * DVT prophylaxis * Antiplatelet therapy We will follow
[2016-10-31 16:43] VITALS: BP 133/57
--- NOTE | 2016-10-31 19:18 | RADIOLOGY REPORT ---
EXAMINATION: XR PORTABLE CHEST CLINICAL INFORMATION: Shortness of breath. COMPARISON: 10/30/2016 TECHNIQUE: Portable AP view of the chest was obtained. FINDINGS: Cardiac leads overlie the chest. Low lung volumes. Moderate right pleural effusion has increased since the prior study. There is associated airspace opacity. The left lung is grossly clear. No pneumothorax. The cardiomediastinal silhouette is unchanged, with a calcified aorta. IMPRESSION: Increased moderate right pleural effusion with associated airspace opacity.
--- NOTE | 2016-10-31 19:50 | Event Note ---
Event Note Event Note: Notified by nursing that patient had agonal breathing. On examination, patient continued to have rhonchi most prominent in right lung and continued to be tachypneic with agonal breaths. O2 saturation at this time was around 85% and BP 120/60. IV lasix 20 mg given x 1 for worsening respiratory status and apparent fluid overload; IV fluids stopped for now. Daughter at bedside and the clinical condition and prognosis discussed thoroughly with her. We again discussed code status and possible switch to comfort. She has attempted to call her brothers to discuss switching patient to comfort but was unable to reach them. Her decision would be to provide maximal amount of comfort with medications such as morphine, however she wants to discuss this over with her brothers so a group consensus is made. She reports that if she is unable to reach them, she will likely switch to making the patient more comfortable later this evening. Night team has been made aware of these events and will be made available should his daughter wish to adjust code status.
--- NOTE | 2016-10-31 21:15 | Event Note ---
Event Note Event Note: This evening, around 8:45 PM, Dr. Root and I had a family meeting regarding goals of care with patient's son Albin (POA), son Sp, daughter Anaid. The day team had informed the family of Mr. Bearden's decline and prognosis. After a detailed discussion with the family, they want to change his CODE STATUS to comfort measures only. They would like a hospice evaluation in the morning. For now, they have agreed to morphine, Ativan and scopolamine patch in conjunction with his other meds. They've also requested that we continue the nasal cannula. They are not interested in high flow oxygen, BiPAP, etc. They understand that their father's prognosis is poor and he is critically ill. All questions were answered and all concerns were addressed. Patient's CODE STATUS was changed to comfort measures only in the EMR by me; the above-mentioned medications were added. The patient will receive an official hospice consult in the morning.
--- NOTE | 2016-10-31 21:16 | NUR ---
PT IS DROWSY/AROUSABLE AND IN RESPIRATORY DECLINE; DR CONCEPCION AND MARTHA TALKED WITH PTS FAMILY WHERE THEY DECIDED TO PLACE PT ON COMFORT CARE; FIRE PREVENTION CAPTAIN D/C'D AND MEDICATIONS HELD
--- NOTE | 2016-10-31 22:33 | NUR ---
NURSING NOTE: PT ARRIVED TO 2NA VIA STRETCHER @ 2205. DROWSY/AROUSABLE. APPEARS TO BE ORIENTED X2. SON, KEATON, AT BEDSIDE. PATIENT ASSESSMENT COMPLETED. 6L NC IN PLACE. PT & SON ORIENTED TO ROOM, STAFF, AND CALL ARMENTA. RN WILL CONTINUE TO MONITOR.
[2016-10-31 22:35] VITALS: BP 148/64
--- NOTE | 2016-11-01 07:23 | PN- Housestaff ---
Subjective Follow-up For: CVA Lung cancer Acute on chronic renal dysfunction Subjective: Patient was seen and examined this morning, he was anxious and agitated throughout the night and was received 1 mg of IV Ativan at 6 AM. Patient remained obtunded with minimal response to pain stimulus. Vital signs are stable, he is on 6 L nasal cannula 94%. Patient is using accessory muscles and abdominal breathing, he is in acute respiratory distress. A family meeting for goal of care was held last night, patient CODE STATUS was changed to comfort measures and waiting for hospice evaluation today. Review of Systems Constitutional: Reports: see HPI. Objective Last 24 Hrs of Vital Signs/I&O Vital Signs Date Time Temp Pulse Resp B/P Pulse O2 O2 Flow FiO2 Ox Delivery Rate 11/01 1401 98.2 61 20 140/64 94 Nasal 6.0L Cannula 11/01 0804 Nasal 6.0L Cannula 11/01 0800 Nasal 6.0L Cannula 11/01 0729 99.0 64 18 148/58 95 Nasal 6.0L Cannula 11/01 0000 Nasal 6.0L Cannula 10/31 2235 99.5 68 18 148/64 95 Nasal 6.0L Cannula 10/31 1823 89 Nasal 6.0L Cannula 10/31 1643 97.3 64 18 133/57 94 Nasal 6.0L Cannula Intake & Output 11/01 1600 11/01 0800 11/01 0000 Intake Total 120 0 Output Total Balance 120 0 Intake, IV 0 Intake, Oral 120 0 Physical Exam General Appearance: Moderate Distress Skin: right eye ecchymosis Cardiovascular: Regular Rate, Normal S1, Normal S2 Lungs: decreased air entery bilaterally with diffuse wheeze Abdomen: Normal Bowel Sounds, Soft Extremities: No Clubbing, No Cyanosis, No Edema, Normal Pulses Assessment/Plan Assessment: Mr. Bearden is an 86 year old gentleman with PMH significant for CVA x 2, CAD s/p stenting, aortic stenosis, HTN, CKD stage 4, T2DM, COPD, PRIYANKA on CPAP, GERD, prostate cancer, right carotid stenosis s/p carotid endarterectomy, cataract, normocytic anemia and lung mass/cancer who presented after unwitnessed fall resulting in head and right abdomen strike. Patient denied any preceding pre-syncopal type symptoms, though he is unsure of the events that led up to the fall. CXR was done and showed increase in right lower lobe airpsace disease suspicious for pneumonia. Small right pleural effusion. Head CT was done adn showed new, acute infarct in left parietal lobe without underlying bleed. It also showed chronic small vessel ischemic changes in both cerebral hemispheres with mild cerebral atrophy. Last echocardiogram done was in May of 2016 and showed EF 60% with impaired LV relaxation. EEG in 2016 showed abnormal generalized slowing of background rhythm. Patient was transferred to [facility] floor overnight for hospice evaluation: -The patient is currently comfort care -We stopped all the medication, will continue morphine for respiratory distress, Ativan for anxiety and agitation and scopolamine patches for excessive respiratory suction secretions -Continue IV nasal cannula 6 L -Hospice evaluation today Problem List: 1. Lung malignancy Pain Ratin Pain Location: N/A Pain Goal: Remain pain free Pain Plan: Morphine IV 2 mg every 3 Ativan 1 mg every 4 Tomorrow's Labs & Rationales: N/A Consulting Request: Consulting Specialty: Pulmonary Disease
--- NOTE | 2016-11-01 07:25 | Discharge Summary ---
Visit Information Visit Dates Admission Date: 10/25/16 Discharge Date: 11/02/16 Hospital Course Course Attending Physician: GRACE COCHRAN MD Primary Care Physician: ISAAC MAYERS MD Consulting Request: 1 Consulting Specialty: Pulmonary Disease Consulting Physician: Dr. Booth Reason for Consult: Lung cancer and COPD with worsening respiratory status Consulting Request: 2 Consulting Specialty: Cardiology Consulting Physician: Dr. Canada Reason for Consult: Type 2 MS Hospital Course: Mr. Bearden is an 86 year old gentleman with PMH significant for CVA x 2, CAD s/p stenting, aortic stenosis, HTN, CKD stage 4, T2DM, COPD, PRIYANKA on CPAP, GERD, prostate cancer, right carotid stenosis s/p carotid endarterectomy, cataract, normocytic anemia and lung mass/cancer who presented s/p fall. This was an unwitnessed fall resulting in head and right abdomen strike. Patient denied any preceding pre-syncopal type symptoms, though he was unsure of the events that led up to the fall. In the ED: Vital signs showed T 97.4, HR 61, RR 18, BP 122/72 and O2 saturation of 95% on RA. Labs showed normal WBC to 7, normocytic anemia to 9.7/28.6, plt 163, and normal BEP except for BUN/cre 50/2.6 (baseline). Corrected Ca was 8.6 with low albumin to 2.7. Alk phos 158. CXR was done and showed increase in right lower lobe airpsace disease suspicious for pneumonia. Small right pleural effusion. Head CT was done adn showed new, acute infarct in left parietal lobe without underlying bleed. It also showed chronic small vessel ischemic changes in both cerebral hemispheres with mild cerebral atrophy. Last echocardiogram done was in May of 2016 and showed EF 60% with impaired LV relaxation. EEG in 2016 showed abnormal generalized slowing of background rhythm. Patient was admitted to the telemetry floor and the following was the management : 1. Acute CVA, left parietal lobe: Patient was admitted after a fall at home and head CT was obtained due to injury to left periorbital region after head strike. CT showed acute left parietal ischemic infarct. Patient was noted to have no neurological deficits, though testing of his right upper extremity was limited secondary to right shoulder rotator cuff pathology. Patient was continued on his aspirin, plavix and high dose statin. Neurology consult was obtained and further workup purused with echocardiogram and carotid doppler. Echo showed hyperdynamic EF to 80% with impaired LV relaxation, mild LVH, mild RV enlargement and a small pericardial effusion without tamponade. Carotid ultrasound showed 0-49% stenosis of the right carotid, hemodynamically significant 50-79% stenosis of theleft carotid WITHOUT significant change form 07/01/17. PT, Occupational Therapy and speech therapy frequently evaluated and treated the patient to improve functionality. Patient was scheduled to follow up with neurology as an outpatient for further management. 2. Lung cancer in the setting of COPD: Patient was noted to by dyspneic on presentation and respiratory status was noted to progressively decline during his stay. Pulmonology consult with Dr. Booth was obtained. Chest Xray was suggestive of possible pneumonia, however antibiotics were not started due to no leukocytosis or fever. Symptomatic management with nebulizers and mucinex added to his treatment along with singulair 10mg PO at bedtime. Patient was also intermittently given IV lasix due to fluid overload, without much improvement in his respiratory status. Due to clinical decline and poor prognosis in the setting of lung malignancy, family meeting resulted in a change of code status to comfort care. Patient was at this time trasnferred to the general medicine for comfort management and hospice evaluation. 3. Elevated troponins: Patient reported chest pain a few days into his stay on the telemetry floor. Cardiac enzymes were noted to be elevated to 0.71 without EKG changes. Cardiology consult with Dr. Canada was obtained and elevated troponins considered secondary to demand ischemia. However, D-Dimer was obtained due to differential including PE, and with high result of >5250, a V/Q scan was performed (abnormal renal function). V/Q scan showed moderate probability of PE. Due to ischemic stroke and only moderate probability that may have been skewed due to underling lung malignancy, anticoagulation was not given so as not to turn an ischemic stroke into hemorrhagic. Cardiology follow up after discharge was important for after discharge. 4. Acute on chronic CKD stage 4: Patient noted to have baseline creatinine of around 2.6. HIs creatinine slowly trended up during his stay despite adequate hydration and witholding nephrotoxic medications. Consideration was for cardiorenal syndrome, however creatinine continued to worsen as diuresis continued. Nephrology consult was considered, however with family decision to start comfort care and consider hospice evaluation, this was not obtained. 5. HTN, HLD: Patient was continued on coreg 25 mg PO BID, gemfibrozil 600 mg PO BID and norvasc 5 mg PO daily. Lisinopril 20 mg PO QAM held due to worsening renal function. Due to an episode of NSVT, amiodarone was added and continued at 200 mg PO daily. 6. Prostate cancer: Flomax and ditropan continued during his stay. 7. Type 2 DM: Patient was placed on a novolog sliding scale and his home dose of levemir on admission. Patient had a few episodes of hypoglycemia and concern was for retention of insulin in the setting of worsening CKD. His levemir was ultimately discontinued and patient was placed only on a low dose novolog sliding scale. 8. Code: Patient was initially DNR/DNI but due to progressive decline in clinical condition, family ultimately decided to transition to comfort care. Hospice evaluation was obtained on 11/01/16. The patient was transferred to hospice surfaces on 11/02/16. We stopped all the medication except for morphine for respiratory distress, Ativan for anxiety and agitation and scopolamine patches for excessive respiratory secretions and nasal cannula 6 L oxygen. 9. DVT Prophylaxis: Heparin SC Allergies: Coded Allergies: NO KNOWN ALLERGIES (05/15/16) Significant Procedures: Head CT: IMPRESSION: New acute infarct left parietal lobe without underlying bleed. Chronic small vessel ischemic changes in both cerebral hemispheres with mild cerebral atrophy. Carotid Doppler: IMPRESSION: 1. RIGHT: Minimal, nonhemodynamically significant stenosis of the proximal right internal carotid artery corresponding to a 0-49% stenosis by velocity criteria. 2. LEFT: Moderate, hemodynamically significant stenosis of the proximal left internal carotid artery corresponding to a 50-79% stenosis by velocity criteria. 3. No significant change from 07/01/2016. Echo: CONCLUSIONS 1. Hyperdynamic EF of 80% with impaired LV relaxation. 2. Mild left ventricular hypertrophy. 3. Mild right ventricular enlargement. 4. Trace tricuspid regurgitation. 5. Small pericardial effusion without tamponade physiology. Lung V/Q Scan: IMPRESSION: Ventilation-perfusion scintigraphy findings indicate intermediate likelihood (25-30% likelihood) of pulmonary embolism. Venous Doppler: IMPRESSION: No evidence for right upper extremity deep vein thrombosis. Renal US: IMPRESSION: 1. There is a 4 mm nonobstructing left renal calculus. No right renal calculus is seen. There is no hydronephrosis bilaterally. 2. A small right renal simple cyst is incidentally noted. 3. There is bilateral renal cortical thinning. Disposition Summary Disposition Principal Diagnosis: Acute CVA, left parietal lobe Lung cancer Type 2 MS Additional Diagnosis: COPD Acute on chronic CKD stage 4 Normocytic anemia HTN HLD Prostate cancer Type 2 DM Discharge Disposition: hospice - medical facilit Discharge Instructions General Discharge Information Code Status: Hospice Patient's Diet: Initially consistent carbohydrate 3 transitioned to NPO status after patient failed swallow evaluation. Patient's Activity: Self-limited, as tolerated. Follow-Up Instructions/Appts: Please follow up with your PCP within 1 week of discharge. Please follow up with your juice tester Dr. Canada within 1 week of discharge. Please follow up with your demolition worker Dr. Booth within 1 week of discharge. Please take all medications as directed. Please follow up with Dr. Ackerman, neurology, as needed. Medications at Discharge Discharge Medications: Stop taking the following medications: Insulin Detemir (Levemir) 100 UNIT/ML VIAL Inject into fatty tissue TWICE DAILY Qty = 30 Continue taking these medications: Lisinopril (Lisinopril) 10 MG TABLET 2 Tablet ORAL Every Morning Days = 30 Comments: Last Taken: 10/21/16 Time: 9:00 AM Atorvastatin Calcium (Atorvastatin Calcium) 80 MG TABLET 1 Tablet ORAL 5 PM Comments: Last Taken: 10/20/16 Time: 5:00 PM Fluticasone/Vilanterol (Breo Ellipta 100-25 Mcg INH) 100 MCG-25 MCG/DOSE BLST.W.DEV 1 PUFF Inhale through mouth TWICE DAILY Comments: NOT GIVEN IN HOSPITAL Tamsulosin HCl (Flomax) 0.4 MG CAP.ER.24H 1 Capsule ORAL 5 PM Comments: Last Taken: 10/20/16 Time: 5:00 PM Allopurinol (Allopurinol) 100 MG TABLET 1 Tablet ORAL 0900 Comments: Last Taken: 10/21/16 Time: 9:00 AM Aspirin (Aspirin*) 325 MG TABLET 1 Tablet ORAL 5 PM Comments: Last Taken: 10/20/16 Time: 5:00 PM Amlodipine Besylate (Amlodipine Besylate) 5 MG TABLET 1 Tablet ORAL DAILY Qty = 90 Comments: Last Taken: 10/21/16 Time: 9:00 AM Albuterol Sulfate (Albuterol Sulfate) 1.25 MG/3 ML VIAL.NEB 1 Vial Inhale Solution EVERY 4-6 HOURS as needed for SOB Comments: Last Taken: 10/21/16 Time: 8:00 AM Carvedilol (Carvedilol) 25 MG TABLET 1 Tablet ORAL TWICE DAILY Comments: Last Taken: 10/21/16 Time: 9:00 AM Diclofenac Sodium (Voltaren) 1 % GEL..GRAM. 1 Gram On the skin 4 TIMES A DAY Instructions: apply to affected area(s) Comments: Last Taken: 10/21/16 Time: 9:00 AM Ergocalciferol (Vitamin D2) (Vitamin D2) 50,000 UNIT CAPSULE 50,000 Units ORAL WEEKLY MONDAY Comments: NOT GIVEN IN HOSPITAL Escitalopram Oxalate (Lexapro) 20 MG TABLET 1 Tablet ORAL DAILY Comments: Last Taken: 10/21/16 Time: 9:00 AM Gemfibrozil (Gemfibrozil) 600 MG TABLET 1 Tablet ORAL TWICE DAILY Comments: Last Taken: 10/21/16 Time: 9:00 AM Polyethylene Glycol 3350 (Miralax) 17 GRAM POWD.PACK 1 Packet ORAL DAILY Instructions: dissolve in water Comments: Last Taken: 10/19/16 Time: 9:00 AM Clopidogrel Bisulfate (Clopidogrel) 75 MG TABLET 1 Tablet ORAL DAILY Days = 30 Comments: Last Taken: 10/21/16 Time: 9:00 AM Montelukast Sodium (Singulair) 10 MG TABLET 1 Tablet ORAL DAILY Days = 30 Comments: NOT GIVEN IN HOSPITAL Mirabegron (Myrbetriq) 50 MG TAB.ER.24H 1 Tablet ORAL DAILY Qty = 30 Comments: PER PT Oxybutynin Chloride (Oxybutynin Chloride) 5 MG TABLET 1 Tablet ORAL DAILY Qty = 30 Comments: PER PT Fluorometholone (FML) 0.1 % DROPS.SUSP 1 Drop In the eye THREE TIMES DAILY Qty = 15 Comments: PER PT Ketoconazole (Nizoral) 2 % SHAMPOO 1 Application On the skin DAILY Qty = 120 Comments: PER PT SON Albuterol Sulfate (Proair Hfa) 90 MCG HFA.AER.AD 2 Puff Inhale through mouth EVERY 4-6 HOURS NEEDED as needed for RESPIRATORY Qty = 9 Comments: PER PT SON Start taking the following new medications: Amiodarone HCl (Amiodarone HCl) 200 MG TABLET 400 Milligram ORAL TWICE DAILY Qty = 60 No Refills Nitroglycerin (Nitro-Bid) 2 % OINT...G. 0.5 Gram On the skin EVERY SIX HOURS as needed for Chest pain Qty = 1 No Refills Guaifenesin (Mucinex) 600 MG TAB.ER.12H 1 Tablet ORAL TWICE DAILY Qty = 20 No Refills Copies To: PENELOPE CERRATO,KEVIN Aquino; POLY CERRATO,OFE Arellano; RAMAKRISHNA CERRATO PhD,ITZEL Arellano Attending MD Review Statement Documenting Attending: CHEYANNE NATHAN M.D Other Findings: I have reviewed the discharge summary.
[2016-11-01 07:29] VITALS: BP 148/58
--- NOTE | 2016-11-01 08:12 | NUR ---
OCCUPATIONAL THERAPY NOTE: OCCUPATIONAL THERAPY ON HOLD. PT'S STATUS CHANGED TO COMFORT CARE. OT IS NOT APPROPRIATE SERVICE AT THIS TIME. THANK YOU. AISHA
--- NOTE | 2016-11-01 10:29 | NUR ---
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 Will discontinue skilled PT at this time. Thank you.
--- NOTE | 2016-11-01 11:17 | NUR ---
[facility] HERE TO SPEAK WITH SON KEATON. CALLED SPIRITUAL CARE TO SPEAK WITH PT'S SON TO AID WITH COPING. EMOTIONAL SUPPORT GIVEN.
--- NOTE | 2016-11-01 13:11 | PN- Att Addend ---
Attending Addendum Attending Brief Note Patient's mental status deteriorated further yesterday despite withholding sedatives. He became markedly obtunded. Following discussion with the family goals of care has been changed comfort measures only. Patient seen and examined. Obtunded, not responding to tactile vocal similarly. Labored breathing. Vital Signs Date Time Temp Pulse Resp B/P Pulse O2 O2 Flow FiO2 Ox Delivery Rate 11/01 0804 Nasal 6.0L Cannula 11/01 0800 Nasal 6.0L Cannula 11/01 0729 99.0 64 18 148/58 95 Nasal 6.0L Cannula 11/01 0000 Nasal 6.0L Cannula 10/31 2235 99.5 68 18 148/64 95 Nasal 6.0L Cannula 10/31 1823 89 Nasal 6.0L Cannula 10/31 1643 97.3 64 18 133/57 94 Nasal 6.0L Cannula 10/31 1600 Nasal 6.0L Cannula Gen. appearance: Elderly male, labored breathing. Heart: S1 and S2 regular Lungs: Mild rhonchi bilaterally. Abdomen: Soft, nontender with normal bowel sounds Extremities no rash. Problems: 1. Lung cancer 2. Acute stroke 3. Non-ST elevation [place] 4. Acute kidney injury with metabolic acidosis. Plan: -Comfort measures only -Hospice consultation. -Continue morphine for respiratory distress, scopolamine patch for secretion control and Ativan for any agitation
[2016-11-01 14:01] VITALS: BP 140/64
[2016-11-02 06:30] VITALS: BP 108/40
--- NOTE | 2016-11-02 07:13 | PN- Housestaff ---
Subjective Follow-up For: CVA Lung cancer Acute on chronic renal dysfunction Subjective: The patient was seen and examined this morning, he is unresponsive to pain stimulus, not in respiratory distress. The patient's family is in disagree with hospice care. We will continue the current managment as comfort care and will follow up with the family. No overnight event reported by the nurse. Vital signs temperature 100.6, pulse 80, blood pressure 108/40, aspiration 20 on 6 L with saturation 91% Review of Systems Constitutional: Reports: see HPI. Objective Last 24 Hrs of Vital Signs/I&O Vital Signs Date Time Temp Pulse Resp B/P Pulse O2 O2 Flow FiO2 Ox Delivery Rate 11/02 1336 91 Nasal 6.0L Cannula 11/02 0800 Nasal 6.0L Cannula 11/02 0630 100.6 80 20 108/40 91 Nasal 6.0L Cannula 11/02 0000 Nasal 6.0L Cannula 11/01 2030 Nasal 3.0L Cannula 11/01 1600 Nasal 6.0L Cannula Intake & Output 11/02 1600 11/02 0811/02 0000 Intake Total 0 Output Total 0 Balance 0 Intake, Oral 0 Output, Urine 0 Physical Exam General Appearance: No Acute Distress Skin: bruse around right eye Cardiovascular: Regular Rate, Normal S1, Normal S2 Lungs: dcrease air entery, ronchi Abdomen: Normal Bowel Sounds, Soft Extremities: No Edema, Normal Pulses Assessment/Plan Assessment: Mr. Bearden is an 86 year old gentleman with PMH significant for CVA x 2, CAD s/p stenting, aortic stenosis, HTN, CKD stage 4, T2DM, COPD, PRIYANKA on CPAP, GERD, prostate cancer, right carotid stenosis s/p carotid endarterectomy, cataract, normocytic anemia and lung mass/cancer who presented after unwitnessed fall resulting in head and right abdomen strike. Patient denied any preceding pre-syncopal type symptoms, though he is unsure of the events that led up to the fall. CXR was done and showed increase in right lower lobe airpsace disease suspicious for pneumonia. Small right pleural effusion. Head CT was done adn showed new, acute infarct in left parietal lobe without underlying bleed. It also showed chronic small vessel ischemic changes in both cerebral hemispheres with mild cerebral atrophy. Last echocardiogram done was in May of 2016 and showed EF 60% with impaired LV relaxation. EEG in 2016 showed abnormal generalized slowing of background rhythm. Plan: -The patient is currently comfort care -Continue morphine for respiratory distress, Ativan for anxiety and agitation and scopolamine patches for excessive respiratory suction secretions -Continue IV nasal cannula 6 L -Hospice evaluation, patient's family was in disagreement regarding hospice care yesterday, eventually he was transferred to hospice surfaces this afternoon. Problem List: 1. Lung malignancy 2. CVA (cerebral vascular accident) Pain Ratin Pain Location: N/A Pain Goal: Remain pain free Pain Plan: see medication Tomorrow's Labs & Rationales: NONE Consulting Request: Consulting Specialty: Cardiology Consulting Physician: Dr. Canada Reason for Consult: Type 2 MO
--- NOTE | 2016-11-02 12:40 | PN- Att Addend ---
Attending Addendum Attending Brief Note Patient seen and examined. Unresponsive to tactile or verbal stimuli. Not in any obvious respiratory distress. Hospice consult was placed yesterday and the hospice warehouse representative met with the family. Apparently it patient's son who is present at the bedside is in agreement with placing the patient on hospice however his sister continues to struggle with the notion despite discussion with the hospitalist team. She does agree for patient to continue on comfort measures only. Son is okay with this plan. Vital Signs Date Time Temp Pulse Resp B/P Pulse O2 O2 Flow FiO2 Ox Delivery Rate 11/02 0630 100.6 80 20 108/40 91 Nasal 6.0L Cannula 11/02 0000 Nasal 6.0L Cannula 11/01 2030 Nasal 3.0L Cannula 11/01 1600 Nasal 6.0L Cannula 11/01 1401 98.2 61 20 140/64 94 Nasal 6.0L Cannula Gen. appearance: Well-developed, not in acute distress Heart: S1-S2 regular Lungs: Diminished breath sounds bilaterally Abdomen: Soft nontender Extremities: Right upper extremity swelling. Current Medications Sig/Reyna Start time Last Medication Dose Route Stop Time Status Admin Acetaminophen 650 MG ONCE ONE 11/02 0630 DC ID 11/02 0631 Lorazepam 1 MG Q4P PRN 10/31 2115 11/02 IV 0915 Morphine Sulfate 2 MG Q3P PRN 11/01 1445 AC 11/02 IV 0916 Morphine Sulfate 1 MG Q4P PRN 10/31 2115 DC 11/01 IV 0845 Patient Medication 1 ED .STK-MED ONE 11/01 1416 DC Teaching ED 11/01 1417 Scopolamine HBr 1 PAT Q72H 10/31 2114 10/31 TOP 2311 Problems: 1. Lung cancer. 2. Acute stroke 3. Non-ST elevation MD 4. Acute kidney injury Plan: -Continue comfort measures only with current medication regimen. -Hospice service to follow-up with the patient's family again. -Notify patient's alarm signaler to assist in discussions with the daughter.
== END 2016-11-02 13:45 | disposition hospice, home (50) | DRG 64 ==
LOC: ERH 11:57 → ERHI 14:48 → 1NO 14:48 → 2NA 14:48 → 1NO 17:05 → 2NA 10-31 22:07
PROVIDERS: Emergency Medicine; Preventive Medicine Public Health & General Preventive Medicine; Student in an Organized Health Care Education/Training Program; ADMIT Internal Medicine
DX: I63.9 Cerebral infarction, unspecified (principal); J96.01 Acute respiratory failure with hypoxia; I21.4 Non-ST elevation (NSTEMI) myocardial infarction; E87.4 Mixed disorder of acid-base balance; C34.90 Malignant neoplasm of unspecified part of unspecified bronchus or lung; N18.4 Chronic kidney disease, stage 4 (severe); J44.9 Chronic obstructive pulmonary disease, unspecified; I12.9 Hypertensive chronic kidney disease with stage 1 through stage 4 chronic kidney disease, or unspecified chronic kidney disease; D64.9 Anemia, unspecified; E66.2 Morbid (severe) obesity with alveolar hypoventilation; Z68.34 Body mass index [BMI] 34.0-34.9, adult; Z51.5 Encounter for palliative care; E78.5 Hyperlipidemia, unspecified; C61 Malignant neoplasm of prostate; I35.0 Nonrheumatic aortic (valve) stenosis; I25.10 Atherosclerotic heart disease of native coronary artery without angina pectoris; Z95.5 Presence of coronary angioplasty implant and graft; E11.9 Type 2 diabetes mellitus without complications; G47.33 Obstructive sleep apnea (adult) (pediatric); K21.9 Gastro-esophageal reflux disease without esophagitis; Z79.4 Long term (current) use of insulin
CPT/HCPCS: 1NSP; 2NAP; 84133; 84300; 36415; 76775; 78582; 81001; 82436; 82570; 87040; 87070; 87086; 87804; 87804-59; 93005; 93010; 93306; 93970; 94799; 97110-GO; 97162-GP; 97166-GO; 97530-GO; A9540; A9558; J0456; J0696; J1644; J1940; J2270; J2405; J3490; J7042; J7060

== ENCOUNTER 2016-11-02 13:45 | Inpatient (IN) | payer OTHER ==
[~2016-11-02 13:45] MED LIST changes: +FML5 ML OPH; +NIZORAL120 ML TOP; +PROAIR HFA8.5 GM INH
--- NOTE | 2016-11-02 15:53 | History & Physical ---
General Information and HPI Chief Complaint: Admit to hospice Source of Information: old records Exam Limitations: not alert/orientated, clinical condition Associated Symptoms: tracheal congestion History of Present Illness: Mr. Bearden is an 86 year old gentleman with PMH significant for CVA x 2, CAD s/p stenting, aortic stenosis, HTN, CKD stage 4, T2DM, COPD, PRIYANKA on CPAP, GERD, prostate cancer, right carotid stenosis s/p carotid endarterectomy, cataract, normocytic anemia and lung mass/cancer who presented s/p fall. This was an unwitnessed fall resulting in head and right abdomen strike. Head CT was done and showed new, acute infarct in left parietal lobe without underlying bleed. Pt. also sustained NSTEMI, acute on chronic kidney disease, stage 4, and has lung mass presumed to be cancerous, in setting of COPD. He has been confused and lethargic and Pt. family ultimately decided on hospice care for pt. due to his progressive decline. Allergies/Medications Allergies: Coded Allergies: NO KNOWN ALLERGIES (05/15/16) Past History Medical History Neurological: CVA (CVA 2009, seen on MRI, see EMR), syncope thought d/t orthostasis 2009 (see EMR) EENT: cataracts, glaucoma, low vision Cardiovascular: aortic stenosis, CAD, hypertension, hyperlipidemia, carotid atherosclerosis, followed by Dr Cassidy since 2009 adm Respiratory: COPD, obstructive sleep apnea, pneumonia, USES CPAP Gastrointestinal: GERD Hepatic: NONE Renal: chronic kidney disease Musculoskeletal: degen joint disease, arthritis Psychiatric: depression Endocrine: diabetes, hypoglycemia Blood Disorders: anemia Cancer(s): prostate cancer [employer]PUT[employer]ANT/Reproductive: NONE History of MRSA: No History of VRE: No History of CDIFF: No Tetanus Vaccine: 05/10/16 Surgical History Surgical History: BILAT KNEE REPLACEMENT CARDIAC STENT CAROTID ANGIOPLASTY carotid endarterectomy carotid endarterectomy on the right right carotid endarterectomy Past Family/Social History Psychosocial History: Lives with family Functional Ability: requires assist with ADLs and IADLs Review of Systems Review of Systems: rhonchi and tracheal congestion noted Review of Systems Constitutional: Reports: no symptoms (unresponsive). Exam & Diagnostic Data Last 24 Hrs of Vital Signs/I&O T-100.6; HR-80; RR-20; BP-108/40; O2 sat 91% on 5lnp Physical Exam General Appearance No Acute Distress, obtunded Skin eccymotic right eye and shoulder HEENT mucous membranes dry Cardiovascular Regular Rate, Normal S1, Normal S2 Lungs Normal Air Movement, rhonchi and tracheal congestion Neurological obtunded Extremities No Cyanosis, No Edema Assessment/Plan Assessment: Mr. Bearden is an 86 year old gentleman with PMH significant for CVA x 2, CAD, COPD, lung mass presumed to be cancer admitted with left parietal acute CVA, acute on chronic kidney disease who also sustained NSTEMI and became progressively obtunded and admitted to hospice level care. Plan: Continue with prn morphine for dyspnea/pain-3mg every 2 hrs as needed Increase scopolamine patch to 2 patches every 72 hours, continue prn robinul ativan 1mg every 4 hours as needed for anxiety APAP rectally prn fever
--- NOTE | 2016-11-03 13:12 | Discharge Summary ---
Visit Information Visit Dates Admission Date: 11/02/16 Discharge Date: 11/02/16 Hospital Course Course Attending Physician: CHEYANNE NATHAN M.D Primary Care Physician: ISAAC MAYERS MD [facility] Course: Mr. Bearden is an 86 year old gentleman with PMH significant for CVA x 2, CAD, COPD, lung mass presumed to be cancer admitted with left parietal acute CVA, acute on chronic kidney disease who also sustained NSTEMI and became progressively obtunded and admitted to hospice level care. He was kept comfortable with as needed morphine and ativan until he passed peacefully. Allergies: Coded Allergies: NO KNOWN ALLERGIES (05/15/16) Disposition Summary Disposition Principal Diagnosis: Acute cerebrovascular accident, left parietal, non hemorrhagic Acute on chronic kidney disease [id number] elevation myocardial infarction Additional Diagnosis: Lung Mass Discharge Disposition: Discharge Instructions General Discharge Information Code Status: Hospice Patient's Diet: N/A Patient's Activity: N/A Follow-Up Instructions/Appts: N/A Copies To: ISAAC MAYERS MD Attending MD Review Statement Documenting Attending: CHEYANNE NATHAN M.D Other Findings: I have reviewed the discharge summary.
== END 2016-11-02 15:16 | disposition expired | DRG 64 ==
LOC: 2NA 13:45
PROVIDERS: ADMIT Internal Medicine
DX: I63.9 Cerebral infarction, unspecified (principal); I21.4 Non-ST elevation (NSTEMI) myocardial infarction; N17.9 Acute kidney failure, unspecified; N18.9 Chronic kidney disease, unspecified
CPT/HCPCS: 2NAP